=== PATIENT | male | born 1965 | race American Indian/Alaskan Native ===

== ENCOUNTER 2016-09-27 14:58 | Inpatient (IN) | payer MEDICARE ==
[2016-09-27 15:21] VITALS: BMI 31.2
[2016-09-27 16:31] LABS: BASO # 0.1 K/uL (0.0-0.2); BASO % 0.9 % (0.0-2.0); CHLORIDE 94 mmol/L (98-107); EOS # 0.1 K/uL (0.0-0.7); EOS % 0.5 % (0.0-4.0); MEAN CELL VOLUME 75.7 fL (80.0-94.0); MEAN CORPUSCULAR HEMOGLOBIN 24.4 pg (27.0-31.0); MEAN CORPUSCULAR HGB CONC 32.2 g/dL (33.0-37.0); MEAN PLATELET VOLUME 8.9 fL (7.2-11.7); MONO # 0.8 K/uL (0.0-0.8); MONO % 7.3 % (0.0-10.0); POTASSIUM 4.4 mmol/L (3.6-5.2); SODIUM 135 mmol/L (132-148); WHITE BLOOD COUNT 10.5 K/uL (4.8-10.8)
[2016-09-27 16:33] LABS: GFR AFRICAN-AMERICAN > 60
[2016-09-27 16:34] LABS: ALB/GLOB RATIO 1.1 (1.0-2.1); ALKALINE PHOSPHATASE 52 U/L (38-126); ALT/SGPT 15 U/L (21-72); AST/SGOT 12 U/L (17-59); BILIRUBIN,TOTAL 0.3 mg/dL (0.2-1.3); BLOOD UREA NITROGEN 19 mg/dL (9-20); CARBON DIOXIDE 27 mmol/L (22-30); GLUCOSE,RANDOM 396 mg/dL (75-110); TOTAL PROTEIN 7.6 g/dL (6.3-8.3)
[2016-09-27 16:35] LABS: CALCIUM 8.8 mg/dl (8.6-10.4)
--- NOTE | 2016-09-27 16:36 | C.PDOC ---
History Of Present Illness 51 y/o male, whose past medical history includes diabetes, presents to the emergency department complaining of non-healing ulcer to the bottom of the left great toe "for months." Patient reports seen by his PMD and sent to the emergency department for evaluation and possible admission for amputation. He states that over the last few days his foot has become hot and more painful. Patient reports past history of similar to second digit, same foot, with amputation. Denies fever, chills, shortness of breath, dizziness, or other complaints. Time Seen by Provider: 09/27/16 15:51 Chief Complaint (Nursing): Lower Extremity Problem/Injury History Per: Patient History/Exam Limitations: no limitations Onset/Duration Of Symptoms: Days, Persistent Current Symptoms Are (Timing): Still Present Recent travel outside of the [place]: No Past Medical History Reviewed: Historical Data, Nursing Documentation, Vital Signs Vital Signs: Last Vital Signs Temp 98.4 F 09/27/16 15:28 Pulse 78 09/27/16 15:28 Resp 18 09/27/16 15:28 BP 162/90 H 09/27/16 15:28 Pulse Ox 97 09/27/16 17:35 - Medical History PMH: Diabetes, HTN, Hypercholesterolemia Other Surgeries: BACK SURGERY; AMPUTATION LEFT 2ND TOE - [facility] Procedures DETACHMENT AT LEFT 2ND TOE, COMPLETE, OPEN APPROACH (06/28/15) EXTRACTION OF LEFT FOOT SKIN, EXTERNAL APPROACH (06/28/15) INSERTION OF INFUSION DEV INTO R BASILIC VEIN, PERC APPROACH (06/28/15) ULTRASONOGRAPHY OF RIGHT UPPER EXTREMITY VEINS, GUIDANCE (06/28/15) Family History: States: No Known Family Hx - Social History Hx Tobacco Use: No Hx Alcohol Use: Yes Hx Substance Use: No - Immunization History Hx Tetanus Toxoid Vaccination: Yes Hx Influenza Vaccination: No Hx Pneumococcal Vaccination: No Review Of Systems Except As Marked, All Systems Reviewed And Found Negative. Constitutional: Negative for: Fever, Chills Respiratory: Negative for: Shortness of Breath Musculoskeletal: Positive for: Foot Pain (left) Skin: Positive for: Other (non-healing ulcer to the bottom of the left great toe ) Neurological: Negative for: Dizziness Physical Exam - Physical Exam Appears: Non-toxic, No Acute Distress Skin: Normal Color, Warm, Dry Head: Atraumatic, Normacephalic Neck: Normal, Normal ROM Chest: Symmetrical Cardiovascular: Rhythm Regular Respiratory: Normal Breath Sounds, No Rales, No Rhonchi, No Wheezing Extremity: Normal ROM, Other (left great toe, 2 cm ulcer to solar surface of the distal phalanx with swelling; tenderness, warmth, and swelling to the dorsum of the left foot) Pulses: Left Dorsalis Pedis: Normal, Right Dorsalis Pedis: Normal Neurological/Psych: Oriented x3, Normal Speech, Normal Cognition, Normal Sensation ED Course And Treatment - Laboratory Results Result Diagrams: 09/27/16 16:20 09/27/16 16:20 O2 Sat by Pulse Oximetry: 97 (ra) Pulse Ox Interpretation: Normal - Other Rad Chest X-Ray X-Ray: Viewed By Me, Read By Radiologist Interpretation: Accession No. : [id number]. Patient Name / ID : BREE CHOI / [id number]. Exam Date : 09/27/2016 16:51:04 ( Approved ). Study Comment : Sex / Age : M / 51Y. Creator : FLACA BETANCOURT MD. Dictator : FLACA BETANCOURT MD. Concrete Building Assembler : Rn Vascular : FLACA BETANCOURT MD. Approver2 : Report Date : 09/27/2016 17:28:57. My Comment : . PROCEDURE: CHEST RADIOGRAPH, 1 VIEW. HISTORY: foot infection. COMPARISON: None available. FINDINGS: LUNGS: The lungs are clear. PLEURA: No pneumothorax or pleural fluid seen. CARDIOVASCULAR: Normal. OSSEOUS STRUCTURES: No significant abnormalities. VISUALIZED UPPER ABDOMEN: Normal. OTHER FINDINGS: None. IMPRESSION: No active pulmonary disease. Foot xray X-Ray: Viewed By Me, Read By Radiologist Interpretation: Accession No. : [id number]. Patient Name / ID : BREE CHOI / [id number]. Exam Date : 09/27/2016 16:53:51 ( Approved ). Study Comment : Sex / Age : M / 51Y. Creator : FLACA BETANCOURT MD. Dictator : FLACA BETANCOURT MD. Concrete Building Assembler : Rn Vascular : FLACA BETANCOURT MD. Approver2 : Report Date : 09/27/2016 17:35:22. My Comment : . PROCEDURE: Radiographs of the left great toe. TECHNIQUE:: AP radiograph of the left foot, with oblique and lateral view of the left great toe. COMPARISON: 06/28/2015. HISTORY:: Foot infection. FINDINGS: BONES: There is surgical amputation of the distal 2nd metatarsal and 2nd toe. There is no acute fracture or bone destruction. Bone alignment and mineralization are normal. JOINTS: The joint spaces are preserved. SOFT TISSUES: There is diffuse soft tissue swelling in the great toe and the plantar ulcer. OTHER FINDINGS: None. IMPRESSION: Cellulitis in the great toe and plantar ulceration. No radiographic evidence for osteomyelitis. Progress Note: EKG, CXR, X-Ray of the Left Great Toe, and Blood Work were ordered. Patient was treated with Vancomycin IV. Random Glucose 396 - Patient treated with Insulin. Patient accepted for admission under the care of Dr. Juma Bowen. Disposition - Disposition Disposition: HOSPITALIZED Disposition Time: 17:13 Condition: FAIR - Clinical Impression Clinical Impression: Diabetic foot ulcer - PA / LITIGATION SECRETARY / Resident Statement MD/DO has reviewed & agrees with the documentation as recorded. - Scribe Statement The provider has reviewed the documentation as recorded by the Scribe (Diana Reid) All medical record entries made by the Scribe were at my direction and personally dictated by me. I have reviewed the chart and agree that the record accurately reflects my personal performance of the history, physical exam, medical decision making, and the department course for this patient. I have also personally directed, reviewed, and agree with the discharge instructions and disposition. Decision To Admit - Pt Status Changed To: Hospital Disposition Of: Inpatient - Admit Certification Admit to Inpatient:: After my assessment, the patient will require hospitalization for at least two midnights. This is because of the severity of symptoms shown, intensity of services needed, and/or the medical risk in this patient being treated as an outpatient. - InPatient: Physician Admission Certification: I certify that this patient requires 2 or more midnights of care for the following reason:: Patient will need IV antibiotics and possible surgical treatment that will take more than 2 days of hospitalization. - . Bed Request Type: Regular Patient Diagnosis: Diabetic foot ulcer
[2016-09-27 16:46] LABS: INR 1.1
[2016-09-27] MEDS ORDERED: (Novolin R) Insulin Human Regular 100 units/ml vial SC ONE (16:49)
[2016-09-27] MEDS ORDERED: (Novolin R) Insulin Human Regular 100 units/ml vial ONE (17:27)
--- NOTE | 2016-09-27 17:30 | RAD ---
PROCEDURE: CHEST RADIOGRAPH, 1 VIEW HISTORY: foot infection COMPARISON: None available. FINDINGS: LUNGS: The lungs are clear. PLEURA: No pneumothorax or pleural fluid seen. CARDIOVASCULAR: Normal. OSSEOUS STRUCTURES: No significant abnormalities. VISUALIZED UPPER ABDOMEN: Normal. OTHER FINDINGS: None. IMPRESSION: No active pulmonary disease.
--- NOTE | 2016-09-27 17:37 | RAD ---
PROCEDURE: Radiographs of the left great toe. TECHNIQUE:: AP radiograph of the left foot, with oblique and lateral view of the left great toe. COMPARISON: 06/28/2015 HISTORY:: Foot infection FINDINGS: BONES: There is surgical amputation of the distal 2nd metatarsal and 2nd toe. There is no acute fracture or bone destruction. Bone alignment and mineralization are normal. JOINTS: The joint spaces are preserved. SOFT TISSUES: There is diffuse soft tissue swelling in the great toe and the plantar ulcer. OTHER FINDINGS: None. IMPRESSION: Cellulitis in the great toe and plantar ulceration. No radiographic evidence for osteomyelitis.
[2016-09-27 19:07] VITALS: RESP 20
[2016-09-27] MEDS ORDERED: Influenza Virus Vaccine 45 mcg/0.5 ml Syr IM ONE (21:00)
[2016-09-27] MEDS ORDERED: Oxycodone/Acetaminophen 5/325 mg Tab PO PRN (21:20)
[2016-09-27] MEDS: (Lantus) Insulin Glargine, Recombinant SC SCH (22:18)
[2016-09-27] MEDS: Enoxaparin 40 mg Syringe SC SCH (22:20)
[2016-09-27] MEDS ORDERED: (Novolog) Insulin Aspart, Recombinant 100 u/ml 10 ml vial SC ONE (22:29)
[2016-09-27] MEDS ORDERED: Oxycodone/Acetaminophen 5/325 mg Tab PO ONE (22:30)
[2016-09-28] MEDS: Oxycodone/Acetaminophen 5/325 mg Tab PO PRN ×5 (02:30→22:07)
--- NOTE | 2016-09-28 07:20 | CP.PCM.PN ---
Subjective - Date & Time of Evaluation Date of Evaluation: 09/28/16 Time of Evaluation: 10:00 - Subjective Subjective: Dr. Bowen service: Patient is seen and examined in room. He report noticing a hole in his foot that never healed has he expected it to. 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 Objective - Vital Signs/Intake and Output Vital Signs (last 24 hours): Temp Pulse Resp BP Pulse Ox 98.7 F 80 20 161/88 H 96 09/27/16 23:20 09/27/16 23:20 09/27/16 23:20 09/27/16 23:20 09/27/16 23:20 Intake and Output: 09/28/16 09/28/16 06:59 18:59 Intake Total 360 Output Total 600 Balance -240 - Medications Medications: Current Medications Amlodipine Besylate (Norvasc) 10 mg PO DAILY [facility] Aspirin (Ecotrin) 81 mg PO DAILY [facility] Last Admin: 09/27/16 22:14 Dose: 81 mg Clopidogrel Bisulfate (Plavix) 75 mg PO DAILY [facility] Last Admin: 09/27/16 22:14 Dose: 75 mg Enoxaparin Sodium (Lovenox) 40 mg SC DAILY [facility] Last Admin: 09/27/16 22:20 Dose: 40 mg Famotidine (Pepcid) 20 mg PO HS [facility] Last Admin: 09/27/16 22:14 Dose: 20 mg Furosemide (Lasix) 20 mg PO DAILY [facility] Insulin Glargine (Lantus) 20 unit SC HS [facility] Last Admin: 09/27/16 22:18 Dose: 20 units Insulin Human Isoph/Insulin Regular (Novolin 70/30 (70/30 Units/Ml) 10 Ml) 60 units SC ACBD [facility] Metoprolol Tartrate (Lopressor) 25 mg PO BID [facility] Last Admin: 09/27/16 22:14 Dose: 25 mg Oxycodone/Acetaminophen (Percocet 5/325 Mg Tab) 2 tab PO Q4H PRN PRN Reason: Pain, moderate (4-7) Stop: 10/01/16 02:01 Last Admin: 09/28/16 02:30 Dose: 2 tab Pneumococcal Polyvalent Vaccine (Pneumovax 23 Vaccine) 0.5 ml IM .ONCE ONE Stop: 09/29/16 10:01 Rosuvastatin Calcium (Crestor) 10 mg PO HS [facility] Last Admin: 09/27/16 22:14 Dose: 10 mg - Labs Labs: PT 12.0 SECONDS (9.7-12.2) 09/27/16 16:20 INR 1.1 09/27/16 16:20 APTT 35 SECONDS (21-34) H 09/27/16 16:20 - Constitutional Appears: Non-toxic, No Acute Distress - Head Exam Head Exam: NORMOCEPHALIC - Eye Exam Eye Exam: Normal appearance Pupil Exam: NORMAL ACCOMODATION - Respiratory Exam Respiratory Exam: Clear to Ausculation Bilateral. absent: Rhonchi, Wheezes - Cardiovascular Exam Cardiovascular Exam: REGULAR RHYTHM, RRR, +S1, +S2. absent: Gallop, Rubs - GI/Abdominal Exam GI & Abdominal Exam: Soft, Normal Bowel Sounds. absent: Tenderness - Extremities Exam Extremities Exam: Normal Inspection - Back Exam Back Exam: NORMAL INSPECTION - Psychiatric Exam Psychiatric exam: Normal Affect, Normal Mood - Skin Skin Exam: Normal Color Assessment and Plan (1) Osteomyelitis due to type 2 diabetes mellitus Assessment & Plan: IV Vanc and Zosyn Wound culture follow up [place] consulted Podiatry consulted. Status: Acute (2) CAD (coronary artery disease) Assessment & Plan: Aspirn and Crestor and Plavix Status: Chronic (3) DM2 (diabetes mellitus, type 2) Assessment & Plan: continue home insulin accu checks and sliding scale insulin Status: Chronic (4) HTN (hypertension) Assessment & Plan: Lopressor Norvasc 10mg Status: Chronic (5) Prophylactic measure Assessment & Plan: Lovenox and pepcid Status: Acute
[2016-09-28] MEDS: (Novolin 70/30) NPH/Regular 70/30 Units/ml 10 ml vial SC SCH ×2 (07:55→17:21)
[2016-09-28] MEDS: Enoxaparin 40 mg Syringe SC SCH (09:35)
[2016-09-28] MEDS ORDERED: Influenza Virus Vaccine 45 mcg/0.5 ml Syr IM ONE (10:00)
--- NOTE | 2016-09-28 11:04 | CON ---
DATE: 09/28/2016 A 51-year-old black male known to me from prior amputation surgery about the left 2nd ray, in which ji kilpatrick did very well, seen at bedside, alert, orientated x 3. At this time, we see a malodorous ulcer on the plantar aspect of the left hallux. The infectious process has resonated to the mid-foot and to t he lower extremity; malodorous, nonpurulent. At this time, the area was debrided, culture taken, and wound cleansed at bedside with peroxide. Annemarie iting MR. Plain films negative for . Also need to check sed rate concerning potential osteomye litis. The patient will be on IV antibiotics, and MR pending. Local wound care q. 8 hours, peroxide irrigation, dry sterile dressing to left hallux. Will follow up. Potential amputation of the left hallux could be considered in the future. Kade Lockhart DPM cc: [id number] TT: 09/28/2016 11:03:58 Confirmation # [id number] Dictation # [id number] marah
[2016-09-28] MEDS: Piperacill/Tazo 3.375gm in Dex 50 ML IVPB SCH ×2 (12:25→18:35)
[2016-09-28] MEDS: Vancomycin 1 gm/NS 200 ml 200 ML IVPB SCH ×2 (12:25→23:55)
--- NOTE | 2016-09-28 14:15 | MRI ---
PROCEDURE: MRI Left Foot HISTORY: Pain. COMPARISON: None available. TECHNIQUE: Multiecho multiplanar sequences were performed through the left foot without the use of intravenous contrast. FINDINGS: BONES: There is severe marrow signal abnormality in the 1st metatarsal head. Patient status post resection of the 2nd distal metatarsal, as well as the 2nd phalangeal bones. There is marrow edema in the medial cuneiform. MUSCLES: Normal. SOFT TISSUES: Severe dorsal soft tissue swelling is observed LISFRANC LIGAMENT: Normal. PLANTAR PLATE: Normal. EXTENSOR TENDONS: Normal. FLEXOR TENDONS: Normal. OTHER FINDINGS: None. IMPRESSION: Findings suspicious for osteomyelitis of the 1st distal phalanx. Diffuse severe soft tissue swelling. Marrow edema in the medial cuneiform, nonspecific Status post resection of the 2nd distal metatarsal and 2nd phalanges.
--- NOTE | 2016-09-28 15:34 | CP.PCM.CON ---
History of Present Illness - History of Present Illness History of Present Illness: PODIATRY CONSULT NOTE Past Patient History - Past Medical History & Family History Past Medical History?: Yes - Past Social History Smoking Status: Never Smoked - CARDIAC Hx Hypercholesterolemia: Yes Hx Hypertension: Yes - ENDOCRINE/METABOLIC Hx Endocrine Disorders: Yes Hx Diabetes Mellitus Type 1: Yes - MUSCULOSKELETAL/RHEUMATOLOGICAL Hx Falls: No - PSYCHIATRIC Hx Substance Use: No - SURGICAL HISTORY Hx Surgeries: Yes (SEE COMMENT) Hx Orthopedic Surgery: Yes (AMPUTATION) Other/Comment: BACK SURGERY; AMPUTATION LEFT 2ND TOE - ANESTHESIA Hx Anesthesia: Yes Hx Anesthesia Reactions: No Hx Malignant Hyperthermia: No Has any member of the family had a problem w/ anesthesia?: No Meds Allergies/Adverse Reactions: Allergies Allergy/AdvReac Type Severity Reaction Status Date / Time No Known Allergies Allergy Verified 09/27/16 15:21 - Medications Medications: Current Medications Amlodipine Besylate (Norvasc) 10 mg PO DAILY [facility] Last Admin: 09/28/16 09:37 Dose: 10 mg Aspirin (Ecotrin) 81 mg PO DAILY [facility] Last Admin: 09/28/16 09:36 Dose: 81 mg Clopidogrel Bisulfate (Plavix) 75 mg PO DAILY [facility] Last Admin: 09/28/16 09:37 Dose: 75 mg Enoxaparin Sodium (Lovenox) 40 mg SC DAILY [facility] Last Admin: 09/28/16 09:35 Dose: 40 mg Famotidine (Pepcid) 20 mg PO HS [facility] Last Admin: 09/27/16 22:14 Dose: 20 mg Furosemide (Lasix) 20 mg PO DAILY [facility] Last Admin: 09/28/16 09:37 Dose: 20 mg Piperacillin Sod/Tazobactam Sod (Zosyn 3.375 Gm Iv Premix) 50 mls @ 100 mls/hr IVPB Q6H [facility] Last Admin: 09/28/16 12:25 Dose: 100 mls/hr Vancomycin/Sodium Chloride (Vancocin) 200 mls @ 133 mls/hr IVPB Q12H [facility] Stop: 10/03/16 11:31 Last Admin: 09/28/16 12:25 Dose: 133 mls/hr Insulin Glargine (Lantus) 20 unit SC [facility] Last Admin: 09/27/16 22:18 Dose: 20 units Insulin Human Isoph/Insulin Regular (Novolin 70/30 (70/30 Units/Ml) 10 Ml) 60 units SC ACBD [facility] Last Admin: 09/28/16 07:55 Dose: 60 units Metoprolol Tartrate (Lopressor) 25 mg PO BID [facility] Last Admin: 09/28/16 09:36 Dose: 25 mg Oxycodone/Acetaminophen (Percocet 5/325 Mg Tab) 2 tab PO Q4H PRN PRN Reason: Pain, moderate (4-7) Stop: 10/01/16 02:01 Last Admin: 09/28/16 14:28 Dose: 2 tab Pneumococcal Polyvalent Vaccine (Pneumovax 23 Vaccine) 0.5 ml IM .ONCE ONE Stop: 09/29/16 10:01 Rosuvastatin Calcium (Crestor) 10 mg PO HS [facility] Last Admin: 09/27/16 22:14 Dose: 10 mg Results - Vital Signs Recent Vital Signs: Last Vital Signs Temp 99.0 F 09/28/16 07:45 Pulse 71 09/28/16 07:45 Resp 20 09/28/16 07:45 BP 174/90 H 09/28/16 09:37 Pulse Ox 97 09/28/16 07:45 - Labs Result Diagrams: 09/27/16 16:20 09/27/16 16:20 Labs: Laboratory Results - last 24 hr 09/27/16 09/28/16 09/28/16 21:03 02:08 07:17 ESR POC Glucose (mg/dL) 412 H* 187 H 254 H C-React Prot High Sens 09/28/16 09/28/16 12:30 13:56 ESR 72 H POC Glucose (mg/dL) 313 H C-React Prot High Sens > 15.00 H Assessment & Plan - Date & Time Date: 09/28/16 Time: 15:34
--- NOTE | 2016-09-28 19:20 | CP.PCM.CON ---
History of Present Illness - History of Present Illness History of Present Illness: 51 y/o male, whose past medical history includes diabetes, presents to the emergency department complaining of non-healing ulcer to the bottom of the left great toe "for months." Patient reports seen by his PMD and sent to the emergency department for evaluation and possible admission for amputation. He states that over the last few days his foot has become hot and more painful. Patient reports past history of similar to second digit, same foot, with amputation. Denies fever, chills, ID CONSULT REQUESTED FOR ANTIBIOTIC MANAGEMENT MRI + OM Vascular studies ordered IV ANTIBIOTICS ORDERED - Medical History PMH: Diabetes, HTN, Hypercholesterolemia Other Surgeries: BACK SURGERY; AMPUTATION LEFT 2ND TOE Review of Systems - Constitutional Constitutional: absent: As Per HPI, Anorexia, Chills, Daytime Sleepiness, Excessive Sweating, Fatigue, Fever, Frequent Falls, Headache, Increased Appetite , Lethargy, Malaise, Night Sweats, Snoring, Sleep Apnea, Weight Gain, Weight Loss, Weakness, Other - EENT Eyes: absent: As Per HPI, Blind Spots, Blurred Vision, Change in Vision, Decreased Night Vision, Diplopia, Discharge, Dry Eye, Exophthalmos, Floaters, Irritation, Itchy Eyes, Loss of Peripheral Vision, Pain, Photophobia, Requires Corrective Lenses, Sees Flashes, Spots in Vision, Tunnel Vision, Other Visual Disturbances, Loss of Vision, Other Ears: absent: As Per HPI, Decreased Hearing, Ear Discharge, Ear Pain, Tinnitus, Abnormal Hearing, Disequilibrium, Dizziness, Other Nose/Mouth/Throat: absent: As Per HPI, Epistaxis, Nasal Congestion, Nasal Discharge, Nasal Obstruction, Nasal Trauma, Nose Pain, Post Nasal Drip, Sinus Pain, Sinus Pressure, Bleeding Gums, Change in Voice, Dental Pain, Dry Mouth, Dysphagia, Halitosis, Hoarsness, Lip Swelling, Mouth Lesions, Mouth Pain, Odynophagia, Sore Throat, Throat Swelling, Tongue Swelling, Facial Pain, Neck Pain, Neck Mass, Other - Cardiovascular Cardiovascular: absent: As Per HPI, Acrocyanosis, Chest Pain, Chest Pain at Rest , Chest Pain with Activity, Claudication, Diaphoresis, Dyspnea, Dyspnea on Exertion, Edema, Irregular Heart Rhythm, Pain Radiating to Arm/Neck/Jaw, Leg Edema, Leg Ulcers, Lightheadedness, Orthopnea, Palpitations, Paroxysmal Nocturnal Dyspnea, Pedal Edema, Radiating Pain, Rapid Heart Rate, Slow Heart Rate, Syncope, Other - Respiratory Respiratory: absent: As Per HPI, Cough, Dyspnea, Hemoptysis, Dyspnea on Exertion , Wheezing, Snoring, Stridor, Pain on Inspiration, Chest Congestion, Excessive Mucous Production, Change in Mucous Color, Pain with Coughing, Other - Gastrointestinal Gastrointestinal: absent: As Per HPI, Abdominal Pain, Belching, Bloating, Change in Bowel Habits, Change in Stool Character, Coffee Ground Emesis, Constipation, Cramping, Diarrhea, Dyspepsia, Dysphagia, Early Satiety, Excessive Flatus, Fecal Incontinence, Heartburn, Hematemesis, Hematochezia, Loose Stools, Melena, Nausea, Odynophagia, Temesmus, Vomiting, Other - Genitourinary Genitourinary: absent: As Per HPI, Change in Urinary Stream, Difficulty Urinating, Dysuria, Flank Pain, Hematuria, Pyuria, Nocturia, Urinary Incontinence, Urinary Frequency, Urinary Hesitance, Urinary Urgency, Voiding Freq/Small Amts, Freq UTI, Hx Renal/Bladder Calculi, Hx /Renal Surgery, Bladder Distension, Other - Musculoskeletal Musculoskeletal: As Per HPI - Integumentary Integumentary: As Per HPI, Skin Pain, Wounds - Neurological Neurological: As Per HPI, Tingling - Psychiatric Psychiatric: absent: As Per HPI, Abnormal Sleep Pattern, Anhedonia, Anxiety, Auditory Hallucinations, Behavioral Changes, Change in Appetite, Change in Libido, Confusion, Depression, Difficulty Concentrating, Hallucinations, Homicidal Ideation, Hopelessness, Irritability, Memory Loss, Mood Swings, Panic Attacks, Paranoia, Suicidal Ideation, Visual Hallucinations, Tactile Hallucinations, Other - Endocrine Endocrine: absent: As Per HPI, Change in Body Appearance, Change in Libido, Cold Intolorance, Deepening of Voice, Excessive Sweating, Fatigue, Flushing, Heat Intolorance, Increase in Ring/Shoe/Hat Size, Palpitations, Polydipsia, Polyphagia, Polyuria, Other - Hematologic/Lymphatic Hematologic: absent: As Per HPI, Easy Bleeding, Easy Bruising, Lymphadenopathy, Other Past Patient History - Past Medical History & Family History Past Medical History?: Yes - Past Social History Smoking Status: Never Smoked - CARDIAC Hx Hypercholesterolemia: Yes Hx Hypertension: Yes - ENDOCRINE/METABOLIC Hx Endocrine Disorders: Yes Hx Diabetes Mellitus Type 1: Yes - MUSCULOSKELETAL/RHEUMATOLOGICAL Hx Falls: No - PSYCHIATRIC Hx Substance Use: No - SURGICAL HISTORY Hx Surgeries: Yes (SEE COMMENT) Hx Orthopedic Surgery: Yes (AMPUTATION) Other/Comment: BACK SURGERY; AMPUTATION LEFT 2ND TOE - ANESTHESIA Hx Anesthesia: Yes Hx Anesthesia Reactions: No Hx Malignant Hyperthermia: No Has any member of the family had a problem w/ anesthesia?: No Meds Allergies/Adverse Reactions: Allergies Allergy/AdvReac Type Severity Reaction Status Date / Time No Known Allergies Allergy Verified 09/27/16 15:21 - Medications Medications: Current Medications Amlodipine Besylate (Norvasc) 10 mg PO DAILY [facility] Last Admin: 09/28/16 09:37 Dose: 10 mg Aspirin (Ecotrin) 81 mg PO DAILY [facility] Last Admin: 09/28/16 09:36 Dose: 81 mg Clopidogrel Bisulfate (Plavix) 75 mg PO DAILY [facility] Last Admin: 09/28/16 09:37 Dose: 75 mg Enoxaparin Sodium (Lovenox) 40 mg SC DAILY [facility] Last Admin: 09/28/16 09:35 Dose: 40 mg Famotidine (Pepcid) 20 mg PO HS [facility] Last Admin: 09/27/16 22:14 Dose: 20 mg Furosemide (Lasix) 20 mg PO DAILY [facility] Last Admin: 09/28/16 09:37 Dose: 20 mg Piperacillin Sod/Tazobactam Sod (Zosyn 3.375 Gm Iv Premix) 50 mls @ 100 mls/hr IVPB Q6H [facility] Last Admin: 09/28/16 18:35 Dose: 100 mls/hr Vancomycin/Sodium Chloride (Vancocin) 200 mls @ 133 mls/hr IVPB Q12H [facility] Stop: 10/03/16 11:31 Last Admin: 09/28/16 12:25 Dose: 133 mls/hr Insulin Glargine (Lantus) 20 unit SC HS [facility] Last Admin: 09/27/16 22:18 Dose: 20 units Insulin Human Isoph/Insulin Regular (Novolin 70/30 (70/30 Units/Ml) 10 Ml) 60 units SC ACBD [facility] Last Admin: 09/28/16 17:21 Dose: 60 units Metoprolol Tartrate (Lopressor) 25 mg PO BID [facility] Last Admin: 09/28/16 17:21 Dose: 25 mg Oxycodone/Acetaminophen (Percocet 5/325 Mg Tab) 2 tab PO Q4H PRN PRN Reason: Pain, moderate (4-7) Stop: 10/01/16 02:01 Last Admin: 09/28/16 17:28 Dose: 2 tab Pneumococcal Polyvalent Vaccine (Pneumovax 23 Vaccine) 0.5 ml IM .ONCE ONE Stop: 09/29/16 10:01 Rosuvastatin Calcium (Crestor) 10 mg PO HS [facility] Last Admin: 09/27/16 22:14 Dose: 10 mg Physical Exam - Constitutional Appears: Non-toxic, Chronically Ill - Head Exam Head Exam: NORMOCEPHALIC - Eye Exam Eye Exam: absent: Scleral icterus - ENT Exam ENT Exam: Mucous Membranes Dry - Neck Exam Neck exam: Negative for: Lymphadenopathy - Respiratory Exam Respiratory Exam: Decreased Breath Sounds, Rhonchi - Cardiovascular Exam Cardiovascular Exam: REGULAR RHYTHM, +S1, +S2 - GI/Abdominal Exam GI & Abdominal Exam: Diminished Bowel Sounds, Soft. absent: Tenderness - Rectal Exam Rectal Exam: Deferred - Exam Exam: NORMAL INSPECTION - Extremities Exam Extremities exam: Positive for: pedal edema, tenderness, pedal pulses present. Negative for: calf tenderness - Back Exam Back exam: absent: CVA tenderness (L), CVA tenderness (R) - Neurological Exam Neurological exam: Alert, CN II-XII Intact, Oriented x3, Reflexes Normal - Psychiatric Exam Psychiatric exam: Normal Mood - Skin Skin Exam: Dry, Intact Results - Vital Signs Recent Vital Signs: Last Vital Signs Temp 98 F 09/28/16 15:00 Pulse 71 09/28/16 15:54 Resp 20 09/28/16 15:00 BP 146/78 09/28/16 15:00 Pulse Ox 97 09/28/16 15:00 - Labs Result Diagrams: 09/29/16 07:30 09/29/16 07:30 Labs: Laboratory Results - last 24 hr 09/27/16 09/28/16 09/28/16 21:03 02:08 07:17 ESR POC Glucose (mg/dL) 412 H* 187 H 254 H C-React Prot High Sens 09/28/16 09/28/16 09/28/16 12:30 13:56 16:35 ESR 72 H POC Glucose (mg/dL) 313 H 416 H* C-React Prot High Sens > 15.00 H Assessment & Plan (1) Osteomyelitis due to type 2 diabetes mellitus Status: Acute (2) CAD (coronary artery disease) Status: Chronic (3) DM2 (diabetes mellitus, type 2) Status: Chronic - Assessment and Plan (Free Text) Assessment: await mri/bone scan/ vascular eval
[2016-09-28] MEDS: (Lantus) Insulin Glargine, Recombinant SC SCH (22:08)
[2016-09-29] MEDS: Piperacill/Tazo 3.375gm in Dex 50 ML IVPB SCH ×4 (01:35→19:00)
[2016-09-29] MEDS: Oxycodone/Acetaminophen 5/325 mg Tab PO PRN ×6 (02:18→22:30)
--- NOTE | 2016-09-29 06:34 | CARD ---
APPROVED REPORT EKG Measurement Heart [id number] <Conclusion> Normal sinus rhythm Septal infarct, age undetermined Abnormal ECG
[2016-09-29 07:47] LABS: BASO % 0.4 % (0.0-2.0); EOS # 0.1 K/uL (0.0-0.7); EOS % 0.9 % (0.0-4.0); HEMATOCRIT 37.1 % (35.0-51.0); LYMPH # 1.8 K/uL (1.0-4.3); LYMPH % 18.1 % (20.0-40.0); MEAN CELL VOLUME 75.9 fL (80.0-94.0); MEAN CORPUSCULAR HEMOGLOBIN 24.4 pg (27.0-31.0); MEAN CORPUSCULAR HGB CONC 32.1 g/dL (33.0-37.0); MEAN PLATELET VOLUME 8.5 fL (7.2-11.7); MONO % 10.6 % (0.0-10.0); RED CELL DISTRIBUTION WIDTH 14.8 % (11.5-14.5); WHITE BLOOD COUNT 9.8 K/uL (4.8-10.8)
[2016-09-29 07:58] LABS: CHLORIDE 95 mmol/L (98-107)
[2016-09-29 07:59] LABS: POTASSIUM 3.5 mmol/L (3.6-5.2); SODIUM 137 mmol/L (132-148)
[2016-09-29 08:01] LABS: ALKALINE PHOSPHATASE 43 U/L (38-126); ALT/SGPT 12 U/L (21-72); AST/SGOT 15 U/L (17-59); BILIRUBIN,TOTAL 0.3 mg/dL (0.2-1.3); BLOOD UREA NITROGEN 11 mg/dL (9-20); CARBON DIOXIDE 28 mmol/L (22-30); GFR AFRICAN-AMERICAN > 60; GLUCOSE,RANDOM 147 mg/dL (75-110); TOTAL PROTEIN 6.6 g/dL (6.3-8.3)
[2016-09-29 08:02] LABS: CALCIUM 8.2 mg/dl (8.6-10.4); MAGNESIUM 1.8 mg/dL (1.6-2.3); PHOSPHOROUS 4.5 mg/dL (2.5-4.5)
[2016-09-29] MEDS: (Novolin 70/30) NPH/Regular 70/30 Units/ml 10 ml vial SC SCH ×2 (08:11→16:30)
[2016-09-29] MEDS: Enoxaparin 40 mg Syringe SC SCH (09:53)
[2016-09-29] MEDS ORDERED: Influenza Virus Vaccine 45 mcg/0.5 ml Syr IM ONE (10:00)
[2016-09-29] MEDS ORDERED: Pneumococcal 23-Valent Vaccine IM ONE (10:00)
[2016-09-29] MEDS ORDERED: Potassium Chloride 20 mEq ER Tab PO ONE (11:11)
[2016-09-29] MEDS: Vancomycin 1 gm/NS 200 ml 200 ML IVPB SCH ×2 (11:44→22:31)
--- NOTE | 2016-09-29 13:02 | CP.PCM.PN ---
Subjective - Date & Time of Evaluation Date of Evaluation: 09/29/16 Time of Evaluation: 12:00 - Subjective Subjective: 51 y/o male patient with PMHx of diabetes was seen at bedside for non-healing ulcer to the bottom of the left great toe which according to the patient has been there for over three months. Patient denies of any pain to the area. Patient is resting comfortably in bed, NAD and AAOx3. Patient denies pedal pain at this time. Denies N/V/F/C/SOB at this time. Dressing is clean dry and intact to left foot. Objective - Vital Signs/Intake and Output Vital Signs (last 24 hours): Temp Pulse Resp BP Pulse Ox 98.4 F 69 20 143/83 98 09/29/16 08:29 09/29/16 08:32 09/29/16 08:29 09/29/16 09:53 09/29/16 08:29 Intake and Output: 09/29/16 09/29/16 06:59 18:59 Intake Total 1130 Balance 1130 - Medications Medications: Current Medications Amlodipine Besylate (Norvasc) 10 mg PO DAILY [facility] Last Admin: 09/29/16 09:53 Dose: 10 mg Aspirin (Ecotrin) 81 mg PO DAILY [facility] Last Admin: 09/29/16 09:53 Dose: 81 mg Clopidogrel Bisulfate (Plavix) 75 mg PO DAILY [facility] Last Admin: 09/29/16 09:53 Dose: 75 mg Enoxaparin Sodium (Lovenox) 40 mg SC DAILY [facility] Last Admin: 09/29/16 09:53 Dose: 40 mg Famotidine (Pepcid) 20 mg PO HS [facility] Last Admin: 09/28/16 22:07 Dose: 20 mg Furosemide (Lasix) 20 mg PO DAILY [facility] Last Admin: 09/29/16 09:53 Dose: 20 mg Piperacillin Sod/Tazobactam Sod (Zosyn 3.375 Gm Iv Premix) 50 mls @ 100 mls/hr IVPB Q6H [facility] Last Admin: 09/29/16 12:41 Dose: 100 mls/hr Vancomycin/Sodium Chloride (Vancocin) 200 mls @ 133 mls/hr IVPB Q12H [facility] Stop: 10/03/16 11:31 Last Admin: 09/29/16 11:44 Dose: 133 mls/hr Insulin Glargine (Lantus) 20 unit SC HS [facility] Last Admin: 09/28/16 22:08 Dose: 20 units Insulin Human Isoph/Insulin Regular (Novolin 70/30 (70/30 Units/Ml) 10 Ml) 60 units SC ACBD [facility]PL[facility] Last Admin: 09/29/16 08:11 Dose: 60 units Metoprolol Tartrate (Lopressor) 25 mg PO BID [facility] Last Admin: 09/29/16 09:53 Dose: 25 mg Oxycodone/Acetaminophen (Percocet 5/325 Mg Tab) 2 tab PO Q4H PRN PRN Reason: Pain, moderate (4-7) Stop: 10/01/16 02:01 Last Admin: 09/29/16 10:19 Dose: 2 tab Rosuvastatin Calcium (Crestor) 10 mg PO [facility] Last Admin: 09/28/16 22:07 Dose: 10 mg - Labs Labs: 09/29/16 07:30 09/29/16 07:30 PT 12.0 SECONDS (9.7-12.2) 09/27/16 16:20 INR 1.1 09/27/16 16:20 APTT 35 SECONDS (21-34) H 09/27/16 16:20 - Constitutional Appears: Well, Non-toxic, No Acute Distress - Extremities Exam Additional comments: DERMATOLOGIC: Open wound noted to plantar aspect of Left hallux IPJ measuring 1cm x 1cm x 0.5cm with fibrotic base. Wound edges appear macerated with 0.3cm margin. No drainage is noted. Mild erythema is noted around the ulceration site. VASCULAR: DP/PT pulses 2/4, SHOP LEAD<3 seconds, mild improving edema of the left foot, left leg circumference has returned to normal size as compared with right leg. NEUROLOGIC: Protective sensation decreased, motor function intact ORTHOPEDIC: Left foot second ray amputation - Neurological Exam Neurological Exam: Alert, Awake, Oriented x3 - Psychiatric Exam Psychiatric exam: Normal Affect, Normal Mood - Skin Skin Exam: Normal Color, Warm Assessment and Plan - Assessment and Plan (Free Text) Assessment: 49 year old male with open ulceration to Left hallux plantar IPJ Plan: Patient evaluated and treated at bedside by podiatry All the questions and concerns were adressed discussed in deetail with Dr. Diamond MRI: Left distal and proximal hallux Osteomyelitis Patients left foot cleansed with sterile saline and peroxide and dressed with gauze, kerlix, ABD, and GILL. Podiatry will continue to follow while in house.
[2016-09-29] MEDS: (Lantus) Insulin Glargine, Recombinant SC SCH (21:58)
[2016-09-30] MEDS: Piperacill/Tazo 3.375gm in Dex 50 ML IVPB SCH ×4 (00:25→18:08)
[2016-09-30] MEDS: Oxycodone/Acetaminophen 5/325 mg Tab PO PRN ×5 (02:45→21:05)
[2016-09-30] MEDS: (Novolin 70/30) NPH/Regular 70/30 Units/ml 10 ml vial SC SCH ×2 (08:32→16:30)
[2016-09-30] MEDS: Enoxaparin 40 mg Syringe SC SCH (10:36)
--- NOTE | 2016-09-30 12:03 | CP.PCM.PN ---
Subjective - Date & Time of Evaluation Date of Evaluation: 09/30/16 Time of Evaluation: 11:35 - Subjective Subjective: 51 y/o male patient with PMHx of diabetes was seen at bedside for non-healing ulcer to the bottom of the left great toe which according to the patient has been there for over three months. Dressing is clean dry and intact to left foot. Patient is resting comfortably in bed, NAD and AAOx3. Patient denies of any pain to the area. Patient denies any other pedal pain at this time. Denies N /V/F/C/SOB at this time. Objective - Vital Signs/Intake and Output Vital Signs (last 24 hours): Temp Pulse Resp BP Pulse Ox 98.2 F 66 20 158/82 H 97 09/30/16 08:00 09/30/16 08:00 09/30/16 08:00 09/30/16 10:35 09/30/16 08:00 Intake and Output: 09/30/16 09/30/16 06:59 18:59 Intake Total 1000 Balance 1000 - Medications Medications: Current Medications Amlodipine Besylate (Norvasc) 10 mg PO DAILY [facility] Last Admin: 09/30/16 10:36 Dose: 10 mg Aspirin (Ecotrin) 81 mg PO DAILY [facility] Last Admin: 09/30/16 10:35 Dose: 81 mg Clopidogrel Bisulfate (Plavix) 75 mg PO DAILY [facility] Last Admin: 09/30/16 10:35 Dose: 75 mg Enoxaparin Sodium (Lovenox) 40 mg SC DAILY [facility] Last Admin: 09/30/16 10:36 Dose: 40 mg Famotidine (Pepcid) 20 mg PO HS [facility] Last Admin: 09/29/16 22:04 Dose: 20 mg Furosemide (Lasix) 20 mg PO DAILY [facility] Last Admin: 09/30/16 10:35 Dose: 20 mg Piperacillin Sod/Tazobactam Sod (Zosyn 3.375 Gm Iv Premix) 50 mls @ 100 mls/hr IVPB Q6H [facility] Last Admin: 09/30/16 06:30 Dose: 100 mls/hr Vancomycin/Sodium Chloride (Vancocin) 200 mls @ 133 mls/hr IVPB Q12H [facility] Stop: 10/03/16 11:31 Last Admin: 09/29/16 22:31 Dose: 133 mls/hr Insulin Glargine (Lantus) 20 unit SC [facility] Last Admin: 09/29/16 21:58 Dose: 20 units Insulin Human Isoph/Insulin Regular (Novolin 70/30 (70/30 Units/Ml) 10 Ml) 60 units SC ACBD [facility] Last Admin: 09/30/16 08:32 Dose: 60 units Metoprolol Tartrate (Lopressor) 25 mg PO BID [facility] Last Admin: 09/30/16 10:35 Dose: 25 mg Oxycodone/Acetaminophen (Percocet 5/325 Mg Tab) 2 tab PO Q4H PRN PRN Reason: Pain, moderate (4-7) Stop: 10/01/16 02:01 Last Admin: 09/30/16 11:07 Dose: 2 tab Rosuvastatin Calcium (Crestor) 10 mg PO [facility] Last Admin: 09/29/16 21:58 Dose: 10 mg - Labs Labs: 09/29/16 07:30 09/29/16 07:30 PT 12.0 SECONDS (9.7-12.2) 09/27/16 16:20 INR 1.1 09/27/16 16:20 APTT 35 SECONDS (21-34) H 09/27/16 16:20 - Constitutional Appears: Well, Non-toxic, No Acute Distress - Extremities Exam Additional comments: DERMATOLOGIC: Open wound noted to plantar aspect of Left hallux IPJ measuring 1cm x 1cm x 0.5cm with fibrotic base. Wound edges appear macerated with 0.3cm margin. No drainage is noted. Mild erythema is noted around the ulceration site. VASCULAR: DP/PT pulses 2/4, [employer]ENT<3 seconds, mild improving edema of the left foot, left leg circumference has returned to normal size as compared with right leg. NEUROLOGIC: Protective sensation decreased, motor function intact ORTHOPEDIC: Left foot second ray amputation - Neurological Exam Neurological Exam: Alert, Awake, Oriented x3 - Psychiatric Exam Psychiatric exam: Normal Affect, Normal Mood - Skin Skin Exam: Normal Color, Warm Assessment and Plan - Assessment and Plan (Free Text) Assessment: 49 year old male with open ulceration to Left hallux plantar IPJ Plan: Patient evaluated and treated at bedside this AM All the questions and concerns were adressed discussed in deetail with Dr. Diamond MRI: Left distal and proximal hallux Osteomyelitis Patients left foot cleansed with sterile saline and peroxide and dressed with gauze, kerlix, ABD, and GILL. Podiatry will continue to follow while in house.
[2016-09-30] MEDS: Vancomycin 1 gm/NS 200 ml 200 ML IVPB SCH (14:14)
--- NOTE | 2016-09-30 16:33 | CP.PCM.PN ---
Subjective - Date & Time of Evaluation Date of Evaluation: 09/30/16 Time of Evaluation: 08:00 - Subjective Subjective: 51 y/o male patient with PMHx of diabetes was seen at bedside for non-healing ulcer to the bottom of the left great toe which mri + OM Objective - Vital Signs/Intake and Output Vital Signs (last 24 hours): Temp Pulse Resp BP Pulse Ox 98.2 F 66 20 158/82 H 97 09/30/16 08:00 09/30/16 08:00 09/30/16 08:00 09/30/16 10:35 09/30/16 08:00 Intake and Output: 09/30/16 09/30/16 06:59 18:59 Intake Total 1000 Balance 1000 - Medications Medications: Current Medications Amlodipine Besylate (Norvasc) 10 mg PO DAILY [facility] Last Admin: 09/30/16 10:36 Dose: 10 mg Aspirin (Ecotrin) 81 mg PO DAILY [facility] Last Admin: 09/30/16 10:35 Dose: 81 mg Clopidogrel Bisulfate (Plavix) 75 mg PO DAILY [facility] Last Admin: 09/30/16 10:35 Dose: 75 mg Enoxaparin Sodium (Lovenox) 40 mg SC DAILY [facility] Last Admin: 09/30/16 10:36 Dose: 40 mg Famotidine (Pepcid) 20 mg PO HS [facility] Last Admin: 09/29/16 22:04 Dose: 20 mg Furosemide (Lasix) 20 mg PO DAILY [facility] Last Admin: 09/30/16 10:35 Dose: 20 mg Piperacillin Sod/Tazobactam Sod (Zosyn 3.375 Gm Iv Premix) 50 mls @ 100 mls/hr IVPB Q6H [facility] Last Admin: 09/30/16 14:18 Dose: Not Given Vancomycin HCl 1,250 mg/ (Sodium Chloride) 250 mls @ 166.6 mls/hr IVPB Q12H [facility] Insulin Glargine (Lantus) 20 unit SC HS [facility] Last Admin: 09/29/16 21:58 Dose: 20 units Insulin Human Isoph/Insulin Regular (Novolin 70/30 (70/30 Units/Ml) 10 Ml) 60 units SC ACBD [facility] Last Admin: 09/30/16 08:32 Dose: 60 units Metoprolol Tartrate (Lopressor) 25 mg PO BID [facility] Last Admin: 09/30/16 10:35 Dose: 25 mg Oxycodone/Acetaminophen (Percocet 5/325 Mg Tab) 2 tab PO Q4H PRN PRN Reason: Pain, moderate (4-7) Stop: 10/01/16 02:01 Last Admin: 09/30/16 11:07 Dose: 2 tab Rosuvastatin Calcium (Crestor) 10 mg PO HS [facility] Last Admin: 09/29/16 21:58 Dose: 10 mg - Labs Labs: 09/29/16 07:30 09/29/16 07:30 PT 12.0 SECONDS (9.7-12.2) 09/27/16 16:20 INR 1.1 09/27/16 16:20 APTT 35 SECONDS (21-34) H 09/27/16 16:20 - Constitutional Appears: Non-toxic, Chronically Ill - Head Exam Head Exam: NORMOCEPHALIC - Eye Exam Eye Exam: PERRL. absent: Scleral icterus - ENT Exam ENT Exam: Mucous Membranes Dry - Neck Exam Neck Exam: absent: Lymphadenopathy, Thyromegaly - Respiratory Exam Respiratory Exam: Decreased Breath Sounds, Clear to Ausculation Bilateral - Cardiovascular Exam Cardiovascular Exam: REGULAR RHYTHM, +S1, +S2 - GI/Abdominal Exam GI & Abdominal Exam: Distended, Soft. absent: Tenderness - Rectal Exam Rectal Exam: Deferred - Exam Exam: NORMAL INSPECTION - Extremities Exam Extremities Exam: Pedal Edema. absent: Calf Tenderness - Back Exam Back Exam: absent: CVA tenderness (L), CVA tenderness (R) - Neurological Exam Neurological Exam: Alert, Awake, Oriented x3 Neuro motor strength exam: Left Upper Extremity: 4, Right Upper Extremity: 4, Left Lower Extremity: 4, Right Lower Extremity: 4 - Psychiatric Exam Psychiatric exam: Normal Mood - Skin Skin Exam: Dry Assessment and Plan (1) Osteomyelitis due to type 2 diabetes mellitus Status: Acute (2) CAD (coronary artery disease) Status: Chronic (3) DM2 (diabetes mellitus, type 2) Status: Chronic - Assessment and Plan (Free Text) Plan: cont iv rx / wound care
[2016-09-30] MEDS: (Lantus) Insulin Glargine, Recombinant SC SCH (22:05)
[2016-10-01] MEDS: Piperacill/Tazo 3.375gm in Dex 50 ML IVPB SCH ×4 (00:50→19:35)
[2016-10-01] MEDS: Oxycodone/Acetaminophen 5/325 mg Tab PO PRN ×4 (01:05→19:33)
[2016-10-01] MEDS: (Novolin 70/30) NPH/Regular 70/30 Units/ml 10 ml vial SC SCH ×2 (08:20→17:46)
--- NOTE | 2016-10-01 09:47 | HP ---
The patient is a 51-year-old male admitted to the hospital with chief complaint of generalized weakne ss, fatigue, tiredness, foot pain. The patient has a large ulcer ____ of the left foot. The patient came to see the central supply worker but needed admission to hospital for possible osteomyelitis. The patient h as history of ____ diabetes with diabetic foot in the past. Admission for similar complaint. Hyperte nsion, diabetes. The patient is an ex-smoker. PHYSICAL EXAMINATION: GENERAL: The patient is awake, alert and oriented. VITAL SIGNS: Temperature 98, pulse 90. HEENT: Within normal limits. NECK: Supple. CHEST: Symmetrical. HEART: Regular. ABDOMEN: Soft. EXTREMITIES: No edema. The patient ____ diabetic foot, has osteomyelitis. The patient placed on bedrest, supportive care, I V antibiotic. Juma Wilson MD cc: [id number] TT: 09/28/2016 11:30:36 mark
--- NOTE | 2016-10-01 10:19 | PN ---
DATE: 09/29/2016 The patient with foot pain. IV antibiotics. Supportive care. Follow up 11/14. Juma Wilson MD cc: [id number] TT: 09/29/2016 19:56:36 Confirmation # [id number] Dictation # [id number] 10/01/2016 09:18:33
[2016-10-01] MEDS: Enoxaparin 40 mg Syringe SC SCH (10:36)
--- NOTE | 2016-10-01 14:59 | CP.PCM.PN ---
Subjective - Date & Time of Evaluation Date of Evaluation: 10/01/16 Time of Evaluation: 09:30 - Subjective Subjective: Dr. Bowen service: Patient seen and examined in room. He is sleeping in bed. He says he has some pain but that has improved since admission. He currently denies fever, chills, nausea, vomiting, diarrhea. Objective - Vital Signs/Intake and Output Vital Signs (last 24 hours): Temp Pulse Resp BP Pulse Ox 98.8 F 70 20 167/90 H 98 10/01/16 08:00 10/01/16 08:00 10/01/16 08:00 10/01/16 10:36 10/01/16 08:00 Intake and Output: 10/01/16 10/01/16 06:59 18:59 Intake Total 700 930 Balance 700 930 - Medications Medications: Current Medications Amlodipine Besylate (Norvasc) 10 mg PO DAILY [facility] Last Admin: 10/01/16 10:35 Dose: 10 mg Aspirin (Ecotrin) 81 mg PO DAILY [facility] Last Admin: 10/01/16 10:35 Dose: 81 mg Clopidogrel Bisulfate (Plavix) 75 mg PO DAILY [facility] Last Admin: 10/01/16 10:35 Dose: 75 mg Enoxaparin Sodium (Lovenox) 40 mg SC DAILY [facility] Last Admin: 10/01/16 10:36 Dose: 40 mg Famotidine (Pepcid) 20 mg PO HS [facility] Last Admin: 09/30/16 22:07 Dose: 20 mg Furosemide (Lasix) 20 mg PO DAILY [facility] Last Admin: 10/01/16 10:36 Dose: 20 mg Piperacillin Sod/Tazobactam Sod (Zosyn 3.375 Gm Iv Premix) 50 mls @ 100 mls/hr IVPB Q6H [facility] Last Admin: 10/01/16 13:08 Dose: 100 mls/hr Vancomycin HCl 1,250 mg/ (Sodium Chloride) 250 mls @ 166.6 mls/hr IVPB Q12H [facility] Last Admin: 10/01/16 03:37 Dose: 166.6 mls/hr Insulin Glargine (Lantus) [address] [facility] Last Admin: 09/30/16 22:05 Dose: 20 units Insulin Human Isoph/Insulin Regular (Novolin 70/30 (70/30 Units/Ml) 10 Ml) 60 units SC ACBD [facility] Last Admin: 10/01/16 08:20 Dose: Not Given Metoprolol Tartrate (Lopressor) 25 mg PO BID [facility] Last Admin: 10/01/16 10:35 Dose: 25 mg Oxycodone/Acetaminophen (Percocet 5/325 Mg Tab) 2 tab PO Q4H PRN PRN Reason: Pain, severe (8-10) Stop: 10/04/16 09:45 Last Admin: 10/01/16 10:33 Dose: 2 tab Rosuvastatin Calcium (Crestor) [address] [facility] Last Admin: 09/30/16 22:04 Dose: 10 mg - Labs Labs: 09/29/16 07:30 09/29/16 07:30 PT 12.0 SECONDS (9.7-12.2) 09/27/16 16:20 INR 1.1 09/27/16 16:20 APTT 35 SECONDS (21-34) H 09/27/16 16:20 - Constitutional Appears: Non-toxic, No Acute Distress - Head Exam Head Exam: NORMAL INSPECTION - Eye Exam Eye Exam: Normal appearance - Respiratory Exam Respiratory Exam: Clear to Ausculation Bilateral. absent: Rhonchi, Wheezes - Cardiovascular Exam Cardiovascular Exam: REGULAR RHYTHM, RRR, +S1, +S2. absent: Gallop, Rubs - GI/Abdominal Exam GI & Abdominal Exam: Soft, Normal Bowel Sounds. absent: Tenderness - Back Exam Back Exam: NORMAL INSPECTION - Psychiatric Exam Psychiatric exam: Normal Affect, Normal Mood - Skin Skin Exam: Normal Color Assessment and Plan - Assessment and Plan (Free Text) Assessment: (1) Osteomyelitis due to type 2 diabetes mellitus Assessment & Plan: 10/01: MRI shows evidence osteomylitis, day 4 of IV Van/Zosyn, Podiary and Mangia consulted. Wound culture positive for staph, blood culture negative. IV Vanc and Zosyn Wound culture follow up Mangia consulted Podiatry consulted. Status: Acute (2) CAD (coronary artery disease) Assessment & Plan: Aspirn and Crestor and Plavix Status: Chronic (3) DM2 (diabetes mellitus, type 2) Assessment & Plan: continue home insulin accu checks and sliding scale insulin Status: Chronic (4) HTN (hypertension) Assessment & Plan: Lopressor Norvasc 10mg Status: Chronic (5) Prophylactic measure Assessment & Plan: Lovenox and pepcid Status: Acute
--- NOTE | 2016-10-01 19:47 | CP.PCM.PN ---
Subjective - Date & Time of Evaluation Date of Evaluation: 10/01/16 Time of Evaluation: 19:45 - Subjective Subjective: 51 y/o male patient with PMHx of diabetes was seen at bedside for non-healing ulcer to the bottom of the left great toe which according to the patient has been there for over three months. Patient is upin bed in good manners today. Denies any new complaints. Denies any f/cn/v/sob. Objective - Vital Signs/Intake and Output Vital Signs (last 24 hours): Temp Pulse Resp BP Pulse Ox 98.8 F 70 20 167/90 H 98 10/01/16 08:00 10/01/16 08:00 10/01/16 08:00 10/01/16 10:36 10/01/16 08:00 Intake and Output: 10/01/16 10/02/16 18:59 06:59 Intake Total 1530 Balance 1530 - Medications Medications: Current Medications Amlodipine Besylate (Norvasc) 10 mg PO DAILY [facility] Last Admin: 10/01/16 10:35 Dose: 10 mg Aspirin (Ecotrin) 81 mg PO DAILY [facility] Last Admin: 10/01/16 10:35 Dose: 81 mg Clopidogrel Bisulfate (Plavix) 75 mg PO DAILY [facility] Last Admin: 10/01/16 10:35 Dose: 75 mg Enoxaparin Sodium (Lovenox) 40 mg SC DAILY [facility] Last Admin: 10/01/16 10:36 Dose: 40 mg Famotidine (Pepcid) 20 mg PO HS [facility] Last Admin: 09/30/16 22:07 Dose: 20 mg Furosemide (Lasix) 20 mg PO DAILY [facility] Last Admin: 10/01/16 10:36 Dose: 20 mg Piperacillin Sod/Tazobactam Sod (Zosyn 3.375 Gm Iv Premix) 50 mls @ 100 mls/hr IVPB Q6H [facility] Last Admin: 10/01/16 19:35 Dose: 100 mls/hr Vancomycin HCl 1,250 mg/ (Sodium Chloride) 250 mls @ 166.6 mls/hr IVPB Q12H [facility] Last Admin: 10/01/16 17:51 Dose: 166.6 mls/hr Insulin Glargine (Lantus) 20 unit SC [facility] Last Admin: 09/30/16 22:05 Dose: 20 units Insulin Human Isoph/Insulin Regular (Novolin 70/30 (70/30 Units/Ml) 10 Ml) 60 units SC ACBD [facility] Last Admin: 10/01/16 17:46 Dose: 60 units Metoprolol Tartrate (Lopressor) 25 mg PO BID [facility] Last Admin: 10/01/16 17:46 Dose: 25 mg Oxycodone/Acetaminophen (Percocet 5/325 Mg Tab) 2 tab PO Q4H PRN PRN Reason: Pain, severe (8-10) Stop: 10/04/16 09:45 Last Admin: 10/01/16 19:33 Dose: 2 tab Rosuvastatin Calcium (Crestor) 10 mg PO HS [facility] Last Admin: 09/30/16 22:04 Dose: 10 mg - Labs Labs: 09/29/16 07:30 09/29/16 07:30 PT 12.0 SECONDS (9.7-12.2) 09/27/16 16:20 INR 1.1 09/27/16 16:20 APTT 35 SECONDS (21-34) H 09/27/16 16:20 - Constitutional Appears: Well, Non-toxic, No Acute Distress - Neurological Exam Neurological Exam: Alert, Awake, Oriented x3 - Psychiatric Exam Psychiatric exam: Normal Affect, Normal Mood - Skin Skin Exam: Normal Color, Warm - Additional Findings Additional findings: DERMATOLOGIC: Open wound noted to plantar aspect of Left hallux IPJ measuring 1cm x 1cm x 0.5cm with fibrotic base. Wound edges appear macerated with 0.3cm margin. No drainage is noted. Mild erythema is noted around the ulceration site. VASCULAR: DP/PT pulses 2/4, [employer] PROFESSOR<3 seconds, mild improving edema of the left foot, left leg circumference has returned to normal size as compared with right leg. NEUROLOGIC: Protective sensation decreased, motor function intact ORTHOPEDIC: Left foot second ray amputation Assessment and Plan - Assessment and Plan (Free Text) Assessment: 49 year old male with open ulceration to Left hallux plantar IPJ Plan: Patient evaluated and chart reviewed. Discussed with Dr. Hawley. PICC order has been placed; awaiting PICC placement. Stable wound, no surgery to be persued at this time. Once picc placed pateitn stable from pod standpoint. Will continue to follow while admitted.
[2016-10-01] MEDS: (Lantus) Insulin Glargine, Recombinant SC SCH (22:06)
[2016-10-02] MEDS: Piperacill/Tazo 3.375gm in Dex 50 ML IVPB SCH ×4 (00:26→13:22)
[2016-10-02 08:08] VITALS: TEMP 98.1
[2016-10-02] MEDS: (Novolin 70/30) NPH/Regular 70/30 Units/ml 10 ml vial SC SCH ×2 (08:41→17:53)
[2016-10-02] MEDS: Enoxaparin 40 mg Syringe SC SCH (10:11)
[2016-10-02] MEDS: Oxycodone/Acetaminophen 5/325 mg Tab PO PRN ×2 (10:18→14:03)
--- NOTE | 2016-10-02 10:29 | CP.PCM.PN ---
Subjective - Date & Time of Evaluation Date of Evaluation: 10/02/16 Time of Evaluation: 10:26 - Subjective Subjective: 51 y/o male patient with PMHx of diabetes was seen at bedside for non-healing ulcer to the bottom of the left great toe which according to the patient has been there for over three months. Patient was up walking on the floors at first presentation. States that he was told he is going home today after recieving PICC placement. Patient denies any pedal complaints at this time. Denies any f/c /n/v/sob. Objective - Vital Signs/Intake and Output Vital Signs (last 24 hours): Temp Pulse Resp BP Pulse Ox 98.1 F 71 20 175/88 H 97 10/02/16 08:00 10/02/16 08:00 10/02/16 08:00 10/02/16 10:13 10/02/16 08:00 - Medications Medications: Current Medications Amlodipine Besylate (Norvasc) 10 mg PO DAILY [facility] Last Admin: 10/02/16 10:11 Dose: 10 mg Aspirin (Ecotrin) 81 mg PO DAILY [facility] Last Admin: 10/02/16 10:13 Dose: 81 mg Clopidogrel Bisulfate (Plavix) 75 mg PO DAILY [facility] Last Admin: 10/02/16 10:11 Dose: 75 mg Enoxaparin Sodium (Lovenox) 40 mg SC DAILY [facility] Last Admin: 10/02/16 10:11 Dose: 40 mg Famotidine (Pepcid) 20 mg PO HS [facility] Last Admin: 10/01/16 22:07 Dose: 20 mg Furosemide (Lasix) 20 mg PO DAILY [facility] Last Admin: 10/02/16 10:13 Dose: 20 mg Piperacillin Sod/Tazobactam Sod (Zosyn 3.375 Gm Iv Premix) 50 mls @ 100 mls/hr IVPB Q6H [facility] Last Admin: 10/02/16 06:25 Dose: Not Given Vancomycin HCl 1,250 mg/ (Sodium Chloride) 250 mls @ 166.6 mls/hr IVPB Q12H [facility] Last Admin: 10/02/16 04:00 Dose: Not Given Insulin Glargine (Lantus) 20 unit SC [facility] Last Admin: 10/01/16 22:06 Dose: 20 units Insulin Human Isoph/Insulin Regular (Novolin 70/30 (70/30 Units/Ml) 10 Ml) 60 units SC ACBD [facility] Last Admin: 10/02/16 08:41 Dose: 60 units Metoprolol Tartrate (Lopressor) 25 mg PO BID [facility] Last Admin: 10/02/16 10:12 Dose: 25 mg Oxycodone/Acetaminophen (Percocet 5/325 Mg Tab) 2 tab PO Q4H PRN PRN Reason: Pain, severe (8-10) Stop: 10/04/16 09:45 Last Admin: 10/02/16 10:18 Dose: 2 tab Rosuvastatin Calcium (Crestor) 10 mg PO HS [facility] Last Admin: 10/01/16 22:06 Dose: 10 mg - Labs Labs: 09/29/16 07:30 09/29/16 07:30 PT 12.0 SECONDS (9.7-12.2) 09/27/16 16:20 INR 1.1 09/27/16 16:20 APTT 35 SECONDS (21-34) H 09/27/16 16:20 - Constitutional Appears: Well, Non-toxic, No Acute Distress - Neurological Exam Neurological Exam: Alert, Awake, Oriented x3 - Psychiatric Exam Psychiatric exam: Normal Affect, Normal Mood - Skin Skin Exam: Warm - Additional Findings Additional findings: DERMATOLOGIC: Open wound noted to plantar aspect of Left hallux IPJ measuring 1cm x 1cm x 0.5cm with fibro/granular base. Wound edges appear macerated with 0.3cm margin. No drainage is noted. Mild erythema is noted around the ulceration site. VASCULAR: DP/PT pulses 2/4, PUT[employer] GLAZER<3 seconds, mild improving edema of the left foot, left leg circumference has returned to normal size as compared with right leg. NEUROLOGIC: Protective sensation decreased, motor function intact ORTHOPEDIC: Left foot second ray amputation Assessment and Plan - Assessment and Plan (Free Text) Assessment: 49 year old male with open ulceration to Left hallux plantar IPJ Plan: Patient evaluated and chart reviewed. Discussed with Dr. Hawley. Wound flushed with hydrogen peroxide redressed with dsd. patient stable for resp therapist Iv abx per podiatry. await picc placement and resp therapist iv abx per ID. Patient can weight bear as tolerated on the foot in surgical shoe. Changes own dressings at home with peroxide flush and dsd. Has f/u appt already scheduled with Dr. Hawley upon d/c. will continue to follow while in house.
[2016-10-02 11:18] LABS: BASO # 0.1 K/uL (0.0-0.2); BASO % 0.6 % (0.0-2.0); EOS # 0.1 K/uL (0.0-0.7); EOS % 1.1 % (0.0-4.0); HEMATOCRIT 37.5 % (35.0-51.0); LYMPH % 22.2 % (20.0-40.0); MEAN CELL VOLUME 75.3 fL (80.0-94.0); MEAN CORPUSCULAR HGB CONC 31.8 g/dL (33.0-37.0); MEAN PLATELET VOLUME 8.3 fL (7.2-11.7); MONO # 0.9 K/uL (0.0-0.8); MONO % 9.4 % (0.0-10.0); RED CELL DISTRIBUTION WIDTH 14.8 % (11.5-14.5); WHITE BLOOD COUNT 9.2 K/uL (4.8-10.8)
[2016-10-02 11:21] LABS: CHLORIDE 96 mmol/L (98-107); SODIUM 136 mmol/L (132-148)
[2016-10-02 11:22] LABS: POTASSIUM 3.9 mmol/L (3.6-5.2)
[2016-10-02 11:24] LABS: ALKALINE PHOSPHATASE 55 U/L (38-126); ALT/SGPT 25 U/L (21-72); AST/SGOT 21 U/L (17-59); BILIRUBIN,TOTAL 0.2 mg/dL (0.2-1.3); BLOOD UREA NITROGEN 12 mg/dL (9-20); CALCIUM 8.7 mg/dl (8.6-10.4); CARBON DIOXIDE 26 mmol/L (22-30); GFR AFRICAN-AMERICAN > 60; GLUCOSE,RANDOM 218 mg/dL (75-110); TOTAL PROTEIN 6.8 g/dL (6.3-8.3)
--- NOTE | 2016-10-02 11:45 | CP.PCM.PN ---
Subjective - Date & Time of Evaluation Date of Evaluation: 10/02/16 Time of Evaluation: 07:45 - Subjective Subjective: PGY2 Medicine Note - Dr. Bowen service: Patient seen and examined in room. He says he has some pain but that has improved since admission. He currently denies fever, chills, nausea, vomiting, diarrhea. Objective - Vital Signs/Intake and Output Vital Signs (last 24 hours): Temp Pulse Resp BP Pulse Ox 98.1 F 71 20 175/88 H 97 10/02/16 08:00 10/02/16 08:00 10/02/16 08:00 10/02/16 10:13 10/02/16 08:00 - Medications Medications: Current Medications Amlodipine Besylate (Norvasc) 10 mg PO DAILY [facility] Last Admin: 10/02/16 10:11 Dose: 10 mg Aspirin (Ecotrin) 81 mg PO DAILY [facility] Last Admin: 10/02/16 10:13 Dose: 81 mg Clopidogrel Bisulfate (Plavix) 75 mg PO DAILY [facility] Last Admin: 10/02/16 10:11 Dose: 75 mg Enoxaparin Sodium (Lovenox) 40 mg SC DAILY [facility] Last Admin: 10/02/16 10:11 Dose: 40 mg Famotidine (Pepcid) 20 mg PO HS [facility] Last Admin: 10/01/16 22:07 Dose: 20 mg Furosemide (Lasix) 20 mg PO DAILY [facility] Last Admin: 10/02/16 10:13 Dose: 20 mg Piperacillin Sod/Tazobactam Sod (Zosyn 3.375 Gm Iv Premix) 50 mls @ 100 mls/hr IVPB Q6H [facility] Last Admin: 10/02/16 06:25 Dose: Not Given Vancomycin HCl 1,250 mg/ (Sodium Chloride) 250 mls @ 166.6 mls/hr IVPB Q12H [facility] Last Admin: 10/02/16 04:00 Dose: Not Given Insulin Glargine (Lantus) 20 unit SC HS [facility] Last Admin: 10/01/16 22:06 Dose: 20 units Insulin Human Isoph/Insulin Regular (Novolin 70/30 (70/30 Units/Ml) 10 Ml) 60 units SC ACBD [facility] Last Admin: 10/02/16 08:41 Dose: 60 units Metoprolol Tartrate (Lopressor) 25 mg PO BID [facility] Last Admin: 10/02/16 10:12 Dose: 25 mg Oxycodone/Acetaminophen (Percocet 5/325 Mg Tab) 2 tab PO Q4H PRN PRN Reason: Pain, severe (8-10) Stop: 10/04/16 09:45 Last Admin: 10/02/16 10:18 Dose: 2 tab Rosuvastatin Calcium (Crestor) 10 mg PO [facility] Last Admin: 10/01/16 22:06 Dose: 10 mg - Labs Labs: 10/02/16 11:06 10/02/16 11:06 PT 12.0 SECONDS (9.7-12.2) 09/27/16 16:20 INR 1.1 09/27/16 16:20 APTT 35 SECONDS (21-34) H 09/27/16 16:20 - Constitutional Appears: Non-toxic, No Acute Distress - Head Exam Head Exam: NORMAL INSPECTION - Eye Exam Eye Exam: EOMI - ENT Exam ENT Exam: Mucous Membranes Moist - Respiratory Exam Respiratory Exam: Clear to Ausculation Bilateral, NORMAL BREATHING PATTERN. absent: Rales, Rhonchi, Wheezes - Cardiovascular Exam Cardiovascular Exam: REGULAR RHYTHM, +S1, +S2. absent: Gallop, Rubs, Murmur - GI/Abdominal Exam GI & Abdominal Exam: Soft, Normal Bowel Sounds. absent: Distended, Firm, Tenderness - Extremities Exam Extremities Exam: Normal Capillary Refill. absent: Pedal Edema Additional comments: left foot wrapped in bandage - Neurological Exam Neurological Exam: Alert, Awake, Oriented x3 - Psychiatric Exam Psychiatric exam: Normal Affect, Normal Mood - Skin Skin Exam: Normal Color, Warm Assessment and Plan - Assessment and Plan (Free Text) Assessment: (1) Osteomyelitis due to type 2 diabetes mellitus Assessment & Plan: 10/02: Patient refuses to go to [facility]. Patient getting PICC today Patient discharged after PICC with IV abx to give to himself for a total of 6 weeks - 37 more days 10/01: MRI shows evidence osteomylitis, day 4 of IV Van/Zosyn, Podiary and Mangia consulted. Wound culture positive for staph, blood culture negative. IV Vanc and Zosyn Wound culture follow up Mangia consulted Podiatry consulted. Status: Acute (2) CAD (coronary artery disease) Assessment & Plan: Aspirn and Crestor and Plavix Status: Chronic (3) DM2 (diabetes mellitus, type 2) Assessment & Plan: continue home insulin accu checks and sliding scale insulin Status: Chronic (4) HTN (hypertension) Assessment & Plan: Lopressor Norvasc 10mg Status: Chronic (5) Prophylactic measure Assessment & Plan: Lovenox and pepcid Status: Acute
--- NOTE | 2016-10-02 12:09 | CP.PCM.PN ---
Subjective - Date & Time of Evaluation Date of Evaluation: 10/02/16 Time of Evaluation: 08:00 - Subjective Subjective: MSSA = from wound + OM cont rx Objective - Vital Signs/Intake and Output Vital Signs (last 24 hours): Temp Pulse Resp BP Pulse Ox 98.1 F 71 20 175/88 H 97 10/02/16 08:00 10/02/16 08:00 10/02/16 08:00 10/02/16 10:13 10/02/16 08:00 - Medications Medications: Current Medications Amlodipine Besylate (Norvasc) 10 mg PO DAILY [facility] Last Admin: 10/02/16 10:11 Dose: 10 mg Aspirin (Ecotrin) 81 mg PO DAILY [facility] Last Admin: 10/02/16 10:13 Dose: 81 mg Clopidogrel Bisulfate (Plavix) 75 mg PO DAILY [facility] Last Admin: 10/02/16 10:11 Dose: 75 mg Enoxaparin Sodium (Lovenox) 40 mg SC DAILY [facility] Last Admin: 10/02/16 10:11 Dose: 40 mg Famotidine (Pepcid) 20 mg PO HS [facility] Last Admin: 10/01/16 22:07 Dose: 20 mg Furosemide (Lasix) 20 mg PO DAILY [facility] Last Admin: 10/02/16 10:13 Dose: 20 mg Piperacillin Sod/Tazobactam Sod (Zosyn 3.375 Gm Iv Premix) 50 mls @ 100 mls/hr IVPB Q6H [facility] Last Admin: 10/02/16 06:25 Dose: Not Given Vancomycin HCl 1,250 mg/ (Sodium Chloride) 250 mls @ 166.6 mls/hr IVPB Q12H [facility] Last Admin: 10/02/16 04:00 Dose: Not Given Insulin Glargine (Lantus) 20 unit SC HS [facility] Last Admin: 10/01/16 22:06 Dose: 20 units Insulin Human Isoph/Insulin Regular (Novolin 70/30 (70/30 Units/Ml) 10 Ml) 60 units SC ACBD [facility] Last Admin: 10/02/16 08:41 Dose: 60 units Metoprolol Tartrate (Lopressor) 25 mg PO BID [facility] Last Admin: 10/02/16 10:12 Dose: 25 mg Oxycodone/Acetaminophen (Percocet 5/325 Mg Tab) 2 tab PO Q4H PRN PRN Reason: Pain, severe (8-10) Stop: 10/04/16 09:45 Last Admin: 10/02/16 10:18 Dose: 2 tab Rosuvastatin Calcium (Crestor) 10 mg PO HS [facility] Last Admin: 10/01/16 22:06 Dose: 10 mg - Labs Labs: 10/02/16 11:06 10/02/16 11:06 PT 12.0 SECONDS (9.7-12.2) 09/27/16 16:20 INR 1.1 09/27/16 16:20 APTT 35 SECONDS (21-34) H 09/27/16 16:20 - Constitutional Appears: Non-toxic, Chronically Ill - Head Exam Head Exam: NORMOCEPHALIC - Eye Exam Eye Exam: PERRL. absent: Scleral icterus - ENT Exam ENT Exam: Mucous Membranes Dry - Neck Exam Neck Exam: absent: Lymphadenopathy - Respiratory Exam Respiratory Exam: Decreased Breath Sounds - Cardiovascular Exam Cardiovascular Exam: REGULAR RHYTHM, +S1, +S2 - GI/Abdominal Exam GI & Abdominal Exam: Distended, Soft - Rectal Exam Rectal Exam: Deferred - Exam Exam: NORMAL INSPECTION Assessment and Plan (1) Osteomyelitis due to type 2 diabetes mellitus Status: Acute (2) CAD (coronary artery disease) Status: Chronic (3) DM2 (diabetes mellitus, type 2) Status: Chronic
--- NOTE | 2016-10-02 14:56 | PCM.SURG1 ---
Surgeon's Initial Post Op Note - Surgeon's Notes Surgeon: Griffin Villasenor MD Weighter: NONE Type of Anesthesia: Local Pre-Operative Diagnosis: Infection requiring snf IV antibiotics Operative Findings: Patent right arm basilic vein. Post-Operative Diagnosis: Infection requiring bed bug exterminator IV antibiotics Operation Performed: Right arm single lumen picc placement via the basilic vein , 44 cm. Tip in SVC. Specimen/Specimens Removed: none Estimated Blood Loss: EBL {In ML}: 2 Blood Products Given: N/A Drains Used: No Drains Post-Op Condition: Fair Date of Surgery/Procedure: 10/02/16 Time of Surgery/Procedure: 14:50
--- NOTE | 2016-10-02 15:09 | SPECPROC ---
PROCEDURE: Date of procedure: 10/02/2016 Procedure: 1. Placement of a right arm PICC with ultrasound and fluoroscopic guidance, CPT 04634 2. PICC tip confirmation with spot radiograph and is in the superior vena cava Medications: 1 percent lidocaine HISTORY: Bacteremia requiring long-term IV antibiotics TECHNIQUE: Following informed consent and procedure time-out, the patient was placed supine on the interventional table and the right arm prepped and draped in the usual sterile fashion. Ultrasound showed a patent and compressible right basilic vein. After the skin was anesthetized with lidocaine, the basilic vein was accessed with micro micropuncture technique using ultrasound guidance. A guidewire was then advanced under fluoroscopic guidance into the superior vena cava. An image documenting ultrasound guidance for vascular access was permanently saved. The length of the single-lumen 4 [place] PICC was trimmed to 44 centimeters and advanced through a peel-away sheath. The PICC was position with tip of PICC confirm a spot radiograph the superior vena cava. The PICC was secured to the patient's skin. The PICC was flushed. A biopatch and sterile dressing was applied. IMPRESSION: Placement of a single-lumen 4 [place] PICC trimmed to 44 centimeters via right basilic vein. The tip of the PICC is confirmed with spot radiograph and is in the superior vena cava.
--- NOTE | 2016-10-02 15:23 | VASCLAB ---
STUDY DESCRIPTION: HISTORY: pvd PRIORS: None. TECHNIQUE: Pulse volume recording waveforms and segmental pressures of bilateral lower extremities at multiple levels were obtained. Ankle Brachial Indices (ABIs) were calculated. Report prepared by BATSHEVA No, RVT RIGHT LOWER EXTREMITY: * Brachial artery: Pressure - 177 mmHg. * High thigh: Pressure - 220 mmHg: Ratio - CN: PVR waveform - Pulsatile * Low thigh: Pressure - 204 mmHg: Ratio - 1.15 PVR waveform: Pulsatile * Calf: Pressure - 220 mmHg: Ratio - NC PVR waveform: Pulsatile * Posterior tibial Artery: Pressure - 220 mmHg: Ratio - NC PVR waveform: Pulsatile * Dorsalis pedis Artery: Pressure - 220 mmHg: Ratio - NC PVR waveform: Pulsatile * Great toe: Pressure - mmHg: Ratio - PVR waveform: Ankle brachial index (OMAR): NC LEFT LOWER EXTREMITY: * Brachial artery: Pressure - 170 mmHg. * High thigh: Pressure - 220 mmHg: Ratio - NC: PVR waveform - Pulsatile * Low thigh: Pressure - 220 mmHg: Ratio - NC PVR waveform: Pulsatile * Calf: Pressure - 220 mmHg: Ratio - NC PVR waveform: Pulsatile * Posterior tibial Artery: Pressure - 220 mmHg: Ratio - NC PVR waveform: Pulsatile * Dorsalis pedis Artery: Pressure - 220 mmHg: Ratio - NC PVR waveform: Pulsatile * Great toe: Pressure - mmHg: Ratio - PVR waveform: Ankle brachial index (OMAR): NC OTHER FINDINGS: Right: Left: IMPRESSION: Right: The ankle pressure index of the right lower extremity is non-diagnostic due to possible arterial wall calcifications. Waveforms are monophasic. Left: The ankle pressure index of the left lower extremity is non-diagnostic due to possible arterial wall calcifications. Waveforms are monophasic with no significant pressure gradient. Recommend CT angiogram.
[2016-10-02] MEDS ORDERED: Telavancin Hydrochloride 750 MG in Dextrose 5% In Water 100 ML IVPB SCH (16:30)
[2016-10-02 17:41] VITALS: BP 159/87; PULSE 70; O2SAT 99
--- NOTE | 2016-10-22 09:40 | DS ---
The patient in the hospital with chief complaint of diabetic foot. The patient placed on bedrest, IV antibiotics, supportive care. Juma Wilson MD cc: [id number] TT: 10/21/2016 22:16:51 sn
== END 2016-10-02 17:30 | disposition home or self-care (01) | DRG 638 ==
LOC: C.ER 14:58 → C.9E 17:12 → C.3T 18:00
PROVIDERS: ADMIT Internal Medicine Pulmonary Disease; ATTEND Internal Medicine Pulmonary Disease
PROC: 02HV33Z Insertion of Infusion Device into Superior Vena Cava, Percutaneous Approach (ICD-10-PCS; principal; 2016-10-02)
PROC: B548ZZA Ultrasonography of Superior Vena Cava, Guidance (ICD-10-PCS; 2016-10-02)
DX: E11.69 Type 2 diabetes mellitus with other specified complication (principal); M86.8X7 Other osteomyelitis, ankle and foot; E11.621 Type 2 diabetes mellitus with foot ulcer; I10 Essential (primary) hypertension; L97.529 Non-pressure chronic ulcer of other part of left foot with unspecified severity; Z79.4 Long term (current) use of insulin; E78.00 Pure hypercholesterolemia, unspecified; I25.10 Atherosclerotic heart disease of native coronary artery without angina pectoris; Z87.891 Personal history of nicotine dependence; E11.628 Type 2 diabetes mellitus with other skin complications; B95.61 Methicillin susceptible Staphylococcus aureus infection as the cause of diseases classified elsewhere; L03.032 Cellulitis of left toe

== ENCOUNTER 2016-10-19 20:15 | Inpatient (IN) | payer MEDICARE ==
[2016-10-19 20:15] VITALS: BMI 31.2
[2016-10-19] MEDS ORDERED: Oxycodone/Acetaminophen 5/325 mg Tab PO STA (21:58)
--- NOTE | 2016-10-19 21:59 | C.PDOC ---
History Of Present Illness 51 year old male presents to the ED complaining of painful and fungating left great toe. Patient has a history of chronic diabetic foot and toe ulcer. He is currently treated with outpatient IV antibiotics by Dr. Hu. Patient notes he did not go to the infusion center today but was seen earlier today by Dr. Bowen and referred to the ED for further evaluation. Patient denies any other complaints at this time. Time Seen by Provider: 10/19/16 21:50 Chief Complaint (Nursing): Wound Check History Per: Patient History/Exam Limitations: no limitations Onset/Duration Of Symptoms: Other (Persistent ) Current Symptoms Are (Timing): Still Present Quality Of Symptoms: Painful, Other (fungating) Past Medical History Reviewed: Historical Data, Nursing Documentation, Vital Signs Vital Signs: Last Vital Signs Temp 99.5 F 10/19/16 20:22 Pulse 94 H 10/19/16 20:22 Resp 16 10/19/16 20:22 BP 154/81 H 10/19/16 20:22 Pulse Ox 98 10/19/16 23:47 - Medical History PMH: Diabetes, HTN, Hypercholesterolemia - [facility] Procedures DETACHMENT AT LEFT 2ND TOE, COMPLETE, OPEN APPROACH (06/28/15) EXTRACTION OF LEFT FOOT SKIN, EXTERNAL APPROACH (06/28/15) INSERTION OF INFUSION DEV INTO R BASILIC VEIN, PERC APPROACH (06/28/15) INSERTION OF INFUSION DEV INTO SUP VENA CAVA, PERC APPROACH (09/27/16) ULTRASONOGRAPHY OF RIGHT UPPER EXTREMITY VEINS, GUIDANCE (06/28/15) ULTRASONOGRAPHY OF SUPERIOR VENA CAVA, GUIDANCE (09/27/16) Family History: States: No Known Family Hx - Social History Hx Tobacco Use: No Hx Alcohol Use: Yes Hx Substance Use: No - Immunization History Hx Tetanus Toxoid Vaccination: Yes Hx Influenza Vaccination: No Hx Pneumococcal Vaccination: No Review Of Systems Constitutional: Negative for: Fever, Sweats Cardiovascular: Negative for: Chest Pain Respiratory: Negative for: Cough, Shortness of Breath Gastrointestinal: Negative for: Nausea, Vomiting, Abdominal Pain, Diarrhea Musculoskeletal: Positive for: Foot Pain (left great toe painful and fungating) Physical Exam - Physical Exam Appears: Non-toxic, No Acute Distress Skin: Warm, Dry Oral Mucosa: Moist Neck: Normal ROM, Supple Cardiovascular: Rhythm Regular Respiratory: No Rales, No Rhonchi, No Stridor, No Wheezing Gastrointestinal/Abdominal: Soft, No Tenderness, No Distention, No Guarding, No Rebound Extremity: No Tenderness, Other (Left great toe enlarged and sausage like with foul smelling discharge. Fungating ulcer at dorsum of left great toe with surrouding cellulitis. ) Neurological/Psych: Oriented x3 ED Course And Treatment - Laboratory Results Result Diagrams: 10/19/16 22:44 10/19/16 22:44 Lab Interpretation: Abnormal (elev glu, + leukocytosis) ECG: Interpreted By Me ECG Rhythm: Sinus Rhythm ECG Interpretation: Normal Rate From EC O2 Sat by Pulse Oximetry: 98 Pulse Ox Interpretation: Normal - Radiology CXR: Interpreted by Me CXR Interpretation: Yes: No Acute Disease (good PICC line) - Other Rad L foot X-Ray: Interpreted by Me (+ osteomyelitis, no gas) Progress Note: percocet x 2 tabs PO Reevaluation Time: 23:31 Reassessment Condition: Improved - Physician Consult Information Outcome Of Conversation: 0: d/w Dr. Bowen- randolph to med/surg Medical Decision Making Medical Decision Making: chronic L foot/toe cellulitis with osteomyelitis of L great toe and non-healing ulcer. Pending amputation by Dr. Ag Hopkins IV @ infusion center- no Levaquin on formulary- defer to ID for in- house abx solution Disposition Doctor Will See Patient In The: Hospital Counseled Patient/Family Regarding: Studies Performed, Diagnosis - Disposition Disposition: HOSPITALIZED Disposition Time: 23:32 Condition: GOOD - Clinical Impression Clinical Impression: Diabetic foot ulcer, Toe osteomyelitis, left - Scribe Statement The provider has reviewed the documentation as recorded by the Ayadibfinesse Navarro All medical record entries made by the Shyla were at my direction and personally dictated by me. I have reviewed the chart and agree that the record accurately reflects my personal performance of the history, physical exam, medical decision making, and the department course for this patient. I have also personally directed, reviewed, and agree with the discharge instructions and disposition.
[2016-10-19] MEDS ORDERED: Oxycodone/Acetaminophen 5/325 mg Tab ONE (22:07)
[2016-10-19 22:49] LABS: BASO # 0.2 K/uL (0.0-0.2); BASO % 1.2 % (0.0-2.0); EOS # 0.2 K/uL (0.0-0.7); EOS % 1.5 % (0.0-4.0); LYMPH # 1.9 K/uL (1.0-4.3); LYMPH % 14.6 % (20.0-40.0); MEAN CELL VOLUME 74.5 fL (80.0-94.0); MEAN CORPUSCULAR HEMOGLOBIN 23.8 pg (27.0-31.0); MEAN CORPUSCULAR HGB CONC 31.9 g/dL (33.0-37.0); MEAN PLATELET VOLUME 8.2 fL (7.2-11.7); MONO # 1.2 K/uL (0.0-0.8); MONO % 9.3 % (0.0-10.0); RED CELL DISTRIBUTION WIDTH 15.1 % (11.5-14.5); WHITE BLOOD COUNT 13.3 K/uL (4.8-10.8)
[2016-10-19 22:57] LABS: CHLORIDE 96 mmol/L (98-107); SODIUM 133 mmol/L (132-148)
[2016-10-19 22:59] LABS: BILIRUBIN,TOTAL 0.1 mg/dL (0.2-1.3); GFR AFRICAN-AMERICAN > 60
[2016-10-19 23:00] LABS: ALB/GLOB RATIO 0.8 (1.0-2.1); ALKALINE PHOSPHATASE 71 U/L (38-126); ALT/SGPT 17 U/L (21-72); AST/SGOT 15 U/L (17-59); BLOOD UREA NITROGEN 21 mg/dL (9-20); CARBON DIOXIDE 24 mmol/L (22-30)
[2016-10-19 23:01] LABS: CALCIUM 8.1 mg/dl (8.6-10.4)
[2016-10-19 23:02] LABS: GLUCOSE,RANDOM 403 mg/dL (75-110)
[2016-10-19] MEDS ORDERED: (Novolin R) Insulin Human Regular 100 units/ml vial IV STA (23:34)
[2016-10-19] MEDS ORDERED: Piperacillin/Tazobact 3.375 gm 100 ML IVPB ONE (23:40)
[2016-10-19] MEDS: Piperacill/Tazo 3.375gm in Dex 50 ML IVPB SCH (23:41)
[2016-10-19] MEDS: (Lantus) Insulin Glargine, Recombinant SC SCH (23:49)
[2016-10-19] MEDS ORDERED: (Novolin R) Insulin Human Regular 100 units/ml vial ONE (23:53)
[2016-10-20] MEDS: Oxycodone/Acetaminophen 5/325 mg Tab PO PRN ×5 (02:12→20:24)
[2016-10-20] MEDS: Piperacill/Tazo 3.375gm in Dex 50 ML IVPB SCH ×3 (05:22→17:10)
[2016-10-20] MEDS: (Novolin 70/30) NPH/Regular 70/30 Units/ml 10 ml vial SC SCH ×2 (08:28→17:08)
--- NOTE | 2016-10-20 09:58 | RAD ---
PROCEDURE: CHEST RADIOGRAPH, 1 VIEW HISTORY: SOB COMPARISON: Comparison 10/17/2016 FINDINGS: LUNGS: Clear. No change right-sided PICC line PLEURA: No pneumothorax or pleural fluid seen. CARDIOVASCULAR: Normal. OSSEOUS STRUCTURES: No significant abnormalities. VISUALIZED UPPER ABDOMEN: Normal. OTHER FINDINGS: None. IMPRESSION: No active disease.
[2016-10-20] MEDS ORDERED: Enoxaparin 150 mg Syringe SC SCH (10:00)
[2016-10-20] MEDS ORDERED: Pantoprazole 40 mg EC Tab PO SCH (10:00)
[2016-10-20] MEDS: Enoxaparin 40 mg Syringe SC SCH (10:16)
--- NOTE | 2016-10-20 10:39 | CP.PCM.PN ---
Subjective - Date & Time of Evaluation Date of Evaluation: 10/20/16 Time of Evaluation: 10:39 - Subjective Subjective: note dictated further imaging needed dopplers reviewed Objective - Vital Signs/Intake and Output Vital Signs (last 24 hours): Temp Pulse Resp BP Pulse Ox 98.3 F 68 20 142/75 98 10/20/16 07:45 10/20/16 07:45 10/20/16 07:45 10/20/16 07:45 10/20/16 07:45 Intake and Output: 10/20/16 10/20/16 06:59 18:59 Output Total 400 Balance -400 - Medications Medications: Current Medications Amlodipine Besylate (Norvasc) 10 mg PO DAILY [facility] Last Admin: 10/20/16 10:16 Dose: 10 mg Aspirin (Ecotrin) 81 mg PO DAILY [facility] Last Admin: 10/20/16 10:16 Dose: 81 mg Clopidogrel Bisulfate (Plavix) 75 mg PO DAILY [facility] Last Admin: 10/20/16 10:16 Dose: 75 mg Enoxaparin Sodium (Lovenox) 40 mg SC DAILY [facility] Last Admin: 10/20/16 10:16 Dose: 40 mg Piperacillin Sod/Tazobactam Sod (Zosyn 3.375 Gm Iv Premix) 50 mls @ 100 mls/hr IVPB Q6H [facility] Last Admin: 10/20/16 10:22 Dose: 100 mls/hr Vancomycin HCl 1,000 mg/ (Sodium Chloride) 250 mls @ 166.6 mls/hr IVPB Q12H [facility] Last Admin: 10/20/16 00:52 Dose: 166.6 mls/hr Insulin Glargine (Lantus) 20 unit SC HS [facility] Last Admin: 10/19/16 23:49 Dose: 20 units Insulin Human Isoph/Insulin Regular (Novolin 70/30 (70/30 Units/Ml) 10 Ml) 60 units SC ACBD [facility] Last Admin: 10/20/16 08:28 Dose: 60 units Metoprolol Tartrate (Lopressor) 25 mg PO BID [facility] Last Admin: 10/20/16 10:16 Dose: 25 mg Oxycodone/Acetaminophen (Percocet 5/325 Mg Tab) 2 tab PO Q4H PRN PRN Reason: Pain, severe (8-10) Stop: 10/22/16 22:59 Last Admin: 10/20/16 10:17 Dose: 2 tab Pantoprazole Sodium (Protonix Ec Tab) 40 mg PO DAILY [facility] Last Admin: 10/20/16 10:17 Dose: 40 mg Rosuvastatin Calcium (Crestor) 10 mg PO HS [facility] - Labs Labs: 10/19/16 22:44 10/19/16 22:44
--- NOTE | 2016-10-20 11:04 | RAD ---
PROCEDURE: Left great toe HISTORY: cellulitis/? gas COMPARISON: 09/27/2016 TECHNIQUE: PA view of the left foot and 2 additional cone-down views of the left great toe performed. FINDINGS: There cortical destructive changes involving the distal and proximal phalanges great toe with surrounding soft tissue swelling. Small amount of gas may be present. Stable amputation changes midshaft 2nd metatarsal Vascular calcifications are present. IMPRESSION: Cortical destructive changes distal and proximal phalanges 1st toe consistent with osteomyelitis. Significant surrounding soft tissue swelling.
[2016-10-20] MEDS ORDERED: Iodixanol 320 MG/ML 100 ML BOTTLE IV ONE (12:18)
[2016-10-20] MEDS ORDERED: Iodixanol 320 mg/ml 150 ml Bottle IV ONE (12:31)
[2016-10-20] MEDS: (Novolog) Insulin Aspart, Recombinant 100 u/ml 10 ml vial SC SCH ×2 (17:09→23:01)
[2016-10-20] MEDS: (Lantus) Insulin Glargine, Recombinant SC SCH (23:05)
[2016-10-21] MEDS: Oxycodone/Acetaminophen 5/325 mg Tab PO PRN ×6 (00:09→23:01)
[2016-10-21] MEDS: Piperacill/Tazo 3.375gm in Dex 50 ML IVPB SCH ×5 (00:10→22:41)
[2016-10-21] MEDS: (Novolog) Insulin Aspart, Recombinant 100 u/ml 10 ml vial SC SCH ×4 (08:12→21:32)
[2016-10-21] MEDS: (Novolin 70/30) NPH/Regular 70/30 Units/ml 10 ml vial SC SCH ×2 (08:50→17:58)
[2016-10-21] MEDS: Enoxaparin 40 mg Syringe SC SCH (10:16)
--- NOTE | 2016-10-21 11:56 | CP.PCM.PN ---
Subjective - Date & Time of Evaluation Date of Evaluation: 10/21/16 Time of Evaluation: 11:55 - Subjective Subjective: cta reviewed will need ttraditional angio has tibial deisease needs antibiotic now Objective - Vital Signs/Intake and Output Vital Signs (last 24 hours): Temp Pulse Resp BP Pulse Ox 98.3 F 66 20 132/77 96 10/21/16 07:00 10/21/16 07:00 10/21/16 07:00 10/21/16 10:15 10/21/16 07:00 - Medications Medications: Current Medications Amlodipine Besylate (Norvasc) 10 mg PO DAILY [facility] Last Admin: 10/21/16 10:16 Dose: 10 mg Aspirin (Ecotrin) 81 mg PO DAILY [facility] Last Admin: 10/21/16 10:15 Dose: 81 mg Clopidogrel Bisulfate (Plavix) 75 mg PO DAILY [facility] Last Admin: 10/21/16 10:16 Dose: 75 mg Enoxaparin Sodium (Lovenox) 40 mg SC DAILY [facility] Last Admin: 10/21/16 10:16 Dose: 40 mg Famotidine (Pepcid) 20 mg PO BID [facility] Last Admin: 10/21/16 10:16 Dose: 20 mg Piperacillin Sod/Tazobactam Sod (Zosyn 3.375 Gm Iv Premix) 50 mls @ 100 mls/hr IVPB Q6H [facility] Last Admin: 10/21/16 10:16 Dose: 100 mls/hr Vancomycin HCl 1,000 mg/ (Sodium Chloride) 250 mls @ 166.6 mls/hr IVPB Q12H [facility] Last Admin: 10/21/16 11:21 Dose: 166.6 mls/hr Insulin Aspart (Novolog) 0 unit SC ACHS [facility] PRN Reason: Protocol Last Admin: 10/21/16 08:12 Dose: Not Given Insulin Glargine (Lantus) 20 unit SC HS [facility] Last Admin: 10/20/16 23:05 Dose: 20 units Insulin Human Isoph/Insulin Regular (Novolin 70/30 (70/30 Units/Ml) 10 Ml) 60 units SC ACBD [facility] Last Admin: 10/21/16 08:50 Dose: 60 units Metoprolol Tartrate (Lopressor) 25 mg PO BID [facility] Last Admin: 10/21/16 10:15 Dose: 25 mg Oxycodone/Acetaminophen (Percocet 5/325 Mg Tab) 2 tab PO Q4H PRN PRN Reason: Pain, severe (8-10) Stop: 10/22/16 22:59 Last Admin: 10/21/16 10:17 Dose: 2 tab Rosuvastatin Calcium (Crestor) 10 mg PO HS [facility] Last Admin: 10/20/16 22:11 Dose: 10 mg - Labs Labs: 10/19/16 22:44 10/19/16 22:44
--- NOTE | 2016-10-21 14:58 | CP.PCM.CON ---
History of Present Illness - History of Present Illness History of Present Illness: 51 year old male presents to the ED complaining of painful left great toe. Patient has a history of chronic diabetic foot and toe ulcer multiple times He is currently treated with outpatient IV antibiotics- he refused surgery/ [facility] last admission - has been going to out pt infusion center - but no reports forwarded to me since discharge Cultures last time + MSSA Now seen by dr Quiñonez Needs angio - Medical History PMH: Diabetes, HTN, Hypercholesterolemia, PVD, CAD, OM left great toe - [facility] Procedures DETACHMENT AT LEFT 2ND TOE, COMPLETE, OPEN APPROACH (06/28/15) EXTRACTION OF LEFT FOOT SKIN, EXTERNAL APPROACH (06/28/15) INSERTION OF INFUSION DEV INTO R BASILIC VEIN, PERC APPROACH (06/28/15) INSERTION OF INFUSION DEV INTO SUP VENA CAVA, PERC APPROACH (09/27/16) ULTRASONOGRAPHY OF RIGHT UPPER EXTREMITY VEINS, GUIDANCE (06/28/15) ULTRASONOGRAPHY OF SUPERIOR VENA CAVA, GUIDANCE (09/27/16) Review of Systems - Constitutional Constitutional: As Per HPI - EENT Eyes: absent: As Per HPI, Blind Spots, Blurred Vision, Change in Vision, Decreased Night Vision, Diplopia, Discharge, Dry Eye, Exophthalmos, Floaters, Irritation, Itchy Eyes, Loss of Peripheral Vision, Pain, Photophobia, Requires Corrective Lenses, Sees Flashes, Spots in Vision, Tunnel Vision, Other Visual Disturbances, Loss of Vision, Other Ears: absent: As Per HPI, Decreased Hearing, Ear Discharge, Ear Pain, Tinnitus, Abnormal Hearing, Disequilibrium, Dizziness, Other Nose/Mouth/Throat: absent: As Per HPI, Epistaxis, Nasal Congestion, Nasal Discharge, Nasal Obstruction, Nasal Trauma, Nose Pain, Post Nasal Drip, Sinus Pain, Sinus Pressure, Bleeding Gums, Change in Voice, Dental Pain, Dry Mouth, Dysphagia, Halitosis, Hoarsness, Lip Swelling, Mouth Lesions, Mouth Pain, Odynophagia, Sore Throat, Throat Swelling, Tongue Swelling, Facial Pain, Neck Pain, Neck Mass, Other - Cardiovascular Cardiovascular: As Per HPI - Respiratory Respiratory: absent: As Per HPI, Cough, Dyspnea, Hemoptysis, Dyspnea on Exertion , Wheezing, Snoring, Stridor, Pain on Inspiration, Chest Congestion, Excessive Mucous Production, Change in Mucous Color, Pain with Coughing, Other - Gastrointestinal Gastrointestinal: absent: As Per HPI, Abdominal Pain, Belching, Bloating, Change in Bowel Habits, Change in Stool Character, Coffee Ground Emesis, Constipation, Cramping, Diarrhea, Dyspepsia, Dysphagia, Early Satiety, Excessive Flatus, Fecal Incontinence, Heartburn, Hematemesis, Hematochezia, Loose Stools, Melena, Nausea, Odynophagia, Temesmus, Vomiting, Other - Genitourinary Genitourinary: absent: As Per HPI, Change in Urinary Stream, Difficulty Urinating, Dysuria, Flank Pain, Hematuria, Pyuria, Nocturia, Urinary Incontinence, Urinary Frequency, Urinary Hesitance, Urinary Urgency, Voiding Freq/Small Amts, Freq UTI, Hx Renal/Bladder Calculi, Hx /Renal Surgery, Bladder Distension, Other - Musculoskeletal Musculoskeletal: As Per HPI - Integumentary Integumentary: As Per HPI - Neurological Neurological: absent: As Per HPI, Abnormal Gait, Abnormal Hearing, Abnormal Movements, Abnormal Speech, Behavioral Changes, Burning Sensations, Confusion, Convulsions, Disequilibrium, Dizziness, Numbness, Focal Weakness, Frequent Falls , Headaches, Lack of Coordination, Loss of Vision, Memory Loss, Paresthesias, Radicular Pain, Restless Legs, Sensory Deficit, Syncope, Tingling, Tremor, Vertigo, Weakness, Other Visual Disturbances, Other - Psychiatric Psychiatric: absent: As Per HPI, Abnormal Sleep Pattern, Anhedonia, Anxiety, Auditory Hallucinations, Behavioral Changes, Change in Appetite, Change in Libido, Confusion, Depression, Difficulty Concentrating, Hallucinations, Homicidal Ideation, Hopelessness, Irritability, Memory Loss, Mood Swings, Panic Attacks, Paranoia, Suicidal Ideation, Visual Hallucinations, Tactile Hallucinations, Other - Endocrine Endocrine: absent: As Per HPI, Change in Body Appearance, Change in Libido, Cold Intolorance, Deepening of Voice, Excessive Sweating, Fatigue, Flushing, Heat Intolorance, Increase in Ring/Shoe/Hat Size, Palpitations, Polydipsia, Polyphagia, Polyuria, Other - Hematologic/Lymphatic Hematologic: absent: As Per HPI, Easy Bleeding, Easy Bruising, Lymphadenopathy, Other Past Patient History - Past Medical History & Family History Past Medical History?: Yes - Past Social History Smoking Status: Former Smoker - CARDIAC Hx Cardiac Disorders: Yes Hx Hypercholesterolemia: Yes Hx Hypertension: Yes - PULMONARY Hx Respiratory Disorders: No - NEUROLOGICAL Hx Neurological Disorder: No - HEENT Hx HEENT Problems: Yes Other/Comment: wears glasses - RENAL Hx Chronic Kidney Disease: No - ENDOCRINE/METABOLIC Hx Endocrine Disorders: Yes Hx Diabetes Mellitus Type 1: Yes - HEMATOLOGICAL/ONCOLOGICAL Hx Blood Disorders: No - INTEGUMENTARY Hx Dermatological Problems: No Other/Comment: wound in the left toe - MUSCULOSKELETAL/RHEUMATOLOGICAL Hx Musculoskeletal Disorders: No Hx Falls: No - GASTROINTESTINAL Hx Gastrointestinal Disorders: No - GENITOURINARY/GYNECOLOGICAL Hx Genitourinary Disorders: No - PSYCHIATRIC Hx Psychophysiologic Disorder: No Hx Substance Use: No - SURGICAL HISTORY Hx Surgeries: Yes (SEE COMMENT) Hx Orthopedic Surgery: Yes (AMPUTATION) Other/Comment: BACK SURGERY; AMPUTATION LEFT 2ND TOE - ANESTHESIA Hx Anesthesia: Yes Hx Anesthesia Reactions: No Hx Malignant Hyperthermia: No Has any member of the family had a problem w/ anesthesia?: No Meds Allergies/Adverse Reactions: Allergies Allergy/AdvReac Type Severity Reaction Status Date / Time No Known Allergies Allergy Verified 10/19/16 20:20 - Medications Medications: Current Medications Amlodipine Besylate (Norvasc) 10 mg PO DAILY [facility] Last Admin: 10/21/16 10:16 Dose: 10 mg Aspirin (Ecotrin) 81 mg PO DAILY [facility] Last Admin: 10/21/16 10:15 Dose: 81 mg Clopidogrel Bisulfate (Plavix) 75 mg PO DAILY [facility] Last Admin: 10/21/16 10:16 Dose: 75 mg Enoxaparin Sodium (Lovenox) 40 mg SC DAILY [facility] Last Admin: 10/21/16 10:16 Dose: 40 mg Famotidine (Pepcid) 20 mg PO BID [facility] Last Admin: 10/21/16 10:16 Dose: 20 mg Piperacillin Sod/Tazobactam Sod (Zosyn 3.375 Gm Iv Premix) 50 mls @ 100 mls/hr IVPB Q6H [facility] Last Admin: 10/21/16 10:16 Dose: 100 mls/hr Vancomycin HCl 1,000 mg/ (Sodium Chloride) 250 mls @ 166.6 mls/hr IVPB Q12H [facility] Last Admin: 10/21/16 11:21 Dose: 166.6 mls/hr Insulin Aspart (Novolog) 0 unit SC ACHS [facility] PRN Reason: Protocol Last Admin: 10/21/16 12:33 Dose: 3 unit Insulin Glargine (Lantus) 20 unit SC [facility] Last Admin: 10/20/16 23:05 Dose: 20 units Insulin Human Isoph/Insulin Regular (Novolin 70/30 (70/30 Units/Ml) 10 Ml) 60 units SC ACBD [facility] Last Admin: 10/21/16 08:50 Dose: 60 units Metoprolol Tartrate (Lopressor) 25 mg PO BID [facility] Last Admin: 10/21/16 10:15 Dose: 25 mg Oxycodone/Acetaminophen (Percocet 5/325 Mg Tab) 2 tab PO Q4H PRN PRN Reason: Pain, severe (8-10) Stop: 10/22/16 22:59 Last Admin: 10/21/16 10:17 Dose: 2 tab Rosuvastatin Calcium (Crestor) 10 mg PO [facility] Last Admin: 10/20/16 22:11 Dose: 10 mg Physical Exam - Constitutional Appears: Non-toxic, Chronically Ill - Head Exam Head Exam: NORMOCEPHALIC - Eye Exam Eye Exam: PERRL. absent: Scleral icterus - ENT Exam ENT Exam: Mucous Membranes Dry, Normal External Ear Exam - Neck Exam Neck exam: Negative for: Lymphadenopathy - Respiratory Exam Respiratory Exam: Decreased Breath Sounds, Rhonchi - Cardiovascular Exam Cardiovascular Exam: REGULAR RHYTHM, +S1, +S2 - GI/Abdominal Exam GI & Abdominal Exam: Diminished Bowel Sounds, Soft. absent: Tenderness - Rectal Exam Rectal Exam: Deferred - Exam Exam: NORMAL INSPECTION - Extremities Exam Extremities exam: Positive for: pedal edema, tenderness. Negative for: calf tenderness, pedal pulses present Additional comments: large ulcer dorsum first digit and on plantar aspect same digit - Back Exam Back exam: absent: CVA tenderness (L), CVA tenderness (R) - Neurological Exam Neurological exam: Alert, CN II-XII Intact, Oriented x3, Reflexes Normal - Psychiatric Exam Psychiatric exam: Normal Mood - Skin Skin Exam: Warm Results - Vital Signs Recent Vital Signs: Last Vital Signs Temp 98.3 F 10/21/16 07:00 Pulse 69 10/21/16 09:00 Resp 20 10/21/16 07:00 BP 132/77 10/21/16 10:15 Pulse Ox 96 10/21/16 07:00 - Labs Result Diagrams: 10/19/16 22:44 10/19/16 22:44 Labs: Laboratory Results - last 24 hr 10/20/16 10/20/16 10/21/16 16:59 22:29 06:35 POC Glucose (mg/dL) 294 H 185 H 136 H 10/21/16 11:38 POC Glucose (mg/dL) 217 H Assessment & Plan (1) Diabetic foot ulcer Status: Acute (2) Toe osteomyelitis, left Status: Acute (3) Osteomyelitis due to type 2 diabetes mellitus Status: Acute (4) CAD (coronary artery disease) Status: Chronic
[2016-10-21] MEDS: (Lantus) Insulin Glargine, Recombinant SC SCH (22:01)
[2016-10-22] MEDS: Oxycodone/Acetaminophen 5/325 mg Tab PO PRN ×4 (03:45→22:24)
[2016-10-22] MEDS: Piperacill/Tazo 3.375gm in Dex 50 ML IVPB SCH ×4 (05:33→22:25)
[2016-10-22] MEDS: (Novolin 70/30) NPH/Regular 70/30 Units/ml 10 ml vial SC SCH ×2 (08:15→17:30)
[2016-10-22] MEDS: (Novolog) Insulin Aspart, Recombinant 100 u/ml 10 ml vial SC SCH ×4 (08:16→22:00)
--- NOTE | 2016-10-22 09:22 | HP ---
A 51-year-old male with history of diabetes, hypertension, peripheral vascular disease, diabetic foot . Admitted to the hospital with chief complaint of increasing pain and swelling in the left . The patient came to the ER, advised admission. PAST MEDICAL HISTORY: Mentioned above. PHYSICAL EXAMINATION: GENERAL: The patient is awake, alert, oriented. VITAL SIGNS: Temperature 98, pulse 90. HEENT: Within normal limits. NECK: Supple. CHEST: Symmetrical. HEART: Regular. ABDOMEN: Soft. EXTREMITIES: The left foot is swollen, exudative . The patient suffers from osteomyelitis of the left big toe. At this point, will get IV antibiotic, p odiatry evaluation, vascular surgery evaluation. Juma Wilson MD cc: [id number] TT: 10/21/2016 09:28:26 en
--- NOTE | 2016-10-22 10:10 | CON ---
DATE: 10/22/2016 At the request of Dr. Nakul Wilson, this is a 51-year-old black male well known to me for prior surgeries, which he did very nicely for an infection, was seen here 2 weeks ago with a draining ulcer on the pl cora aspect of the left hallux. At that time, the patient was directed to get infusion of antibioti cs on an outpatient basis. Today, Saturday, I see him at bedside. He was here for 2 days. I was not notified of his admission. The patient needs amputation of the left hallux. We will take him to the OR this afternoon. Kade Lockhart DPM cc: [id number] TT: 10/22/2016 10:09:26 Confirmation # [id number] Dictation # [id number]
[2016-10-22 11:30] LABS: BASO % 0.5 % (0.0-2.0); EOS # 0.2 K/uL (0.0-0.7); EOS % 1.8 % (0.0-4.0); HEMATOCRIT 31.9 % (35.0-51.0); LYMPH # 1.7 K/uL (1.0-4.3); LYMPH % 18.6 % (20.0-40.0); MEAN CELL VOLUME 74.7 fL (80.0-94.0); MEAN CORPUSCULAR HEMOGLOBIN 23.6 pg (27.0-31.0); MEAN CORPUSCULAR HGB CONC 31.5 g/dL (33.0-37.0); MEAN PLATELET VOLUME 8.6 fL (7.2-11.7); MONO # 0.8 K/uL (0.0-0.8); MONO % 8.9 % (0.0-10.0); NRBC % 0.1 % (0.0-2.0); RED CELL DISTRIBUTION WIDTH 14.9 % (11.5-14.5); WHITE BLOOD COUNT 9.1 K/uL (4.8-10.8)
[2016-10-22 11:39] LABS: CHLORIDE 101 mmol/L (98-107); POTASSIUM 3.9 mmol/L (3.6-5.2); SODIUM 137 mmol/L (132-148)
[2016-10-22 11:41] LABS: ALB/GLOB RATIO 0.8 (1.0-2.1); ALKALINE PHOSPHATASE 72 U/L (38-126); ALT/SGPT 21 U/L (21-72); AST/SGOT 18 U/L (17-59); BILIRUBIN,TOTAL < 0.1 mg/dL (0.2-1.3); BLOOD UREA NITROGEN 13 mg/dL (9-20); CARBON DIOXIDE 27 mmol/L (22-30); GFR AFRICAN-AMERICAN > 60; TOTAL PROTEIN 6.5 g/dL (6.3-8.3)
[2016-10-22 11:42] LABS: CALCIUM 7.6 mg/dl (8.6-10.4); GLUCOSE,RANDOM 250 mg/dL (75-110)
--- NOTE | 2016-10-22 11:48 | CP.PCM.PN ---
Subjective - Date & Time of Evaluation Date of Evaluation: 10/22/16 Time of Evaluation: 06:00 - Subjective Subjective: for possible OR today IV rx in progress Objective - Vital Signs/Intake and Output Vital Signs (last 24 hours): Temp Pulse Resp BP Pulse Ox 98.5 F 74 20 170/88 H 97 10/22/16 07:05 10/22/16 07:05 10/22/16 07:05 10/22/16 10:51 10/22/16 07:05 - Medications Medications: Current Medications Amlodipine Besylate (Norvasc) 10 mg PO DAILY [facility] Last Admin: 10/22/16 10:51 Dose: 10 mg Aspirin (Ecotrin) 81 mg PO DAILY [facility] Last Admin: 10/21/16 10:15 Dose: 81 mg Clopidogrel Bisulfate (Plavix) 75 mg PO DAILY [facility] Last Admin: 10/22/16 10:51 Dose: 75 mg Enoxaparin Sodium (Lovenox) 40 mg SC DAILY [facility] Last Admin: 10/21/16 10:16 Dose: 40 mg Famotidine (Pepcid) 20 mg PO BID [facility] Last Admin: 10/22/16 10:51 Dose: 20 mg Piperacillin Sod/Tazobactam Sod (Zosyn 3.375 Gm Iv Premix) 50 mls @ 100 mls/hr IVPB Q6H [facility] Last Admin: 10/22/16 10:53 Dose: 100 mls/hr Vancomycin HCl 1,000 mg/ (Sodium Chloride) 250 mls @ 166.6 mls/hr IVPB Q12H [facility] Last Admin: 10/21/16 23:25 Dose: 166.6 mls/hr Insulin Aspart (Novolog) 0 unit SC ACHS [facility] PRN Reason: Protocol Last Admin: 10/22/16 08:16 Dose: 3 unit Insulin Glargine (Lantus) 20 unit SC HS [facility] Last Admin: 10/21/16 22:01 Dose: 20 units Insulin Human Isoph/Insulin Regular (Novolin 70/30 (70/30 Units/Ml) 10 Ml) 60 units SC ACBD [facility] Last Admin: 10/22/16 08:15 Dose: 60 units Metoprolol Tartrate (Lopressor) 25 mg PO BID [facility] Last Admin: 10/22/16 10:51 Dose: 25 mg Oxycodone/Acetaminophen (Percocet 5/325 Mg Tab) 2 tab PO Q4H PRN PRN Reason: Pain, severe (8-10) Stop: 10/22/16 22:59 Last Admin: 10/22/16 03:45 Dose: 2 tab Rosuvastatin Calcium (Crestor) 10 mg PO HS [facility] Last Admin: 10/21/16 22:01 Dose: 10 mg - Labs Labs: 10/22/16 11:22 10/22/16 11:22 - Constitutional Appears: Non-toxic - Head Exam Head Exam: NORMOCEPHALIC - Eye Exam Eye Exam: Normal appearance. absent: Scleral icterus - ENT Exam ENT Exam: Mucous Membranes Dry, Normal External Ear Exam - Neck Exam Neck Exam: absent: Lymphadenopathy - Respiratory Exam Respiratory Exam: Decreased Breath Sounds, Rhonchi - Cardiovascular Exam Cardiovascular Exam: REGULAR RHYTHM, +S1, +S2 - GI/Abdominal Exam GI & Abdominal Exam: Distended, Soft. absent: Tenderness - Rectal Exam Rectal Exam: Deferred - Exam Exam: NORMAL INSPECTION - Extremities Exam Extremities Exam: Pedal Edema, Tenderness. absent: Calf Tenderness - Back Exam Back Exam: absent: CVA tenderness (L), CVA tenderness (R) - Neurological Exam Neurological Exam: Alert, Awake, Oriented x3 Assessment and Plan (1) Diabetic foot ulcer Status: Acute (2) Toe osteomyelitis, left Status: Acute (3) Osteomyelitis due to type 2 diabetes mellitus Status: Acute (4) CAD (coronary artery disease) Status: Chronic - Assessment and Plan (Free Text) Assessment: cont rx severe pad dr sears on board
[2016-10-22] MEDS: Enoxaparin 40 mg Syringe SC SCH (12:02)
[2016-10-22] MEDS ORDERED: Lidocaine 2% Inj (20ml) ONE (12:10)
[2016-10-22] MEDS ORDERED: Bupivacaine HCl 0.5% PF (10 ml) Inj ONE (12:10)
--- NOTE | 2016-10-22 12:12 | CARD ---
APPROVED REPORT EKG Measurement Heart [id number] <Conclusion> Normal sinus rhythm Poor R wave progression V1 - V2 Abnormal ECG
[2016-10-22] MEDS ORDERED: Midazolam 2 MG/2 ML VIAL ONE (12:20)
--- NOTE | 2016-10-22 12:24 | CT ---
PROCEDURE: CT Angiography Abdomen, Pelvis and Lower Extremity with Contrast HISTORY: Peripheral vascular disease. COMPARISON: Arterial pulse volume recordings performed on 10/01/2016. TECHNIQUE: Technique: CT angiography of the abdomen, pelvis and bilateral lower extremities performed in the arterial phase of enhancement. Coronal and sagittal reformats, and well as rotating MIP images of the vessels generated at the workstation. Intravenous contrast dose: Visipaque 320. Radiation dose: Total exam DLP = 2630.68 mGy-cm. This CT exam was performed using one or more of the following dose reduction techniques: Automated exposure control, adjustment of the mA and/or kV according to patient size, and/or use of iterative reconstruction technique. FINDINGS: CT ANGIOGRAPHY: ABDOMINAL AORTA:: No abdominal aortic aneurysm. MAJOR AORTIC BRANCHES: Celiac Farn[place]: Unremarkable. Superior mesenteric artery: Unremarkable. Inferior mesenteric artery: Unremarkable. Renal arteries: Unremarkable. PELVIC ARTERIES: Right Common Iliac: Unremarkable. Right External Iliac: Unremarkable. Right Internal Iliac: Unremarkable. Left Common Iliac: Unremarkable. Left External Iliac: Unremarkable. Left Internal Iliac: Unremarkable. RIGHT LOWER EXTREMITY ARTERIES: Right Common Femoral: Unremarkable. Right Superficial Femoral: Scattered calcific plaque along the arterial wall. Focal moderate narrowing in the distal segment. Right Profunda Femoris: Unremarkable. Right Popliteal:Unremarkable. The below-knee arteries demonstrates extensive eccentric calcific and noncalcific plaque. The anterior and posterior tibial arteries appear patent throughout their course. The peroneal artery is patent proximally however the distal aspect demonstrates diminished opacification. Multifocal areas of moderate to severe narrowing involving the distal popliteal artery and the tibioperoneal trunk. LEFT LOWER EXTREMITY ARTERIES: Left Common Femoral: Unremarkable. Left Superficial Femoral: Unremarkable. Left Profunda Femoris: Unremarkable. Left Popliteal: Patent with mildly diminished flow when compared to the contralateral popliteal artery. Below-knee arteries demonstrate extensive eccentric calcific plaque which limits evaluation of flow. Diminutive flow seen in the distal segments of the anterior and posterior tibial arteries. Possible minimal flow seen in the distal peroneal artery. NON-ANGIOGRAPHIC ASPECT OF THE EXAM: LOWER THORAX: Limited visualization. LIVER: Unremarkable. No gross lesion or ductal dilatation. GALLBLADDER AND BILE DUCTS: Unremarkable. PANCREAS: Unremarkable. No gross lesion or ductal dilatation. SPLEEN: Unremarkable. ADRENALS: Unremarkable. No mass. KIDNEYS AND URETERS: Unremarkable. No hydronephrosis. No solid mass. STOMACH AND BOWEL: Unremarkable. No obstruction. No gross mural thickening. APPENDIX: Normal appendix. PERITONEUM: Unremarkable. No free fluid. No free air. LYMPH NODES: Scattered retroperitoneal lymphadenopathy. Extensive lymphadenopathy in the left inguinal region with the largest lymph node measuring 4 x 2.3 x 7 centimeter. Smaller lymph nodes on the right. BLADDER: Limited evaluation as the bladder is near completely collapsed. REPRODUCTIVE: Unremarkable. BONES: Degenerative changes are mild involving the knees and hips. Irregularity at the 1st digit of the left lower extremity could represent osteomyelitis. OTHER FINDINGS: Edematous foot with possible foci of air in the soft tissues surrounding the 1st digit, consistent with infection. IMPRESSION: Abdominal angiogram: No abdominal aortic aneurysm. Right lower extremity angiogram: Patent right common femoral, superficial femoral and popliteal arteries which demonstrate extensive eccentric calcific and noncalcific plaque with focal moderate narrowing in the distal superficial femoral and multifocal areas of moderate to severe narrowing in the distal popliteal and the tibioperoneal trunk. Left lower extremity angiogram: Patent left common femoral, superficial femoral and popliteal arteries with diminished flow in the popliteal artery when compared to the right. Below-knee arteries demonstrate extensive calcifications throughout the course limiting evaluation. Possible opacification of the peroneal artery with diminutive flow. Edema and extensive venous collaterals of the left lower extremity. Edematous foot with possible foci of air seen in the soft tissues surrounding the 1st digit, consistent with infection.
--- NOTE | 2016-10-22 13:05 | PCM.SURG1 ---
Surgeon's Initial Post Op Note - Surgeon's Notes Surgeon: Dr. Diamond [employer]: Dr. Brendan Melchor Type of Anesthesia: IV Sedation, Local Anesthesia Administered By: Dr. Tucker Pre-Operative Diagnosis: Left foot infection and osteomyelitis to 1st ray Operative Findings: Materials: 1 inch iodoform packing strips Post-Operative Diagnosis: same Operation Performed: Left foot amputation of 1st ray Specimen/Specimens Removed: left 1st met head Estimated Blood Loss: EBL {In ML}: 25 Blood Products Given: N/A Drains Used: No Drains Post-Op Condition: Good Date of Surgery/Procedure: 10/22/16 Time of Surgery/Procedure: 13:05
[2016-10-22] MEDS ORDERED: HYDROmorphone 0.5 mg/0.5 ml ISec IVP PRN (13:31)
[2016-10-22] MEDS ORDERED: HYDROmorphone 0.5 mg/0.5 ml ISec ONE (13:31)
--- NOTE | 2016-10-22 15:52 | CP.PCM.PN ---
Subjective - Date & Time of Evaluation Date of Evaluation: 10/22/16 Time of Evaluation: 08:55 - Subjective Subjective: PGY2 Medicine Note - Dr. Bowen's service: Patient seen and examined at bedside. Patient aware that he is likely going to need an amputation. Patient reports foot pain and problems walking on it. Patient denies fever, chills, chest pain, SOB, nausea, vomiting. Objective - Vital Signs/Intake and Output Vital Signs (last 24 hours): Temp Pulse Resp BP Pulse Ox 97.4 F L 58 L 20 147/83 98 10/22/16 14:24 10/22/16 14:24 10/22/16 14:24 10/22/16 14:24 10/22/16 14:24 Intake and Output: 10/22/16 10/22/16 06:59 18:59 Intake Total 300 Balance 300 - Medications Medications: Current Medications Acetaminophen (Tylenol 325mg Tab) 650 mg PO Q6 PRN PRN Reason: Pain, Mild (1-3) Amlodipine Besylate (Norvasc) 10 mg PO DAILY [facility] Last Admin: 10/22/16 10:51 Dose: 10 mg Aspirin (Ecotrin) 81 mg PO DAILY [facility] Last Admin: 10/22/16 12:02 Dose: Not Given Clopidogrel Bisulfate (Plavix) 75 mg PO DAILY [facility] Last Admin: 10/22/16 10:51 Dose: 75 mg Enoxaparin Sodium (Lovenox) 40 mg SC DAILY [facility] Last Admin: 10/22/16 12:02 Dose: Not Given Famotidine (Pepcid) 20 mg PO BID [facility] Last Admin: 10/22/16 10:51 Dose: 20 mg Hydromorphone HCl (Dilaudid) 0.5 mg IVP Q5MIN PRN PRN Reason: Pain, moderate (4-7) Stop: 10/24/16 13:32 Piperacillin Sod/Tazobactam Sod (Zosyn 3.375 Gm Iv Premix) 50 mls @ 100 mls/hr IVPB Q6H [facility] Last Admin: 10/22/16 10:53 Dose: 100 mls/hr Vancomycin HCl 1,000 mg/ (Sodium Chloride) 250 mls @ 166.6 mls/hr IVPB Q12H [facility] Last Admin: 10/21/16 23:25 Dose: 166.6 mls/hr Lactated Ringer's (Lactated Ringer's) 1,000 mls @ 125 mls/hr IV .Q8H [facility] Insulin Aspart (Novolog) 0 unit SC ACHS [facility] PRN Reason: Protocol Last Admin: 10/22/16 12:06 Dose: Not Given Insulin Glargine (Lantus) 20 unit SC [facility] Last Admin: 10/21/16 22:01 Dose: 20 units Insulin Human Isoph/Insulin Regular (Novolin 70/30 (70/30 Units/Ml) 10 Ml) 60 units SC ACBD [facility] Last Admin: 10/22/16 08:15 Dose: 60 units Metoprolol Tartrate (Lopressor) 25 mg PO BID [facility] Last Admin: 10/22/16 10:51 Dose: 25 mg Oxycodone/Acetaminophen (Percocet 5/325 Mg Tab) 1 tab PO Q4H PRN PRN Reason: Pain, moderate (4-7) Stop: 10/25/16 13:00 Oxycodone/Acetaminophen (Percocet 5/325 Mg Tab) 2 tab PO Q4H PRN PRN Reason: Pain, severe (8-10) Stop: 10/25/16 13:00 Rosuvastatin Calcium (Crestor) 10 mg PO [facility] Last Admin: 10/21/16 22:01 Dose: 10 mg - Labs Labs: 10/22/16 11:22 10/22/16 11:22 - Constitutional Appears: Non-toxic, No Acute Distress - Head Exam Head Exam: NORMAL INSPECTION - Eye Exam Eye Exam: EOMI - ENT Exam ENT Exam: Mucous Membranes Moist - Respiratory Exam Respiratory Exam: Clear to Ausculation Bilateral, NORMAL BREATHING PATTERN. absent: Rales, Rhonchi, Wheezes - Cardiovascular Exam Cardiovascular Exam: REGULAR RHYTHM, +S1, +S2 - GI/Abdominal Exam GI & Abdominal Exam: Soft, Normal Bowel Sounds. absent: Tenderness - Extremities Exam Extremities Exam: Pedal Edema Additional comments: left foot wrapped, first toe swollen - Neurological Exam Neurological Exam: Alert, Oriented x3 - Psychiatric Exam Psychiatric exam: Normal Affect, Normal Mood - Skin Skin Exam: Normal Color, Warm Assessment and Plan - Assessment and Plan (Free Text) Assessment: Fungating left great toe blood culture negative x 48 hours F/U wound culture results Foot X ray consistent with 1st toe osteomyelitis Zosyn 3.375gm IVPB Q6H Vancomycin 1gm IVPB Q12H Percocet 5/325mg PO Q4H PRN pain LR @125cc/hr Podiatry consult - Dr. Vásquez - help appreciated Patient went to OR today for amputation of left 1st toe Will need rehab HTN Norvasc 10mg PO daily Lopressor 25mg PO BID PAD ASA 91mg PO daily Plavix 75mg PO daily Vascular consult - Dr. Quiñonez - help appreciated CTA showed tibial disease F/U on if patient will get surgery or not DM Lantus 20 units SC HS Novolin 70/30 60U SC ACBD Prophylaxis Protonix 40mg IVP daily SCDs contraindicated secondary to infection
[2016-10-22] MEDS: Lactated Ringer's 1,000 ML IV SCH ×2 (16:14→21:00)
--- NOTE | 2016-10-22 16:18 | RAD ---
PROCEDURE: Left Foot Radiographs. HISTORY: left foot surgery COMPARISON: Comparison is made to the previous study dated 10/19/2016 FINDINGS: BONES: The patient is status post amputation of the 1st toe and the distal head of the 1st metatarsal bone since the previous exam. JOINTS: Arthritic degenerative changes are noted. SOFT TISSUES: Heterogeneous soft tissue density at the distal and medial aspect of the left foot likely postsurgical changes. OTHER FINDINGS: None. IMPRESSION: Status post amputation of the distal head of 1st metatarsal bone and the 1st toe. .
--- NOTE | 2016-10-22 19:55 | OP ---
PROCEDURE DATE: 10/22/2016 SURGEON: Dr. Lockhart. CARTRIDGE LOADING OPERATOR: Dr. Amarilys Melchor. BONE CHAR KILN TENDER: Dr. Tucker. ANESTHESIA: IV sedation with local. PREOPERATIVE DIAGNOSIS: Left foot infection with osteomyelitis to the first metatarsal. POSTOPERATIVE DIAGNOSES: Left foot infection with osteomyelitis to the first metatarsal. PROCEDURE PERFORMED: 1. Left foot first digit amputation. 2. Partial ostectomy of the left first metatarsal head. INDICATIONS: The patient is a 51-year-old male patient with the above diagnosis. The patient has ex hausted all conservative treatment at this time and now requires surgical intervention. The patient signed the consent after careful explanation of risks, benefits, complications and alternatives for s urgical procedure. No guarantees were given nor implied. PREPARATION: The patient was brought into the operating room and placed on the operating room table in a supine position. Time-out was performed for identification of the correct patient and procedure . After induction of IV sedation, the patient received a total of 10 mL of 1 part 1:1 mixture of 1% lidocaine plain and 0.5% Marcaine plain in a local block type fashion to the left foot. Once local a nesthesia was achieved, the left foot and ankle was then prepped and draped in normal sterile manner and the procedure began. PROCEDURE #1: Left foot first digit amputation. Attention was drawn to the left hallux where a circ umferential incision was made at the level of the first metatarsophalangeal joint using a #15 blade. Then, approximately 5 cm longitudinal incision was made to the dorsal aspect of the left foot from t he circumferential incision extending proximally. The incision was then extended down through the dao bcutaneous layers down to the level of bone. Using a bone clamp to stabilize the toe, the hallux was then disarticulated from the foot at the level of the first metatarsophalangeal joint. This specime n was then passed from the operative field and sent to pathology. PROCEDURE #2: Partial ostectomy of the left first metatarsal head. Attention was then directed to t he left first metatarsal head. Cartilage of the first metatarsal head was unhealthy and all the liga mentous attachments were freed from the metatarsal head. Utilizing sagittal bone saw, the distal 1/3 of the head of the first metatarsal bone was resected. This specimen was then passed from the opera tive field and sent to pathology. Using a fresh #15 blade, all necrotic and nonviable tissue was the n excisionally debrided from the surgical site. The surgical site was then copiously flushed with no rmal sterile saline using pulse lavage. At this time, the wound was packed with 1 inch iodoform pack ing strips and the left foot was dressed with 4 x 4 gauze, Kerlix, Nikolai bandage and abdominal pad. Im mediate capillary refill time was noted to the surgical site and all remaining digits. POSTOPERATIVE CONDITION: The patient tolerated the anesthesia and procedure well and was escorted to the recovery room with vital signs stable and neurovascular status intact to the left foot. The pat ient is back to floor for IV antibiotic treatment. AMARILYS MELCHOR DPM Kade Lockhart DPM cc: [id number] TT: 10/22/2016 19:54:34 jn
[2016-10-22] MEDS: (Lantus) Insulin Glargine, Recombinant SC SCH (22:23)
[2016-10-23] MEDS: Oxycodone/Acetaminophen 5/325 mg Tab PO PRN ×6 (02:13→22:39)
[2016-10-23] MEDS: Piperacill/Tazo 3.375gm in Dex 50 ML IVPB SCH ×3 (05:15→17:41)
[2016-10-23 07:18] LABS: BASO # 0.1 K/uL (0.0-0.2); BASO % 0.6 % (0.0-2.0); EOS # 0.2 K/uL (0.0-0.7); EOS % 2.3 % (0.0-4.0); HEMATOCRIT 30.2 % (35.0-51.0); LYMPH % 20.2 % (20.0-40.0); MEAN CELL VOLUME 74.1 fL (80.0-94.0); MEAN CORPUSCULAR HEMOGLOBIN 23.8 pg (27.0-31.0); MEAN CORPUSCULAR HGB CONC 32.2 g/dL (33.0-37.0); MEAN PLATELET VOLUME 8.8 fL (7.2-11.7); MONO # 0.9 K/uL (0.0-0.8); MONO % 9.2 % (0.0-10.0); NRBC % 0.1 % (0.0-2.0)
[2016-10-23 07:47] LABS: POTASSIUM 3.8 mmol/L (3.6-5.2)
[2016-10-23 07:48] LABS: ALB/GLOB RATIO 0.8 (1.0-2.1); ALKALINE PHOSPHATASE 129 U/L (38-126); AST/SGOT 34 U/L (17-59); BILIRUBIN,TOTAL < 0.1 mg/dL (0.2-1.3); CARBON DIOXIDE 26 mmol/L (22-30); GFR AFRICAN-AMERICAN > 60; TOTAL PROTEIN 6.6 g/dL (6.3-8.3)
[2016-10-23 07:49] LABS: ALT/SGPT 44 U/L (21-72); BLOOD UREA NITROGEN 10 mg/dL (9-20); CALCIUM 7.7 mg/dl (8.6-10.4); GLUCOSE,RANDOM 93 mg/dL (75-110)
[2016-10-23] MEDS: (Novolog) Insulin Aspart, Recombinant 100 u/ml 10 ml vial SC SCH ×4 (08:00→23:00)
[2016-10-23] MEDS: (Novolin 70/30) NPH/Regular 70/30 Units/ml 10 ml vial SC SCH ×2 (08:00→17:34)
[2016-10-23 08:41] LABS: CHLORIDE 102 mmol/L (98-107); SODIUM 137 mmol/L (132-148)
[2016-10-23] MEDS: Enoxaparin 40 mg Syringe SC SCH (09:48)
--- NOTE | 2016-10-23 10:24 | CP.PCM.PN ---
Subjective - Date & Time of Evaluation Date of Evaluation: 10/23/16 Time of Evaluation: 07:00 - Subjective Subjective: Medicine Progress Note- Dr Bowen's service Patient seen and examined. Patient is POD #1 s/p left 1st metatarsal amputation. He states that he feels pain in his foot but that it is mild and tolerable. He is eager to get out of bed and go to rehab soon. Tolerating his diet well and denies difficulty using bathroom. Denies fever, chills, nausea, vomiting, chest pain, shortness of breath, leg/calf pain, weakness, numbness and tingling. Objective - Vital Signs/Intake and Output Vital Signs (last 24 hours): Temp Pulse Resp BP Pulse Ox 98.2 F 67 20 158/67 H 98 10/23/16 07:28 10/23/16 07:28 10/23/16 07:28 10/23/16 09:47 10/23/16 07:28 Intake and Output: 10/23/16 10/23/16 06:59 18:59 Intake Total 650 Output Total 800 Balance -150 - Medications Medications: Current Medications Acetaminophen (Tylenol 325mg Tab) 650 mg PO Q6 PRN PRN Reason: Pain, Mild (1-3) Amlodipine Besylate (Norvasc) 10 mg PO DAILY [facility] Last Admin: 10/23/16 09:47 Dose: 10 mg Aspirin (Ecotrin) 81 mg PO DAILY [facility] Last Admin: 10/23/16 09:48 Dose: 81 mg Clopidogrel Bisulfate (Plavix) 75 mg PO DAILY [facility] Last Admin: 10/23/16 09:47 Dose: 75 mg Enoxaparin Sodium (Lovenox) 40 mg SC DAILY [facility] Last Admin: 10/23/16 09:48 Dose: 40 mg Famotidine (Pepcid) 20 mg PO BID [facility] Last Admin: 10/22/16 17:45 Dose: 20 mg Famotidine (Pepcid) 20 mg IVP Q12 [facility] Last Admin: 10/23/16 09:49 Dose: 20 mg Hydromorphone HCl (Dilaudid) 0.5 mg IVP Q5MIN PRN PRN Reason: Pain, moderate (4-7) Stop: 10/24/16 13:32 Piperacillin Sod/Tazobactam Sod (Zosyn 3.375 Gm Iv Premix) 50 mls @ 100 mls/hr IVPB Q6H [facility] Last Admin: 10/22/16 22:25 Dose: 100 mls/hr Vancomycin HCl 1,000 mg/ (Sodium Chloride) 250 mls @ 166.6 mls/hr IVPB Q12H [facility] Last Admin: 10/22/16 22:25 Dose: 166.6 mls/hr Lactated Ringer's (Lactated Ringer's) 1,000 mls @ 125 mls/hr IV .Q8H [facility] Last Admin: 10/22/16 21:00 Dose: Not Given Insulin Aspart (Novolog) 0 unit SC [facility] PRN Reason: Protocol Last Admin: 10/23/16 08:00 Dose: Not Given Insulin Glargine (Lantus) 20 unit SC [facility] Last Admin: 10/22/16 22:23 Dose: 20 units Insulin Human Isoph/Insulin Regular (Novolin 70/30 (70/30 Units/Ml) 10 Ml) 60 units SC ACBD [facility] Last Admin: 10/23/16 08:00 Dose: Not Given Metoprolol Tartrate (Lopressor) 25 mg PO BID [facility] Last Admin: 10/23/16 09:47 Dose: 25 mg Oxycodone/Acetaminophen (Percocet 5/325 Mg Tab) 1 tab PO Q4H PRN PRN Reason: Pain, moderate (4-7) Stop: 10/25/16 13:00 Oxycodone/Acetaminophen (Percocet 5/325 Mg Tab) 2 tab PO Q4H PRN PRN Reason: Pain, severe (8-10) Stop: 10/25/16 13:00 Last Admin: 10/23/16 02:13 Dose: 2 tab Rosuvastatin Calcium (Crestor) 10 mg PO [facility] Last Admin: 10/22/16 22:23 Dose: 10 mg - Labs Labs: 10/23/16 06:30 10/23/16 06:48 - Additional Findings Additional findings: - Constitutional Appears: Non-toxic, No Acute Distress - Head Exam Head Exam: NORMAL INSPECTION - Eye Exam Eye Exam: EOMI - ENT Exam ENT Exam: Mucous Membranes Moist - Respiratory Exam Respiratory Exam: Clear to Ausculation Bilateral, NORMAL BREATHING PATTERN. absent: Rales, Rhonchi, Wheezes - Cardiovascular Exam Cardiovascular Exam: REGULAR RHYTHM, +S1, +S2 - GI/Abdominal Exam GI & Abdominal Exam: Soft, Normal Bowel Sounds. absent: Tenderness - Extremities Exam Extremities Exam: Pedal Edema Additional comments: left foot wrapped, dressing dry and clean, pt able to wiggle toes, intact sensation to light touch - Neurological Exam Neurological Exam: Alert, Oriented x3 - Psychiatric Exam Psychiatric exam: Normal Affect, Normal Mood - Skin Skin Exam: Normal Color, Warm Assessment and Plan - Assessment and Plan (Free Text) Assessment: Fungating left great toe POD #1 s/p left 1st metatarsal amputation with Dr. Diamond blood culture negative x 3 days Foot X ray consistent with 1st toe osteomyelitis Zosyn 3.375gm IVPB Q6H Vancomycin 1gm IVPB Q12H Percocet 5/325mg PO Q4H PRN pain Podiatry consult - help appreciated Arrange for RADHA, f/u PT recommendations HTN Norvasc 10mg PO daily Lopressor 25mg PO BID PAD ASA 91mg PO daily Plavix 75mg PO daily Vascular consult - Dr. Quiñonez - help appreciated CTA showed tibial disease DM ISS Lantus 20 units SC HS Novolin 70/30 60U SC ACBD Prophylaxis Protonix 40mg IVP daily SCDs contraindicated secondary to PAD Lovenox 40mg SC daily
--- NOTE | 2016-10-23 10:38 | CP.PCM.PN ---
Subjective - Date & Time of Evaluation Date of Evaluation: 10/23/16 Time of Evaluation: 10:37 - Subjective Subjective: 51 y/o male seen and evaluateed 1 day s/p left 1st ray amputation. Patient is well known to Dr. alarcon. States that he had been seen roughly 2 weeks ago and had been getting outpatient abx per Dr. Hu but had not followed up with Dr. Alarcon. Upon admission foot was grossly infected w/ purulence tracking up the tendon sheats so decision was made by Dr. Alarcon to take to the OR for ray amputation. Patient underwent procedure yesterday and since has no complaints. States that he understands following d/c he will be needing to be transferred to a rehab facility for care. No pain at this time. No f/c/n/v/sob Objective - Vital Signs/Intake and Output Vital Signs (last 24 hours): Temp Pulse Resp BP Pulse Ox 98.2 F 67 20 158/67 H 98 10/23/16 07:28 10/23/16 07:28 10/23/16 07:28 10/23/16 09:47 10/23/16 07:28 Intake and Output: 10/23/16 10/23/16 06:59 18:59 Intake Total 650 Output Total 800 Balance -150 - Medications Medications: Current Medications Acetaminophen (Tylenol 325mg Tab) 650 mg PO Q6 PRN PRN Reason: Pain, Mild (1-3) Amlodipine Besylate (Norvasc) 10 mg PO DAILY [facility] Last Admin: 10/23/16 09:47 Dose: 10 mg Aspirin (Ecotrin) 81 mg PO DAILY [facility] Last Admin: 10/23/16 09:48 Dose: 81 mg Clopidogrel Bisulfate (Plavix) 75 mg PO DAILY [facility] Last Admin: 10/23/16 09:47 Dose: 75 mg Enoxaparin Sodium (Lovenox) 40 mg SC DAILY [facility] Last Admin: 10/23/16 09:48 Dose: 40 mg Famotidine (Pepcid) 20 mg PO BID [facility] Last Admin: 10/22/16 17:45 Dose: 20 mg Famotidine (Pepcid) 20 mg IVP Q12 [facility] Last Admin: 10/23/16 09:49 Dose: 20 mg Hydromorphone HCl (Dilaudid) 0.5 mg IVP Q5MIN PRN PRN Reason: Pain, moderate (4-7) Stop: 10/24/16 13:32 Piperacillin Sod/Tazobactam Sod (Zosyn 3.375 Gm Iv Premix) 50 mls @ 100 mls/hr IVPB Q6H [facility] Last Admin: 10/22/16 22:25 Dose: 100 mls/hr Vancomycin HCl 1,000 mg/ (Sodium Chloride) 250 mls @ 166.6 mls/hr IVPB Q12H [facility] Last Admin: 10/22/16 22:25 Dose: 166.6 mls/hr Lactated Ringer's (Lactated Ringer's) 1,000 mls @ 125 mls/hr IV .Q8H [facility] Last Admin: 10/22/16 21:00 Dose: Not Given Insulin Aspart (Novolog) 0 unit SC [facility] PRN Reason: Protocol Last Admin: 10/23/16 08:00 Dose: Not Given Insulin Glargine (Lantus) 20 unit SC [facility] Last Admin: 10/22/16 22:23 Dose: 20 units Insulin Human Isoph/Insulin Regular (Novolin 70/30 (70/30 Units/Ml) 10 Ml) 60 units SC ACBD [facility] Last Admin: 10/23/16 08:00 Dose: Not Given Metoprolol Tartrate (Lopressor) 25 mg PO BID [facility] Last Admin: 10/23/16 09:47 Dose: 25 mg Oxycodone/Acetaminophen (Percocet 5/325 Mg Tab) 1 tab PO Q4H PRN PRN Reason: Pain, moderate (4-7) Stop: 10/25/16 13:00 Oxycodone/Acetaminophen (Percocet 5/325 Mg Tab) 2 tab PO Q4H PRN PRN Reason: Pain, severe (8-10) Stop: 10/25/16 13:00 Last Admin: 10/23/16 02:13 Dose: 2 tab Rosuvastatin Calcium (Crestor) 10 mg PO [facility] Last Admin: 10/22/16 22:23 Dose: 10 mg - Labs Labs: 10/23/16 06:30 10/23/16 06:48 - Constitutional Appears: Well, Non-toxic, No Acute Distress - Skin Additional comments: Dressing left c/d/i to the left foot Assessment and Plan - Assessment and Plan (Free Text) Assessment: 51 y/o male 1 day s/p left first ray ampt. Plan: Patient evaluated and chart reviewed Discussed with Dr. Alarcon. labs/vitals reviewed; stable Dressing is to be left c/d/i for todya and will be changed tomorrow by Dr. Alarcon Foot will need to be evaluated tomorrow for progression or any demarcation that may have occurred. If wound appears stable tomorrow patient should be clear for rehab. Will f/u on patient tomorrow AM.
--- NOTE | 2016-10-23 16:48 | CP.PCM.PN ---
Subjective - Date & Time of Evaluation Date of Evaluation: 10/23/16 Time of Evaluation: 16:48 - Subjective Subjective: for angiogram saturday Objective - Vital Signs/Intake and Output Vital Signs (last 24 hours): Temp Pulse Resp BP Pulse Ox 98.5 F 60 20 145/72 98 10/23/16 15:04 10/23/16 15:04 10/23/16 15:04 10/23/16 15:04 10/23/16 15:04 Intake and Output: 10/23/16 10/23/16 06:59 18:59 Intake Total 650 Output Total 800 Balance -150 - Medications Medications: Current Medications Acetaminophen (Tylenol 325mg Tab) 650 mg PO Q6 PRN PRN Reason: Pain, Mild (1-3) Amlodipine Besylate (Norvasc) 10 mg PO DAILY [facility] Last Admin: 10/23/16 09:47 Dose: 10 mg Aspirin (Ecotrin) 81 mg PO DAILY [facility] Last Admin: 10/23/16 09:48 Dose: 81 mg Clopidogrel Bisulfate (Plavix) 75 mg PO DAILY [facility] Last Admin: 10/23/16 09:47 Dose: 75 mg Enoxaparin Sodium (Lovenox) 40 mg SC DAILY [facility] Last Admin: 10/23/16 09:48 Dose: 40 mg Famotidine (Pepcid) 20 mg PO BID [facility] Last Admin: 10/23/16 10:30 Dose: 20 mg Famotidine (Pepcid) 20 mg IVP Q12 [facility] Last Admin: 10/23/16 09:49 Dose: 20 mg Hydromorphone HCl (Dilaudid) 0.5 mg IVP Q5MIN PRN PRN Reason: Pain, moderate (4-7) Stop: 10/24/16 13:32 Piperacillin Sod/Tazobactam Sod (Zosyn 3.375 Gm Iv Premix) 50 mls @ 100 mls/hr IVPB Q6H [facility] Last Admin: 10/23/16 11:30 Dose: 100 mls/hr Vancomycin HCl 1,000 mg/ (Sodium Chloride) 250 mls @ 166.6 mls/hr IVPB Q12H [facility] Last Admin: 10/23/16 11:19 Dose: 166.6 mls/hr Lactated Ringer's (Lactated Ringer's) 1,000 mls @ 125 mls/hr IV .Q8H [facility] Last Admin: 10/22/16 21:00 Dose: Not Given Insulin Aspart (Novolog) 0 unit SC ACHS [facility] PRN Reason: Protocol Last Admin: 10/23/16 12:30 Dose: 3 unit Insulin Glargine (Lantus) 20 unit SC [facility] Last Admin: 10/22/16 22:23 Dose: 20 units Insulin Human Isoph/Insulin Regular (Novolin 70/30 (70/30 Units/Ml) 10 Ml) 60 units SC ACBD [facility] Last Admin: 10/23/16 08:00 Dose: Not Given Metoprolol Tartrate (Lopressor) 25 mg PO BID [facility] Last Admin: 10/23/16 09:47 Dose: 25 mg Oxycodone/Acetaminophen (Percocet 5/325 Mg Tab) 1 tab PO Q4H PRN PRN Reason: Pain, moderate (4-7) Stop: 10/25/16 13:00 Oxycodone/Acetaminophen (Percocet 5/325 Mg Tab) 2 tab PO Q4H PRN PRN Reason: Pain, severe (8-10) Stop: 10/25/16 13:00 Last Admin: 10/23/16 11:20 Dose: 2 tab Rosuvastatin Calcium (Crestor) 10 mg PO [facility] Last Admin: 10/22/16 22:23 Dose: 10 mg - Labs Labs: 10/23/16 06:30 10/23/16 06:48
[2016-10-23] MEDS: (Lantus) Insulin Glargine, Recombinant SC SCH (22:40)
[2016-10-24] MEDS: Piperacill/Tazo 3.375gm in Dex 50 ML IVPB SCH ×5 (00:39→23:53)
[2016-10-24] MEDS: Oxycodone/Acetaminophen 5/325 mg Tab PO PRN ×4 (03:49→21:33)
--- NOTE | 2016-10-24 07:28 | CP.PCM.PN ---
Subjective - Date & Time of Evaluation Date of Evaluation: 10/24/16 Time of Evaluation: 09:32 - Subjective Subjective: Medicine Progress Note- Dr. Bowen's Service: Patient seen and examined at bedside this morning. Patient is POD #2 s/p left 1st metatarsal. Admits to 10/10 pain at surgical site. Patient is NPO for angiogram with Dr. Quiñonez today. Admits to left LE pain that has improved since having amputation. Patient denies fevers, chills, nausea, vomiting, diarrhea. Objective - Vital Signs/Intake and Output Vital Signs (last 24 hours): Temp Pulse Resp BP Pulse Ox 98.5 F 60 20 145/72 98 10/23/16 15:04 10/23/16 15:04 10/23/16 15:04 10/23/16 17:34 10/23/16 15:04 Intake and Output: 10/24/16 10/24/16 06:59 18:59 Intake Total 800 Output Total 1000 Balance -200 - Medications Medications: Current Medications Acetaminophen (Tylenol 325mg Tab) 650 mg PO Q6 PRN PRN Reason: Pain, Mild (1-3) Amlodipine Besylate (Norvasc) 10 mg PO DAILY [facility] Last Admin: 10/23/16 09:47 Dose: 10 mg Aspirin (Ecotrin) 81 mg PO DAILY [facility] Last Admin: 10/23/16 09:48 Dose: 81 mg Clopidogrel Bisulfate (Plavix) 75 mg PO DAILY [facility] Last Admin: 10/23/16 09:47 Dose: 75 mg Enoxaparin Sodium (Lovenox) 40 mg SC DAILY [facility] Last Admin: 10/23/16 09:48 Dose: 40 mg Famotidine (Pepcid) 20 mg PO BID [facility] Last Admin: 10/23/16 17:34 Dose: 20 mg Hydromorphone HCl (Dilaudid) 0.5 mg IVP Q5MIN PRN PRN Reason: Pain, moderate (4-7) Stop: 10/24/16 13:32 Piperacillin Sod/Tazobactam Sod (Zosyn 3.375 Gm Iv Premix) 50 mls @ 100 mls/hr IVPB Q6H [facility] Last Admin: 10/24/16 00:39 Dose: 100 mls/hr Vancomycin HCl 1,000 mg/ (Sodium Chloride) 250 mls @ 166.6 mls/hr IVPB Q12H [facility] Last Admin: 10/24/16 01:53 Dose: 166.6 mls/hr Lactated Ringer's (Lactated Ringer's) 1,000 mls @ 125 mls/hr IV .Q8H [facility] Last Admin: 10/22/16 21:00 Dose: Not Given Insulin Aspart (Novolog) 0 unit SC [facility] PRN Reason: Protocol Last Admin: 10/23/16 23:00 Dose: Not Given Insulin Glargine (Lantus) 20 unit SC [facility] Last Admin: 10/23/16 22:40 Dose: 20 units Insulin Human Isoph/Insulin Regular (Novolin 70/30 (70/30 Units/Ml) 10 Ml) 60 units SC ACBD [facility] Last Admin: 10/23/16 17:34 Dose: 60 units Metoprolol Tartrate (Lopressor) 25 mg PO BID [facility] Last Admin: 10/23/16 17:34 Dose: 25 mg Oxycodone/Acetaminophen (Percocet 5/325 Mg Tab) 1 tab PO Q4H PRN PRN Reason: Pain, moderate (4-7) Stop: 10/25/16 13:00 Oxycodone/Acetaminophen (Percocet 5/325 Mg Tab) 2 tab PO Q4H PRN PRN Reason: Pain, severe (8-10) Stop: 10/25/16 13:00 Last Admin: 10/24/16 03:49 Dose: 2 tab Rosuvastatin Calcium (Crestor) 10 mg PO [facility] Last Admin: 10/23/16 22:40 Dose: 10 mg - Labs Labs: 10/23/16 06:30 10/23/16 06:48 - Constitutional Appears: No Acute Distress - Head Exam Head Exam: NORMAL INSPECTION, NORMOCEPHALIC - Eye Exam Eye Exam: EOMI, Normal appearance - ENT Exam ENT Exam: Mucous Membranes Moist - Neck Exam Neck Exam: Full ROM, Normal Inspection - Respiratory Exam Respiratory Exam: Clear to Ausculation Bilateral, NORMAL BREATHING PATTERN - Cardiovascular Exam Cardiovascular Exam: REGULAR RHYTHM, +S1, +S2 - GI/Abdominal Exam GI & Abdominal Exam: Soft. absent: Distended, Tenderness - Extremities Exam Extremities Exam: Tenderness (left lower leg). absent: Normal Inspection, Pedal Edema Additional comments: Left foot is bandaged - Neurological Exam Neurological Exam: Alert, Awake, Oriented x3 - Psychiatric Exam Psychiatric exam: Normal Affect, Normal Mood - Skin Skin Exam: Normal Color, Warm Assessment and Plan (1) Toe osteomyelitis, left Assessment & Plan: POD #2 s/p left 1st metatarsal amputation with Dr. Diamond Podiatry consult - help appreciated- Dr. Diamond Blood culture negative x 3 days Foot X ray consistent with 1st toe osteomyelitis Zosyn 3.375gm IVPB Q6H Vancomycin 1gm IVPB Q12H Percocet 5/325mg PO Q4H PRN pain Arrange for RAD[facility] PT recommendations are for TCU Status: Acute (2) Peripheral vascular disease Assessment & Plan: Vascular surgeon consulted- Dr. Quiñonez- help appreciated CTA showed tibial disease Patient is NPO for angiogram today ASA 91mg PO daily Plavix 75mg PO daily Status: Acute (3) DM2 (diabetes mellitus, type 2) Assessment & Plan: ISS Lantus 20 units SC HS Novolin 70/30 60U SC ACBD Status: Chronic (4) HTN (hypertension) Assessment & Plan: Norvasc 10mg PO daily Lopressor 25mg PO BID Status: Chronic (5) Prophylactic measure Assessment & Plan: Protonix 40mg IVP daily SCDs contraindicated secondary to PAD Lovenox 40mg SC daily Status: Acute
[2016-10-24] MEDS: (Novolin 70/30) NPH/Regular 70/30 Units/ml 10 ml vial SC SCH ×2 (07:57→17:23)
[2016-10-24] MEDS: (Novolog) Insulin Aspart, Recombinant 100 u/ml 10 ml vial SC SCH ×4 (07:58→21:32)
[2016-10-24 08:11] LABS: BASO # 0.1 K/uL (0.0-0.2); BASO % 0.7 % (0.0-2.0); EOS # 0.2 K/uL (0.0-0.7); EOS % 2.3 % (0.0-4.0); HEMATOCRIT 30.1 % (35.0-51.0); LYMPH # 2.2 K/uL (1.0-4.3); LYMPH % 22.9 % (20.0-40.0); MEAN CELL VOLUME 74.5 fL (80.0-94.0); MEAN CORPUSCULAR HEMOGLOBIN 23.2 pg (27.0-31.0); MEAN CORPUSCULAR HGB CONC 31.1 g/dL (33.0-37.0); MEAN PLATELET VOLUME 8.8 fL (7.2-11.7); MONO # 0.9 K/uL (0.0-0.8); MONO % 9.6 % (0.0-10.0); RED CELL DISTRIBUTION WIDTH 14.8 % (11.5-14.5); WHITE BLOOD COUNT 9.5 K/uL (4.8-10.8)
[2016-10-24 08:26] LABS: CHLORIDE 101 mmol/L (98-107)
[2016-10-24 08:27] LABS: POTASSIUM 4.1 mmol/L (3.6-5.2); SODIUM 137 mmol/L (132-148)
[2016-10-24 08:29] LABS: AST/SGOT 23 U/L (17-59); BILIRUBIN,TOTAL < 0.1 mg/dL (0.2-1.3); CARBON DIOXIDE 26 mmol/L (22-30); GFR AFRICAN-AMERICAN > 60
[2016-10-24 08:30] LABS: ALB/GLOB RATIO 0.8 (1.0-2.1); ALKALINE PHOSPHATASE 102 U/L (38-126); ALT/SGPT 38 U/L (21-72); BLOOD UREA NITROGEN 13 mg/dL (9-20); CALCIUM 7.6 mg/dl (8.6-10.4); GLUCOSE,RANDOM 237 mg/dL (75-110); TOTAL PROTEIN 6.7 g/dL (6.3-8.3)
[2016-10-24] MEDS: Enoxaparin 40 mg Syringe SC SCH (10:00)
--- NOTE | 2016-10-24 11:16 | CP.PCM.PN ---
Subjective - Date & Time of Evaluation Date of Evaluation: 10/24/16 Time of Evaluation: 12:38 - Subjective Subjective: 51 y/o male seen and evaluated 2 days a/p left 1st ray amputation. Patient seen at bedside with Dr. Hawley. At this time patient is comfortable and in NAD. Patient states that he is ready to go to a rehab facility. States that he is having no pain at this time. Denies any other pedal complaints. Denies any f/c/n/v/s/cristal. Objective - Vital Signs/Intake and Output Vital Signs (last 24 hours): Temp Pulse Resp BP Pulse Ox 98.0 F 63 20 162/83 H 98 10/24/16 08:48 10/24/16 08:48 10/24/16 08:48 10/24/16 09:33 10/24/16 08:48 Intake and Output: 10/24/16 10/24/16 06:59 18:59 Intake Total 800 Output Total 1000 Balance -200 - Medications Medications: Current Medications Acetaminophen (Tylenol 325mg Tab) 650 mg PO Q6 PRN PRN Reason: Pain, Mild (1-3) Amlodipine Besylate (Norvasc) 10 mg PO DAILY [facility] Last Admin: 10/23/16 09:47 Dose: 10 mg Aspirin (Ecotrin) 81 mg PO DAILY [facility] Last Admin: 10/23/16 09:48 Dose: 81 mg Clopidogrel Bisulfate (Plavix) 75 mg PO DAILY [facility] Last Admin: 10/23/16 09:47 Dose: 75 mg Enoxaparin Sodium (Lovenox) 40 mg SC DAILY [facility] Last Admin: 10/23/16 09:48 Dose: 40 mg Famotidine (Pepcid) 20 mg PO BID [facility] Last Admin: 10/23/16 17:34 Dose: 20 mg Hydromorphone HCl (Dilaudid) 0.5 mg IVP Q5MIN PRN PRN Reason: Pain, moderate (4-7) Stop: 10/24/16 13:32 Piperacillin Sod/Tazobactam Sod (Zosyn 3.375 Gm Iv Premix) 50 mls @ 100 mls/hr IVPB Q6H [facility] Last Admin: 10/24/16 00:39 Dose: 100 mls/hr Vancomycin HCl 1,000 mg/ (Sodium Chloride) 250 mls @ 166.6 mls/hr IVPB Q12H [facility] Last Admin: 10/24/16 01:53 Dose: 166.6 mls/hr Lactated Ringer's (Lactated Ringer's) 1,000 mls @ 125 mls/hr IV .Q8H [facility] Last Admin: 10/22/16 21:00 Dose: Not Given Insulin Aspart (Novolog) 0 unit SC ACHS [facility] PRN Reason: Protocol Last Admin: 10/24/16 07:58 Dose: Not Given Insulin Glargine (Lantus) 20 unit SC [facility] Last Admin: 10/23/16 22:40 Dose: 20 units Insulin Human Isoph/Insulin Regular (Novolin 70/30 (70/30 Units/Ml) 10 Ml) 60 units SC ACBD [facility] Last Admin: 10/24/16 07:57 Dose: Not Given Metoprolol Tartrate (Lopressor) 25 mg PO BID [facility] Last Admin: 10/24/16 09:33 Dose: 25 mg Oxycodone/Acetaminophen (Percocet 5/325 Mg Tab) 1 tab PO Q4H PRN PRN Reason: Pain, moderate (4-7) Stop: 10/25/16 13:00 Oxycodone/Acetaminophen (Percocet 5/325 Mg Tab) 2 tab PO Q4H PRN PRN Reason: Pain, severe (8-10) Stop: 10/25/16 13:00 Last Admin: 10/24/16 08:47 Dose: 2 tab Rosuvastatin Calcium (Crestor) 10 mg PO [facility] Last Admin: 10/23/16 22:40 Dose: 10 mg - Labs Labs: 10/24/16 07:57 10/24/16 07:57 - Constitutional Appears: Well, Non-toxic, No Acute Distress - Skin Skin Exam: Warm - Additional Findings Additional findings: LLE: Vasc: DP/P non palp secondary to edema, temp gradient wnl, cap fill time < 3 s Derm: surgical fishmouth incision noted overlying the area of 1st MPJ , exposed bone is noted with exposed sesamoid apparatus on plantar aspect of 1st MT, there is surrounding red beefy tissue noted with mild active bleeding, there is no erythema noted, no purulence noted, no malodor, there is some darkening discoloratio noted around the sesamoids at this time Neuro: Grossly diminished Ortho: left 1st ray amp Assessment and Plan - Assessment and Plan (Free Text) Assessment: 51 y/o male 2 days s/p left 1st ray amp Plan: Patient evaluated and chart reviewed. Seen with Dr. Hawley, Wound cleansed with saline/peroxide and scrubed with wet 4x4 gauze to stimulate bleeding; It is ntoed the darkening surrounding the sesamoids which will need to be observed closely; Patient is for angio tomorrow with Dr. Stack. Will round tomorrow with Dr. Hawley again to assess the viability of the sesmoid apparatas and re eval any need for further surgical intervention to the area. If sesamoids appear stable tomorrow patient will be stable for a rehab facility Wound redressed with saline wet to dry dressing. Will continue to follow.
[2016-10-24] MEDS ORDERED: Iodixanol 320 MG/ML 100 ML BOTTLE IV ONE ×2 (11:20→13:49)
[2016-10-24] MEDS ORDERED: Iodixanol 320 MG/ML 200 ML BOTTLE IV ONE ×2 (11:20→12:12)
[2016-10-24] MEDS ORDERED: Nitroglycerin 50mg in D5W 50 MG/250 ML BOTTLE IV ONE (13:23)
--- NOTE | 2016-10-24 14:28 | PCM.SURG1 ---
Surgeon's Initial Post Op Note - Surgeon's Notes Surgeon: renu Hay Stacker Operator: 0 Type of Anesthesia: IV Sedation Anesthesia Administered By: mp Pre-Operative Diagnosis: gangrene of foot left Operative Findings: severe tibial disease. only open vessel to foot is anterior tibial. severely diseased Post-Operative Diagnosis: same Operation Performed: aortofemoral angiogram. selective catherization of left femoral artery. pathway atherectomy of anterior tibial artery. balloon angioplasty of anterior tibial with 2.5x3.0 x 320 balloon. 4mg tpa into anterior tibial. cpmpletion films excellent with brisk perfusion. perclose right groin Specimen/Specimens Removed: 0 Estimated Blood Loss: EBL {In ML}: 100 Blood Products Given: N/A Drains Used: No Drains Date of Surgery/Procedure: 10/24/16 Time of Surgery/Procedure: 14:28
[2016-10-24] MEDS ORDERED: Dextrose 5%/0.45% NS 1,000 ML IV SCH (14:30)
--- NOTE | 2016-10-24 15:29 | VAS ---
DATE: 10/24/2016 PREOPERATIVE DIAGNOSIS: Gangrene, left great toe. POSTOPERATIVE DIAGNOSIS: Gangrene, left great toe. PROCEDURES CARRIED OUT: Aortofemoral angiogram via right groin with selective catheterization of lef t femoral artery, Pathway atherectomy of the left anterior tibial artery and balloon angioplasty. SURGEON: Serafin Quiñonez MD. TANK WAGON OPERATOR: None. ANESTHESIOLOGIST: Mr. Simmons. ANESTHESIA: Local with sedation. INDICATIONS: The patient is a 51-year-old male, diabetic, admitted with an infected toe which requir ed amputation. He has no palpable pulses. OPERATIVE FINDINGS: The aorta and renal arteries are free of significant occlusive disease. Both re nal arteries were clear. Both common, external, and internal iliac arteries were widely patent. Bot h common femoral, superficial femoral, and profunda femoris arteries were widely patent. On the righ t side, detailed pictures were not taken below the level of the trifurcation. On the left side, deta iled pictures showed that the posterior tibial artery was occluded. The peroneal artery out in its midsegment, and the only vessel which was severely diseased was the anterior tibial which reconst ituted the dorsalis pedis artery. Subsequent to the performance of diagnostic arteriogram, a stiff-angled guidewire was advanced over t he aortic bifurcation and a 7-Azeri sheath positioned in the mid popliteal artery. It was quite difficult to do so as there was a narrow angle and this required a great deal preparatio n and work to actually position the sheath effectively as we had constant problems with prolapsing, e tc. Nonetheless, eventually we were able to get it here. After this, we gave heparin, we crossed th e lesion, and we placed a Spartacore wire distally. We then carried out the 1.6 Pathway atherectomy device and atherectomized the anterior tibial artery. This went quite well. However, the completion film showed what appeared to be clot. We subsequently instilled TPA directly into the anterior tibi al artery. We made another pass with the atherectomy device. This appeared to resolve the situation . We then went with the balloon and dilated with a 2.5 to 3 mm balloon and then touched it beginning at the ankle with the 2.5 mm balloon. The final cosmetic pictures were quite satisfactory. There i s brisk flow in and out of the vessel. We then deployed a Perclose device in the groin. PROCEDURE CARRIED OUT: 1. Aortofemoral angiogram via right groin with selective catheterization of left femoral artery. 2. Pathway atherectomy and balloon angioplasty of the left anterior tibial artery. 3. Tissue plasminogen activator installation into the anterior tibial artery. Serafin Quiñonez Jr., MD cc:Kade Lockhart DPM 56 TT: 10/24/2016 15:28:11 Confirmation # [id number] Dictation # [id number] mn
--- NOTE | 2016-10-24 18:32 | CP.PCM.PN ---
Subjective - Date & Time of Evaluation Date of Evaluation: 10/24/16 Time of Evaluation: 09:00 - Subjective Subjective: events noted ===> aortofemoral angiogram. selective catherization of left femoral artery. pathway atherectomy of anterior tibial artery. balloon angioplasty of anterior tibial with 2.5x3.0 x 320 balloon. 4mg tpa into anterior tibial. completion films excellent with brisk perfusion. perclose right groin no amputation done no cultures available cont iv rx for 6-8 weeks Objective - Vital Signs/Intake and Output Vital Signs (last 24 hours): Temp Pulse Resp BP Pulse Ox 97.3 F L 67 20 167/89 H 99 10/24/16 17:32 10/24/16 17:32 10/24/16 17:32 10/24/16 17:32 10/24/16 17:32 Intake and Output: 10/24/16 10/24/16 06:59 18:59 Intake Total 800 Output Total 1000 Balance -200 - Medications Medications: Current Medications Acetaminophen (Tylenol 325mg Tab) 650 mg PO Q6 PRN PRN Reason: Pain, Mild (1-3) Amlodipine Besylate (Norvasc) 10 mg PO DAILY [facility] Last Admin: 10/24/16 11:21 Dose: Not Given Aspirin (Ecotrin) 81 mg PO DAILY [facility] Last Admin: 10/24/16 10:00 Dose: Not Given Clopidogrel Bisulfate (Plavix) 75 mg PO DAILY [facility] Last Admin: 10/24/16 10:05 Dose: Not Given Enoxaparin Sodium (Lovenox) 40 mg SC DAILY [facility] Last Admin: 10/24/16 10:00 Dose: Not Given Famotidine (Pepcid) 20 mg PO BID [facility] Last Admin: 10/24/16 17:23 Dose: 20 mg Piperacillin Sod/Tazobactam Sod (Zosyn 3.375 Gm Iv Premix) 50 mls @ 100 mls/hr IVPB Q6H [facility] Last Admin: 10/24/16 17:23 Dose: 100 mls/hr Vancomycin HCl 1,000 mg/ (Sodium Chloride) 250 mls @ 166.6 mls/hr IVPB Q12H [facility] Last Admin: 10/24/16 11:24 Dose: Not Given Lactated Ringer's (Lactated Ringer's) 1,000 mls @ 125 mls/hr IV .Q8H [facility] Last Admin: 10/22/16 21:00 Dose: Not Given Dextrose/Sodium Chloride (Dextrose 5%/0.45% Ns 1000 Ml) 1,000 mls @ 100 mls/hr IV .Q10H [facility] Insulin Aspart (Novolog) 0 unit SC ACHS [facility] PRN Reason: Protocol Last Admin: 10/24/16 17:24 Dose: 6 unit Insulin Glargine (Lantus) 20 unit SC [facility] Last Admin: 10/23/16 22:40 Dose: 20 units Insulin Human Isoph/Insulin Regular (Novolin 70/30 (70/30 Units/Ml) 10 Ml) 60 units SC ACBD [facility] Last Admin: 10/24/16 17:23 Dose: 60 units Metoprolol Tartrate (Lopressor) 25 mg PO BID [facility] Last Admin: 10/24/16 17:22 Dose: 25 mg Oxycodone/Acetaminophen (Percocet 5/325 Mg Tab) 1 tab PO Q4H PRN PRN Reason: Pain, moderate (4-7) Stop: 10/25/16 13:00 Oxycodone/Acetaminophen (Percocet 5/325 Mg Tab) 2 tab PO Q4H PRN PRN Reason: Pain, severe (8-10) Stop: 10/25/16 13:00 Last Admin: 10/24/16 17:25 Dose: 2 tab Rosuvastatin Calcium (Crestor) 10 mg PO [facility] Last Admin: 10/23/16 22:40 Dose: 10 mg - Labs Labs: 10/24/16 07:57 10/24/16 07:57 - Constitutional Appears: Non-toxic, Chronically Ill - Head Exam Head Exam: NORMOCEPHALIC - Eye Exam Eye Exam: absent: Scleral icterus - ENT Exam ENT Exam: Mucous Membranes Dry - Neck Exam Neck Exam: absent: Lymphadenopathy - Respiratory Exam Respiratory Exam: Decreased Breath Sounds, Rhonchi - Cardiovascular Exam Cardiovascular Exam: REGULAR RHYTHM, +S1, +S2 - GI/Abdominal Exam GI & Abdominal Exam: Distended - Rectal Exam Rectal Exam: Deferred - Exam Exam: NORMAL INSPECTION - Extremities Exam Extremities Exam: absent: Calf Tenderness, Pedal Edema - Back Exam Back Exam: absent: CVA tenderness (L), CVA tenderness (R) - Neurological Exam Neurological Exam: Alert, Awake, Oriented x3 Assessment and Plan (1) Diabetic foot ulcer Status: Acute (2) CAD (coronary artery disease) Status: Chronic (3) Osteomyelitis due to type 2 diabetes mellitus Status: Acute (4) Toe osteomyelitis, left Status: Acute
[2016-10-24] MEDS: (Lantus) Insulin Glargine, Recombinant SC SCH (21:32)
[2016-10-25] MEDS: Piperacill/Tazo 3.375gm in Dex 50 ML IVPB SCH ×4 (05:22→22:25)
[2016-10-25 06:13] LABS: BASO # 0.1 K/uL (0.0-0.2); BASO % 1.3 % (0.0-2.0); EOS # 0.2 K/uL (0.0-0.7); EOS % 2.1 % (0.0-4.0); HEMATOCRIT 28.9 % (35.0-51.0); LYMPH % 20.3 % (20.0-40.0); MEAN CELL VOLUME 73.6 fL (80.0-94.0); MEAN CORPUSCULAR HEMOGLOBIN 23.8 pg (27.0-31.0); MEAN CORPUSCULAR HGB CONC 32.4 g/dL (33.0-37.0); MEAN PLATELET VOLUME 8.3 fL (7.2-11.7); MONO # 0.8 K/uL (0.0-0.8); WHITE BLOOD COUNT 9.7 K/uL (4.8-10.8)
[2016-10-25] MEDS: (Novolin 70/30) NPH/Regular 70/30 Units/ml 10 ml vial SC SCH ×2 (08:00→16:51)
[2016-10-25 08:07] LABS: CHLORIDE 101 mmol/L (98-107)
[2016-10-25 08:08] LABS: POTASSIUM 4.2 mmol/L (3.6-5.2); SODIUM 136 mmol/L (132-148)
[2016-10-25 08:10] LABS: ALB/GLOB RATIO 0.8 (1.0-2.1); ALKALINE PHOSPHATASE 83 U/L (38-126); AST/SGOT 24 U/L (17-59); BILIRUBIN,TOTAL 0.3 mg/dL (0.2-1.3); BLOOD UREA NITROGEN 13 mg/dL (9-20); CARBON DIOXIDE 25 mmol/L (22-30); GFR AFRICAN-AMERICAN > 60; GLUCOSE,RANDOM 222 mg/dL (75-110); TOTAL PROTEIN 6.5 g/dL (6.3-8.3)
[2016-10-25 08:11] LABS: ALT/SGPT 29 U/L (21-72); CALCIUM 7.9 mg/dl (8.6-10.4)
[2016-10-25] MEDS: (Novolog) Insulin Aspart, Recombinant 100 u/ml 10 ml vial SC SCH ×4 (08:43→21:44)
[2016-10-25] MEDS: Oxycodone/Acetaminophen 5/325 mg Tab PO PRN ×3 (09:24→22:23)
[2016-10-25] MEDS: Enoxaparin 40 mg Syringe SC SCH (09:25)
--- NOTE | 2016-10-25 10:28 | CP.PCM.PN ---
Subjective - Date & Time of Evaluation Date of Evaluation: 10/25/16 Time of Evaluation: 07:00 - Subjective Subjective: Medicine Progress Note- Dr. Bowen's Service: Patient seen and examined at bedside this AM. Patient is POD#1 s/p vascular procedure with Dr. Quiñonez. Patient is feeling well this morning. Patient requesting dressings be changes this AM. Patient pending RADHA placement. Admits to pain of left LE at sites of surgery. Objective - Vital Signs/Intake and Output Vital Signs (last 24 hours): Temp Pulse Resp BP Pulse Ox 98.6 F 71 18 155/86 H 98 10/25/16 02:00 10/25/16 02:00 10/25/16 02:00 10/25/16 09:23 10/25/16 02:00 - Medications Medications: Current Medications Acetaminophen (Tylenol 325mg Tab) 650 mg PO Q6 PRN PRN Reason: Pain, Mild (1-3) Amlodipine Besylate (Norvasc) 10 mg PO DAILY [facility] Last Admin: 10/25/16 09:23 Dose: 10 mg Aspirin (Ecotrin) 81 mg PO DAILY [facility] Last Admin: 10/25/16 09:23 Dose: 81 mg Clopidogrel Bisulfate (Plavix) 75 mg PO DAILY [facility] Last Admin: 10/25/16 09:23 Dose: 75 mg Enoxaparin Sodium (Lovenox) 40 mg SC DAILY [facility] Last Admin: 10/24/16 10:00 Dose: Not Given Famotidine (Pepcid) 20 mg PO BID [facility] Last Admin: 10/25/16 09:23 Dose: 20 mg Piperacillin Sod/Tazobactam Sod (Zosyn 3.375 Gm Iv Premix) 50 mls @ 100 mls/hr IVPB Q6H [facility] Last Admin: 10/25/16 05:22 Dose: 100 mls/hr Vancomycin HCl 1,000 mg/ (Sodium Chloride) 250 mls @ 166.6 mls/hr IVPB Q12H [facility] Last Admin: 10/24/16 23:54 Dose: 166.6 mls/hr Lactated Ringer's (Lactated Ringer's) 1,000 mls @ 125 mls/hr IV .Q8H [facility] Last Admin: 10/22/16 21:00 Dose: Not Given Dextrose/Sodium Chloride (Dextrose 5%/0.45% Ns 1000 Ml) 1,000 mls @ 100 mls/hr IV .Q10H [facility] Insulin Aspart (Novolog) 0 unit SC ACHS [facility] PRN Reason: Protocol Last Admin: 10/25/16 08:43 Dose: 3 unit Insulin Glargine (Lantus) 20 unit SC HS [facility] Last Admin: 10/24/16 21:32 Dose: 20 units Insulin Human Isoph/Insulin Regular (Novolin 70/30 (70/30 Units/Ml) 10 Ml) 60 units SC ACBD [facility] Last Admin: 10/25/16 08:00 Dose: 60 units Metoprolol Tartrate (Lopressor) 25 mg PO BID [facility] Last Admin: 10/25/16 09:23 Dose: 25 mg Oxycodone/Acetaminophen (Percocet 5/325 Mg Tab) 1 tab PO Q4H PRN PRN Reason: Pain, moderate (4-7) Stop: 10/25/16 13:00 Last Admin: 10/25/16 09:24 Dose: 1 tab Oxycodone/Acetaminophen (Percocet 5/325 Mg Tab) 2 tab PO Q4H PRN PRN Reason: Pain, severe (8-10) Stop: 10/25/16 13:00 Last Admin: 10/24/16 21:33 Dose: 2 tab Rosuvastatin Calcium (Crestor) 10 mg PO [facility] Last Admin: 10/24/16 21:32 Dose: 10 mg - Labs Labs: 10/25/16 06:08 10/25/16 06:08 Assessment and Plan - Assessment and Plan (Free Text) Assessment: (1) Toe osteomyelitis, left Assessment & Plan: POD #3 s/p left 1st metatarsal amputation with Dr. Diamond Podiatry consult - help appreciated- Dr. Diamond Blood culture negative x 3 days Foot X ray consistent with 1st toe osteomyelitis ID consult placed- Dr. Hu- help appreciated. Zosyn 3.375gm IVPB Q6H Vancomycin 1gm IVPB Q12H Percocet 5/325mg PO Q4H PRN pain PICC line ordered. Patient will need 6-8 weeks of IV antibiotics. Arrange for [facility] PT recommendations are for TCU Status: Acute (2) Peripheral vascular disease Assessment & Plan: Vascular surgeon consulted- Dr. Quiñonez- help appreciated CTA showed tibial disease Patient is POD #1 s/p aortofemoral angiogram, selective catherization of left femoral artery, pathway atherectomy of anterior tibial artery and balloon angioplasty of anterior tibial with 2.5x3.0 x 320 balloon. ASA 91mg PO daily Plavix 75mg PO daily Status: Acute (3) DM2 (diabetes mellitus, type 2) Assessment & Plan: ISS Lantus 20 units SC HS Novolin 70/30 60U SC ACBD Status: Chronic (4) HTN (hypertension) Assessment & Plan: Norvasc 10mg PO daily Lopressor 25mg PO BID Status: Chronic (5) Prophylactic measure Assessment & Plan: Protonix 40mg IVP daily SCDs contraindicated secondary to PAD Lovenox 40mg SC daily Status: Acute All management as per Dr. oBwen
--- NOTE | 2016-10-25 13:22 | CP.PCM.PN ---
Subjective - Date & Time of Evaluation Date of Evaluation: 10/25/16 Time of Evaluation: 13:19 - Subjective Subjective: 51 y/o male s/p left 1st ray amputatoin. Patient states that he is doing well today. Seen at bedside with Dr. Hawley. States that he understands he is to be going to a rehab facility soon for continued care of ulceration. Patient states he went for vascular procedure yesterday. States foot feels well today. Denies any f/c/n/v/sob. Objective - Vital Signs/Intake and Output Vital Signs (last 24 hours): Temp Pulse Resp BP Pulse Ox 98.1 F 96 H 18 155/86 H 98 10/25/16 07:35 10/25/16 07:35 10/25/16 07:35 10/25/16 09:23 10/25/16 07:35 - Medications Medications: Current Medications Acetaminophen (Tylenol 325mg Tab) 650 mg PO Q6 PRN PRN Reason: Pain, Mild (1-3) Amlodipine Besylate (Norvasc) 10 mg PO DAILY [facility] Last Admin: 10/25/16 09:23 Dose: 10 mg Aspirin (Ecotrin) 81 mg PO DAILY [facility] Last Admin: 10/25/16 09:23 Dose: 81 mg Clopidogrel Bisulfate (Plavix) 75 mg PO DAILY [facility] Last Admin: 10/25/16 09:23 Dose: 75 mg Enoxaparin Sodium (Lovenox) 40 mg SC DAILY [facility] Last Admin: 10/25/16 09:25 Dose: 40 mg Famotidine (Pepcid) 20 mg PO BID [facility] Last Admin: 10/25/16 09:23 Dose: 20 mg Piperacillin Sod/Tazobactam Sod (Zosyn 3.375 Gm Iv Premix) 50 mls @ 100 mls/hr IVPB Q6H [facility] Last Admin: 10/25/16 10:45 Dose: 100 mls/hr Vancomycin HCl 1,000 mg/ (Sodium Chloride) 250 mls @ 166.6 mls/hr IVPB Q12H [facility] Last Admin: 10/25/16 11:15 Dose: 166.6 mls/hr Lactated Ringer's (Lactated Ringer's) 1,000 mls @ 125 mls/hr IV .Q8H [facility] Last Admin: 10/22/16 21:00 Dose: Not Given Dextrose/Sodium Chloride (Dextrose 5%/0.45% Ns 1000 Ml) 1,000 mls @ 100 mls/hr IV .Q10H [facility] Insulin Aspart (Novolog) 0 unit SC ACHS [facility] PRN Reason: Protocol Last Admin: 10/25/16 12:34 Dose: 3 unit Insulin Glargine (Lantus) 20 unit SC [facility] Last Admin: 10/24/16 21:32 Dose: 20 units Insulin Human Isoph/Insulin Regular (Novolin 70/30 (70/30 Units/Ml) 10 Ml) 60 units SC ACBD [facility] Last Admin: 10/25/16 08:00 Dose: 60 units Metoprolol Tartrate (Lopressor) 25 mg PO BID [facility] Last Admin: 10/25/16 09:23 Dose: 25 mg Rosuvastatin Calcium (Crestor) 10 mg PO HS [facility] Last Admin: 10/24/16 21:32 Dose: 10 mg - Labs Labs: 10/25/16 06:08 10/25/16 06:08 - Constitutional Appears: Well, Non-toxic - Skin Skin Exam: Normal Color, Warm - Additional Findings Additional findings: Vasc: DP/P non palp secondary to edema, temp gradient wnl, cap fill time < 3 s Derm: surgical fishmouth incision noted overlying the area of 1st MPJ , exposed bone is noted with exposed sesamoid apparatus on plantar aspect of 1st MT, there is surrounding red beefy tissue noted with mild active bleeding, there is no erythema noted, no purulence noted, no malodor, sesamoids stable Neuro: Grossly diminished Ortho: left 1st ray amp Assessment and Plan - Assessment and Plan (Free Text) Assessment: 51 y/o male 3 days s/p left 1st ray amp Plan: Patient evaluated and charts reviewed Seen by Dr. Hawley At this time wound is stable from pod standpoint and able to be d/c to [facility] Upon admission at [facility] patient will need to have f/u with Dr. Hawley at [place] Patient will need q12h dressing change with peroxide/saline flush with Dakin's wet to dry dressing. Patient understands that he will likely need graft over the site in the future for healing. Wound flushed with peroxide, redressed with saline wet to dry dressing. Will continue to follow as needed.
[2016-10-25 15:46] VITALS: RESP 20
--- NOTE | 2016-10-25 19:12 | CP.PCM.PN ---
Subjective - Date & Time of Evaluation Date of Evaluation: 10/25/16 Time of Evaluation: 09:00 - Subjective Subjective: DISCUSSED ON ROUNDS NEEDS 6 WEEKS IV RX Objective - Vital Signs/Intake and Output Vital Signs (last 24 hours): Temp Pulse Resp BP Pulse Ox 99.4 F 67 20 155/80 H 98 10/25/16 15:45 10/25/16 15:45 10/25/16 15:45 10/25/16 18:13 10/25/16 15:45 - Medications Medications: Current Medications Acetaminophen (Tylenol 325mg Tab) 650 mg PO Q6 PRN PRN Reason: Pain, Mild (1-3) Last Admin: 10/25/16 16:51 Dose: 650 mg Amlodipine Besylate (Norvasc) 10 mg PO DAILY [facility] Last Admin: 10/25/16 09:23 Dose: 10 mg Aspirin (Ecotrin) 81 mg PO DAILY [facility] Last Admin: 10/25/16 09:23 Dose: 81 mg Clopidogrel Bisulfate (Plavix) 75 mg PO DAILY [facility] Last Admin: 10/25/16 09:23 Dose: 75 mg Enoxaparin Sodium (Lovenox) 40 mg SC DAILY [facility] Last Admin: 10/25/16 09:25 Dose: 40 mg Famotidine (Pepcid) 20 mg PO BID [facility] Last Admin: 10/25/16 18:13 Dose: 20 mg Piperacillin Sod/Tazobactam Sod (Zosyn 3.375 Gm Iv Premix) 50 mls @ 100 mls/hr IVPB Q6H [facility] Last Admin: 10/25/16 16:50 Dose: 100 mls/hr Vancomycin HCl 1,000 mg/ (Sodium Chloride) 250 mls @ 166.6 mls/hr IVPB Q12H [facility] Last Admin: 10/25/16 11:15 Dose: 166.6 mls/hr Dextrose/Sodium Chloride (Dextrose 5%/0.45% Ns 1000 Ml) 1,000 mls @ 100 mls/hr IV .Q10H [facility] Insulin Aspart (Novolog) 0 unit SC ACHS [facility] PRN Reason: Protocol Last Admin: 10/25/16 16:50 Dose: 4 unit Insulin Glargine (Lantus) 20 unit SC HS [facility] Last Admin: 10/24/16 21:32 Dose: 20 units Insulin Human Isoph/Insulin Regular (Novolin 70/30 (70/30 Units/Ml) 10 Ml) 60 units SC ACBD [facility] Last Admin: 10/25/16 16:51 Dose: 60 units Metoprolol Tartrate (Lopressor) 25 mg PO BID [facility] Last Admin: 10/25/16 18:13 Dose: 25 mg Rosuvastatin Calcium (Crestor) 10 mg PO HS [facility] Last Admin: 10/24/16 21:32 Dose: 10 mg - Labs Labs: 10/25/16 06:08 10/25/16 06:08 Assessment and Plan (1) Diabetic foot ulcer Status: Acute (2) CAD (coronary artery disease) Status: Chronic (3) Osteomyelitis due to type 2 diabetes mellitus Status: Acute (4) Toe osteomyelitis, left Status: Acute
--- NOTE | 2016-10-25 19:28 | CP.PCM.PN ---
Subjective - Date & Time of Evaluation Date of Evaluation: 10/25/16 Time of Evaluation: 09:00 - Subjective Subjective: s/p amputation first toe wound open no drainage cont IV antibiotics at rehab for at least 7-14 days depending on healing process Objective - Vital Signs/Intake and Output Vital Signs (last 24 hours): Temp Pulse Resp BP Pulse Ox 99.4 F 67 20 155/80 H 98 10/25/16 15:45 10/25/16 15:45 10/25/16 15:45 10/25/16 18:13 10/25/16 15:45 - Medications Medications: Current Medications Acetaminophen (Tylenol 325mg Tab) 650 mg PO Q6 PRN PRN Reason: Pain, Mild (1-3) Last Admin: 10/25/16 16:51 Dose: 650 mg Amlodipine Besylate (Norvasc) 10 mg PO DAILY [facility] Last Admin: 10/25/16 09:23 Dose: 10 mg Aspirin (Ecotrin) 81 mg PO DAILY [facility] Last Admin: 10/25/16 09:23 Dose: 81 mg Clopidogrel Bisulfate (Plavix) 75 mg PO DAILY [facility] Last Admin: 10/25/16 09:23 Dose: 75 mg Enoxaparin Sodium (Lovenox) 40 mg SC DAILY [facility] Last Admin: 10/25/16 09:25 Dose: 40 mg Famotidine (Pepcid) 20 mg PO BID [facility] Last Admin: 10/25/16 18:13 Dose: 20 mg Piperacillin Sod/Tazobactam Sod (Zosyn 3.375 Gm Iv Premix) 50 mls @ 100 mls/hr IVPB Q6H [facility] Last Admin: 10/25/16 16:50 Dose: 100 mls/hr Vancomycin HCl 1,000 mg/ (Sodium Chloride) 250 mls @ 166.6 mls/hr IVPB Q12H [facility] Last Admin: 10/25/16 11:15 Dose: 166.6 mls/hr Dextrose/Sodium Chloride (Dextrose 5%/0.45% Ns 1000 Ml) 1,000 mls @ 100 mls/hr IV .Q10H [facility] Insulin Aspart (Novolog) 0 unit SC ACHS [facility] PRN Reason: Protocol Last Admin: 10/25/16 16:50 Dose: 4 unit Insulin Glargine (Lantus) 20 unit SC HS [facility] Last Admin: 10/24/16 21:32 Dose: 20 units Insulin Human Isoph/Insulin Regular (Novolin 70/30 (70/30 Units/Ml) 10 Ml) 60 units SC ACBD [facility] Last Admin: 10/25/16 16:51 Dose: 60 units Metoprolol Tartrate (Lopressor) 25 mg PO BID [facility] Last Admin: 10/25/16 18:13 Dose: 25 mg Rosuvastatin Calcium (Crestor) 10 mg PO HS [facility] Last Admin: 10/24/16 21:32 Dose: 10 mg - Labs Labs: 10/25/16 06:08 10/25/16 06:08 Assessment and Plan (1) Diabetic foot ulcer Status: Acute (2) CAD (coronary artery disease) Status: Chronic (3) Osteomyelitis due to type 2 diabetes mellitus Status: Acute (4) Toe osteomyelitis, left Status: Acute
[2016-10-25] MEDS: (Lantus) Insulin Glargine, Recombinant SC SCH (21:44)
[2016-10-26] MEDS: Oxycodone/Acetaminophen 5/325 mg Tab PO PRN ×3 (02:27→15:44)
[2016-10-26 07:29] LABS: BASO % 0.3 % (0.0-2.0); EOS # 0.2 K/uL (0.0-0.7); EOS % 2.3 % (0.0-4.0); HEMATOCRIT 29.1 % (35.0-51.0); LYMPH # 2.1 K/uL (1.0-4.3); LYMPH % 21.9 % (20.0-40.0); MEAN CELL VOLUME 74.5 fL (80.0-94.0); MEAN CORPUSCULAR HEMOGLOBIN 23.5 pg (27.0-31.0); MEAN CORPUSCULAR HGB CONC 31.5 g/dL (33.0-37.0); MEAN PLATELET VOLUME 8.5 fL (7.2-11.7); MONO # 0.8 K/uL (0.0-0.8); MONO % 8.9 % (0.0-10.0); WHITE BLOOD COUNT 9.5 K/uL (4.8-10.8)
[2016-10-26 07:35] LABS: CHLORIDE 102 mmol/L (98-107); POTASSIUM 4.1 mmol/L (3.6-5.2); SODIUM 140 mmol/L (132-148)
[2016-10-26 07:37] LABS: GFR AFRICAN-AMERICAN > 60
[2016-10-26 07:38] LABS: ALB/GLOB RATIO 0.8 (1.0-2.1); ALKALINE PHOSPHATASE 64 U/L (38-126); ALT/SGPT 30 U/L (21-72); AST/SGOT 20 U/L (17-59); BILIRUBIN,TOTAL 0.3 mg/dL (0.2-1.3); BLOOD UREA NITROGEN 12 mg/dL (9-20); CARBON DIOXIDE 27 mmol/L (22-30); GLUCOSE,RANDOM 167 mg/dL (75-110); TOTAL PROTEIN 6.7 g/dL (6.3-8.3)
[2016-10-26 07:39] LABS: CALCIUM 8.4 mg/dl (8.6-10.4)
[2016-10-26] MEDS: (Novolin 70/30) NPH/Regular 70/30 Units/ml 10 ml vial SC SCH ×2 (07:40→18:09)
[2016-10-26] MEDS: (Novolog) Insulin Aspart, Recombinant 100 u/ml 10 ml vial SC SCH ×3 (07:41→18:10)
[2016-10-26 08:37] VITALS: O2SAT 98
--- NOTE | 2016-10-26 09:40 | CP.PCM.PN ---
Subjective - Date & Time of Evaluation Date of Evaluation: 10/26/16 Time of Evaluation: 09:37 - Subjective Subjective: 51 y/o male s/p left 1st ray resectoin Patient is awake in bed pleasant during exam. Patient states that he is to be d/ c today to a [facility]. States that he is having some foot pain today but that it is tolerable. Denies any other complaints. Denies any f/c/n/v/sob. Objective - Vital Signs/Intake and Output Vital Signs (last 24 hours): Temp Pulse Resp BP Pulse Ox 98.4 F 65 20 158/83 H 98 10/26/16 08:35 10/26/16 08:35 10/26/16 08:35 10/26/16 08:35 10/26/16 08:35 Intake and Output: 10/26/16 10/26/16 06:59 18:59 Intake Total 600 Output Total 2800 Balance -2200 - Medications Medications: Current Medications Acetaminophen (Tylenol 325mg Tab) 650 mg PO Q6 PRN PRN Reason: Pain, Mild (1-3) Last Admin: 10/25/16 16:51 Dose: 650 mg Amlodipine Besylate (Norvasc) 10 mg PO DAILY [facility] Last Admin: 10/25/16 09:23 Dose: 10 mg Aspirin (Ecotrin) 81 mg PO DAILY [facility] Last Admin: 10/25/16 09:23 Dose: 81 mg Clopidogrel Bisulfate (Plavix) 75 mg PO DAILY [facility] Last Admin: 10/25/16 09:23 Dose: 75 mg Enoxaparin Sodium (Lovenox) 40 mg SC DAILY [facility] Last Admin: 10/25/16 09:25 Dose: 40 mg Famotidine (Pepcid) 20 mg PO BID [facility] Last Admin: 10/25/16 18:13 Dose: 20 mg Dextrose/Sodium Chloride (Dextrose 5%/0.45% Ns 1000 Ml) 1,000 mls @ 100 mls/hr IV .Q10H [facility] Insulin Aspart (Novolog) 0 unit SC ACHS [facility] PRN Reason: Protocol Last Admin: 10/26/16 07:41 Dose: 2 unit Insulin Glargine (Lantus) 20 unit SC HS [facility] Last Admin: 10/25/16 21:44 Dose: 20 units Insulin Human Isoph/Insulin Regular (Novolin 70/30 (70/30 Units/Ml) 10 Ml) 60 units SC ACBD [facility] Last Admin: 10/26/16 07:40 Dose: 60 units Metoprolol Tartrate (Lopressor) 25 mg PO BID [facility] Last Admin: 10/25/16 18:13 Dose: 25 mg Oxycodone/Acetaminophen (Percocet 5/325 Mg Tab) 2 tab PO Q4H PRN PRN Reason: Pain, moderate (4-7) Stop: 10/28/16 21:56 Last Admin: 10/26/16 02:27 Dose: 2 tab Rosuvastatin Calcium (Crestor) 10 mg PO HS [facility] Last Admin: 10/24/16 21:32 Dose: 10 mg - Labs Labs: 10/26/16 07:12 10/26/16 07:12 - Constitutional Appears: Well, Non-toxic, No Acute Distress - Neurological Exam Neurological Exam: Alert, Awake, Oriented x3 - Psychiatric Exam Psychiatric exam: Normal Affect, Normal Mood - Skin Skin Exam: Warm - Additional Findings Additional findings: asc: DP/P non palp secondary to edema, temp gradient wnl, cap fill time < 3 s Derm: surgical fishmouth incision noted overlying the area of 1st MPJ , exposed bone is noted with exposed sesamoid apparatus on plantar aspect of 1st MT, there is surrounding red beefy tissue noted with mild active bleeding, there is no erythema noted, no purulence noted, no malodor, sesamoids stable Neuro: Grossly diminished Ortho: left 1st ray amp Assessment and Plan - Assessment and Plan (Free Text) Assessment: 51 y/o male 4 days s/p left 1st ray amp Plan: Patient evaluated and chart reviewed. Discussed with Dr. Hawley Patient for d/c today to [facility]. Upon admission at [facility] patient will need to have f/u with Dr. Hawley at [place] Patient will need q12h dressing change with peroxide/saline flush with Dakin's wet to dry dressing. Patient understands that he will likely need graft over the site in the future for healing. Wound flushed with peroxide, redressed with saline wet to dry dressing. Will continue to follow as needed.
[2016-10-26] MEDS: Enoxaparin 40 mg Syringe SC SCH (10:17)
--- NOTE | 2016-10-26 11:59 | CP.PCM.PN ---
Subjective - Date & Time of Evaluation Date of Evaluation: 10/26/16 Time of Evaluation: 08:00 - Subjective Subjective: Medicine Progress Note- Dr. Bowen's Service: Patient seen and examined at bedside this AM. Patient is POD#2 s/p vascular procedure with Dr. Quiñonez. Patient is feeling well this morning but wants to be discharged. Patient pending [facility] placement. Admits pain of left LE and foot have improved. Objective - Vital Signs/Intake and Output Vital Signs (last 24 hours): Temp Pulse Resp BP Pulse Ox 98.4 F 65 20 158/83 H 98 10/26/16 08:35 10/26/16 08:35 10/26/16 08:35 10/26/16 10:17 10/26/16 08:35 Intake and Output: 10/26/16 10/26/16 06:59 18:59 Intake Total 600 Output Total 2800 Balance -2200 - Medications Medications: Current Medications Acetaminophen (Tylenol 325mg Tab) 650 mg PO Q6 PRN PRN Reason: Pain, Mild (1-3) Last Admin: 10/25/16 16:51 Dose: 650 mg Amlodipine Besylate (Norvasc) 10 mg PO DAILY [facility] Last Admin: 10/26/16 10:18 Dose: 10 mg Aspirin (Ecotrin) 81 mg PO DAILY [facility] Last Admin: 10/26/16 10:17 Dose: 81 mg Clopidogrel Bisulfate (Plavix) 75 mg PO DAILY [facility] Last Admin: 10/26/16 10:19 Dose: 75 mg Enoxaparin Sodium (Lovenox) 40 mg SC DAILY [facility] Last Admin: 10/26/16 10:17 Dose: 40 mg Famotidine (Pepcid) 20 mg PO BID [facility] Last Admin: 10/26/16 10:18 Dose: 20 mg Dextrose/Sodium Chloride (Dextrose 5%/0.45% Ns 1000 Ml) 1,000 mls @ 100 mls/hr IV .Q10H [facility] Insulin Aspart (Novolog) 0 unit SC ACHS [facility] PRN Reason: Protocol Last Admin: 10/26/16 07:41 Dose: 2 unit Insulin Glargine (Lantus) 20 unit SC HS [facility] Last Admin: 10/25/16 21:44 Dose: 20 units Insulin Human Isoph/Insulin Regular (Novolin 70/30 (70/30 Units/Ml) 10 Ml) 60 units SC ACBD [facility] Last Admin: 10/26/16 07:40 Dose: 60 units Metoprolol Tartrate (Lopressor) 25 mg PO BID [facility] Last Admin: 10/26/16 10:17 Dose: 25 mg Oxycodone/Acetaminophen (Percocet 5/325 Mg Tab) 2 tab PO Q4H PRN PRN Reason: Pain, moderate (4-7) Stop: 10/28/16 21:56 Last Admin: 10/26/16 10:18 Dose: 2 tab Rosuvastatin Calcium (Crestor) 10 mg PO HS [facility] Last Admin: 10/24/16 21:32 Dose: 10 mg - Labs Labs: 10/26/16 07:12 10/26/16 07:12 - Constitutional Appears: No Acute Distress - Head Exam Head Exam: NORMAL INSPECTION, NORMOCEPHALIC - Eye Exam Eye Exam: EOMI, Normal appearance - ENT Exam ENT Exam: Mucous Membranes Moist, Normal Exam - Respiratory Exam Respiratory Exam: Clear to Ausculation Bilateral, NORMAL BREATHING PATTERN - Cardiovascular Exam Cardiovascular Exam: REGULAR RHYTHM, +S1, +S2 - GI/Abdominal Exam GI & Abdominal Exam: Soft. absent: Distended, Tenderness - Extremities Exam Extremities Exam: Tenderness. absent: Full ROM, Normal Inspection, Pedal Edema Additional comments: Left foot is wrapped and dressed. Dressing is dry and clean. - Neurological Exam Neurological Exam: Alert, Awake, Oriented x3 - Psychiatric Exam Psychiatric exam: Normal Affect, Normal Mood - Skin Skin Exam: Dry, Normal Color, Warm Assessment and Plan - Assessment and Plan (Free Text) Assessment: (1) Toe osteomyelitis, left Assessment & Plan: POD #4 s/p left 1st metatarsal amputation with Dr. Diamond Podiatry consult - help appreciated- Dr. Diamond Foot X ray consistent with 1st toe osteomyelitis ID consult placed- Dr. Hu- help appreciated. Blood culture negative x 3 days Wound culture positive for VRE and matthew. Start Zyvox 600 mg PO BID for [address] Hu. D/C Zosyn 3.375gm IVPB Q6H D/C Vancomycin 1gm IVPB Q12H Percocet 5/325mg PO Q4H PRN pain PT recommendations are for TCU Status: Acute (2) Peripheral vascular disease Assessment & Plan: Vascular surgeon consulted- Dr. Quiñonez- help appreciated CTA showed tibial disease Patient is POD #1 s/p aortofemoral angiogram, selective catherization of left femoral artery, pathway atherectomy of anterior tibial artery and balloon angioplasty of anterior tibial with 2.5x3.0 x 320 balloon. ASA 91mg PO daily Plavix 75mg PO daily Status: Acute (3) DM2 (diabetes mellitus, type 2) Assessment & Plan: ISS Lantus 20 units SC HS Novolin 70/30 60U SC ACBD Status: Chronic (4) HTN (hypertension) Assessment & Plan: Norvasc 10mg PO daily Lopressor 25mg PO BID Status: Chronic (5) Prophylactic measure Assessment & Plan: Protonix 40mg IVP daily SCDs contraindicated secondary to PAD Lovenox 40mg SC daily Status: Acute All management as per Dr. Bowen
[2016-10-26] MEDS ORDERED: Piperacillin/Tazobact 3.375 GM in Sodium Chloride 100 ML IVPB SCH (12:00)
[2016-10-26] MEDS ORDERED: Vancomycin 1 gm/NS 200 ml 1 GM/200 ML BAG IVPB SCH (13:00)
[2016-10-26 16:54] VITALS: BP 140/88; PULSE 66; TEMP 98.3
--- NOTE | 2016-10-26 18:39 | CP.PCM.PN ---
Subjective - Date & Time of Evaluation Date of Evaluation: 10/26/16 Time of Evaluation: 08:00 - Subjective Subjective: wound + for VRE for d/c to [facility] refuses picc line removal started zyvox Objective - Vital Signs/Intake and Output Vital Signs (last 24 hours): Temp Pulse Resp BP Pulse Ox 98.3 F 66 20 140/88 98 10/26/16 15:01 10/26/16 15:01 10/26/16 15:01 10/26/16 18:15 10/26/16 15:01 Intake and Output: 10/26/16 10/26/16 06:59 18:59 Intake Total 600 Output Total 2800 Balance -2200 - Medications Medications: Current Medications Acetaminophen (Tylenol 325mg Tab) 650 mg PO Q6 PRN PRN Reason: Pain, Mild (1-3) Last Admin: 10/25/16 16:51 Dose: 650 mg Amlodipine Besylate (Norvasc) 10 mg PO DAILY [facility] Last Admin: 10/26/16 10:18 Dose: 10 mg Aspirin (Ecotrin) 81 mg PO DAILY [facility] Last Admin: 10/26/16 10:17 Dose: 81 mg Clopidogrel Bisulfate (Plavix) 75 mg PO DAILY [facility] Last Admin: 10/26/16 10:19 Dose: 75 mg Enoxaparin Sodium (Lovenox) 40 mg SC DAILY [facility] Last Admin: 10/26/16 10:17 Dose: 40 mg Famotidine (Pepcid) 20 mg PO BID [facility] Last Admin: 10/26/16 18:14 Dose: 20 mg Dextrose/Sodium Chloride (Dextrose 5%/0.45% Ns 1000 Ml) 1,000 mls @ 100 mls/hr IV .Q10H [facility] Insulin Aspart (Novolog) 0 unit SC ACHS [facility] PRN Reason: Protocol Last Admin: 10/26/16 18:10 Dose: 2 unit Insulin Glargine (Lantus) 20 unit SC HS [facility] Last Admin: 10/25/16 21:44 Dose: 20 units Insulin Human Isoph/Insulin Regular (Novolin 70/30 (70/30 Units/Ml) 10 Ml) 60 units SC ACBD [facility] Last Admin: 10/26/16 18:09 Dose: 60 units Linezolid (Zyvox) 600 mg PO BID [facility] Last Admin: 10/26/16 18:09 Dose: 600 mg Metoprolol Tartrate (Lopressor) 25 mg PO BID [facility] Last Admin: 10/26/16 18:15 Dose: 25 mg Oxycodone/Acetaminophen (Percocet 5/325 Mg Tab) 2 tab PO Q4H PRN PRN Reason: Pain, moderate (4-7) Stop: 10/28/16 21:56 Last Admin: 10/26/16 15:44 Dose: 2 tab Rosuvastatin Calcium (Crestor) 10 mg PO HS [facility] Last Admin: 10/24/16 21:32 Dose: 10 mg - Labs Labs: 10/26/16 07:12 10/26/16 07:12 - Constitutional Appears: Non-toxic, Chronically Ill - Head Exam Head Exam: NORMOCEPHALIC - Eye Exam Eye Exam: PERRL. absent: Scleral icterus - ENT Exam ENT Exam: Mucous Membranes Dry, Normal External Ear Exam - Neck Exam Neck Exam: absent: Lymphadenopathy - Respiratory Exam Respiratory Exam: Decreased Breath Sounds - Cardiovascular Exam Cardiovascular Exam: REGULAR RHYTHM - GI/Abdominal Exam GI & Abdominal Exam: Distended, Soft - Rectal Exam Rectal Exam: NORMAL INSPECTION - Exam Exam: NORMAL INSPECTION Assessment and Plan (1) Diabetic foot ulcer Status: Acute (2) CAD (coronary artery disease) Status: Chronic (3) Osteomyelitis due to type 2 diabetes mellitus Status: Acute (4) Toe osteomyelitis, left Status: Acute
--- NOTE | 2016-10-29 08:26 | PN ---
DATE: 10/26/2016 The patient got IV antibiotic, awaiting transfer for rehab. Juma Wilson MD cc: [id number] TT: 10/27/2016 10:07:40 Confirmation # [id number] Dictation # [id number] 10/29/2016 07:25:04
--- NOTE | 2016-11-23 11:26 | DS ---
The patient admitted to the hospital with chief complaint of diabetic foot. The patient placed on IV antibiotic, supportive care. The patient showed gradual improvement. Discharged to be followed as outpatient. Juma Wilson MD cc: [id number] TT: 11/23/2016 10:14:16 en
== END 2016-10-26 19:40 | disposition home or self-care (01) | DRG 271 ==
LOC: C.ER 20:15 → C.9E 22:01 → C.6T 22:49 → OBSVTOIN 10-22 10:41
PROVIDERS: ADMIT Internal Medicine Pulmonary Disease; ATTEND Internal Medicine Pulmonary Disease
PROC: 0QTP0ZZ Resection of Left Metatarsal, Open Approach (ICD-10-PCS; 2016-10-22)
PROC: 0Y6Q0Z0 Detachment at Left 1st Toe, Complete, Open Approach (ICD-10-PCS; principal; 2016-10-22 13:30)
PROC: 04CQ3ZZ Extirpation of Matter from Left Anterior Tibial Artery, Percutaneous Approach (ICD-10-PCS; 2016-10-24)
PROC: 047Q3ZZ Dilation of Left Anterior Tibial Artery, Percutaneous Approach (ICD-10-PCS; 2016-10-24)
DX: E11.52 Type 2 diabetes mellitus with diabetic peripheral angiopathy with gangrene (principal); M86.172 Other acute osteomyelitis, left ankle and foot; E11.621 Type 2 diabetes mellitus with foot ulcer; L03.116 Cellulitis of left lower limb; L97.529 Non-pressure chronic ulcer of other part of left foot with unspecified severity; I10 Essential (primary) hypertension; E11.628 Type 2 diabetes mellitus with other skin complications; L03.032 Cellulitis of left toe; E11.69 Type 2 diabetes mellitus with other specified complication; I25.10 Atherosclerotic heart disease of native coronary artery without angina pectoris; E78.00 Pure hypercholesterolemia, unspecified; Z79.4 Long term (current) use of insulin; Z87.891 Personal history of nicotine dependence

== ENCOUNTER 2016-11-05 17:48 | Emergency (ER) | payer MEDICARE ==
[2016-11-05 17:50] VITALS: BMI 31.2
[2016-11-05 18:05] VITALS: BP 137/86; PULSE 77; RESP 16; TEMP 98.2; O2SAT 97
--- NOTE | 2016-11-05 20:13 | C.PDOC ---
History Of Present Illness 51 y/o male presents to ED with complaint of slip/fall from wheelchair [facility]. Patient states he landed on his buttocks, striking the back of his neck and head on the ground. Patient referred to ER today by Dr. Bowen for CT scans of head and neck. Pt c/o upper back pain on arrival. Denies LOC, headache, visual changes, extremity weakness/numbness, nausea, vomiting, or other associated symptoms. Time Seen by Provider: 11/05/16 20:02 Chief Complaint (Nursing): Back Pain History Per: Patient History/Exam Limitations: no limitations Onset/Duration Of Symptoms: Days Current Symptoms Are (Timing): Still Present Quality Of Discomfort: "Pain" Previous Symptoms: None Associated Symptoms: None Recent travel outside of the [place]: No Past Medical History Reviewed: Historical Data, Nursing Documentation, Vital Signs Vital Signs: Last Vital Signs Temp 98.2 F 11/05/16 18:00 Pulse 77 11/05/16 18:00 Resp 16 11/05/16 18:00 BP 137/86 11/05/16 18:00 Pulse Ox 97 11/05/16 20:16 - Medical History PMH: Diabetes, HTN, Hypercholesterolemia - [facility] Procedures DETACHMENT AT LEFT 1ST TOE, COMPLETE, OPEN APPROACH (10/22/16) DETACHMENT AT LEFT 2ND TOE, COMPLETE, OPEN APPROACH (06/28/15) DILATION OF LEFT ANTERIOR TIBIAL ARTERY, PERC APPROACH (10/22/16) EXTIRPATION OF MATTER FROM L ANT TIB ART, PERC APPROACH (10/22/16) EXTRACTION OF LEFT FOOT SKIN, EXTERNAL APPROACH (06/28/15) INSERTION OF INFUSION DEV INTO R BASILIC VEIN, PERC APPROACH (06/28/15) INSERTION OF INFUSION DEV INTO SUP VENA CAVA, PERC APPROACH (09/27/16) RESECTION OF LEFT METATARSAL, OPEN APPROACH (10/22/16) ULTRASONOGRAPHY OF RIGHT UPPER EXTREMITY VEINS, GUIDANCE (06/28/15) ULTRASONOGRAPHY OF SUPERIOR VENA CAVA, GUIDANCE (09/27/16) Family History: States: Unknown Family Hx - Social History Hx Tobacco Use: No Hx Alcohol Use: No (Socially) Hx Substance Use: No - Immunization History Hx Tetanus Toxoid Vaccination: Yes Hx Influenza Vaccination: No Hx Pneumococcal Vaccination: No Review Of Systems Except As Marked, All Systems Reviewed And Found Negative. Constitutional: Negative for: Fever, Chills Cardiovascular: Negative for: Chest Pain, Palpitations Respiratory: Negative for: Cough, Shortness of Breath Musculoskeletal: Positive for: Neck Pain, Back Pain (upper) Skin: Negative for: Bruising Neurological: Negative for: Weakness, Numbness, Headache, Dizziness Physical Exam - Physical Exam Appears: Non-toxic, No Acute Distress Skin: Warm, Dry Head: Normacephalic, No Swelling, No Abrasion, No Laceration, Other (no contusions) Eye(s): bilateral: Normal Inspection, EOMI Ear(s): Bilateral: Normal Nose: Normal Oral Mucosa: Moist Neck: Normal ROM, No Midline Cervical Tenderness, Paracervical Tenderness ( bilateral trapezius tenderness), No Step Off Deformity, Supple Chest: Symmetrical, No Tenderness Cardiovascular: Rhythm Regular, No Murmur Respiratory: Normal Breath Sounds, No Rales, No Rhonchi, No Wheezing Gastrointestinal/Abdominal: Soft, No Tenderness, No Guarding, No Rebound Back: No Vertebral Tenderness Extremity: Normal ROM, Capillary Refill (< 2 sec. ), Other (Bilateral surgical foot booties, s/p left toes amputation) Neurological/Psych: Oriented x3, Normal Speech, Normal Cognition ED Course And Treatment O2 Sat by Pulse Oximetry: 97 Pulse Ox Interpretation: Normal Medical Decision Making Medical Decision Making: fell from sitting on a wheelchair earlier today or last night, referred from [facility] to have CT neck/head to r/u injuries pt seen examined, and normal exam with mild b/l trapezius tenderness only. pt refused CT neck/head with informed consent- would rather come back tomorrow for exams PRN Disposition Doctor Will See Patient In The: Office Counseled Patient/Family Regarding: Studies Performed, Diagnosis - Disposition Referrals: Juma Bowen MD [Staff Provider] - Disposition: HOME/ ROUTINE Disposition Time: 20:15 Condition: GOOD Additional Instructions: ice packs to the trapezius,neck area 1/2 hour per hour, nothing hot. Motrin 600 mg every 6 hours as needed pepcid 20 mg @ night to prevent stomach irritation. Follow-up with Dr. Bowen Return to ED for further eval at your convenience. Instructions: Muscle Strain (ED), Musculoskeletal Pain (ED) - Clinical Impression Clinical Impression: Fall at [facility], Trapezius strain - Scribe Statement The provider has reviewed the documentation as recorded by the Scribe Judah Jeffersona Provider Shyla Attestation: All medical record entries made by the Shyla were at my direction and personally dictated by me. I have reviewed the chart and agree that the record accurately reflects my personal performance of the history, physical exam, medical decision making, and the department course for this patient. I have also personally directed, reviewed, and agree with the discharge instructions and disposition.
== END 2016-11-05 21:53 | disposition home or self-care (01) ==
LOC: C.ER 17:48
DX: S29.012A Strain of muscle and tendon of back wall of thorax, initial encounter (principal); W05.0XXA Fall from non-moving wheelchair, initial encounter; Y92.129 Unspecified place in nursing home as the place of occurrence of the external cause

== ENCOUNTER 2016-11-18 12:53 | Inpatient (IN) | payer MEDICARE ==
[2016-11-18 12:54] VITALS: BMI 31.2
[2016-11-18] MEDS ORDERED: Oxycodone/Acetaminophen 5/325 mg Tab PO STA ×2 (13:20→15:59)
--- NOTE | 2016-11-18 13:20 | C.PDOC ---
History Of Present Illness 51-year-old male, is sent to the emergency department by Dr Cunningham, for an amputation, pt has a diabetic foot and osteomyelitis. Patient is an IDDM, Patient had amputation of left first and second toe. No fever. Time Seen by Provider: 11/18/16 13:02 Chief Complaint (Nursing): Lower Extremity Problem/Injury History Per: Patient History/Exam Limitations: no limitations Current Symptoms Are (Timing): Still Present Severity: Moderate Pain Scale Rating Of: 6 Past Medical History Reviewed: Historical Data, Nursing Documentation, Vital Signs Vital Signs: Last Vital Signs Temp 97.5 F L 11/18/16 16:31 Pulse 66 11/18/16 16:31 Resp 20 11/18/16 16:31 BP 142/75 11/18/16 16:31 Pulse Ox 100 11/18/16 17:01 - Medical History PMH: Diabetes, HTN, Hypercholesterolemia Denies: Chronic Kidney Disease - [facility] Procedures DETACHMENT AT LEFT 1ST TOE, COMPLETE, OPEN APPROACH (10/22/16) DETACHMENT AT LEFT 2ND TOE, COMPLETE, OPEN APPROACH (06/28/15) DILATION OF LEFT ANTERIOR TIBIAL ARTERY, PERC APPROACH (10/22/16) EXTIRPATION OF MATTER FROM L ANT TIB ART, PERC APPROACH (10/22/16) EXTRACTION OF LEFT FOOT SKIN, EXTERNAL APPROACH (06/28/15) INSERTION OF INFUSION DEV INTO R BASILIC VEIN, PERC APPROACH (06/28/15) INSERTION OF INFUSION DEV INTO SUP VENA CAVA, PERC APPROACH (09/27/16) RESECTION OF LEFT METATARSAL, OPEN APPROACH (10/22/16) ULTRASONOGRAPHY OF RIGHT UPPER EXTREMITY VEINS, GUIDANCE (06/28/15) ULTRASONOGRAPHY OF SUPERIOR VENA CAVA, GUIDANCE (09/27/16) Family History: States: Unknown Family Hx - Social History Hx Tobacco Use: No Hx Alcohol Use: No (Socially) Hx Substance Use: No - Immunization History Hx Tetanus Toxoid Vaccination: Yes Hx Influenza Vaccination: No Hx Pneumococcal Vaccination: No Review Of Systems Except As Marked, All Systems Reviewed And Found Negative. Constitutional: Negative for: Fever Gastrointestinal: Negative for: Nausea, Vomiting Neurological: Negative for: Weakness, Numbness Physical Exam - Physical Exam Appears: Non-toxic, No Acute Distress Skin: Warm, Dry, No Rash Head: Atraumatic Eye(s): bilateral: Normal Inspection Nose: Normal Oral Mucosa: Moist Lips: Normal Appearing Neck: Normal ROM Cardiovascular: Rhythm Regular Respiratory: Normal Breath Sounds, No Accessory Muscle Use Extremity: Other (L FOOT: first and second digit amputated, a non-healed erosion from left dorsal proximal foot, going down to amputation site is noted. No discharge, no foul smell, no gangrene. ) Neurological/Psych: Oriented x3 ED Course And Treatment - Laboratory Results Result Diagrams: 11/18/16 14:14 11/18/16 14:14 Lab Interpretation: Abnormal (anemia) ECG: Interpreted By Me ECG Rhythm: Sinus Rhythm Interpretation Of EC O2 Sat by Pulse Oximetry: 100 Pulse Ox Interpretation: Normal - Radiology CXR: Interpreted by Me CXR Interpretation: Yes: No Acute Disease - Other Rad left foot X-Ray: Interpreted by Me Interpretation: can not r/o osteomyelitis Progress Note: Dr. Kirk paged 5 times from 1:30 PM. Discussed case with Dr. Bowen who accepted the pt and requested blood cx, vanaba 1 g, Dr. Hu consultation. Disposition Counseled Patient/Family Regarding: Studies Performed, Diagnosis - Disposition Disposition: HOSPITALIZED Disposition Time: 15:58 Condition: STABLE - POA Present On Arrival: None - Clinical Impression Clinical Impression: Diabetic foot, Osteomyelitis, Anemia - Scribe Statement Cecilia Seo All medical record entries made by the Scribe were at my direction and personally dictated by me. I have reviewed the chart and agree that the record accurately reflects my personal performance of the history, physical exam, medical decision making, and the department course for this patient. I have also personally directed, reviewed, and agree with the discharge instructions and disposition. Decision To Admit - Pt Status Changed To: Hospital Disposition Of: Inpatient - Admit Certification Admit to Inpatient:: After my assessment, the patient will require hospitalization for at least two midnights. This is because of the severity of symptoms shown, intensity of services needed, and/or the medical risk in this patient being treated as an outpatient. - InPatient: Physician Admission Certification: I certify that this patient requires 2 or more midnights of care for the following reason:: SEE NOTES - . Bed Request Type: Regular Admitting Physician: Juma Bowen Patient Diagnosis: Diabetic foot, Osteomyelitis, Anemia
[2016-11-18] MEDS ORDERED: Oxycodone/Acetaminophen 5/325 mg Tab ONE ×2 (13:26→16:25)
--- NOTE | 2016-11-18 14:11 | RAD ---
PROCEDURE: CHEST RADIOGRAPH, 1 VIEW HISTORY: preadmission COMPARISON: None available. FINDINGS: LUNGS: Clear. PLEURA: No pneumothorax or pleural fluid seen. CARDIOVASCULAR: Normal. OSSEOUS STRUCTURES: No significant abnormalities. VISUALIZED UPPER ABDOMEN: Normal. OTHER FINDINGS: None. IMPRESSION: No active disease.
[2016-11-18 14:21] LABS: BASO % 0.7 % (0.0-2.0); EOS # 0.2 K/uL (0.0-0.7); EOS % 2.7 % (0.0-4.0); HEMATOCRIT 34.2 % (35.0-51.0); LYMPH # 2.6 K/uL (1.0-4.3); LYMPH % 40.3 % (20.0-40.0); MEAN CELL VOLUME 74.7 fL (80.0-94.0); MEAN CORPUSCULAR HEMOGLOBIN 23.7 pg (27.0-31.0); MEAN CORPUSCULAR HGB CONC 31.7 g/dL (33.0-37.0); MONO # 0.5 K/uL (0.0-0.8); MONO % 7.5 % (0.0-10.0); NRBC % 0.1 % (0.0-2.0); RED CELL DISTRIBUTION WIDTH 16.5 % (11.5-14.5); WHITE BLOOD COUNT 6.5 K/uL (4.8-10.8)
--- NOTE | 2016-11-18 14:23 | RAD ---
Left foot three views History: Pain. Comparison: 10/22/2016 Findings: Resection of the 1st digit to the 1st metatarsal head. Interval prominent cortical productive change and heterotopic bone formation at the surgical site. This may be the sequela of postsurgical changes however acute infectious and or inflammatory changes cannot be excluded on the basis of these images. Vascular calcifications. Resection of the 2nd digit to the midshaft of the 2nd metacarpal bone. Dorsal calcaneal spurring. Impression Resection of the 1st digit to the 1st metatarsal head. Interval prominent cortical productive change and heterotopic bone formation at the surgical site. This may be the sequela of postsurgical changes however acute infectious and or inflammatory changes cannot be excluded on the basis of these images. If there is concern for acute osteomyelitis, consider further evaluation with MRI.
[2016-11-18 14:28] LABS: INR 1.1
[2016-11-18 14:32] LABS: CHLORIDE 102 mmol/L (98-107); POTASSIUM 4.9 mmol/L (3.6-5.2); SODIUM 135 mmol/L (132-148)
[2016-11-18 14:34] LABS: AST/SGOT 33 U/L (17-59); BILIRUBIN,TOTAL 0.9 mg/dL (0.2-1.3); CARBON DIOXIDE 21 mmol/L (22-30); GFR AFRICAN-AMERICAN > 60; TOTAL PROTEIN 8.2 g/dL (6.3-8.3)
[2016-11-18 14:35] LABS: ALKALINE PHOSPHATASE 52 U/L (38-126); ALT/SGPT 17 U/L (21-72); BLOOD UREA NITROGEN 26 mg/dL (9-20); CALCIUM 8.7 mg/dl (8.6-10.4); GLUCOSE,RANDOM 219 mg/dL (75-110)
[2016-11-18] MEDS: Magnesium Hydroxide Susp 30 ml UD PO PRN (22:17)
[2016-11-18] MEDS: Oxycodone/Acetaminophen 5/325 mg Tab PO PRN (22:18)
[2016-11-18] MEDS: (Novolog) Insulin Aspart, Recombinant 100 u/ml 10 ml vial SC SCH (22:22)
[2016-11-19] MEDS: Oxycodone/Acetaminophen 5/325 mg Tab PO PRN ×3 (04:32→20:00)
--- NOTE | 2016-11-19 09:13 | CP.PCM.CON ---
History of Present Illness - History of Present Illness History of Present Illness: This is a 51 y/o male patient who was seen and evaluated at bedside this morning concerning Left foot non-healing wound. Patient is aware that he is to undergo Left foot wound debridement with revision of amputation site this morning with Dr. Diamond. Patient states that he has not had anything to eat or drink since last night. No pedal complaints reported at this time. Left foot dressing C/D/I. Past Patient History - Infectious Disease Hx of Infectious Diseases: None - Past Medical History & Family History Past Medical History?: Yes - Past Social History Smoking Status: Former Smoker - CARDIAC Hx Hypercholesterolemia: Yes Hx Hypertension: Yes - PULMONARY Hx Respiratory Disorders: No - NEUROLOGICAL Hx Neurological Disorder: No - HEENT Hx HEENT Problems: Yes Other/Comment: wears glasses - RENAL Hx Chronic Kidney Disease: No - ENDOCRINE/METABOLIC Hx Endocrine Disorders: Yes Hx Diabetes Mellitus Type 2: Yes - HEMATOLOGICAL/ONCOLOGICAL Hx Blood Disorders: No - INTEGUMENTARY Hx Dermatological Problems: No - MUSCULOSKELETAL/RHEUMATOLOGICAL Hx Falls: No - GASTROINTESTINAL Hx Gastrointestinal Disorders: No - GENITOURINARY/GYNECOLOGICAL Hx Genitourinary Disorders: No - PSYCHIATRIC Hx Substance Use: No - SURGICAL HISTORY Hx Surgeries: Yes (SEE COMMENT) Hx Orthopedic Surgery: Yes (AMPUTATION) Other/Comment: BACK SURGERY; AMPUTATION OF 2 TOES LT FOOT - ANESTHESIA Hx Anesthesia: Yes Hx Anesthesia Reactions: No Hx Malignant Hyperthermia: No Meds Allergies/Adverse Reactions: Allergies Allergy/AdvReac Type Severity Reaction Status Date / Time No Known Allergies Allergy Verified 11/18/16 12:59 - Medications Medications: Current Medications Amlodipine Besylate (Norvasc) 10 mg PO DAILY [facility] Aspirin (Ecotrin) 81 mg PO DAILY [facility] Clopidogrel Bisulfate (Plavix) 75 mg PO DAILY [facility] Docusate Sodium (Colace) 100 mg PO BID [facility] Enoxaparin Sodium (Lovenox) 40 mg SC DAILY [facility] Famotidine (Pepcid) 20 mg PO BID [facility] Vancomycin HCl 1,000 mg/ (Sodium Chloride) 250 mls @ 166.6 mls/hr IVPB Q12H [facility] Last Admin: 11/19/16 04:03 Dose: 166.6 mls/hr Insulin Aspart (Novolog) 0 unit SC ACHS [facility] PRN Reason: Protocol Last Admin: 11/18/16 22:22 Dose: Not Given Insulin Glargine (Lantus) 20 unit SC HS [facility] Insulin Human Isoph/Insulin Regular (Novolin 70/30 (70/30 Units/Ml) 10 Ml) 60 units SC ACBD [facility] Magnesium Hydroxide (Milk Of Magnesia) 30 ml PO Q4 PRN PRN Reason: Indigestion / Heartburn Last Admin: 11/18/16 22:17 Dose: 30 ml Metoprolol Tartrate (Lopressor) 25 mg PO BID [facility] Oxycodone/Acetaminophen (Percocet 5/325 Mg Tab) 2 tab PO Q4H PRN PRN Reason: Pain, moderate (4-7) Stop: 11/21/16 20:48 Last Admin: 11/19/16 04:32 Dose: 2 tab Rosuvastatin Calcium (Crestor) 10 mg PO HS [facility] Last Admin: 11/18/16 22:17 Dose: 10 mg Physical Exam - Constitutional Appears: Non-toxic, No Acute Distress - Neurological Exam Neurological exam: Alert, Oriented x3 - Psychiatric Exam Psychiatric exam: Normal Affect, Normal Mood - Additional Findings Additional findings: Left foot dressing C/D/I with no evidence of strike-through Results - Vital Signs Recent Vital Signs: Last Vital Signs Temp 97.6 F 11/19/16 08:18 Pulse 79 11/19/16 08:18 Resp 20 11/19/16 08:18 BP 128/76 11/19/16 08:18 Pulse Ox 99 11/19/16 08:18 - Labs Result Diagrams: 11/18/16 14:14 11/18/16 14:14 Assessment & Plan - Assessment and Plan (Free Text) Assessment: Left foot non-healing wound at previous amputation site, secondary to DM Plan: Patient seen and evaluated Labs and vitals reviewed Patient's NPO status confirmed Anticoags and hypoglycemics held for this morning Patient to OR this morning with Dr. Diamond for Left foot revision of amputation site All of the patient's questions and concerns were addressed Podiatry to follow while patient remains in house
[2016-11-19] MEDS ORDERED: Bacitracin 150,000 UNIT in Sodium Chloride 0.9% Irrig 3,000 ML IR SCH (09:20)
[2016-11-19] MEDS ORDERED: Lactated Ringer's 1,000 ML IV ONE (11:25)
[2016-11-19] MEDS ORDERED: Midazolam 2 MG/2 ML VIAL ONE (11:33)
[2016-11-19] MEDS ORDERED: Propofol 10 mg/ml Inj (20 ML) ONE (11:33)
--- NOTE | 2016-11-19 11:54 | CP.PCM.PN ---
Subjective - Date & Time of Evaluation Date of Evaluation: 11/19/16 Time of Evaluation: 07:45 - Subjective Subjective: Medicine Note- Dr. Bowen's service Patient was seen and examined at bedside. Patient has a hx of DM, Htn, Hld, AR s /p 1 stent. Patient reports that he was sent in by Dr. Hawley to get surgery for his foot, he was told he was going to have revision of his amputation site. Patient is NPO for surgery. No events overnight, per nursing. Objective - Vital Signs/Intake and Output Vital Signs (last 24 hours): Temp Pulse Resp BP Pulse Ox 97.6 F 79 20 128/76 99 11/19/16 08:18 11/19/16 08:18 11/19/16 08:18 11/19/16 08:18 11/19/16 08:18 Intake and Output: 11/19/16 11/19/16 06:59 18:59 Intake Total 250 Balance 250 - Medications Medications: Current Medications Amlodipine Besylate (Norvasc) 10 mg PO DAILY [facility] Aspirin (Ecotrin) 81 mg PO DAILY [facility] Clopidogrel Bisulfate (Plavix) 75 mg PO DAILY [facility] Docusate Sodium (Colace) 100 mg PO BID [facility] Enoxaparin Sodium (Lovenox) 40 mg SC DAILY [facility] Famotidine (Pepcid) 20 mg PO BID [facility] Vancomycin HCl 1,000 mg/ (Sodium Chloride) 250 mls @ 166.6 mls/hr IVPB Q12H [facility] Last Admin: 11/19/16 04:03 Dose: 166.6 mls/hr Insulin Aspart (Novolog) 0 unit SC ACHS [facility] PRN Reason: Protocol Last Admin: 11/18/16 22:22 Dose: Not Given Insulin Glargine (Lantus) 20 unit SC HS [facility] Insulin Human Isoph/Insulin Regular (Novolin 70/30 (70/30 Units/Ml) 10 Ml) 60 units SC ACBD [facility] Lactulose (Enulose) 20 gm PO ONCE ONE Stop: 11/19/16 16:01 Magnesium Hydroxide (Milk Of Magnesia) 30 ml PO Q4 PRN PRN Reason: Indigestion / Heartburn Last Admin: 11/18/16 22:17 Dose: 30 ml Metoprolol Tartrate (Lopressor) 25 mg PO BID [facility] Oxycodone/Acetaminophen (Percocet 5/325 Mg Tab) 2 tab PO Q4H PRN PRN Reason: Pain, moderate (4-7) Stop: 11/21/16 20:48 Last Admin: 11/19/16 04:32 Dose: 2 tab Rosuvastatin Calcium (Crestor) 10 mg PO HS [facility] Last Admin: 11/18/16 22:17 Dose: 10 mg - Labs Labs: PT 12.6 SECONDS (9.7-12.2) H 11/18/16 14:14 INR 1.1 11/18/16 14:14 APTT 33 SECONDS (21-34) 11/18/16 14:14 - Constitutional Appears: Non-toxic, No Acute Distress - Head Exam Head Exam: ATRAUMATIC, NORMAL INSPECTION, NORMOCEPHALIC - Eye Exam Pupil Exam: NORMAL ACCOMODATION, PERRL - ENT Exam ENT Exam: Mucous Membranes Moist - Respiratory Exam Respiratory Exam: Clear to Ausculation Bilateral, NORMAL BREATHING PATTERN. absent: Prolonged Expiratory Phase, Rales, Rhonchi, Wheezes - Cardiovascular Exam Cardiovascular Exam: REGULAR RHYTHM, +S1, +S2 - GI/Abdominal Exam GI & Abdominal Exam: Soft, Normal Bowel Sounds. absent: Guarding, Tenderness, Diminished Bowel Sounds, Hernia, Hypoactive Bowel Sounds - Extremities Exam Extremities Exam: Normal Capillary Refill Additional comments: Left foot tightly wrapped in bandage. 1st and 2nd digit amputated. - Neurological Exam Neurological Exam: Alert, Awake, Oriented x3 - Psychiatric Exam Psychiatric exam: Normal Affect, Normal Mood - Skin Skin Exam: Dry, Intact, Normal Color, Warm Assessment and Plan - Assessment and Plan (Free Text) Assessment: Diabetic foot Consult Podiatry- Dr. Hawley- scheduled for OR today Consult ID- Dr. Mayte Overton 1gm Q12h (started 11/19/16) Continue Percocet 2 tab PO Q4h PRN Diabetes Accuchecks Insulin NPH 60U SC AC BD Lantus 20U HS [facility] Hypertension Continue Norvasc 10mg PO Daily Continue Lopressor 25mg PO BID Hyperlipidemia Continue Crestor 10mg PO HS CAD s/p stent Plavix 75mg PO Daily- Hold for surgery Continue Asa 81mg PO Daily Constipation Continue Colace 100mg PO BID Continue Magnesium Hydroxide 30ml PO Q4h PRN Given one time Lactulose 20mg today Prophylactic Measure Lovenox 40mg SC Daily- Hold for surgery Protonix 40mg PO Daily
[2016-11-19] MEDS ORDERED: HYDROmorphone 0.5 mg/0.5 ml ISec IVP PRN (12:13)
--- NOTE | 2016-11-19 12:13 | PCM.SURG1 ---
Surgeon's Initial Post Op Note - Surgeon's Notes Surgeon: Dr. Diamond Bundle Tier And Labeler: Werner Chaney DPM PGY-2 Type of Anesthesia: IV Sedation, Local Anesthesia Administered By: Dr. Mckeon Pre-Operative Diagnosis: Left foot- non-healing wound with osteomyelitis of the 1st metatarsal Operative Findings: See dictation. Hemostasis: None. Materials: 14inch iodoform packing, ABD pads, DSD, GILL bandages. Injectables: 8cc 1:1 2% Lidocaine plain: 0.5% Marcaine plain pre-op. Condition: Stable Post-Operative Diagnosis: Same as above Operation Performed: Left foot- partial 1st metatarsal resection with excisional wound debridement Specimen/Specimens Removed: Bone (Left 1st metatarsal); soft tissue (Left foot) Estimated Blood Loss: EBL {In ML}: 20 Blood Products Given: N/A Drains Used: No Drains Post-Op Condition: Good Date of Surgery/Procedure: 11/19/16 Time of Surgery/Procedure: 11:30
[2016-11-19 13:02] LABS: HEMATOCRIT 31.3 % (35.0-51.0)
--- NOTE | 2016-11-19 13:16 | CP.PCM.CON ---
History of Present Illness - History of Present Illness History of Present Illness: 51 y/o male patient who was seen and evaluated at bedside this morning concerning Left foot non-healing wound. Patient is aware that he is to undergo Left foot wound debridement with revision of amputation site this morning with Dr. Diamond Review of Systems - Review of Systems All systems: reviewed and no additional remarkable complaints except - Constitutional Constitutional: absent: As Per HPI, Anorexia, Chills, Daytime Sleepiness, Excessive Sweating, Fatigue, Fever, Frequent Falls, Headache, Increased Appetite , Lethargy, Malaise, Night Sweats, Snoring, Sleep Apnea, Weight Gain, Weight Loss, Weakness, Other - EENT Eyes: absent: As Per HPI, Blind Spots, Blurred Vision, Change in Vision, Decreased Night Vision, Diplopia, Discharge, Dry Eye, Exophthalmos, Floaters, Irritation, Itchy Eyes, Loss of Peripheral Vision, Pain, Photophobia, Requires Corrective Lenses, Sees Flashes, Spots in Vision, Tunnel Vision, Other Visual Disturbances, Loss of Vision, Other Ears: absent: As Per HPI, Decreased Hearing, Ear Discharge, Ear Pain, Tinnitus, Abnormal Hearing, Disequilibrium, Dizziness, Other Nose/Mouth/Throat: absent: As Per HPI, Epistaxis, Nasal Congestion, Nasal Discharge, Nasal Obstruction, Nasal Trauma, Nose Pain, Post Nasal Drip, Sinus Pain, Sinus Pressure, Bleeding Gums, Change in Voice, Dental Pain, Dry Mouth, Dysphagia, Halitosis, Hoarsness, Lip Swelling, Mouth Lesions, Mouth Pain, Odynophagia, Sore Throat, Throat Swelling, Tongue Swelling, Facial Pain, Neck Pain, Neck Mass, Other - Cardiovascular Cardiovascular: absent: As Per HPI, Acrocyanosis, Chest Pain, Chest Pain at Rest , Chest Pain with Activity, Claudication, Diaphoresis, Dyspnea, Dyspnea on Exertion, Edema, Irregular Heart Rhythm, Pain Radiating to Arm/Neck/Jaw, Leg Edema, Leg Ulcers, Lightheadedness, Orthopnea, Palpitations, Paroxysmal Nocturnal Dyspnea, Pedal Edema, Radiating Pain, Rapid Heart Rate, Slow Heart Rate, Syncope, Other - Respiratory Respiratory: absent: As Per HPI, Cough, Dyspnea, Hemoptysis, Dyspnea on Exertion , Wheezing, Snoring, Stridor, Pain on Inspiration, Chest Congestion, Excessive Mucous Production, Change in Mucous Color, Pain with Coughing, Other - Gastrointestinal Gastrointestinal: absent: As Per HPI, Abdominal Pain, Belching, Bloating, Change in Bowel Habits, Change in Stool Character, Coffee Ground Emesis, Constipation, Cramping, Diarrhea, Dyspepsia, Dysphagia, Early Satiety, Excessive Flatus, Fecal Incontinence, Heartburn, Hematemesis, Hematochezia, Loose Stools, Melena, Nausea, Odynophagia, Temesmus, Vomiting, Other - Genitourinary Genitourinary: absent: As Per HPI, Change in Urinary Stream, Difficulty Urinating, Dysuria, Flank Pain, Hematuria, Pyuria, Nocturia, Urinary Incontinence, Urinary Frequency, Urinary Hesitance, Urinary Urgency, Voiding Freq/Small Amts, Freq UTI, Hx Renal/Bladder Calculi, Hx /Renal Surgery, Bladder Distension, Other - Musculoskeletal Musculoskeletal: As Per HPI - Integumentary Integumentary: As Per HPI - Neurological Neurological: absent: As Per HPI, Abnormal Gait, Abnormal Hearing, Abnormal Movements, Abnormal Speech, Behavioral Changes, Burning Sensations, Confusion, Convulsions, Disequilibrium, Dizziness, Numbness, Focal Weakness, Frequent Falls , Headaches, Lack of Coordination, Loss of Vision, Memory Loss, Paresthesias, Radicular Pain, Restless Legs, Sensory Deficit, Syncope, Tingling, Tremor, Vertigo, Weakness, Other Visual Disturbances, Other - Psychiatric Psychiatric: absent: As Per HPI, Abnormal Sleep Pattern, Anhedonia, Anxiety, Auditory Hallucinations, Behavioral Changes, Change in Appetite, Change in Libido, Confusion, Depression, Difficulty Concentrating, Hallucinations, Homicidal Ideation, Hopelessness, Irritability, Memory Loss, Mood Swings, Panic Attacks, Paranoia, Suicidal Ideation, Visual Hallucinations, Tactile Hallucinations, Other - Endocrine Endocrine: absent: As Per HPI, Change in Body Appearance, Change in Libido, Cold Intolorance, Deepening of Voice, Excessive Sweating, Fatigue, Flushing, Heat Intolorance, Increase in Ring/Shoe/Hat Size, Palpitations, Polydipsia, Polyphagia, Polyuria, Other - Hematologic/Lymphatic Hematologic: absent: As Per HPI, Easy Bleeding, Easy Bruising, Lymphadenopathy, Other Past Patient History - Infectious Disease Hx of Infectious Diseases: None - Past Medical History & Family History Past Medical History?: Yes - Past Social History Smoking Status: Former Smoker - CARDIAC Hx Hypercholesterolemia: Yes Hx Hypertension: Yes - PULMONARY Hx Respiratory Disorders: No - NEUROLOGICAL Hx Neurological Disorder: No - HEENT Hx HEENT Problems: Yes Other/Comment: wears glasses - RENAL Hx Chronic Kidney Disease: No - ENDOCRINE/METABOLIC Hx Endocrine Disorders: Yes Hx Diabetes Mellitus Type 2: Yes - HEMATOLOGICAL/ONCOLOGICAL Hx Blood Disorders: No - INTEGUMENTARY Hx Dermatological Problems: No - MUSCULOSKELETAL/RHEUMATOLOGICAL Hx Falls: No - GASTROINTESTINAL Hx Gastrointestinal Disorders: No - GENITOURINARY/GYNECOLOGICAL Hx Genitourinary Disorders: No - PSYCHIATRIC Hx Substance Use: No - SURGICAL HISTORY Hx Surgeries: Yes (SEE COMMENT) Hx Orthopedic Surgery: Yes (AMPUTATION) Other/Comment: BACK SURGERY; AMPUTATION OF 2 TOES LT FOOT - ANESTHESIA Hx Anesthesia: Yes Hx Anesthesia Reactions: No Hx Malignant Hyperthermia: No Meds Allergies/Adverse Reactions: Allergies Allergy/AdvReac Type Severity Reaction Status Date / Time No Known Allergies Allergy Verified 11/18/16 12:59 - Medications Medications: Current Medications Amlodipine Besylate (Norvasc) 10 mg PO DAILY [facility] Aspirin (Ecotrin) 81 mg PO DAILY [facility] Clopidogrel Bisulfate (Plavix) 75 mg PO DAILY [facility] Docusate Sodium (Colace) 100 mg PO BID [facility] Enoxaparin Sodium (Lovenox) 40 mg SC DAILY [facility] Hydromorphone HCl (Dilaudid) 0.5 mg IVP Q10M PRN PRN Reason: Pain, severe (8-10) Stop: 11/19/16 14:13 Last Admin: 11/19/16 12:53 Dose: 0.5 mg Vancomycin HCl 1,000 mg/ (Sodium Chloride) 250 mls @ 166.6 mls/hr IVPB Q12H [facility] Last Admin: 11/19/16 04:03 Dose: 166.6 mls/hr Insulin Aspart (Novolog) 0 unit SC ACHS [facility] PRN Reason: Protocol Last Admin: 11/18/16 22:22 Dose: Not Given Insulin Glargine (Lantus) 20 unit SC HS [facility] Insulin Human Isoph/Insulin Regular (Novolin 70/30 (70/30 Units/Ml) 10 Ml) 60 units SC ACBD [facility] Lactulose (Enulose) 20 gm PO ONCE ONE Stop: 11/19/16 16:01 Magnesium Hydroxide (Milk Of Magnesia) 30 ml PO Q4 PRN PRN Reason: Indigestion / Heartburn Last Admin: 11/18/16 22:17 Dose: 30 ml Metoprolol Tartrate (Lopressor) 25 mg PO BID [facility] Oxycodone/Acetaminophen (Percocet 5/325 Mg Tab) 2 tab PO Q4H PRN PRN Reason: Pain, moderate (4-7) Stop: 11/21/16 20:48 Last Admin: 11/19/16 04:32 Dose: 2 tab Pantoprazole Sodium (Protonix Ec Tab) 40 mg PO DAILY [facility] Rosuvastatin Calcium (Crestor) 10 mg PO HS [facility] Last Admin: 11/18/16 22:17 Dose: 10 mg Physical Exam - Constitutional Appears: Chronically Ill - Head Exam Head Exam: NORMAL INSPECTION - Eye Exam Eye Exam: absent: Scleral icterus - ENT Exam ENT Exam: Mucous Membranes Dry - Neck Exam Neck exam: Negative for: Lymphadenopathy - Respiratory Exam Respiratory Exam: Decreased Breath Sounds - Cardiovascular Exam Cardiovascular Exam: REGULAR RHYTHM - GI/Abdominal Exam GI & Abdominal Exam: Diminished Bowel Sounds - Rectal Exam Rectal Exam: Deferred - Exam Exam: NORMAL INSPECTION - Extremities Exam Extremities exam: Positive for: pedal edema, tenderness, pedal pulses present. Negative for: calf tenderness - Back Exam Back exam: absent: CVA tenderness (L), CVA tenderness (R), paraspinal tenderness - Neurological Exam Neurological exam: Alert, CN II-XII Intact, Oriented x3, Reflexes Normal - Psychiatric Exam Psychiatric exam: Normal Mood Results - Vital Signs Recent Vital Signs: Last Vital Signs Temp 97.5 F L 11/19/16 12:09 Pulse 65 11/19/16 12:45 Resp 17 11/19/16 12:45 BP 150/87 11/19/16 12:45 Pulse Ox 100 11/19/16 12:45 - Labs Result Diagrams: 11/19/16 12:52 11/18/16 14:14 Labs: Laboratory Results - last 24 hr 11/18/16 11/19/16 11/19/16 21:10 07:08 12:17 Hgb Hct POC Glucose (mg/dL) 263 H 178 H 151 H 11/19/16 12:52 Hgb 10.0 L Hct 31.3 L POC Glucose (mg/dL) Assessment & Plan (1) Anemia Status: Acute (2) Diabetic foot Status: Acute (3) Osteomyelitis Status: Acute (4) Diabetic foot ulcer Status: Acute (5) Microcytic anemia Status: Acute
--- NOTE | 2016-11-19 14:32 | CARD ---
APPROVED REPORT EKG Measurement Heart [id number] <Conclusion> Normal sinus rhythm Normal ECG
[2016-11-19] MEDS: (Novolin 70/30) NPH/Regular 70/30 Units/ml 10 ml vial SC SCH (17:00)
[2016-11-19] MEDS: (Novolog) Insulin Aspart, Recombinant 100 u/ml 10 ml vial SC SCH ×3 (17:10→21:31)
[2016-11-19] MEDS: (Lantus) Insulin Glargine, Recombinant SC SCH (21:48)
[2016-11-20] MEDS: Oxycodone/Acetaminophen 5/325 mg Tab PO PRN ×6 (00:01→22:27)
--- NOTE | 2016-11-20 07:01 | HP ---
The patient is admitted to the hospital with chief complaint of pain in the foot. The patient has hi story of diabetes, diabetic foot. The patient was seen by the foot doctor, Dr. Diamond, was advis ed immediate surgery for osteomyelitis. The patient is nonsmoker, nondrinker. He is on insulin, ant ibiotic as outpatient. PAST MEDICAL HISTORY: Diabetic foot, osteomyelitis of the foot. PHYSICAL EXAMINATION: GENERAL: The patient is awake, alert, oriented. VITAL SIGNS: Temperature 98, pulse 90. HEENT: Within normal limits. NECK: Supple. CHEST: Symmetrical. HEART: Regular. ABDOMEN: Soft. EXTREMITIES: There is deformity of the foot present and ulcer. The patient suffers from osteomyelitis of the foot, diabetic foot. The patient will get bedrest, ant ibiotics, ID and podiatric consult. Juma Wilson MD cc: [id number] TT: 11/19/2016 12:51:55 en 11/20/2016 06:00:41
[2016-11-20 07:38] LABS: BASO # 0.1 K/uL (0.0-0.2); BASO % 0.6 % (0.0-2.0); EOS # 0.2 K/uL (0.0-0.7); EOS % 1.8 % (0.0-4.0); HEMATOCRIT 31.1 % (35.0-51.0); LYMPH # 2.3 K/uL (1.0-4.3); LYMPH % 26.7 % (20.0-40.0); MEAN CELL VOLUME 73.5 fL (80.0-94.0); MEAN CORPUSCULAR HEMOGLOBIN 23.7 pg (27.0-31.0); MEAN CORPUSCULAR HGB CONC 32.3 g/dL (33.0-37.0); MEAN PLATELET VOLUME 7.4 fL (7.2-11.7); MONO # 0.8 K/uL (0.0-0.8); MONO % 9.3 % (0.0-10.0); NRBC % 0.1 % (0.0-2.0); RED CELL DISTRIBUTION WIDTH 15.9 % (11.5-14.5); WHITE BLOOD COUNT 8.4 K/uL (4.8-10.8)
[2016-11-20 07:48] LABS: CHLORIDE 103 mmol/L (98-107); SODIUM 138 mmol/L (132-148)
[2016-11-20 07:49] LABS: POTASSIUM 4.2 mmol/L (3.6-5.2)
[2016-11-20] MEDS: (Novolog) Insulin Aspart, Recombinant 100 u/ml 10 ml vial SC SCH ×3 (07:50→17:32)
[2016-11-20 07:51] LABS: ALKALINE PHOSPHATASE 46 U/L (38-126); ALT/SGPT 22 U/L (21-72); AST/SGOT 18 U/L (17-59); BILIRUBIN,TOTAL 0.4 mg/dL (0.2-1.3); BLOOD UREA NITROGEN 16 mg/dL (9-20); CALCIUM 8.7 mg/dl (8.6-10.4); CARBON DIOXIDE 24 mmol/L (22-30); GFR AFRICAN-AMERICAN > 60; GLUCOSE,RANDOM 134 mg/dL (75-110)
[2016-11-20] MEDS: (Novolin 70/30) NPH/Regular 70/30 Units/ml 10 ml vial SC SCH ×2 (08:25→16:22)
--- NOTE | 2016-11-20 09:01 | CP.PCM.PN ---
Subjective - Date & Time of Evaluation Date of Evaluation: 11/20/16 Time of Evaluation: 08:00 - Subjective Subjective: Medicine Note- Dr. Bowen's service Patient was seen and examined at bedside. Patient reports no acute complaints. He reports he moved his bowels yesterday. No events overnight. Objective - Vital Signs/Intake and Output Vital Signs (last 24 hours): Temp Pulse Resp BP Pulse Ox 98.2 F 70 20 154/80 H 98 11/20/16 08:01 11/20/16 08:01 11/20/16 08:01 11/20/16 08:01 11/20/16 08:01 Intake and Output: 11/20/16 11/20/16 06:59 18:59 Intake Total 600 Output Total 1150 Balance -550 - Medications Medications: Current Medications Amlodipine Besylate (Norvasc) 10 mg PO DAILY [facility] Last Admin: 11/19/16 10:00 Dose: Not Given Aspirin (Ecotrin) 81 mg PO DAILY [facility] Last Admin: 11/19/16 10:00 Dose: Not Given Clopidogrel Bisulfate (Plavix) 75 mg PO DAILY [facility] Docusate Sodium (Colace) 100 mg PO BID [facility] Last Admin: 11/19/16 17:02 Dose: 100 mg Enoxaparin Sodium (Lovenox) 40 mg SC DAILY [facility] Vancomycin HCl 1,000 mg/ (Sodium Chloride) 250 mls @ 166.6 mls/hr IVPB Q12H [facility] Last Admin: 11/20/16 04:08 Dose: 166.6 mls/hr Insulin Aspart (Novolog) 0 unit SC ACHS [facility] PRN Reason: Protocol Last Admin: 11/20/16 07:50 Dose: Not Given Insulin Glargine (Lantus) 20 unit SC HS [facility] Last Admin: 11/19/16 21:48 Dose: 20 units Insulin Human Isoph/Insulin Regular (Novolin 70/30 (70/30 Units/Ml) 10 Ml) 60 units SC ACBD [facility] Last Admin: 11/19/16 17:00 Dose: 60 units Magnesium Hydroxide (Milk Of Magnesia) 30 ml PO Q4 PRN PRN Reason: Indigestion / Heartburn Last Admin: 11/18/16 22:17 Dose: 30 ml Metoprolol Tartrate (Lopressor) 25 mg PO BID [facility] Last Admin: 11/19/16 17:01 Dose: 25 mg Oxycodone/Acetaminophen (Percocet 5/325 Mg Tab) 2 tab PO Q4H PRN PRN Reason: Pain, moderate (4-7) Stop: 11/21/16 20:48 Last Admin: 11/20/16 08:12 Dose: 2 tab Pantoprazole Sodium (Protonix Ec Tab) 40 mg PO DAILY [facility] Rosuvastatin Calcium (Crestor) 10 mg PO HS [facility] Last Admin: 11/19/16 21:49 Dose: 10 mg - Labs Labs: 11/20/16 07:10 11/20/16 07:10 PT 12.6 SECONDS (9.7-12.2) H 11/18/16 14:14 INR 1.1 11/18/16 14:14 APTT 33 SECONDS (21-34) 11/18/16 14:14 - Constitutional Appears: Non-toxic, No Acute Distress - Head Exam Head Exam: ATRAUMATIC, NORMAL INSPECTION, NORMOCEPHALIC - Eye Exam Pupil Exam: NORMAL ACCOMODATION, PERRL - ENT Exam ENT Exam: Mucous Membranes Moist - Respiratory Exam Respiratory Exam: Clear to Ausculation Bilateral, NORMAL BREATHING PATTERN. absent: Prolonged Expiratory Phase, Rales, Rhonchi, Wheezes - Cardiovascular Exam Cardiovascular Exam: REGULAR RHYTHM, +S1, +S2 - GI/Abdominal Exam GI & Abdominal Exam: Soft, Normal Bowel Sounds. absent: Guarding, Rigid, Tenderness, Diminished Bowel Sounds, Hypoactive Bowel Sounds - Extremities Exam Extremities Exam: Normal Capillary Refill Additional comments: left foot wrapped - Neurological Exam Neurological Exam: Alert, Awake, Oriented x3 - Psychiatric Exam Psychiatric exam: Normal Affect, Normal Mood - Skin Skin Exam: Dry, Intact, Normal Color, Warm Assessment and Plan - Assessment and Plan (Free Text) Assessment: Diabetic foot Consult Podiatry- Dr. Hawley- s/p day #1 amputation revision and wound debridement Consult ID- Dr. Mayte Overton 1gm Q12h (started 11/19/16) Continue Percocet 2 tab PO Q4h PRN Diabetes Accuchecks Insulin NPH 60U SC AC BD Lantus 20U HS [facility] Hypertension Continue Norvasc 10mg PO Daily Continue Lopressor 25mg PO BID Hyperlipidemia Continue Crestor 10mg PO HS CAD s/p stent Plavix 75mg PO Daily- Hold for surgery Continue Asa 81mg PO Daily Constipation Continue Colace 100mg PO BID Continue Magnesium Hydroxide 30ml PO Q4h PRN Given one time Lactulose 20mg today Prophylactic Measure Lovenox 40mg SC Daily- Hold for surgery Protonix 40mg PO Daily
--- NOTE | 2016-11-20 09:51 | CP.PCM.PN ---
Subjective - Date & Time of Evaluation Date of Evaluation: 11/20/16 Time of Evaluation: 09:45 - Subjective Subjective: 51 y/o male was seen and evaluated at bedside this morning. Patient is 1 day s/ p Left foot partial 1st metatarsal resection with wound debridement. Patient states that Dr. Diamond saw him this morning and changed the outer layer of his post-op dressings. He denies any F/C/N/V. Denies any pedal complaints at this time. Left foot dressing appears to be C/D/I. LLE is elevated. Objective - Vital Signs/Intake and Output Vital Signs (last 24 hours): Temp Pulse Resp BP Pulse Ox 98.2 F 70 20 154/80 H 98 11/20/16 08:01 11/20/16 08:01 11/20/16 08:01 11/20/16 08:01 11/20/16 08:01 Intake and Output: 11/20/16 11/20/16 06:59 18:59 Intake Total 600 Output Total 1150 Balance -550 - Medications Medications: Current Medications Amlodipine Besylate (Norvasc) 10 mg PO DAILY [facility] Last Admin: 11/19/16 10:00 Dose: Not Given Aspirin (Ecotrin) 81 mg PO DAILY [facility] Last Admin: 11/19/16 10:00 Dose: Not Given Clopidogrel Bisulfate (Plavix) 75 mg PO DAILY [facility] Docusate Sodium (Colace) 100 mg PO BID [facility] Last Admin: 11/19/16 17:02 Dose: 100 mg Enoxaparin Sodium (Lovenox) 40 mg SC DAILY [facility] Vancomycin HCl 1,000 mg/ (Sodium Chloride) 250 mls @ 166.6 mls/hr IVPB Q12H [facility] Last Admin: 11/20/16 04:08 Dose: 166.6 mls/hr Insulin Aspart (Novolog) 0 unit SC ACHS [facility] PRN Reason: Protocol Last Admin: 11/20/16 07:50 Dose: Not Given Insulin Glargine (Lantus) 20 unit SC HS [facility] Last Admin: 11/19/16 21:48 Dose: 20 units Insulin Human Isoph/Insulin Regular (Novolin 70/30 (70/30 Units/Ml) 10 Ml) 60 units SC ACBD [facility] Last Admin: 11/19/16 17:00 Dose: 60 units Magnesium Hydroxide (Milk Of Magnesia) 30 ml PO Q4 PRN PRN Reason: Indigestion / Heartburn Last Admin: 11/18/16 22:17 Dose: 30 ml Metoprolol Tartrate (Lopressor) 25 mg PO BID [facility] Last Admin: 11/19/16 17:01 Dose: 25 mg Oxycodone/Acetaminophen (Percocet 5/325 Mg Tab) 2 tab PO Q4H PRN PRN Reason: Pain, moderate (4-7) Stop: 11/21/16 20:48 Last Admin: 11/20/16 08:12 Dose: 2 tab Pantoprazole Sodium (Protonix Ec Tab) 40 mg PO DAILY [facility] Rosuvastatin Calcium (Crestor) 10 mg PO HS [facility] Last Admin: 11/19/16 21:49 Dose: 10 mg - Labs Labs: 11/20/16 07:10 11/20/16 07:10 PT 12.6 SECONDS (9.7-12.2) H 11/18/16 14:14 INR 1.1 11/18/16 14:14 APTT 33 SECONDS (21-34) 11/18/16 14:14 - Constitutional Appears: Non-toxic, No Acute Distress - Neurological Exam Neurological Exam: Alert, Awake, Oriented x3 - Psychiatric Exam Psychiatric exam: Normal Affect, Normal Mood - Additional Findings Additional findings: Left foot dressing appears to be C/D/I No evidence of strike-through noted Assessment and Plan - Assessment and Plan (Free Text) Assessment: 51 y/o male 1 day s/p Left partial 1st metatarsal amputation with wound debridement Plan: Patient seen and evaluated at bedside Labs and vitals reviewed: no leukocytosis; afebrile Left foot dressing kept intact; Dr. Diamond changed the outer layers of the dressing this morning Patient is to continue receiving IV antibiotics as per ID recommendations Instructed patient to stay off of his Left foot as much as possible and to use bedside commode Continue Left foot elevation with 3 pillows under ankle Discussed patient with attending, Dr. Diamond Podiatry to follow while patient remains in house
--- NOTE | 2016-11-20 09:54 | RAD ---
PROCEDURE: Left Foot Radiographs. HISTORY: s/p left foot surgery COMPARISON: Preoperative examination 11/18/2016. FINDINGS: BONES: Expected postoperative findings following resection of the 1st metatarsal. Surgical packing identified. Remaining osseous structures are unremarkable. JOINTS: Normal. SOFT TISSUES: Soft tissue swelling at the surgical site. OTHER FINDINGS: None. IMPRESSION: Satisfactory postoperative status.
[2016-11-20] MEDS: Enoxaparin 40 mg Syringe SC SCH (10:39)
[2016-11-20] MEDS: Pantoprazole 40 mg EC Tab PO SCH (10:39)
--- NOTE | 2016-11-20 12:20 | CP.PCM.PN ---
Subjective - Date & Time of Evaluation Date of Evaluation: 11/20/16 Time of Evaluation: 07:00 - Subjective Subjective: afebrile pain less wound dry await cultures Objective - Vital Signs/Intake and Output Vital Signs (last 24 hours): Temp Pulse Resp BP Pulse Ox 98.2 F 70 20 154/80 H 98 11/20/16 08:01 11/20/16 08:01 11/20/16 08:01 11/20/16 10:40 11/20/16 08:01 Intake and Output: 11/20/16 11/20/16 06:59 18:59 Intake Total 600 Output Total 1150 Balance -550 - Medications Medications: Current Medications Amlodipine Besylate (Norvasc) 10 mg PO DAILY [facility] Last Admin: 11/20/16 10:39 Dose: 10 mg Aspirin (Ecotrin) 81 mg PO DAILY [facility] Last Admin: 11/20/16 10:39 Dose: 81 mg Clopidogrel Bisulfate (Plavix) 75 mg PO DAILY [facility] Last Admin: 11/20/16 10:39 Dose: 75 mg Docusate Sodium (Colace) 100 mg PO BID [facility] Last Admin: 11/20/16 10:39 Dose: 100 mg Enoxaparin Sodium (Lovenox) 40 mg SC DAILY [facility] Last Admin: 11/20/16 10:39 Dose: 40 mg Vancomycin HCl 1,000 mg/ (Sodium Chloride) 250 mls @ 166.6 mls/hr IVPB Q12H [facility] Last Admin: 11/20/16 04:08 Dose: 166.6 mls/hr Insulin Aspart (Novolog) 0 unit SC ACHS [facility] PRN Reason: Protocol Last Admin: 11/20/16 12:15 Dose: 1 unit Insulin Glargine (Lantus) 20 unit SC HS [facility] Last Admin: 11/19/16 21:48 Dose: 20 units Insulin Human Isoph/Insulin Regular (Novolin 70/30 (70/30 Units/Ml) 10 Ml) 60 units SC ACBD [facility] Last Admin: 11/20/16 08:25 Dose: Not Given Magnesium Hydroxide (Milk Of Magnesia) 30 ml PO Q4 PRN PRN Reason: Indigestion / Heartburn Last Admin: 11/18/16 22:17 Dose: 30 ml Metoprolol Tartrate (Lopressor) 25 mg PO BID [facility] Last Admin: 11/20/16 10:40 Dose: 25 mg Oxycodone/Acetaminophen (Percocet 5/325 Mg Tab) 2 tab PO Q4H PRN PRN Reason: Pain, moderate (4-7) Stop: 11/21/16 20:48 Last Admin: 11/20/16 12:14 Dose: 2 tab Pantoprazole Sodium (Protonix Ec Tab) 40 mg PO DAILY [facility] Last Admin: 11/20/16 10:39 Dose: 40 mg Rosuvastatin Calcium (Crestor) 10 mg PO HS [facility] Last Admin: 11/19/16 21:49 Dose: 10 mg - Labs Labs: 11/20/16 07:10 11/20/16 07:10 PT 12.6 SECONDS (9.7-12.2) H 11/18/16 14:14 INR 1.1 11/18/16 14:14 APTT 33 SECONDS (21-34) 11/18/16 14:14 - Constitutional Appears: Non-toxic, Chronically Ill - Head Exam Head Exam: NORMOCEPHALIC - Eye Exam Eye Exam: PERRL. absent: Scleral icterus - ENT Exam ENT Exam: Mucous Membranes Dry - Neck Exam Neck Exam: absent: Lymphadenopathy - Respiratory Exam Respiratory Exam: Decreased Breath Sounds, Clear to Ausculation Bilateral - Cardiovascular Exam Cardiovascular Exam: REGULAR RHYTHM, +S1, +S2 - GI/Abdominal Exam GI & Abdominal Exam: Distended, Soft. absent: Tenderness - Rectal Exam Rectal Exam: Deferred - Exam Exam: NORMAL INSPECTION - Extremities Exam Extremities Exam: absent: Pedal Edema - Back Exam Back Exam: absent: CVA tenderness (L), CVA tenderness (R) - Neurological Exam Neurological Exam: Alert, Awake, Oriented x3 - Psychiatric Exam Psychiatric exam: Depressed Assessment and Plan (1) Anemia Status: Acute (2) Diabetic foot Status: Acute (3) Osteomyelitis Status: Acute (4) Diabetic foot ulcer Status: Acute (5) Microcytic anemia Status: Acute
[2016-11-20] MEDS ORDERED: Pantoprazole 40 mg EC Tab PO ONE (18:49)
[2016-11-20] MEDS: (Lantus) Insulin Glargine, Recombinant SC SCH (22:27)
[2016-11-21] MEDS: Oxycodone/Acetaminophen 5/325 mg Tab PO PRN ×4 (04:33→21:58)
[2016-11-21 07:51] LABS: BASO % 0.3 % (0.0-2.0); EOS # 0.2 K/uL (0.0-0.7); EOS % 1.7 % (0.0-4.0); HEMATOCRIT 30.9 % (35.0-51.0); LYMPH # 2.7 K/uL (1.0-4.3); LYMPH % 26.9 % (20.0-40.0); MEAN CELL VOLUME 73.9 fL (80.0-94.0); MEAN CORPUSCULAR HEMOGLOBIN 24.5 pg (27.0-31.0); MEAN CORPUSCULAR HGB CONC 33.1 g/dL (33.0-37.0); MEAN PLATELET VOLUME 7.5 fL (7.2-11.7); MONO % 10.3 % (0.0-10.0); NRBC % 0.1 % (0.0-2.0); RED CELL DISTRIBUTION WIDTH 16.3 % (11.5-14.5); WHITE BLOOD COUNT 10.1 K/uL (4.8-10.8)
[2016-11-21 07:56] LABS: CHLORIDE 102 mmol/L (98-107); POTASSIUM 3.8 mmol/L (3.6-5.2); SODIUM 137 mmol/L (132-148)
[2016-11-21 07:58] LABS: GFR AFRICAN-AMERICAN > 60
[2016-11-21 07:59] LABS: ALKALINE PHOSPHATASE 48 U/L (38-126); ALT/SGPT 16 U/L (21-72); AST/SGOT 18 U/L (17-59); BILIRUBIN,TOTAL 0.4 mg/dL (0.2-1.3); BLOOD UREA NITROGEN 15 mg/dL (9-20); CARBON DIOXIDE 24 mmol/L (22-30); GLUCOSE,RANDOM 123 mg/dL (75-110)
[2016-11-21 08:00] LABS: CALCIUM 8.5 mg/dl (8.6-10.4)
[2016-11-21] MEDS: (Novolin 70/30) NPH/Regular 70/30 Units/ml 10 ml vial SC SCH ×2 (08:00→17:20)
[2016-11-21] MEDS: (Novolog) Insulin Aspart, Recombinant 100 u/ml 10 ml vial SC SCH ×5 (08:29→21:47)
--- NOTE | 2016-11-21 09:20 | OP ---
PROCEDURE DATE: 11/19/2016 SURGEON: Kade Lockhart DPM. LAND SURVEYOR ASSISTANT: Werner Chaney DPM, PGY-2. HEEL FINISHER: Dr. Mckeon. ANESTHESIA: IV sedation with local. PREOPERATIVE DIAGNOSIS: Left foot nonhealing wound with osteomyelitis of the first metatarsal. POSTOPERATIVE DIAGNOSIS: Left foot nonhealing wound with osteomyelitis of the first metatarsal. NAME OF PROCEDURE: Left foot partial first metatarsal resection with excisional wound debridement. INDICATIONS: The patient is a 51-year-old male with the above diagnosis. The patient previously und erwent a left foot partial first ray amputation secondary to osteomyelitis by Dr. Lockhart. He no w presents with a nonhealing wound at the previous amputation site with exposed first metatarsal bone . The patient has exhausted conservative treatment at this time and now requires surgical interventi on. The patient signed the consent after careful explanation of risks, benefits, complications, and alternatives for a surgical procedure. No guarantees were given nor implied. The patient's n.p.o. s tatus was confirmed prior to taking the patient to the OR. PREPARATION: The patient was brought to the operating room and placed on the operating room table in supine position. Time-out was performed for identification of the correct patient and the correct p rocedure. After induction of IV sedation, the patient received a total of 8 mL of a 1:1 mixture of 2 % lidocaine plain and 0.5% Marcaine plain in local block fashion to the left foot. Once local anesth esia was achieved, the left foot was then prepped and draped in usual sterile manner and the procedur e began. A tourniquet was not necessary for this procedure. PROCEDURE: Attention was directed to the dorsal aspect of the left foot where an open wound was note d in the region of the previous partial first ray amputation site. The wound base was noted to be co mposed of a mixture of granular and fibrotic tissue. The distal aspect of the first metatarsal was a lso noted to be exposed within the wound bed. At this time, using a #15 blade, all nonviable fibroti c and necrotic soft tissue was excised from within the wound bed until 100% granular tissue was noted . Next, using a sagittal bone saw, an osteotomy oriented from dorsal-distal to plantar-proximal was created at the distal aspect of the exposed first metatarsal in order to remove it from the wound bas e. Once the osteotomy was complete through and through, the resected bone was then removed from the operative field to be sent for pathology. Upon palpation of the wound, the tibial sesamoid was noted to be embedded within the soft tissues. Using a #15 blade, the sesamoid was located and was excised and passed from the operative field. Next, using a bone rongeur, any bony prominences remaining at the distal aspect of the remainder of the first metatarsal were resected successfully to ensure a smo oth surface and to ensure that there were no more bony prominences within the wound base. A moderate amount of bleeding was observed from the wound throughout the entire procedure indicative of good ci rculation. The surgical wound was now irrigated with a copious amount of hydrogen peroxide. The wou nd was then packed with a generous amount of 1/2 inch iodoform packing. The wound was then dressed w ith dry sterile dressing and Nikolai bandages were then applied for compression. The attending, Dr. Lockhart, was present throughout the entire case. POSTOPERATIVE CONDITION: The patient tolerated the anesthesia and procedure well. There were no com plications. The patient was escorted to the recovery room with vital signs stable and neurovascular status intact to the left foot. This patient will be seen and followed by Dr. Lockhart while the patient remains in the hospital. Werner Chaney DPM Kade Lockhart DPM cc: [id number] TT: 11/21/2016 09:19:46 mn
[2016-11-21] MEDS: Pantoprazole 40 mg EC Tab PO SCH (09:43)
[2016-11-21] MEDS: Enoxaparin 40 mg Syringe SC SCH (09:44)
--- NOTE | 2016-11-21 10:30 | CP.PCM.PN ---
Subjective - Date & Time of Evaluation Date of Evaluation: 11/21/16 Time of Evaluation: 10:26 - Subjective Subjective: 51 y/o male was seen and evaluated at bedside this morning with Dr. Diamond. Patient is 2 days s/p Left foot partial 1st metatarsal resection with wound debridement. He denies any F/C/N/V. Denies any pedal complaints at this time. Left foot dressing appears to be C/D/I. LLE is elevated. Objective - Vital Signs/Intake and Output Vital Signs (last 24 hours): Temp Pulse Resp BP Pulse Ox 97.5 F L 75 20 172/88 H 97 11/21/16 07:00 11/21/16 07:00 11/21/16 07:00 11/21/16 09:44 11/21/16 07:00 Intake and Output: 11/21/16 11/21/16 06:59 18:59 Intake Total 650 610 Output Total 900 Balance 650 -290 - Medications Medications: Current Medications Amlodipine Besylate (Norvasc) 10 mg PO DAILY [facility] Last Admin: 11/21/16 09:43 Dose: 10 mg Aspirin (Ecotrin) 81 mg PO DAILY [facility] Last Admin: 11/21/16 09:43 Dose: 81 mg Clopidogrel Bisulfate (Plavix) 75 mg PO DAILY [facility] Last Admin: 11/21/16 09:44 Dose: 75 mg Docusate Sodium (Colace) 100 mg PO BID [facility] Last Admin: 11/21/16 09:44 Dose: 100 mg Enoxaparin Sodium (Lovenox) 40 mg SC DAILY [facility] Last Admin: 11/21/16 09:44 Dose: 40 mg Vancomycin HCl 1,000 mg/ (Sodium Chloride) 250 mls @ 166.6 mls/hr IVPB Q12H [facility] Last Admin: 11/21/16 04:28 Dose: 166.6 mls/hr Insulin Aspart (Novolog) 0 unit SC ACHS [facility] PRN Reason: Protocol Last Admin: 11/21/16 08:29 Dose: Not Given Insulin Glargine (Lantus) 20 unit SC HS [facility] Last Admin: 11/20/16 22:27 Dose: 20 units Insulin Human Isoph/Insulin Regular (Novolin 70/30 (70/30 Units/Ml) 10 Ml) 60 units SC ACBD [facility] Last Admin: 11/21/16 08:00 Dose: Not Given Magnesium Hydroxide (Milk Of Magnesia) 30 ml PO Q4 PRN PRN Reason: Indigestion / Heartburn Last Admin: 11/18/16 22:17 Dose: 30 ml Metoprolol Tartrate (Lopressor) 25 mg PO BID [facility] Last Admin: 11/21/16 09:44 Dose: 25 mg Oxycodone/Acetaminophen (Percocet 5/325 Mg Tab) 2 tab PO Q4H PRN PRN Reason: Pain, moderate (4-7) Stop: 11/21/16 20:48 Last Admin: 11/21/16 04:33 Dose: 2 tab Pantoprazole Sodium (Protonix Ec Tab) 40 mg PO DAILY [facility] Last Admin: 11/21/16 09:43 Dose: 40 mg Rosuvastatin Calcium (Crestor) 10 mg PO HS [facility] Last Admin: 11/20/16 22:27 Dose: 10 mg Sodium Hypochlorite (Dakins Solution 0.25%) 0 ml TOP DAILY [facility] - Labs Labs: 11/21/16 06:59 11/21/16 06:59 PT 12.6 SECONDS (9.7-12.2) H 11/18/16 14:14 INR 1.1 11/18/16 14:14 APTT 33 SECONDS (21-34) 11/18/16 14:14 - Constitutional Appears: Non-toxic, No Acute Distress - Neurological Exam Neurological Exam: Alert, Awake, Oriented x3 - Psychiatric Exam Psychiatric exam: Normal Affect, Normal Mood - Additional Findings Additional findings: Left foot examination: Vascular: pedal pulses palpable; capillary fill time < 3 sec to remaining digits ; normal temperature gradient noted Neuro: protective sensation grossly diminished; motor function intact Derm: open wound noted to dorsomedial aspect of the Left foot measuring approximately 9cm x 4cm x 3cm. Wound base is composed of granular tissue with some fibrotic/necrotic tissue noted to medial aspect of the wound base; moderate fruity/grape-like malodor noted secondary to possible Pseudomonas; no purulence noted; no erythema, no edema noted; no active bleeding present Ortho: partial 1stand 2nd ray amputation Assessment and Plan - Assessment and Plan (Free Text) Assessment: 51 y/o male 2 days s/p Left partial 1st metatarsal amputation with wound debridement Plan: Patient seen and evaluated at bedside with attending, Dr. DenBleyker Labs and vitals reviewed: no leukocytosis; afebrile Left foot dressings were removed and packing was advanced Left foot was thoroughly cleansed with hydrogen peroxide and and sterile q- tips. All the necrotic/fibrotic tissue from the medial aspect of the wound base was excised using small sterile scissors and pick-ups The wound was then packed with Dakins-soaked kerlix and was then dressed with DSD Patient is to continue receiving IV antibiotics as per ID recommendations. Patient needs PICC line prior to discharge. Patient is to be discharged to [facility]. Will place consult for social work to start discharge planning. Patient instructed to WBAT to the Left foot as needed, but to keep it at a minimum Podiatry to follow while patient remains in house
--- NOTE | 2016-11-21 10:48 | CP.PCM.PN ---
Subjective - Date & Time of Evaluation Date of Evaluation: 11/21/16 Time of Evaluation: 09:00 - Subjective Subjective: PGY2 on medicine Dr. Bowen service: Pt seen and examined at bedside this morning. No acute complaints at the moment , pain controlled with medication. No events overnight per RN. Objective - Vital Signs/Intake and Output Vital Signs (last 24 hours): Temp Pulse Resp BP Pulse Ox 97.5 F L 75 20 172/88 H 97 11/21/16 07:00 11/21/16 07:00 11/21/16 07:00 11/21/16 09:44 11/21/16 07:00 Intake and Output: 11/21/16 11/21/16 06:59 18:59 Intake Total 650 610 Output Total 900 Balance 650 -290 - Medications Medications: Current Medications Amlodipine Besylate (Norvasc) 10 mg PO DAILY [facility] Last Admin: 11/21/16 09:43 Dose: 10 mg Aspirin (Ecotrin) 81 mg PO DAILY [facility] Last Admin: 11/21/16 09:43 Dose: 81 mg Clopidogrel Bisulfate (Plavix) 75 mg PO DAILY [facility] Last Admin: 11/21/16 09:44 Dose: 75 mg Docusate Sodium (Colace) 100 mg PO BID [facility] Last Admin: 11/21/16 09:44 Dose: 100 mg Enoxaparin Sodium (Lovenox) 40 mg SC DAILY [facility] Last Admin: 11/21/16 09:44 Dose: 40 mg Vancomycin HCl 1,000 mg/ (Sodium Chloride) 250 mls @ 166.6 mls/hr IVPB Q12H [facility] Last Admin: 11/21/16 04:28 Dose: 166.6 mls/hr Insulin Aspart (Novolog) 0 unit SC ACHS [facility] PRN Reason: Protocol Last Admin: 11/21/16 08:29 Dose: Not Given Insulin Glargine (Lantus) 20 unit SC HS [facility] Last Admin: 11/20/16 22:27 Dose: 20 units Insulin Human Isoph/Insulin Regular (Novolin 70/30 (70/30 Units/Ml) 10 Ml) 60 units SC ACBD [facility] Last Admin: 11/21/16 08:00 Dose: Not Given Magnesium Hydroxide (Milk Of Magnesia) 30 ml PO Q4 PRN PRN Reason: Indigestion / Heartburn Last Admin: 11/18/16 22:17 Dose: 30 ml Metoprolol Tartrate (Lopressor) 25 mg PO BID [facility] Last Admin: 11/21/16 09:44 Dose: 25 mg Oxycodone/Acetaminophen (Percocet 5/325 Mg Tab) 2 tab PO Q4H PRN PRN Reason: Pain, moderate (4-7) Stop: 11/21/16 20:48 Last Admin: 11/21/16 04:33 Dose: 2 tab Pantoprazole Sodium (Protonix Ec Tab) 40 mg PO DAILY [facility] Last Admin: 11/21/16 09:43 Dose: 40 mg Rosuvastatin Calcium (Crestor) 10 mg PO HS [facility] Last Admin: 11/20/16 22:27 Dose: 10 mg Sodium Hypochlorite (Dakins Solution 0.25%) 0 ml TOP DAILY [facility] - Labs Labs: 11/21/16 06:59 11/21/16 06:59 PT 12.6 SECONDS (9.7-12.2) H 11/18/16 14:14 INR 1.1 11/18/16 14:14 APTT 33 SECONDS (21-34) 11/18/16 14:14 - Constitutional Appears: Non-toxic, No Acute Distress - Head Exam Head Exam: NORMAL INSPECTION, NORMOCEPHALIC - Eye Exam Eye Exam: Normal appearance Pupil Exam: NORMAL ACCOMODATION - ENT Exam ENT Exam: Mucous Membranes Moist - Respiratory Exam Respiratory Exam: Clear to Ausculation Bilateral, NORMAL BREATHING PATTERN - Cardiovascular Exam Cardiovascular Exam: REGULAR RHYTHM, +S1, +S2. absent: Gallop, Rubs - GI/Abdominal Exam GI & Abdominal Exam: Soft, Normal Bowel Sounds - Extremities Exam Additional comments: left foot dressing intact - Neurological Exam Neurological Exam: Alert, Awake, Oriented x3 - Psychiatric Exam Psychiatric exam: Normal Mood - Skin Skin Exam: Intact Assessment and Plan - Assessment and Plan (Free Text) Assessment: Diabetic foot Consult Podiatry- Dr. Hawley- s/p day #2 amputation revision and wound debridement Consult ID- Dr. Mayte Overton 1gm Q12h (started 11/19/16) Continue Percocet 2 tab PO Q4h PRN Pending PICC F/U cultures Diabetes Accuchecks Insulin NPH 60U SC AC BD Lantus 20U HS RISS Hypertension Continue Norvasc 10mg PO Daily Continue Lopressor 25mg PO BID Hyperlipidemia Continue Crestor 10mg PO HS CAD s/p stent Plavix 75mg PO Daily- Hold for surgery Continue Asa 81mg PO Daily Constipation Continue Colace 100mg PO BID Continue Magnesium Hydroxide 30ml PO Q4h PRN Given one time Lactulose 20mg today Prophylactic Measure Lovenox 40mg SC Daily Protonix 40mg PO Daily Management per Dr. Bowen
--- NOTE | 2016-11-21 11:17 | RAD ---
PROCEDURE: CHEST RADIOGRAPH, 1 VIEW HISTORY: verify right PICC COMPARISON: 11/18/2016 FINDINGS: LUNGS: Clear. PLEURA: No pneumothorax or pleural fluid seen. CARDIOVASCULAR: Normal heart size. New right PICC catheter terminates in the region of the cavoatrial junction. OSSEOUS STRUCTURES: No significant abnormalities. VISUALIZED UPPER ABDOMEN: Normal. OTHER FINDINGS: None. IMPRESSION: New right PICC catheter terminates in the region of the cavoatrial junction. Otherwise unremarkable.
[2016-11-21] MEDS: Dakin's Topical 0.25%-Half Strength (480 ml) TOP SCH (11:33)
[2016-11-21] MEDS: (Lantus) Insulin Glargine, Recombinant SC SCH (21:50)
[2016-11-22] MEDS: Oxycodone/Acetaminophen 5/325 mg Tab PO PRN ×4 (03:14→21:35)
[2016-11-22 07:38] LABS: BASO % 0.3 % (0.0-2.0); EOS # 0.2 K/uL (0.0-0.7); EOS % 2.5 % (0.0-4.0); HEMATOCRIT 29.2 % (35.0-51.0); LYMPH # 2.7 K/uL (1.0-4.3); LYMPH % 33.5 % (20.0-40.0); MEAN CELL VOLUME 73.9 fL (80.0-94.0); MEAN CORPUSCULAR HEMOGLOBIN 23.9 pg (27.0-31.0); MEAN CORPUSCULAR HGB CONC 32.4 g/dL (33.0-37.0); MONO # 0.9 K/uL (0.0-0.8); MONO % 10.9 % (0.0-10.0); RED CELL DISTRIBUTION WIDTH 16.3 % (11.5-14.5)
[2016-11-22 08:00] LABS: CHLORIDE 102 mmol/L (98-107); POTASSIUM 4.1 mmol/L (3.6-5.2); SODIUM 137 mmol/L (132-148)
[2016-11-22 08:02] LABS: GFR AFRICAN-AMERICAN > 60
[2016-11-22 08:03] LABS: ALKALINE PHOSPHATASE 49 U/L (38-126); ALT/SGPT 19 U/L (21-72); AST/SGOT 15 U/L (17-59); BILIRUBIN,TOTAL 0.4 mg/dL (0.2-1.3); BLOOD UREA NITROGEN 17 mg/dL (9-20); CALCIUM 8.3 mg/dl (8.6-10.4); CARBON DIOXIDE 24 mmol/L (22-30); GLUCOSE,RANDOM 185 mg/dL (75-110); TOTAL PROTEIN 6.9 g/dL (6.3-8.3)
[2016-11-22] MEDS: (Novolin 70/30) NPH/Regular 70/30 Units/ml 10 ml vial SC SCH ×2 (08:37→17:41)
[2016-11-22] MEDS: (Novolog) Insulin Aspart, Recombinant 100 u/ml 10 ml vial SC SCH ×4 (08:38→21:39)
[2016-11-22] MEDS: Enoxaparin 40 mg Syringe SC SCH (09:03)
[2016-11-22] MEDS: Pantoprazole 40 mg EC Tab PO SCH (09:05)
[2016-11-22] MEDS: Dakin's Topical 0.25%-Half Strength (480 ml) TOP SCH (09:08)
--- NOTE | 2016-11-22 10:34 | CP.PCM.PN ---
Subjective - Date & Time of Evaluation Date of Evaluation: 11/22/16 Time of Evaluation: 09:00 - Subjective Subjective: PGY2 on medicine Dr. Bowen service: Pt seen and examined at bedside this morning. Pt reports dressing got soaked fast even after dressing change at 3am. No other complaints at the moment. Objective - Vital Signs/Intake and Output Vital Signs (last 24 hours): Temp Pulse Resp BP Pulse Ox 97.6 F 76 20 165/91 H 99 11/22/16 07:57 11/22/16 07:57 11/22/16 07:57 11/22/16 09:05 11/22/16 07:57 Intake and Output: 11/22/16 11/22/16 06:59 18:59 Intake Total 800 Output Total 1350 Balance -550 - Medications Medications: Current Medications Amlodipine Besylate (Norvasc) 10 mg PO DAILY [facility] Last Admin: 11/22/16 09:05 Dose: 10 mg Aspirin (Ecotrin) 81 mg PO DAILY [facility] Last Admin: 11/22/16 09:05 Dose: 81 mg Clopidogrel Bisulfate (Plavix) 75 mg PO DAILY [facility] Last Admin: 11/22/16 09:04 Dose: 75 mg Docusate Sodium (Colace) 100 mg PO BID [facility] Last Admin: 11/22/16 09:04 Dose: 100 mg Enoxaparin Sodium (Lovenox) 40 mg SC DAILY [facility] Last Admin: 11/22/16 09:03 Dose: 40 mg Vancomycin HCl 1,000 mg/ (Sodium Chloride) 250 mls @ 166.6 mls/hr IVPB Q12H [facility] Last Admin: 11/22/16 04:05 Dose: 166.6 mls/hr Insulin Aspart (Novolog) 0 unit SC ACHS [facility] PRN Reason: Protocol Last Admin: 11/22/16 08:38 Dose: 3 unit Insulin Glargine (Lantus) 20 unit SC HS [facility] Last Admin: 11/21/16 21:50 Dose: 20 units Insulin Human Isoph/Insulin Regular (Novolin 70/30 (70/30 Units/Ml) 10 Ml) 60 units SC ACBD [facility] Last Admin: 11/22/16 08:37 Dose: 60 units Magnesium Hydroxide (Milk Of Magnesia) 30 ml PO Q4 PRN PRN Reason: Indigestion / Heartburn Last Admin: 11/18/16 22:17 Dose: 30 ml Metoprolol Tartrate (Lopressor) 25 mg PO BID [facility] Last Admin: 11/22/16 09:05 Dose: 25 mg Oxycodone/Acetaminophen (Percocet 5/325 Mg Tab) 2 tab PO Q4H PRN PRN Reason: pain Stop: 11/24/16 21:57 Last Admin: 11/22/16 09:04 Dose: 2 tab Pantoprazole Sodium (Protonix Ec Tab) 40 mg PO DAILY [facility] Last Admin: 11/22/16 09:05 Dose: 40 mg Rosuvastatin Calcium (Crestor) 10 mg PO HS [facility] Last Admin: 11/21/16 21:48 Dose: 10 mg Sodium Hypochlorite (Dakins Solution 0.25%) 0 ml TOP DAILY [facility] Last Admin: 11/22/16 09:08 Dose: Not Given - Labs Labs: 11/22/16 07:21 11/22/16 07:21 PT 12.6 SECONDS (9.7-12.2) H 11/18/16 14:14 INR 1.1 11/18/16 14:14 APTT 33 SECONDS (21-34) 11/18/16 14:14 - Constitutional Appears: Non-toxic, No Acute Distress - Head Exam Head Exam: NORMOCEPHALIC - Eye Exam Eye Exam: Normal appearance Pupil Exam: NORMAL ACCOMODATION - ENT Exam ENT Exam: Mucous Membranes Moist - Respiratory Exam Respiratory Exam: Clear to Ausculation Bilateral, NORMAL BREATHING PATTERN. absent: Rhonchi, Wheezes - Cardiovascular Exam Cardiovascular Exam: REGULAR RHYTHM, +S1, +S2. absent: Gallop, Rubs - GI/Abdominal Exam GI & Abdominal Exam: Soft, Normal Bowel Sounds - Extremities Exam Additional comments: left foot dressing intact but blood tinged - Neurological Exam Neurological Exam: Alert, Awake, Oriented x3 - Psychiatric Exam Psychiatric exam: Normal Mood Assessment and Plan - Assessment and Plan (Free Text) Assessment: Diabetic foot Consult Podiatry- Dr. Hawley- s/p day #3 amputation revision and wound debridement Consult ID- Dr. Mayte Overton 1gm Q12h (started 11/19/16) Continue Percocet 2 tab PO Q4h PRN Pending PICC Culture negative for 3 days. Pt need 6 weeks of [place] per Dr. Hu. Diabetes Accuchecks Insulin NPH 60U SC AC BD Lantus 20U HS RISS Hypertension Continue Norvasc 10mg PO Daily Continue Lopressor 25mg PO BID Hyperlipidemia Continue Crestor 10mg PO HS CAD s/p stent Plavix 75mg PO Daily- Hold for surgery Continue Asa 81mg PO Daily Constipation Continue Colace 100mg PO BID Continue Magnesium Hydroxide 30ml PO Q4h PRN Given one time Lactulose 20mg today Prophylactic Measure Lovenox 40mg SC Daily Protonix 40mg PO Daily Management per Dr. oBwen
--- NOTE | 2016-11-22 10:46 | CP.PCM.PN ---
Subjective - Date & Time of Evaluation Date of Evaluation: 11/22/16 Time of Evaluation: 09:00 - Subjective Subjective: Patient was seen and evaluated at bedside this morning. Patient is 3 days s/p Left foot partial 1st metatarsal resection with wound debridement. He denies any F/C/N/V. Denies any pedal complaints at this time. Left foot dressing appears to be C/D/I. LLE is elevated. Objective - Vital Signs/Intake and Output Vital Signs (last 24 hours): Temp Pulse Resp BP Pulse Ox 97.6 F 76 20 165/91 H 99 11/22/16 07:57 11/22/16 07:57 11/22/16 07:57 11/22/16 09:05 11/22/16 07:57 Intake and Output: 11/22/16 11/22/16 06:59 18:59 Intake Total 800 Output Total 1350 Balance -550 - Medications Medications: Current Medications Amlodipine Besylate (Norvasc) 10 mg PO DAILY [facility] Last Admin: 11/22/16 09:05 Dose: 10 mg Aspirin (Ecotrin) 81 mg PO DAILY [facility] Last Admin: 11/22/16 09:05 Dose: 81 mg Clopidogrel Bisulfate (Plavix) 75 mg PO DAILY [facility] Last Admin: 11/22/16 09:04 Dose: 75 mg Docusate Sodium (Colace) 100 mg PO BID [facility] Last Admin: 11/22/16 09:04 Dose: 100 mg Enoxaparin Sodium (Lovenox) 40 mg SC DAILY [facility] Last Admin: 11/22/16 09:03 Dose: 40 mg Vancomycin HCl 1,000 mg/ (Sodium Chloride) 250 mls @ 166.6 mls/hr IVPB Q12H [facility] Last Admin: 11/22/16 04:05 Dose: 166.6 mls/hr Insulin Aspart (Novolog) 0 unit SC ACHS [facility] PRN Reason: Protocol Last Admin: 11/22/16 08:38 Dose: 3 unit Insulin Glargine (Lantus) 20 unit SC HS [facility] Last Admin: 11/21/16 21:50 Dose: 20 units Insulin Human Isoph/Insulin Regular (Novolin 70/30 (70/30 Units/Ml) 10 Ml) 60 units SC ACBD [facility] Last Admin: 11/22/16 08:37 Dose: 60 units Magnesium Hydroxide (Milk Of Magnesia) 30 ml PO Q4 PRN PRN Reason: Indigestion / Heartburn Last Admin: 11/18/16 22:17 Dose: 30 ml Metoprolol Tartrate (Lopressor) 25 mg PO BID [facility] Last Admin: 11/22/16 09:05 Dose: 25 mg Oxycodone/Acetaminophen (Percocet 5/325 Mg Tab) 2 tab PO Q4H PRN PRN Reason: pain Stop: 11/24/16 21:57 Last Admin: 11/22/16 09:04 Dose: 2 tab Pantoprazole Sodium (Protonix Ec Tab) 40 mg PO DAILY [facility] Last Admin: 11/22/16 09:05 Dose: 40 mg Rosuvastatin Calcium (Crestor) 10 mg PO HS [facility] Last Admin: 11/21/16 21:48 Dose: 10 mg Sodium Hypochlorite (Dakins Solution 0.25%) 0 ml TOP DAILY [facility] Last Admin: 11/22/16 09:08 Dose: Not Given - Labs Labs: 11/22/16 07:21 11/22/16 07:21 PT 12.6 SECONDS (9.7-12.2) H 11/18/16 14:14 INR 1.1 11/18/16 14:14 APTT 33 SECONDS (21-34) 11/18/16 14:14 - Constitutional Appears: Non-toxic, No Acute Distress - Neurological Exam Neurological Exam: Alert, Awake, Oriented x3 - Psychiatric Exam Psychiatric exam: Normal Affect, Normal Mood - Additional Findings Additional findings: Left foot examination: Vascular: pedal pulses palpable; capillary fill time < 3 sec to remaining digits ; normal temperature gradient noted Neuro: protective sensation grossly diminished; motor function intact Derm: open wound noted to dorsomedial aspect of the Left foot measuring approximately 9cm x 4cm x 3cm. Wound base is composed of granular tissue with some fibrotic/necrotic tissue noted to medial aspect of the wound base; minimal fruity/grape-like malodor noted secondary to possible Pseudomonas; no purulence noted; no erythema, no edema noted; no active bleeding present Ortho: partial 1stand 2nd ray amputation Assessment and Plan - Assessment and Plan (Free Text) Assessment: 51 y/o male 3 days s/p Left partial 1st metatarsal amputation with wound debridement Plan: Patient seen and evaluated at bedside Discussed patient with attending, Dr. Diamond Labs and vitals reviewed: no leukocytosis; afebrile Left foot dressings were removed Left foot was thoroughly cleansed with hydrogen peroxide. The wound was then packed with Dakins-soaked kerlix and was then dressed with DSD Patient is to continue receiving IV antibiotics as per ID recommendations. Patient needs PICC line prior to discharge. Patient is to be discharged to [facility]. Patient instructed to WBAT to the Left foot as needed, but to keep it at a minimum Podiatry to follow while patient remains in house
[2016-11-22 17:12] VITALS: RESP 20
[2016-11-22] MEDS: (Lantus) Insulin Glargine, Recombinant SC SCH (21:31)
[2016-11-23] MEDS: Oxycodone/Acetaminophen 5/325 mg Tab PO PRN ×3 (02:14→11:33)
[2016-11-23] MEDS: Magnesium Hydroxide Susp 30 ml UD PO PRN (02:23)
[2016-11-23 07:36] LABS: EOS # 0.2 K/uL (0.0-0.7); LYMPH # 2.6 K/uL (1.0-4.3); MONO # 0.7 K/uL (0.0-0.8)
[2016-11-23 07:43] LABS: BASO % 0.5 % (0.0-2.0); EOS % 3.4 % (0.0-4.0); HEMATOCRIT 29.7 % (35.0-51.0); LYMPH % 36.6 % (20.0-40.0); MEAN CELL VOLUME 74.8 fL (80.0-94.0); MEAN CORPUSCULAR HEMOGLOBIN 23.8 pg (27.0-31.0); MEAN CORPUSCULAR HGB CONC 31.8 g/dL (33.0-37.0); MEAN PLATELET VOLUME 8.5 fL (7.2-11.7); MONO % 9.3 % (0.0-10.0); NRBC % 0.2 % (0.0-2.0); RED CELL DISTRIBUTION WIDTH 16.6 % (11.5-14.5)
--- NOTE | 2016-11-23 07:55 | CP.PCM.PN ---
Subjective - Date & Time of Evaluation Date of Evaluation: 11/23/16 Time of Evaluation: 07:00 - Subjective Subjective: Medicine note- Dr. Bowen's service Patient was seen and examined at bedside. Patient reports that he has not moved his bowels in 2 days. Otherwise, patient has no acute complaints at this time. I explained that he would need IV antibiotics for a total of 6 weeks. DC Planning to [facility]. Patient is aware and is agreeable to the plan. Objective - Vital Signs/Intake and Output Vital Signs (last 24 hours): Temp Pulse Resp BP Pulse Ox 97.8 F 80 20 152/83 H 96 11/23/16 00:20 11/23/16 00:20 11/23/16 00:20 11/23/16 00:20 11/23/16 00:20 Intake and Output: 11/23/16 11/23/16 06:59 18:59 Intake Total 1110 Balance 1110 - Medications Medications: Current Medications Amlodipine Besylate (Norvasc) 10 mg PO DAILY [facility] Last Admin: 11/22/16 09:05 Dose: 10 mg Aspirin (Ecotrin) 81 mg PO DAILY [facility] Last Admin: 11/22/16 09:05 Dose: 81 mg Clopidogrel Bisulfate (Plavix) 75 mg PO DAILY [facility] Last Admin: 11/22/16 09:04 Dose: 75 mg Docusate Sodium (Colace) 100 mg PO BID [facility] Last Admin: 11/22/16 18:28 Dose: 100 mg Enoxaparin Sodium (Lovenox) 40 mg SC DAILY [facility] Last Admin: 11/22/16 09:03 Dose: 40 mg Vancomycin HCl 1,000 mg/ (Sodium Chloride) 250 mls @ 166.6 mls/hr IVPB Q12H [facility] Last Admin: 11/23/16 04:08 Dose: 166.6 mls/hr Insulin Aspart (Novolog) 0 unit SC ACHS [facility] PRN Reason: Protocol Last Admin: 11/22/16 21:39 Dose: Not Given Insulin Glargine (Lantus) 20 unit SC HS [facility] Last Admin: 11/22/16 21:31 Dose: 20 units Insulin Human Isoph/Insulin Regular (Novolin 70/30 (70/30 Units/Ml) 10 Ml) 60 units SC ACBD [facility] Last Admin: 11/22/16 17:41 Dose: 60 units Magnesium Hydroxide (Milk Of Magnesia) 30 ml PO Q4 PRN PRN Reason: Indigestion / Heartburn Last Admin: 11/23/16 02:23 Dose: 30 ml Metoprolol Tartrate (Lopressor) 25 mg PO BID [facility] Last Admin: 11/22/16 18:29 Dose: 25 mg Oxycodone/Acetaminophen (Percocet 5/325 Mg Tab) 2 tab PO Q4H PRN PRN Reason: pain Stop: 11/24/16 21:57 Last Admin: 11/23/16 06:20 Dose: 2 tab Pantoprazole Sodium (Protonix Ec Tab) 40 mg PO DAILY [facility] Last Admin: 11/22/16 09:05 Dose: 40 mg Rosuvastatin Calcium (Crestor) 10 mg PO HS [facility] Last Admin: 11/22/16 21:31 Dose: 10 mg Sodium Hypochlorite (Dakins Solution 0.25%) 0 ml TOP DAILY [facility] Last Admin: 11/22/16 09:08 Dose: Not Given - Labs Labs: 11/23/16 07:25 11/22/16 07:21 PT 12.6 SECONDS (9.7-12.2) H 11/18/16 14:14 INR 1.1 11/18/16 14:14 APTT 33 SECONDS (21-34) 11/18/16 14:14 - Constitutional Appears: Non-toxic, No Acute Distress - Head Exam Head Exam: ATRAUMATIC, NORMAL INSPECTION, NORMOCEPHALIC - Eye Exam Pupil Exam: NORMAL ACCOMODATION, PERRL - ENT Exam ENT Exam: Mucous Membranes Moist - Respiratory Exam Respiratory Exam: Clear to Ausculation Bilateral, NORMAL BREATHING PATTERN. absent: Prolonged Expiratory Phase, Rales, Rhonchi, Wheezes - Cardiovascular Exam Cardiovascular Exam: REGULAR RHYTHM, +S1, +S2 - GI/Abdominal Exam GI & Abdominal Exam: Soft, Normal Bowel Sounds. absent: Tenderness, Diminished Bowel Sounds, Hernia, Hyperactive Bowel Sounds, Hypoactive Bowel Sounds - Extremities Exam Extremities Exam: Normal Capillary Refill - Neurological Exam Neurological Exam: Alert, Awake, Oriented x3 - Psychiatric Exam Psychiatric exam: Normal Affect, Normal Mood - Skin Skin Exam: Dry, Intact, Normal Color, Warm Assessment and Plan - Assessment and Plan (Free Text) Assessment: Diabetic foot Consult Podiatry- Dr. Hawley- s/p day #3 amputation revision and wound debridement Consult ID- Dr. Hu Vanco 1gm Q12h (started 11/19/16) Continue Percocet 2 tab PO Q4h PRN Pending PICC Culture negative for 4 days. Pt need 6 weeks of Vanco per Dr. Hu. Diabetes Accuchecks Insulin NPH 60U SC AC BD Lantus 20U HS RISS Hypertension Continue Norvasc 10mg PO Daily Continue Lopressor 25mg PO BID Hyperlipidemia Continue Crestor 10mg PO HS CAD s/p stent Plavix 75mg PO Daily- Hold for surgery Continue Asa 81mg PO Daily Constipation Continue Colace 100mg PO BID Continue Magnesium Hydroxide 30ml PO Q4h PRN Given one time Lactulose 20mg today Prophylactic Measure Lovenox 40mg SC Daily Protonix 40mg PO Daily Management per Dr. Andrés SWARTZ Planning
[2016-11-23 08:02] LABS: CHLORIDE 104 mmol/L (98-107)
[2016-11-23 08:03] LABS: SODIUM 138 mmol/L (132-148)
[2016-11-23 08:05] LABS: AST/SGOT 21 U/L (17-59); BILIRUBIN,TOTAL 0.4 mg/dL (0.2-1.3); BLOOD UREA NITROGEN 17 mg/dL (9-20); CARBON DIOXIDE 23 mmol/L (22-30); GFR AFRICAN-AMERICAN > 60; TOTAL PROTEIN 6.9 g/dL (6.3-8.3)
[2016-11-23 08:06] LABS: ALKALINE PHOSPHATASE 44 U/L (38-126); ALT/SGPT 20 U/L (21-72); CALCIUM 8.1 mg/dl (8.6-10.4); GLUCOSE,RANDOM 193 mg/dL (75-110)
[2016-11-23] MEDS: (Novolin 70/30) NPH/Regular 70/30 Units/ml 10 ml vial SC SCH (08:16)
[2016-11-23] MEDS: (Novolog) Insulin Aspart, Recombinant 100 u/ml 10 ml vial SC SCH ×2 (08:18→12:19)
[2016-11-23 08:24] VITALS: BP 151/87; PULSE 68; TEMP 97.4; O2SAT 98
--- NOTE | 2016-11-23 10:27 | CP.PCM.PN ---
Subjective - Date & Time of Evaluation Date of Evaluation: 11/23/16 Time of Evaluation: 09:30 - Subjective Subjective: Patient was seen and evaluated at bedside this morning. Patient is 4 days s/p Left foot partial 1st metatarsal resection with wound debridement. Patient states that Dr. Diamond saw him today and changed his dressings. He denies any F/C/N/V. Denies any pedal complaints at this time. Left foot dressing appears to be C/D/I. Objective - Vital Signs/Intake and Output Vital Signs (last 24 hours): Temp Pulse Resp BP Pulse Ox 97.4 F L 68 20 151/87 H 98 11/23/16 07:00 11/23/16 07:00 11/23/16 07:00 11/23/16 07:00 11/23/16 07:00 Intake and Output: 11/23/16 11/23/16 06:59 18:59 Intake Total 1110 Balance 1110 - Medications Medications: Current Medications Amlodipine Besylate (Norvasc) 10 mg PO DAILY [facility] Last Admin: 11/22/16 09:05 Dose: 10 mg Aspirin (Ecotrin) 81 mg PO DAILY [facility] Last Admin: 11/22/16 09:05 Dose: 81 mg Clopidogrel Bisulfate (Plavix) 75 mg PO DAILY [facility] Last Admin: 11/22/16 09:04 Dose: 75 mg Docusate Sodium (Colace) 100 mg PO BID [facility] Last Admin: 11/22/16 18:28 Dose: 100 mg Enoxaparin Sodium (Lovenox) 40 mg SC DAILY [facility] Last Admin: 11/22/16 09:03 Dose: 40 mg Vancomycin HCl 1,000 mg/ (Sodium Chloride) 250 mls @ 166.6 mls/hr IVPB Q12H [facility] Last Admin: 11/23/16 04:08 Dose: 166.6 mls/hr Insulin Aspart (Novolog) 0 unit SC ACHS [facility] PRN Reason: Protocol Last Admin: 11/23/16 08:18 Dose: 1 unit Insulin Glargine (Lantus) 20 unit SC HS [facility] Last Admin: 11/22/16 21:31 Dose: 20 units Insulin Human Isoph/Insulin Regular (Novolin 70/30 (70/30 Units/Ml) 10 Ml) 60 units SC ACBD [facility] Last Admin: 11/23/16 08:16 Dose: 60 units Magnesium Hydroxide (Milk Of Magnesia) 30 ml PO Q4 PRN PRN Reason: Indigestion / Heartburn Last Admin: 11/23/16 02:23 Dose: 30 ml Metoprolol Tartrate (Lopressor) 25 mg PO BID [facility] Last Admin: 11/22/16 18:29 Dose: 25 mg Oxycodone/Acetaminophen (Percocet 5/325 Mg Tab) 2 tab PO Q4H PRN PRN Reason: pain Stop: 11/24/16 21:57 Last Admin: 11/23/16 06:20 Dose: 2 tab Pantoprazole Sodium (Protonix Ec Tab) 40 mg PO DAILY [facility] Last Admin: 11/22/16 09:05 Dose: 40 mg Rosuvastatin Calcium (Crestor) 10 mg PO HS [facility] Last Admin: 11/22/16 21:31 Dose: 10 mg Sodium Hypochlorite (Dakins Solution 0.25%) 0 ml TOP DAILY [facility] Last Admin: 11/22/16 09:08 Dose: Not Given - Labs Labs: 11/23/16 07:25 11/23/16 07:25 PT 12.6 SECONDS (9.7-12.2) H 11/18/16 14:14 INR 1.1 11/18/16 14:14 APTT 33 SECONDS (21-34) 11/18/16 14:14 - Constitutional Appears: Non-toxic, No Acute Distress - Neurological Exam Neurological Exam: Alert, Awake, Oriented x3 - Psychiatric Exam Psychiatric exam: Normal Affect, Normal Mood - Additional Findings Additional findings: Left foot limited exam: Dressing noted to be C/D/I with no evidence of strike-through present Assessment and Plan - Assessment and Plan (Free Text) Assessment: 51 y/o male 4 days s/p Left partial 1st metatarsal amputation with wound debridement Plan: Patient seen and evaluated at bedside Discussed patient with attending, Dr. Diamond Labs and vitals reviewed: no leukocytosis; afebrile Left foot dressing was kept intact; changed this morning by Dr. Diamond Patient is to be discharged to [facility] today * s/p PICC line placement for IV Vanco x6 weeks as per Dr. Hu * Wound care instructions: after removal of dressings, wound to be flushed with hydrogen peroxide and dressed with Dakin's solution-soaked gauze followed by Kerlix. This is to be done q12h Patient instructed to WBAT to the Left foot as needed, but to keep it at a minimum Podiatry to follow while patient remains in house
[2016-11-23] MEDS: Pantoprazole 40 mg EC Tab PO SCH (11:32)
[2016-11-23] MEDS: Dakin's Topical 0.25%-Half Strength (480 ml) TOP SCH (11:35)
[2016-11-23] MEDS: Enoxaparin 40 mg Syringe SC SCH (11:36)
--- NOTE | 2016-11-23 15:04 | CP.PCM.PN ---
Subjective - Date & Time of Evaluation Date of Evaluation: 11/23/16 Time of Evaluation: 09:00 - Subjective Subjective: Patient is 4 days s/p Left foot partial 1st metatarsal resection with wound debridement. Patient states that Dr. Diamond saw him today and changed his dressings. Objective - Vital Signs/Intake and Output Vital Signs (last 24 hours): Temp Pulse Resp BP Pulse Ox 97.4 F L 68 20 151/87 H 98 11/23/16 07:00 11/23/16 07:00 11/23/16 07:00 11/23/16 11:35 11/23/16 07:00 Intake and Output: 11/23/16 11/23/16 06:59 18:59 Intake Total 1110 Balance 1110 - Medications Medications: Current Medications Amlodipine Besylate (Norvasc) 10 mg PO DAILY [facility] Last Admin: 11/23/16 11:32 Dose: 10 mg Aspirin (Ecotrin) 81 mg PO DAILY [facility] Last Admin: 11/23/16 11:32 Dose: 81 mg Clopidogrel Bisulfate (Plavix) 75 mg PO DAILY [facility] Last Admin: 11/23/16 11:32 Dose: 75 mg Docusate Sodium (Colace) 100 mg PO BID [facility] Last Admin: 11/23/16 11:32 Dose: 100 mg Enoxaparin Sodium (Lovenox) 40 mg SC DAILY [facility] Last Admin: 11/23/16 11:36 Dose: 40 mg Vancomycin HCl 1,000 mg/ (Sodium Chloride) 250 mls @ 166.6 mls/hr IVPB Q12H [facility] Last Admin: 11/23/16 04:08 Dose: 166.6 mls/hr Insulin Aspart (Novolog) 0 unit SC ACHS [facility] PRN Reason: Protocol Last Admin: 11/23/16 12:19 Dose: 2 unit Insulin Glargine (Lantus) 20 unit SC HS [facility] Last Admin: 11/22/16 21:31 Dose: 20 units Insulin Human Isoph/Insulin Regular (Novolin 70/30 (70/30 Units/Ml) 10 Ml) 60 units SC ACBD [facility] Last Admin: 11/23/16 08:16 Dose: 60 units Magnesium Hydroxide (Milk Of Magnesia) 30 ml PO Q4 PRN PRN Reason: Indigestion / Heartburn Last Admin: 11/23/16 02:23 Dose: 30 ml Metoprolol Tartrate (Lopressor) 25 mg PO BID [facility] Last Admin: 11/23/16 11:35 Dose: 25 mg Oxycodone/Acetaminophen (Percocet 5/325 Mg Tab) 2 tab PO Q4H PRN PRN Reason: pain Stop: 11/24/16 21:57 Last Admin: 11/23/16 11:33 Dose: 2 tab Pantoprazole Sodium (Protonix Ec Tab) 40 mg PO DAILY [facility] Last Admin: 11/23/16 11:32 Dose: 40 mg Rosuvastatin Calcium (Crestor) 10 mg PO HS [facility] Last Admin: 11/22/16 21:31 Dose: 10 mg Sodium Hypochlorite (Dakins Solution 0.25%) 0 ml TOP DAILY [facility] Last Admin: 11/23/16 11:35 Dose: Not Given - Labs Labs: 11/23/16 07:25 11/23/16 07:25 PT 12.6 SECONDS (9.7-12.2) H 11/18/16 14:14 INR 1.1 11/18/16 14:14 APTT 33 SECONDS (21-34) 11/18/16 14:14 - Constitutional Appears: Non-toxic - Head Exam Head Exam: NORMOCEPHALIC - Eye Exam Eye Exam: PERRL. absent: Scleral icterus - ENT Exam ENT Exam: Mucous Membranes Dry - Neck Exam Neck Exam: absent: Lymphadenopathy - Respiratory Exam Respiratory Exam: Decreased Breath Sounds, Rhonchi - Cardiovascular Exam Cardiovascular Exam: REGULAR RHYTHM, +S1, +S2 - GI/Abdominal Exam GI & Abdominal Exam: Distended, Soft - Rectal Exam Rectal Exam: Deferred - Exam Exam: NORMAL INSPECTION - Extremities Exam Extremities Exam: Pedal Edema Assessment and Plan (1) Anemia Status: Acute (2) Diabetic foot Status: Acute (3) Osteomyelitis Status: Acute (4) Diabetic foot ulcer Status: Acute (5) Microcytic anemia Status: Acute
== END 2016-11-23 16:30 | DRG 623 ==
LOC: C.ER 12:53 → C.9E 15:56 → C.3T 17:58
PROVIDERS: ADMIT Internal Medicine Pulmonary Disease; ATTEND Internal Medicine Pulmonary Disease
PROC: 0QTP0ZZ Resection of Left Metatarsal, Open Approach (ICD-10-PCS; principal; 2016-11-20)
PROC: 0JBR0ZZ Excision of Left Foot Subcutaneous Tissue and Fascia, Open Approach (ICD-10-PCS; 2016-11-20)
PROC: 02H633Z Insertion of Infusion Device into Right Atrium, Percutaneous Approach (ICD-10-PCS; 2016-11-20)
DX: E11.69 Type 2 diabetes mellitus with other specified complication (principal); M86.9 Osteomyelitis, unspecified; E11.621 Type 2 diabetes mellitus with foot ulcer; L97.509 Non-pressure chronic ulcer of other part of unspecified foot with unspecified severity; D50.9 Iron deficiency anemia, unspecified; I10 Essential (primary) hypertension; E78.00 Pure hypercholesterolemia, unspecified; Z87.891 Personal history of nicotine dependence; E78.5 Hyperlipidemia, unspecified; K59.00 Constipation, unspecified; I25.10 Atherosclerotic heart disease of native coronary artery without angina pectoris; Z95.5 Presence of coronary angioplasty implant and graft

== ENCOUNTER 2016-11-29 08:04 | Day surgery (SDC) | payer MEDICARE ==
[2016-11-28 13:40] VITALS: BMI 34.7
[2016-11-29] MEDS ORDERED: Bupivacaine HCl 0.5% PF (10 ml) Inj ONE ×2 (10:39)
[2016-11-29] MEDS ORDERED: Lidocaine 1% Inj (20ml) ONE (10:39)
[2016-11-29] MEDS ORDERED: ceFAZolin 1 gm FROZEN Premix 0 GM/0 ML ML IVPB ONE (10:40)
[2016-11-29] MEDS ORDERED: Midazolam 2 MG/2 ML VIAL ONE (10:52)
[2016-11-29] MEDS ORDERED: Lactated Ringer's 1,000 ML IV ONE (11:30)
--- NOTE | 2016-11-29 11:30 | PCM.SURG1 ---
Surgeon's Initial Post Op Note - Surgeon's Notes Surgeon: Dr. Diamond DPM Tubing Supervisor: Dr. Crouch DPM PGY-1 Type of Anesthesia: IV Sedation, Local Pre-Operative Diagnosis: left foot residual OM Operative Findings: see dictation. I: 4 mL 1:1 1% lidocaine plain, 0.5 % marcaine plain, 8 mL 1% lidocaine plain Post-Operative Diagnosis: same Operation Performed: revisional amputation excision of OM Specimen/Specimens Removed: sesamoid bone Estimated Blood Loss: EBL {In ML}: 2 Blood Products Given: N/A Drains Used: No Drains Post-Op Condition: Good Date of Surgery/Procedure: 11/29/16 Time of Surgery/Procedure: 11:30
[2016-11-29] MEDS ORDERED: Oxycodone/Acetaminophen 5/325 mg Tab PO PRN ×2 (11:31)
[2016-11-29] MEDS ORDERED: HYDROmorphone 0.5 mg/0.5 ml ISec IVP PRN (11:36)
--- NOTE | 2016-11-29 11:36 | CP.PCM.DIS ---
Provider - Provider Attending physician: Kade Hawley DPSheree Time Spent in preparation of Discharge (in minutes): 30 Diagnosis - Discharge Diagnosis (1) Osteomyelitis Status: Chronic Hospital Course - Lab Results Lab Results: Most Recent Lab Values POC Glucose (mg/dL) 214 mg/dL (65-110) H 11/29/16 08:44 - Hospital Course Hospital Course: Pt presented to [facility] for revision of left foot amputation. Pt tolerated procedure well. Pt will continue to follow up with Dr. Hawley. Discharge Exam - Extremities Exam Additional comments: dressing clean, dry, intact to LLE - Neurological Exam Neurological exam: Alert, Oriented x3 - Psychiatric Exam Psychiatric exam: Normal Affect, Normal Mood Discharge Plan - Follow Up Plan Condition: GOOD Disposition: HOME/ ROUTINE Additional Instructions: patient to keep dressing clean, dry, intact to left foot, use plastic bag over dressing when showering, dressing to be changed at care home Q12h wear post op-shoe when ambulating patient to weight bear as tolerated
[2016-11-29] MEDS ORDERED: Lactated Ringer's 1,000 ML IV SCH (11:45)
[2016-11-29 12:54] VITALS: BP 155/90; PULSE 78; RESP 18; TEMP 98.4; O2SAT 100
--- NOTE | 2016-11-29 19:09 | OP ---
PROCEDURE DATE: 11/29/2016 SURGEON: Dr. Kade Diamond DPM. COLLECTIONS CURATOR: Emmy Crouch DPM, PGY-1. ANESTHESIOLOGIST: Dr. Joaquin. ANESTHESIA: IV sedation with local. PREOPERATIVE DIAGNOSIS: Left foot residual osteomyelitis. POSTOPERATIVE DIAGNOSIS: Left foot residual osteomyelitis. PROCEDURE PERFORMED: Left foot revisional amputation with excision of osteomyelitic bone. INDICATIONS: The patient is a 51-year-old male with the above diagnosis. The patient has exhausted all conservative treatment at this time and now requires surgical intervention. The patient has signed the consent after careful explanation of risks, benefits, complications and alternatives for surgical procedure. No guarantees were given nor implied. N.p.o. status was confirmed prior to taking the patient to the OR. PREPARATION: The patient was brought to the operating room and placed on the operating room table in supine position. Time-out was performed for identification of correct patient and procedure. After induction of IV sedation , a local block consisting of 4 mL of a 1:1 mixture of 1% lidocaine plain and 0.5% Marcaine plain. The left lower extremity was then prepped and draped in a normal sterile manner and the procedure began. Procedure: Attention was directed to the dorsal aspect of the left foot where an open wound was noted in the area of the previous first ray partial amputation site. The wound base was noted to be composed of mixture of mostly granular and fibrotic tissue. The distal aspect of the first metatarsal was also noted to be exposed within the wound base. At this time, utilizing fluoroscopy, the residual tibial sesamoid bone was visualized and located. Next , utilizing Metzenbaum dissecting scissor, the residual tibial sesamoid bone was excised, passed off the field and sent for pathology. The site was then irrigated with copious amounts of peroxide followed by copious amounts of normal sterile saline. It was noted that no more bony prominences were left in the wound. The site was then packed with sterile packing, then dressed with sterile gauze and Kerlix. POSTOPERATIVE CONDITION: The patient tolerated the anesthesia and procedure well. There were no complications. The patient was escorted to the recovery room with vital signs stable and neurovascular status intact to the left lower extremity. The patient will be followed up with Dr. Diamond. EMMY JUDSON KAURM Kade Olivier Bunny Disla DPM cc: [id number] TT: 11/29/2016 19:08:28 jn MTDD
--- NOTE | 2016-12-27 16:59 | RAD ---
PROCEDURE: HISTORY: LT. FOOT DISLOCATED BONE COMPARISON: TECHNIQUE: Total fluoroscopic time utilized during the procedure: 2 seconds. Total dose 0.9163 cGy cm squared FINDINGS: Submitted images from the current procedure: 3 Please refer to the physician's notes performing the procedure. IMPRESSION: Less than 1 hour fluoroscopic time utilized during performance of the procedure
== END 2016-11-29 13:10 | disposition home or self-care (01) ==
LOC: C.SDS 08:04
PROVIDERS: ATTEND Podiatrist Foot Surgery
DX: T87.89 Other complications of amputation stump (principal); M86.679 Other chronic osteomyelitis, unspecified ankle and foot; E11.69 Type 2 diabetes mellitus with other specified complication; M86.672 Other chronic osteomyelitis, left ankle and foot; Z79.4 Long term (current) use of insulin
CPT/HCPCS: 28315; 82948; 88304; J1170; J2250; J3010; J7120

== ENCOUNTER 2017-01-15 07:29 | Day surgery (SDC) | payer MEDICARE ==
[2017-01-15 07:41] VITALS: BMI 38.5
[2017-01-15 08:14] LABS: INR 1.1; PROTHROMBIN TIME 12.7 SECONDS (9.7-12.2)
[2017-01-15] MEDS ORDERED: Midazolam 2 MG/2 ML VIAL ONE (13:27)
[2017-01-15] MEDS ORDERED: Propofol 10 mg/ml Inj (20 ML) ONE (13:27)
[2017-01-15] MEDS ORDERED: Lidocaine Hydrochloride 5 ML INJ ONE (13:40)
[2017-01-15] MEDS ORDERED: Lidocaine 2% Inj (20ml) ONE (13:58)
--- NOTE | 2017-01-15 15:37 | PCM.SURG1 ---
Surgeon's Initial Post Op Note - Surgeon's Notes Surgeon: renu Mica Patcher: 0 Type of Anesthesia: IV Sedation Anesthesia Administered By: adrián Pre-Operative Diagnosis: gangrene right foot Operative Findings: aorta/ iliac/ sfa /popliteal widely patent. right anterior tibial short occlusions with flow into foot. PT and Peroneal occluded. left side patent but restonsed anterior tibial. perclose left groin Post-Operative Diagnosis: same Operation Performed: aortofemoral angiogram via left groin. pathway atherectomy of anterior tibial. balloon angioplasty with 2.0 balloon Specimen/Specimens Removed: 0 Estimated Blood Loss: EBL {In ML}: 50 Blood Products Given: N/A Drains Used: No Drains Post-Op Condition: Good Date of Surgery/Procedure: 01/15/17 Time of Surgery/Procedure: 15:41
[2017-01-15 16:49] VITALS: RESP 20; TEMP 97.6
[2017-01-15 16:54] VITALS: O2SAT 99
[2017-01-15 17:37] VITALS: BP 154/70; PULSE 76
--- NOTE | 2017-01-17 10:01 | VAS ---
DATE: 01/15/2017 PREOPERATIVE DIAGNOSIS: Gangrene of right big toe. POSTOPERATIVE DIAGNOSIS: Gangrene of right big toe. PROCEDURE CARRIED OUT: Aorto-femoral angiogram with selective catheterization of right femoral artery, atherectomy using Pathway device of the anterior tibial artery and balloon angioplasty using a 2-mm balloon and Perclose closure left groin. PROCEDURE AND FINDINGS: The aorta, renal arteries, common iliac, external iliacs, superficial femoral arteries, profunda femoris arteries, and popliteal arteries were free of occlusive disease. On the left side, which had been treated previously, the major *-----* anterior tibial, which had disease in this mid portion of the previously treated site, but was patent. On the right side, the posterior tibial was occluded just above the ankle. It did not reconstitute except for a branch of the posterior tibial in the foot. The anterior tibial concluding in the foot had a two high-grade stenoses in its distal third. The peroneal artery repeated at distally and did not reconstitute. Subsequent to the performance of diagnostic arteriogram, a stiff-angled guidewire was advanced through the aortic bifurcation and a 7 Azeri sheath positioned in the mid portion of the popliteal artery. Using *------* the lesions were crossed with the use Command wire, and then subsequently this was exchanged with a bare metal wire over which we were able to carry on an atherectomy of these two lesions, which were occlusive. After this *------* 2 mm balloon with satisfactory results. We then removed the cath and applied the Perclose device in the groin. The operation carried out, aorto-femoral angiogram with selective catheterization of right side, balloon angioplasty, and atherectomy of the anterior tibial artery on the right side. Significant findings apart from this was that the previously treated area in the left side has re-stenosed, but not completely occluded and that there is no major other vessel into the foot except for the anterior tibial on the right side. Serafin Quiñonez Jr., MD cc: *------*
== END 2017-01-15 18:07 | disposition home or self-care (01) ==
LOC: C.SPRAD 07:29
PROVIDERS: ATTEND Surgery Vascular Surgery
DX: I77.1 Stricture of artery (principal); I70.261 Atherosclerosis of native arteries of extremities with gangrene, right leg
CPT/HCPCS: 36247; 36415; 37229; 75625; 75716; 75774; 82948; 85610; 85730; 94770; C1724; C1725; C1760; C1766; C1769; C1884; C1887; C1894; J2250; J2704; J3010

== ENCOUNTER 2017-01-18 09:39 | Inpatient (IN) | payer MEDICARE ==
[2017-01-16 11:23] VITALS: BMI 35.9
[2017-01-18] MEDS ORDERED: Bacitracin 50,000 UNIT in Sodium Chloride 0.9% Irrig 1,000 ML IR SCH (10:17)
[2017-01-18] MEDS ORDERED: Sodium Chloride 0.9% 500 ML IV ONE ×2 (10:21→10:35)
[2017-01-18] MEDS ORDERED: (Novolin R) Insulin Human Regular 100 units/ml vial IV ONE ×2 (10:21→11:25)
[2017-01-18] MEDS ORDERED: Bupivacaine HCl 0.5% PF (10 ml) Inj ONE ×2 (10:31)
[2017-01-18] MEDS ORDERED: Lidocaine 1% Inj (20ml) ONE (10:32)
[2017-01-18] MEDS ORDERED: ceFAZolin IV 1 gm in Dextrose 1 GM/50 ML BAG IVPB ONE ×2 (10:36→11:57)
[2017-01-18] MEDS ORDERED: (Novolin R) Insulin Human Regular 100 units/ml vial ONE (11:18)
[2017-01-18] MEDS ORDERED: Midazolam 2 MG/2 ML VIAL ONE (11:22)
[2017-01-18] MEDS ORDERED: Propofol 10 mg/ml Inj (20 ML) ONE (11:22)
[2017-01-18] MEDS ORDERED: Sodium Chloride 0.9% 1,000 ML IV ONE (11:40)
[2017-01-18] MEDS ORDERED: Lactated Ringer's 1,000 ML IV ONE ×2 (13:00→14:11)
--- NOTE | 2017-01-18 13:08 | PCM.SURG1 ---
Surgeon's Initial Post Op Note - Surgeon's Notes Surgeon: Dr. Diamond Natural Fabricator: Dr. Hutchinson PGY-2 Type of Anesthesia: IV Sedation, Local Anesthesia Administered By: Iris Yan Pre-Operative Diagnosis: right foot 5th digit gangrene Operative Findings: see dictation. 3-0, 4-0 chromic gut, 4-0 nylon. 10CC 1:1 1 %lidocaine, 0.5%marcaine plain Post-Operative Diagnosis: same Operation Performed: right foot partial 5th ray resection Specimen/Specimens Removed: bone Estimated Blood Loss: EBL {In ML}: 5 Blood Products Given: N/A Drains Used: No Drains Post-Op Condition: Good Date of Surgery/Procedure: 01/18/17 Time of Surgery/Procedure: 12:00
[2017-01-18] MEDS ORDERED: HYDROmorphone 0.5 mg/0.5 ml ISec ONE (13:26)
[2017-01-18] MEDS ORDERED: HYDROmorphone 0.5 mg/0.5 ml ISec IVP PRN (13:27)
--- NOTE | 2017-01-18 13:34 | RAD ---
PROCEDURE: Right Foot Radiographs. HISTORY: s/p right foot surgery COMPARISON: None. FINDINGS: BONES: Interval resection distal phalanges including the proper distal metatarsal right 5th ray with in situ drainage catheter in the adjacent soft tissues with mild overlying soft tissue swelling. Tiny posterior and plantar calcaneal enthesophytes. JOINTS: Mild extension deformities at the 1st 2nd 3rd and 4th MTP joints. . . Mild hallux valgus deformity with prominence of the overlying medial soft tissues. SOFT TISSUES: As above. Vascular calcifications are present. OTHER FINDINGS: None. IMPRESSION: Status post amputation of the distal aspect 5th metatarsal and distal digits with mild overlying soft tissue swelling. In situ drainage catheter. Vascular calcifications are present.
[2017-01-18] MEDS ORDERED: Vancomycin 1 gm/D5W 200 ml 0 GM/0 ML BAG IVPB ONE (13:46)
[2017-01-18] MEDS ORDERED: Vancomycin 1 gm/D5W 200 ml 1 GM/200 ML BAG IVPB ONE (13:52)
[2017-01-18] MEDS ORDERED: Oxycodone/Acetaminophen 5/325 mg Tab PO PRN (16:00)
[2017-01-18] MEDS: Piperacillin/Tazobact 3.375 GM in Sodium Chloride 100 ML IVPB SCH ×2 (16:00→21:47)
--- NOTE | 2017-01-18 17:25 | CP.PCM.CON ---
History of Present Illness - History of Present Illness History of Present Illness: seen in [place] s/p fifth digit amputation dr sears following for vascular hx severe PVD/ DM s/p lleft great toe amputation PMH DM HTN PVD Review of Systems - Review of Systems All systems: reviewed and no additional remarkable complaints except - Constitutional Constitutional: absent: As Per HPI, Anorexia, Chills, Daytime Sleepiness, Excessive Sweating, Fatigue, Fever, Frequent Falls, Headache, Increased Appetite , Lethargy, Malaise, Night Sweats, Snoring, Sleep Apnea, Weight Gain, Weight Loss, Weakness, Other - EENT Eyes: absent: As Per HPI, Blind Spots, Blurred Vision, Change in Vision, Decreased Night Vision, Diplopia, Discharge, Dry Eye, Exophthalmos, Floaters, Irritation, Itchy Eyes, Loss of Peripheral Vision, Pain, Photophobia, Requires Corrective Lenses, Sees Flashes, Spots in Vision, Tunnel Vision, Other Visual Disturbances, Loss of Vision, Other Ears: absent: As Per HPI, Decreased Hearing, Ear Discharge, Ear Pain, Tinnitus, Abnormal Hearing, Disequilibrium, Dizziness, Other Nose/Mouth/Throat: absent: As Per HPI, Epistaxis, Nasal Congestion, Nasal Discharge, Nasal Obstruction, Nasal Trauma, Nose Pain, Post Nasal Drip, Sinus Pain, Sinus Pressure, Bleeding Gums, Change in Voice, Dental Pain, Dry Mouth, Dysphagia, Halitosis, Hoarsness, Lip Swelling, Mouth Lesions, Mouth Pain, Odynophagia, Sore Throat, Throat Swelling, Tongue Swelling, Facial Pain, Neck Pain, Neck Mass, Other - Cardiovascular Cardiovascular: absent: As Per HPI, Acrocyanosis, Chest Pain, Chest Pain at Rest , Chest Pain with Activity, Claudication, Diaphoresis, Dyspnea, Dyspnea on Exertion, Edema, Irregular Heart Rhythm, Pain Radiating to Arm/Neck/Jaw, Leg Edema, Leg Ulcers, Lightheadedness, Orthopnea, Palpitations, Paroxysmal Nocturnal Dyspnea, Pedal Edema, Radiating Pain, Rapid Heart Rate, Slow Heart Rate, Syncope, Other - Gastrointestinal Gastrointestinal: absent: As Per HPI, Abdominal Pain, Belching, Bloating, Change in Bowel Habits, Change in Stool Character, Coffee Ground Emesis, Constipation, Cramping, Diarrhea, Dyspepsia, Dysphagia, Early Satiety, Excessive Flatus, Fecal Incontinence, Heartburn, Hematemesis, Hematochezia, Loose Stools, Melena, Nausea, Odynophagia, Temesmus, Vomiting, Other - Genitourinary Genitourinary: absent: As Per HPI, Change in Urinary Stream, Difficulty Urinating, Dysuria, Flank Pain, Hematuria, Pyuria, Nocturia, Urinary Incontinence, Urinary Frequency, Urinary Hesitance, Urinary Urgency, Voiding Freq/Small Amts, Freq UTI, Hx Renal/Bladder Calculi, Hx /Renal Surgery, Bladder Distension, Other - Musculoskeletal Musculoskeletal: As Per HPI - Integumentary Integumentary: As Per HPI - Neurological Neurological: As Per HPI - Psychiatric Psychiatric: absent: As Per HPI, Abnormal Sleep Pattern, Anhedonia, Anxiety, Auditory Hallucinations, Behavioral Changes, Change in Appetite, Change in Libido, Confusion, Depression, Difficulty Concentrating, Hallucinations, Homicidal Ideation, Hopelessness, Irritability, Memory Loss, Mood Swings, Panic Attacks, Paranoia, Suicidal Ideation, Visual Hallucinations, Tactile Hallucinations, Other - Endocrine Endocrine: absent: As Per HPI, Change in Body Appearance, Change in Libido, Cold Intolorance, Deepening of Voice, Excessive Sweating, Fatigue, Flushing, Heat Intolorance, Increase in Ring/Shoe/Hat Size, Palpitations, Polydipsia, Polyphagia, Polyuria, Other Past Patient History - Infectious Disease Hx of Infectious Diseases: None - Past Medical History & Family History Past Medical History?: Yes - Past Social History Smoking Status: Former Smoker - CARDIAC Hx Cardiac Disorders: Yes (cad stents) Hx Heart Attack: Yes (3 years ago) Hx Hypercholesterolemia: Yes Hx Hypertension: Yes Hx Peripheral Vascular Disease: Yes - PULMONARY Hx Respiratory Disorders: No - NEUROLOGICAL Hx Neurological Disorder: No - HEENT Hx HEENT Problems: No - RENAL Hx Chronic Kidney Disease: No - ENDOCRINE/METABOLIC Hx Endocrine Disorders: Yes Hx Diabetes Mellitus Type 1: Yes - HEMATOLOGICAL/ONCOLOGICAL Hx Blood Disorders: No - INTEGUMENTARY Hx Dermatological Problems: Yes Other/Comment: wound in the left toe 5TH DIGIT ulcer right foot - MUSCULOSKELETAL/RHEUMATOLOGICAL Hx Musculoskeletal Disorders: Yes Hx Unsteady Gait: Yes Other/Comment: HX: OSTEOMYELITIS - GASTROINTESTINAL Hx Gastrointestinal Disorders: No - GENITOURINARY/GYNECOLOGICAL Hx Genitourinary Disorders: No - PSYCHIATRIC Hx Psychophysiologic Disorder: No - SURGICAL HISTORY Hx Surgeries: Yes Hx Angiogram: Yes Hx Cardiac Catheterization: Yes Hx Coronary Stent: Yes Hx Musculoskeletal Surgery: Yes Hx Orthopedic Surgery: Yes (AMPUTATION) Other/Comment: DEBRIDEMENT FOOT ULCER - ANESTHESIA Hx Anesthesia: Yes Hx Anesthesia Reactions: No Hx Malignant Hyperthermia: No Has any member of the family had a problem w/ anesthesia?: No Meds Allergies/Adverse Reactions: Allergies Allergy/AdvReac Type Severity Reaction Status Date / Time No Known Allergies Allergy Verified 11/18/16 12:59 - Medications Medications: Current Medications Acetaminophen (Tylenol 325mg Tab) 650 mg PO Q6 PRN PRN Reason: Pain, Mild (1-3) Piperacillin Sod/Tazobactam (Sod 3.375 gm/ Sodium Chloride) 100 mls @ 200 mls/ hr IVPB Q6H [facility] Last Admin: 01/18/17 16:00 Dose: 100 mls Vancomycin/Sodium Chloride (Vancocin) 1 gm in 200 mls @ 133.333 mls/hr IVPB Q12H [facility] Stop: 01/23/17 15:01 Oxycodone/Acetaminophen (Percocet 5/325 Mg Tab) 1 tab PO Q4H PRN PRN Reason: Pain, moderate (4-7) Stop: 01/21/17 16:01 Oxycodone/Acetaminophen (Percocet 5/325 Mg Tab) 2 tab PO Q4H PRN PRN Reason: Pain, severe (8-10) Stop: 01/21/17 13:09 Physical Exam - Constitutional Appears: Non-toxic, Chronically Ill - Head Exam Head Exam: ATRAUMATIC - Eye Exam Eye Exam: PERRL. absent: Scleral icterus - ENT Exam ENT Exam: Mucous Membranes Dry, Normal External Ear Exam - Neck Exam Neck exam: Negative for: Lymphadenopathy - Respiratory Exam Respiratory Exam: Decreased Breath Sounds, Clear to Auscultation Bilateral - Cardiovascular Exam Cardiovascular Exam: REGULAR RHYTHM - GI/Abdominal Exam GI & Abdominal Exam: Diminished Bowel Sounds - Rectal Exam Rectal Exam: Deferred - Exam Exam: NORMAL INSPECTION - Extremities Exam Extremities exam: Positive for: pedal edema. Negative for: calf tenderness - Back Exam Back exam: absent: CVA tenderness (L), CVA tenderness (R) - Neurological Exam Neurological exam: Alert, CN II-XII Intact, Oriented x3, Reflexes Normal - Psychiatric Exam Psychiatric exam: Normal Mood - Skin Skin Exam: Dry Results - Vital Signs Recent Vital Signs: Last Vital Signs Temp 98.5 F 01/18/17 17:00 Pulse 77 01/18/17 17:00 Resp 21 01/18/17 17:00 BP 144/72 01/18/17 17:00 Pulse Ox 100 01/18/17 17:00 - Labs Labs: Laboratory Results - last 24 hr 01/18/17 01/18/17 01/18/17 10:16 11:02 11:36 POC Glucose (mg/dL) 327 H 315 H 280 H 01/18/17 01/18/17 13:35 16:43 POC Glucose (mg/dL) 246 H 271 H Assessment & Plan (1) Gangrene of right foot Status: Acute (2) Gangrene of right foot Status: Acute (3) Diabetic foot Status: Acute (4) CAD (coronary artery disease) Status: Chronic (5) DM2 (diabetes mellitus, type 2) Status: Chronic (6) HTN (hypertension) Status: Chronic - Assessment and Plan (Free Text) Plan: cont antibiotics and wound care podiatry follow up
[2017-01-18] MEDS: Oxycodone/Acetaminophen 5/325 mg Tab PO PRN ×2 (17:50→21:55)
[2017-01-18 17:57] VITALS: RESP 20
[2017-01-19] MEDS: Oxycodone/Acetaminophen 5/325 mg Tab PO PRN ×3 (02:35→11:22)
[2017-01-19] MEDS: Vancomycin 1 gm/NS 200 ml 1 GM/200 ML BAG IVPB SCH ×2 (03:00→14:25)
[2017-01-19] MEDS: Piperacillin/Tazobact 3.375 GM in Sodium Chloride 100 ML IVPB SCH ×4 (04:30→21:17)
[2017-01-19 12:04] LABS: BASO % 0.5 % (0.0-2.0); EOS # 0.1 K/uL (0.0-0.7); EOS % 1.7 % (0.0-4.0); HEMATOCRIT 31.6 % (35.0-51.0); LYMPH # 1.7 K/uL (1.0-4.3); LYMPH % 22.3 % (20.0-40.0); MEAN CORPUSCULAR HEMOGLOBIN 22.5 pg (27.0-31.0); MEAN CORPUSCULAR HGB CONC 31.4 g/dL (33.0-37.0); MEAN PLATELET VOLUME 7.9 fL (7.2-11.7); MONO # 0.5 K/uL (0.0-0.8); MONO % 7.2 % (0.0-10.0); RED CELL DISTRIBUTION WIDTH 17.3 % (11.5-14.5); WHITE BLOOD COUNT 7.6 K/uL (4.8-10.8)
[2017-01-19 12:08] LABS: MEAN CELL VOLUME 71.7 fL (80.0-94.0)
[2017-01-19 12:23] LABS: CHLORIDE 100 mmol/L (98-107); POTASSIUM 4.2 mmol/L (3.6-5.2); SODIUM 134 mmol/L (132-148)
[2017-01-19 12:25] LABS: BILIRUBIN,TOTAL 0.3 mg/dL (0.2-1.3); GFR AFRICAN-AMERICAN > 60
[2017-01-19 12:26] LABS: ALB/GLOB RATIO 0.9 (1.0-2.1); ALKALINE PHOSPHATASE 62 U/L (38-126); ALT/SGPT 30 U/L (21-72); AST/SGOT 15 U/L (17-59); BLOOD UREA NITROGEN 17 mg/dL (9-20); CALCIUM 8.7 mg/dl (8.6-10.4); CARBON DIOXIDE 21 mmol/L (22-30); GLUCOSE,RANDOM 267 mg/dL (75-110); TOTAL PROTEIN 6.9 g/dL (6.3-8.3)
[2017-01-19] MEDS ORDERED: HYDROmorphone 1 mg/ml ISec IVP STA (16:06)
[2017-01-19] MEDS ORDERED: HYDROmorphone 0.5 mg/0.5 ml ISec IVP PRN (16:30)
[2017-01-19] MEDS: (Novolog) Insulin Aspart, Recombinant 100 u/ml 10 ml vial SC SCH ×2 (17:23→21:35)
[2017-01-19] MEDS: (Lantus) Insulin Glargine, Recombinant SC SCH (21:19)
--- NOTE | 2017-01-19 23:45 | CP.PCM.PN ---
Subjective - Date & Time of Evaluation Date of Evaluation: 01/19/17 Time of Evaluation: 12:30 - Subjective Subjective: 51 year old male patient POD#1 s/p partial 5th ray resection right foot. Patient seen resting in bed comfortably, AAOx3 and NAD. Patient denies any acute events overnight. Patient reports pain to surgical site. Patient believes he will be discharged today. Patient states he will follow up with Dr. Diamond as outpatient next week, possibly on Saturday. Physical therapy in room at time of visit, educating patient on NWB to RLE with crutches. Patient denies N/V/F/D/SOB/CP. No other pedal complaints at this time. Objective - Vital Signs/Intake and Output Vital Signs (last 24 hours): Temp Pulse Resp BP Pulse Ox 98.5 F 87 20 167/73 H 98 01/19/17 16:00 01/19/17 16:00 01/19/17 16:00 01/19/17 16:00 01/19/17 16:00 Intake and Output: 01/19/17 01/20/17 18:59 06:59 Intake Total 1000 Balance 1000 - Medications Medications: Current Medications Docusate Sodium (Colace) 100 mg PO BID [facility] Last Admin: 01/19/17 17:48 Dose: 100 mg Heparin Sodium (Porcine) (Heparin) 5,000 units SC Q12 [facility] Last Admin: 01/19/17 21:21 Dose: 5,000 units Hydromorphone HCl (Dilaudid) 0.5 mg IVP Q6H PRN PRN Reason: Pain, severe (8-10) Last Admin: 01/19/17 22:02 Dose: 0.5 mg Piperacillin Sod/Tazobactam (Sod 3.375 gm/ Sodium Chloride) 100 mls @ 200 mls/ hr IVPB Q6H [facility] Last Admin: 01/19/17 21:17 Dose: 200 mls/hr Vancomycin/Sodium Chloride (Vancocin) 1 gm in 200 mls @ 133.333 mls/hr IVPB Q12H [facility] Stop: 01/23/17 15:01 Last Admin: 01/19/17 14:25 Dose: 133.333 mls/hr Insulin Aspart (Novolog) 0 unit SC ACHS [facility] PRN Reason: Protocol Last Admin: 01/19/17 21:35 Dose: Not Given Insulin Glargine (Lantus) 20 unit SC HS [facility] Last Admin: 01/19/17 21:19 Dose: 20 units Oxycodone/Acetaminophen (Percocet 5/325 Mg Tab) 1 tab PO Q4H PRN PRN Reason: Pain, moderate (4-7) Stop: 01/21/17 16:01 - Labs Labs: 01/19/17 11:00 01/19/17 11:00 - Constitutional Appears: Well, Non-toxic, No Acute Distress - Extremities Exam Additional comments: Vasc: DP and PT pulses nonpalpable secondary to edema. TG warm to warm. CFT <3 seconds Neuro: Gross sensation diminished Derm: Incision to right foot partial 5th ray amputation appears to be well- coapted with intact sutures and no wound dehiscence noted. No fluctuance noted. No malodor noted. An approximately 1cm linear opening noted to plantar R foot; minimal serosanguinous drainage expressed after removing stacey drain. Ulceration to dorsomedial aspect of left foot with a granular base. Hyperkeratosis noted to distal rim of ulceration. Minimal serosanguinous drainage noted to L ulceration. Ortho: Tenderness to palpation noted to right foot surgical site. R partial 5th ray amputation, L partial 1st and 2nd ray amputation. - Neurological Exam Neurological Exam: Alert, Awake, Oriented x3 - Psychiatric Exam Psychiatric exam: Normal Affect, Normal Mood Assessment and Plan - Assessment and Plan (Free Text) Assessment: 51 year old male POD #1 right foot partial 5th ray resection Plan: Patient seen and evaluated at bedside. Discussed with attending, Dr. Diamond Charts, vitals, labs reviewed = afebrile, WBC WNL @ 7.6. Right foot drain pulled. Right foot cleansed with peroxide and dressed with xeroform and DSD. Left foot dressed with DSD. Patient is to be nonweightbearing with crutches Continue abx per ID = Zosyn, Vancomycin Stable from podiatry standpoint. Patient is to folow up with Dr. Diamond next week as outpatient. Podiatry will continue to follow while in house.
[2017-01-20] MEDS ORDERED: Aluminum Hydroxide/Magnesium Hydroxide Susp (30 mL) PO ONE (00:03)
[2017-01-20] MEDS ORDERED: HYDROmorphone 0.5 mg/0.5 ml ISec IVP STA (00:14)
[2017-01-20 02:56] LABS: BASO # 0.2 K/uL (0.0-0.2); BASO % 1.7 % (0.0-2.0); EOS # 0.1 K/uL (0.0-0.7); EOS % 0.7 % (0.0-4.0); HEMATOCRIT 31.6 % (35.0-51.0); LYMPH # 2.4 K/uL (1.0-4.3); LYMPH % 22.6 % (20.0-40.0); MEAN CELL VOLUME 71.5 fL (80.0-94.0); MEAN CORPUSCULAR HEMOGLOBIN 22.9 pg (27.0-31.0); MEAN PLATELET VOLUME 7.6 fL (7.2-11.7); MONO # 0.9 K/uL (0.0-0.8); MONO % 8.2 % (0.0-10.0); RED CELL DISTRIBUTION WIDTH 17.3 % (11.5-14.5); WHITE BLOOD COUNT 10.4 K/uL (4.8-10.8)
[2017-01-20] MEDS: Vancomycin 1 gm/NS 200 ml 1 GM/200 ML BAG IVPB SCH (03:00)
[2017-01-20 03:18] LABS: CHLORIDE 99 mmol/L (98-107); POTASSIUM 4.5 mmol/L (3.6-5.2); SODIUM 137 mmol/L (132-148)
[2017-01-20 03:20] LABS: GFR AFRICAN-AMERICAN > 60
[2017-01-20 03:21] LABS: BLOOD UREA NITROGEN 16 mg/dL (9-20); CALCIUM 8.9 mg/dl (8.6-10.4); CARBON DIOXIDE 23 mmol/L (22-30); GLUCOSE,RANDOM 261 mg/dL (75-110)
[2017-01-20] MEDS: Piperacillin/Tazobact 3.375 GM in Sodium Chloride 100 ML IVPB SCH ×4 (04:30→21:34)
[2017-01-20] MEDS: HYDROmorphone 1 mg/ml ISec IVP PRN ×3 (06:15→18:12)
[2017-01-20] MEDS: (Novolog) Insulin Aspart, Recombinant 100 u/ml 10 ml vial SC SCH ×4 (08:20→21:35)
--- NOTE | 2017-01-20 10:58 | CP.PCM.PN ---
Subjective - Date & Time of Evaluation Date of Evaluation: 01/20/17 Time of Evaluation: 10:58 - Subjective Subjective: 51 year old male patient seen at bedside POD #2 right foot partial 5th ray resection. Patient seen resting in bed comfortably, AAOx3 and NAD. Patient states that he had a hard time sleeping last night due to pain. Patient denies pain to surgical site today. Patient admits the pain is on the bottom outside edge of his R foot. Patient states that the area is extremely sensitive to touch. Patient describes the pain in R foot as burning or walking on hot stones. Per nursing, patient became argumentative to several nurses about taking pain medications. Patient denies N/V/F/D/SOB/CP. No other pedal complaints at this time. Objective - Vital Signs/Intake and Output Vital Signs (last 24 hours): Temp Pulse Resp BP Pulse Ox 98.8 F 76 20 161/86 H 98 01/20/17 08:11 01/20/17 08:11 01/20/17 08:11 01/20/17 08:11 01/20/17 08:11 Intake and Output: 01/20/17 01/20/17 06:59 18:59 Intake Total 840 Balance 840 - Medications Medications: Current Medications Docusate Sodium (Colace) 100 mg PO BID [facility] Last Admin: 01/20/17 09:21 Dose: Not Given Heparin Sodium (Porcine) (Heparin) 5,000 units SC Q12 [facility] Last Admin: 01/20/17 09:21 Dose: 5,000 units Hydromorphone HCl (Dilaudid) 0.5 mg IVP Q6H PRN PRN Reason: Pain, severe (8-10) Last Admin: 01/20/17 06:15 Dose: 0.5 mg Piperacillin Sod/Tazobactam (Sod 3.375 gm/ Sodium Chloride) 100 mls @ 200 mls/ hr IVPB Q6H [facility] Last Admin: 01/20/17 09:22 Dose: 200 mls/hr Vancomycin/Sodium Chloride (Vancocin) 1 gm in 200 mls @ 133.333 mls/hr IVPB Q12H [facility] Stop: 01/23/17 15:01 Last Admin: 01/20/17 03:00 Dose: 133.333 mls/hr Insulin Aspart (Novolog) 0 unit SC ACHS [facility] PRN Reason: Protocol Last Admin: 01/20/17 08:20 Dose: 8 unit Insulin Glargine (Lantus) 20 unit SC HS [facility] Last Admin: 01/19/17 21:19 Dose: 20 units Oxycodone/Acetaminophen (Percocet 5/325 Mg Tab) 1 tab PO Q4H PRN PRN Reason: Pain, moderate (4-7) Stop: 01/21/17 16:01 Last Admin: 01/20/17 09:20 Dose: 1 tab - Labs Labs: 01/20/17 02:53 01/20/17 02:53 - Constitutional Appears: Well, Non-toxic, No Acute Distress - Extremities Exam Additional comments: Vasc: DP and PT pulses nonpalpable secondary to edema. TG warm to warm. CFT <3 seconds Neuro: Gross sensation diminished Derm: Incision to right foot partial 5th ray amputation appears to be well- coapted with intact sutures and no wound dehiscence noted. No fluctuance noted. No malodor noted. One droplet of sanguinous drainage was expressed at the distal aspect. An approximately 1cm linear opening noted to plantar R foot with no drainage noted. Ulceration to dorsomedial aspect of left foot with a granular base. Hyperkeratosis noted to distal rim of ulceration. Minimal serosanguinous drainage noted to L ulceration. Ortho: No pain on palpation noted to right foot surgical site. Pain on palation plantarlateral foot. +Tinel's sign right foot. R partial 5th ray amputation, L partial 1st and 2nd ray amputation. - Neurological Exam Neurological Exam: Alert, Awake, Oriented x3 - Psychiatric Exam Psychiatric exam: Normal Affect, Normal Mood Assessment and Plan - Assessment and Plan (Free Text) Assessment: 51 year old male POD #2 right foot partial 5th ray resection Plan: Patient seen and evaluated at bedside. Discussed with attending, Dr. Diamond Charts, vitals, labs reviewed = afebrile, WBC WNL @ 10.4 Right foot cleansed with peroxide and dressed DSD. Left foot dressed with DSD. Patient is to be nonweightbearing with crutches Continue abx per ID = Zosyn, Vancomycin F/U neuro consult recommendations Podiatry will continue to follow while in house.
--- NOTE | 2017-01-20 11:23 | HP ---
HISTORY OF PRESENT ILLNESS: The patient has a chief complaint of peripheral vascular disease, diabetic foot. The patient underwent attempt at a vascular prosthesis. The patient has history of . PHYSICAL EXAMINATION GENERAL: The patient is awake, alert, and oriented. VITAL SIGNS: Temperature is 98, pulse . Juma Bowen MD
--- NOTE | 2017-01-20 15:16 | CP.PCM.PN ---
Subjective - Date & Time of Evaluation Date of Evaluation: 01/20/17 Time of Evaluation: 09:00 - Subjective Subjective: c/o severe pain iv rx in progress foot dry may need vascular re-eval Objective - Vital Signs/Intake and Output Vital Signs (last 24 hours): Temp Pulse Resp BP Pulse Ox 98.8 F 76 20 161/86 H 98 01/20/17 08:11 01/20/17 08:11 01/20/17 08:11 01/20/17 08:11 01/20/17 08:11 Intake and Output: 01/20/17 01/20/17 06:59 18:59 Intake Total 840 950 Output Total 900 Balance 840 50 - Medications Medications: Current Medications Docusate Sodium (Colace) 100 mg PO BID [facility] Last Admin: 01/20/17 09:21 Dose: Not Given Heparin Sodium (Porcine) (Heparin) 5,000 units SC Q12 [facility] Last Admin: 01/20/17 09:21 Dose: 5,000 units Hydromorphone HCl (Dilaudid) 0.5 mg IVP Q6H PRN PRN Reason: Pain, severe (8-10) Last Admin: 01/20/17 11:49 Dose: 0.5 mg Piperacillin Sod/Tazobactam (Sod 3.375 gm/ Sodium Chloride) 100 mls @ 200 mls/ hr IVPB Q6H [facility] Last Admin: 01/20/17 09:22 Dose: 200 mls/hr Vancomycin/Sodium Chloride (Vancocin) 1 gm in 200 mls @ 133.333 mls/hr IVPB Q12H [facility] Stop: 01/23/17 15:01 Last Admin: 01/20/17 14:23 Dose: 133.333 mls/hr Insulin Aspart (Novolog) 0 unit SC ACHS [facility] PRN Reason: Protocol Last Admin: 01/20/17 11:48 Dose: 4 unit Insulin Glargine (Lantus) 20 unit SC HS [facility] Last Admin: 01/19/17 21:19 Dose: 20 units Oxycodone/Acetaminophen (Percocet 5/325 Mg Tab) 1 tab PO Q4H PRN PRN Reason: Pain, moderate (4-7) Stop: 01/21/17 16:01 Last Admin: 01/20/17 09:20 Dose: 1 tab - Labs Labs: 01/20/17 02:53 01/20/17 02:53 - Constitutional Appears: Non-toxic, Chronically Ill - Head Exam Head Exam: NORMOCEPHALIC - Eye Exam Eye Exam: PERRL - ENT Exam ENT Exam: Mucous Membranes Dry - Neck Exam Neck Exam: absent: Lymphadenopathy - Respiratory Exam Respiratory Exam: Decreased Breath Sounds - Cardiovascular Exam Cardiovascular Exam: REGULAR RHYTHM - GI/Abdominal Exam GI & Abdominal Exam: Distended, Soft - Rectal Exam Rectal Exam: Deferred - Exam Exam: NORMAL INSPECTION - Extremities Exam Extremities Exam: Pedal Edema, Tenderness - Back Exam Back Exam: absent: CVA tenderness (L), CVA tenderness (R) Assessment and Plan (1) Gangrene of right foot Status: Acute (2) Gangrene of right foot Status: Acute (3) Diabetic foot Status: Acute (4) CAD (coronary artery disease) Status: Chronic (5) DM2 (diabetes mellitus, type 2) Status: Chronic (6) HTN (hypertension) Status: Chronic
[2017-01-20] MEDS: (Lantus) Insulin Glargine, Recombinant SC SCH (21:35)
[2017-01-21] MEDS: HYDROmorphone 1 mg/ml ISec IVP PRN ×5 (01:45→21:31)
[2017-01-21] MEDS: Vancomycin 1 gm/NS 200 ml 1 GM/200 ML BAG IVPB SCH ×4 (03:15→15:06)
[2017-01-21] MEDS: Piperacillin/Tazobact 3.375 GM in Sodium Chloride 100 ML IVPB SCH ×4 (04:45→21:30)
--- NOTE | 2017-01-21 06:43 | OP ---
PROCEDURE DATE: 01/18/2017 PREOPERATIVE DIAGNOSIS: Right foot fifth digit gangrene. POSTOPERATIVE DIAGNOSIS: Right foot fifth digit gangrene. PROCEDURE: Right foot partial fifth ray resection. SURGEON: *------*. SPEECH LANGUAGE PATHOLOGY ASSISTANT: Dr. Hutchinson, PGY-1 TYPE OF ANESTHESIA: IV sedation with local. ANESTHESIA ADMINISTERED BY: *------* INDICATIONS: The patient is a 51-year-old male with the above diagnosis. The patient has exhausted all conservative treatment at this time and now requires surgical intervention. The patient signed the consent after careful explanation of risks, benefits, complications, and alternatives for the surgical procedure. No guarantees were given or implied. PREPARATION: The patient was brought into the operating room and placed on the operating room table in a supine position. A time-out was performed for identification of the correct patient and procedure. The patient received a total of 10 mL of 1:1 mixture of 1% lidocaine plain and 0.5% Marcaine plain in a local block type fashion to the right foot. Once local anesthesia was achieved, the right foot was then prepped and draped in a normal sterile manner and the procedure began. Attention was then directed to the patient's right foot and with the use a #15 blade, a circumferential incision was made around the fifth digit extending proximally to the dorsal aspect of the fifth metatarsal midshaft. Then incision was then deepened through subcutaneous tissue using electrocautery. Next, utilizing a periosteal elevator, all periosteal tissue was carefully resected at the metatarsal. At this time, the fifth digit was then disarticulated at the level of the fifth metatarsophalangeal joint. Next, utilizing a sagittal saw, the fifth metatarsal head was resected at the level of the metatarsal neck and was passed off the field and sent to pathology. The remaining sharp bone was then debrided down and smoothened with a rongeur and the surgical wound site was then flushed with copious amounts of a mixture of peroxide and sterile saline. Excess 3 L pulse lavage with bacitracin mixed with saline was used to copiously irrigate the surgical site. All bleeders were then cauterized as necessary. All remaining nonviable tissue was excisionally debrided. The subcutaneous tissues were then reapproximated with 3-0 chromic gut. The skin was then reapproximated using 4-0 nylon. At the surgical site, a drain was used and placed in the surgical site and 4-0 nylon was sutured around the drain. The surgical sites were then dressed with Xeroform, sterile gauze, and Kerlix. POSTOPERATIVE CONDITION: The patient tolerated the anesthesia and procedure well and was escorted to the recovery room with vital signs stable and neurovascular status intact to the right foot. The patient is to be nonweightbearing to the right lower extremity and podiatry will continue to follow while the patient remains in-house and will follow up with *------* upon discharge. Jeannine Hutchinson DPM
--- NOTE | 2017-01-21 07:56 | CP.PCM.CON ---
History of Present Illness - History of Present Illness History of Present Illness: CONSULT DICTATED POST SURGICAL NEURITIS COMPLICATED WITH PAD RESUME GABAPENTIN AND TRENTAL LIMIT NARCOTICS DIABETIC AND WEIGHT CONTROL Past Patient History - Infectious Disease Hx of Infectious Diseases: None - Past Medical History & Family History Past Medical History?: Yes - Past Social History Smoking Status: Unknown If Ever Smoked - CARDIAC Hx Cardiac Disorders: Yes (CAD, stents, [place],) Hx Hypercholesterolemia: Yes Hx Hypertension: Yes - PULMONARY Hx Respiratory Disorders: No - NEUROLOGICAL Hx Neurological Disorder: No - HEENT Hx HEENT Problems: No - RENAL Hx Chronic Kidney Disease: No - ENDOCRINE/METABOLIC Hx Diabetes Mellitus Type 1: Yes - HEMATOLOGICAL/ONCOLOGICAL Hx Blood Disorders: No - INTEGUMENTARY Hx Dermatological Problems: Yes Other/Comment: wound in the left toe 5TH DIGIT ulcer right foot - MUSCULOSKELETAL/RHEUMATOLOGICAL Hx Falls: No - GASTROINTESTINAL Hx Gastrointestinal Disorders: No - GENITOURINARY/GYNECOLOGICAL Hx Genitourinary Disorders: No - PSYCHIATRIC Hx Substance Use: No - SURGICAL HISTORY Hx Surgeries: Yes Hx Angiogram: Yes Hx Cardiac Catheterization: Yes Hx Coronary Stent: Yes Hx Musculoskeletal Surgery: Yes Hx Orthopedic Surgery: Yes (AMPUTATION) Other/Comment: DEBRIDEMENT FOOT ULCER - ANESTHESIA Hx Anesthesia: Yes Hx Anesthesia Reactions: No Hx Malignant Hyperthermia: No Has any member of the family had a problem w/ anesthesia?: No Meds Allergies/Adverse Reactions: Allergies Allergy/AdvReac Type Severity Reaction Status Date / Time No Known Allergies Allergy Verified 11/18/16 12:59 - Medications Medications: Current Medications Docusate Sodium (Colace) 100 mg PO BID [facility] Last Admin: 01/20/17 17:35 Dose: 100 mg Heparin Sodium (Porcine) (Heparin) 5,000 units SC Q12 [facility] Last Admin: 01/20/17 21:34 Dose: 5,000 units Hydromorphone HCl (Dilaudid) 0.5 mg IVP Q6H PRN PRN Reason: Pain, severe (8-10) Last Admin: 01/21/17 06:45 Dose: 0.5 mg Piperacillin Sod/Tazobactam (Sod 3.375 gm/ Sodium Chloride) 100 mls @ 200 mls/ hr IVPB Q6H [facility] Last Admin: 01/21/17 04:45 Dose: 200 mls/hr Vancomycin/Sodium Chloride (Vancocin) 1 gm in 200 mls @ 133.333 mls/hr IVPB Q12H [facility] Stop: 01/23/17 15:01 Last Admin: 01/21/17 03:15 Dose: 133.333 mls/hr Insulin Aspart (Novolog) 0 unit SC ACHS [facility] PRN Reason: Protocol Last Admin: 01/20/17 21:35 Dose: Not Given Insulin Glargine (Lantus) 20 unit SC HS [facility] Last Admin: 01/20/17 21:35 Dose: 20 units Results - Vital Signs Recent Vital Signs: Last Vital Signs Temp 98.6 F 01/21/17 05:00 Pulse 81 01/21/17 00:00 Resp 20 01/21/17 00:00 BP 153/82 H 01/21/17 00:00 Pulse Ox 97 01/21/17 00:00 - Labs Result Diagrams: 01/20/17 02:53 01/20/17 02:53 Labs: Laboratory Results - last 24 hr 01/20/17 01/20/17 01/20/17 11:32 17:05 21:20 POC Glucose (mg/dL) 223 H 227 H 223 H
[2017-01-21] MEDS: (Novolog) Insulin Aspart, Recombinant 100 u/ml 10 ml vial SC SCH ×4 (08:08→21:29)
--- NOTE | 2017-01-21 11:27 | CP.PCM.PN ---
Subjective - Date & Time of Evaluation Date of Evaluation: 01/21/17 Time of Evaluation: 07:00 - Subjective Subjective: iv rx in progress c/o pain await vascular eval Objective - Vital Signs/Intake and Output Vital Signs (last 24 hours): Temp Pulse Resp BP Pulse Ox 98.4 F 82 20 167/82 H 98 01/21/17 08:47 01/21/17 08:47 01/21/17 08:47 01/21/17 08:47 01/21/17 08:47 Intake and Output: 01/21/17 01/21/17 06:59 18:59 Intake Total 720 Output Total 1500 Balance -780 - Medications Medications: Current Medications Docusate Sodium (Colace) 100 mg PO BID [facility] Last Admin: 01/21/17 09:19 Dose: 100 mg Gabapentin (Neurontin) 800 mg PO TID [facility] Last Admin: 01/21/17 09:20 Dose: 800 mg Heparin Sodium (Porcine) (Heparin) 5,000 units SC Q12 [facility] Last Admin: 01/21/17 09:19 Dose: 5,000 units Hydromorphone HCl (Dilaudid) 0.5 mg IVP Q6H PRN PRN Reason: Pain, severe (8-10) Last Admin: 01/21/17 06:45 Dose: 0.5 mg Piperacillin Sod/Tazobactam (Sod 3.375 gm/ Sodium Chloride) 100 mls @ 200 mls/ hr IVPB Q6H [facility] Last Admin: 01/21/17 09:18 Dose: 200 mls/hr Vancomycin/Sodium Chloride (Vancocin) 1 gm in 200 mls @ 133.333 mls/hr IVPB Q12H [facility] Stop: 01/23/17 15:01 Last Admin: 01/21/17 03:15 Dose: 133.333 mls/hr Insulin Aspart (Novolog) 0 unit SC ACHS [facility] PRN Reason: Protocol Last Admin: 01/21/17 08:08 Dose: 8 unit Insulin Glargine (Lantus) 20 unit SC HS [facility] Last Admin: 01/20/17 21:35 Dose: 20 units Pentoxifylline (Pentoxil) 400 mg PO TID [facility] Last Admin: 01/21/17 09:20 Dose: 400 mg - Labs Labs: 01/20/17 02:53 01/20/17 02:53 Assessment and Plan (1) Gangrene of right foot Status: Acute (2) Gangrene of right foot Status: Acute (3) Diabetic foot Status: Acute (4) CAD (coronary artery disease) Status: Chronic (5) DM2 (diabetes mellitus, type 2) Status: Chronic (6) HTN (hypertension) Status: Chronic
--- NOTE | 2017-01-21 13:04 | CP.PCM.PN ---
Subjective - Date & Time of Evaluation Date of Evaluation: 01/21/17 Time of Evaluation: 13:01 - Subjective Subjective: PGY2 progress note for Dr. Bowen Pt is seen and examined at bedside. No acute events overnight. Patient is s/p right foot partial fifth digit resection POD # 3. Patient c/o of right foot pain. He denies having any CP, SOB, abd pain, N/V/D/C. Patient is tolerating diet. 12 point ROS are negative except for the above mentioned. Objective - Vital Signs/Intake and Output Vital Signs (last 24 hours): Temp Pulse Resp BP Pulse Ox 98.4 F 82 20 167/82 H 98 01/21/17 08:47 01/21/17 08:47 01/21/17 08:47 01/21/17 08:47 01/21/17 08:47 Intake and Output: 01/21/17 01/21/17 06:59 18:59 Intake Total 720 Output Total 1500 Balance -780 - Medications Medications: Current Medications Docusate Sodium (Colace) 100 mg PO BID [facility] Last Admin: 01/21/17 09:19 Dose: 100 mg Gabapentin (Neurontin) 800 mg PO TID [facility] Last Admin: 01/21/17 09:20 Dose: 800 mg Heparin Sodium (Porcine) (Heparin) 5,000 units SC Q12 [facility] Last Admin: 01/21/17 09:19 Dose: 5,000 units Hydromorphone HCl (Dilaudid) 0.5 mg IVP Q4H PRN PRN Reason: Pain, severe (8-10) Piperacillin Sod/Tazobactam (Sod 3.375 gm/ Sodium Chloride) 100 mls @ 200 mls/ hr IVPB Q6H [facility] Last Admin: 01/21/17 09:18 Dose: 200 mls/hr Vancomycin/Sodium Chloride (Vancocin) 1 gm in 200 mls @ 133.333 mls/hr IVPB Q12H [facility] Stop: 01/23/17 15:01 Last Admin: 01/21/17 03:15 Dose: 133.333 mls/hr Insulin Aspart (Novolog) 0 unit SC ACHS [facility] PRN Reason: Protocol Last Admin: 01/21/17 11:51 Dose: 4 unit Insulin Glargine (Lantus) 20 unit SC HS [facility] Last Admin: 01/20/17 21:35 Dose: 20 units Insulin Human Isoph/Insulin Regular (Novolin 70/30 (70/30 Units/Ml) 10 Ml) 60 units SC ACBD [facility] Pentoxifylline (Pentoxil) 400 mg PO TID [facility] Last Admin: 01/21/17 09:20 Dose: 400 mg - Labs Labs: 01/20/17 02:53 01/20/17 02:53 - Constitutional Appears: Non-toxic, No Acute Distress - Head Exam Head Exam: ATRAUMATIC - Eye Exam Eye Exam: EOMI - ENT Exam ENT Exam: Mucous Membranes Moist - Respiratory Exam Respiratory Exam: Clear to Ausculation Bilateral. absent: Accessory Muscle Use , Rales, Rhonchi, Wheezes, Respiratory Distress - Cardiovascular Exam Cardiovascular Exam: REGULAR RHYTHM, +S1, +S2 - GI/Abdominal Exam GI & Abdominal Exam: Soft, Normal Bowel Sounds. absent: Distended, Firm, Guarding, Rigid, Tenderness, Organomegaly - Extremities Exam Extremities Exam: absent: Pedal Edema, Tenderness - Neurological Exam Neurological Exam: Alert, Awake, Oriented x3 - Psychiatric Exam Psychiatric exam: Normal Affect, Normal Mood - Skin Skin Exam: Dry, Intact, Normal Color, Warm Assessment and Plan - Assessment and Plan (Free Text) Assessment: 51 year old male with past medical history of DM, HTN, PVD is admitted for right foot 5th toe necrosis s/p 5 digit amputation POD #[address] Diamond. PVD s/p Right 5th toe amputation POD #3 - Podiatry, Dr. Diamond is consulted and performed procedure - ID, Dr. wright is consulted - Continue antibiotics per ID recommendations: Zosyn and vancomycin - Pain management with Dilaudid - Continue pentoxifylline Diabetic neuropathy - Neurology, Dr. Garcia consulted. Recommended continuing gabapentin and trental DM - Continue home medications: Novolin 60 units SC, Lantus 20 units Hs - ISS - Accuchecks - HgbA1c is 8.6 - will start patient on home Crestor HTN - Blood pressure stable Prophylaxis - Lovenox - Pepcid Management & orders per Dr. Bowen
--- NOTE | 2017-01-21 14:02 | CP.PCM.PN ---
Subjective - Date & Time of Evaluation Date of Evaluation: 01/21/17 Time of Evaluation: 14:00 - Subjective Subjective: 51 year old male patient seen at bedside POD #3 right foot partial 5th ray resection. Patient seen resting in bed comfortably, AAOx3 and NAD. Patient denies pain to surgical site today. Patient admits the pain is on the bottom outside edge of his R foot. Patient states that the area is extremely sensitive to touch. Patient denies N/V/F/D/SOB/CP. No other pedal complaints at this time. Objective - Vital Signs/Intake and Output Vital Signs (last 24 hours): Temp Pulse Resp BP Pulse Ox 98.4 F 82 20 167/82 H 98 01/21/17 08:47 01/21/17 08:47 01/21/17 08:47 01/21/17 08:47 01/21/17 08:47 Intake and Output: 01/21/17 01/21/17 06:59 18:59 Intake Total 720 Output Total 1500 Balance -780 - Medications Medications: Current Medications Docusate Sodium (Colace) 100 mg PO BID [facility] Last Admin: 01/21/17 09:19 Dose: 100 mg Famotidine (Pepcid) 20 mg PO DAILY [facility] Gabapentin (Neurontin) 800 mg PO TID [facility] Last Admin: 01/21/17 09:20 Dose: 800 mg Heparin Sodium (Porcine) (Heparin) 5,000 units SC Q12 [facility] Last Admin: 01/21/17 09:19 Dose: 5,000 units Hydromorphone HCl (Dilaudid) 0.5 mg IVP Q4H PRN PRN Reason: Pain, severe (8-10) Piperacillin Sod/Tazobactam (Sod 3.375 gm/ Sodium Chloride) 100 mls @ 200 mls/ hr IVPB Q6H [facility] Last Admin: 01/21/17 09:18 Dose: 200 mls/hr Vancomycin/Sodium Chloride (Vancocin) 1 gm in 200 mls @ 133.333 mls/hr IVPB Q12H [facility] Stop: 01/23/17 15:01 Last Admin: 01/21/17 03:15 Dose: 133.333 mls/hr Insulin Aspart (Novolog) 0 unit SC ACHS [facility] PRN Reason: Protocol Last Admin: 01/21/17 11:51 Dose: 4 unit Insulin Glargine (Lantus) [address] [facility] Last Admin: 01/20/17 21:35 Dose: 20 units Insulin Human Isoph/Insulin Regular (Novolin 70/30 (70/30 Units/Ml) 10 Ml) 60 units SC ACBD [facility] Pentoxifylline (Pentoxil) 400 mg PO TID [facility] Last Admin: 01/21/17 09:20 Dose: 400 mg Rosuvastatin Calcium (Crestor) [address] [facility] - Labs Labs: 01/20/17 02:53 01/20/17 02:53 - Constitutional Appears: Well, Non-toxic, No Acute Distress - Extremities Exam Additional comments: Vasc: DP and PT pulses nonpalpable secondary to edema. TG warm to warm. CFT <3 seconds Neuro: Gross sensation diminished Derm: Incision to right foot partial 5th ray amputation appears to be well- coapted with intact sutures and no wound dehiscence noted. No fluctuance noted. No malodor noted. One droplet of sanguinous drainage was expressed at the distal aspect. An approximately 1cm linear opening noted to plantar R foot with no drainage noted. Ulceration to dorsomedial aspect of left foot with a granular base. Hyperkeratosis noted to distal rim of ulceration. Minimal serosanguinous drainage noted to L ulceration. Ortho: No pain on palpation noted to right foot surgical site. Pain on palation plantarlateral foot. +Tinel's sign right foot. R partial 5th ray amputation, L partial 1st and 2nd ray amputation. - Neurological Exam Neurological Exam: Alert, Awake, Oriented x3 - Psychiatric Exam Psychiatric exam: Normal Affect, Normal Mood Assessment and Plan - Assessment and Plan (Free Text) Assessment: 51 year old male POD #3 right foot partial 5th ray resection Plan: Patient seen and evaluated at bedside. Discussed with attending, Dr. Diamond Charts, vitals, labs reviewed = afebrile, WBC WNL @ 10.4 (01/20/17) Right foot cleansed with peroxide and dressed DSD. Left foot dressed with DSD. Patient is to be nonweightbearing with crutches Continue abx per ID = Zosyn, Vancomycin F/U neuro consult recommendations patient stable from podiatry standpoint and to follow up with Dr. Diamond as outpatient Podiatry will continue to follow while in house.
--- NOTE | 2017-01-21 16:02 | CP.PCM.CON ---
History of Present Illness - History of Present Illness History of Present Illness: has palpable right dp pulse after atherectomy done last week Should heal toe amputation Past Patient History - Infectious Disease Hx of Infectious Diseases: None - Past Medical History & Family History Past Medical History?: Yes - Past Social History Smoking Status: Unknown If Ever Smoked - CARDIAC Hx Cardiac Disorders: Yes (CAD, stents, DE,) Hx Hypercholesterolemia: Yes Hx Hypertension: Yes - PULMONARY Hx Respiratory Disorders: No - NEUROLOGICAL Hx Neurological Disorder: No - HEENT Hx HEENT Problems: No - RENAL Hx Chronic Kidney Disease: No - ENDOCRINE/METABOLIC Hx Diabetes Mellitus Type 1: Yes - HEMATOLOGICAL/ONCOLOGICAL Hx Blood Disorders: No - INTEGUMENTARY Hx Dermatological Problems: Yes Other/Comment: wound in the left toe 5TH DIGIT ulcer right foot - MUSCULOSKELETAL/RHEUMATOLOGICAL Hx Falls: No - GASTROINTESTINAL Hx Gastrointestinal Disorders: No - GENITOURINARY/GYNECOLOGICAL Hx Genitourinary Disorders: No - PSYCHIATRIC Hx Substance Use: No - SURGICAL HISTORY Hx Surgeries: Yes Hx Angiogram: Yes Hx Cardiac Catheterization: Yes Hx Coronary Stent: Yes Hx Musculoskeletal Surgery: Yes Hx Orthopedic Surgery: Yes (AMPUTATION) Other/Comment: DEBRIDEMENT FOOT ULCER - ANESTHESIA Hx Anesthesia: Yes Hx Anesthesia Reactions: No Hx Malignant Hyperthermia: No Has any member of the family had a problem w/ anesthesia?: No Meds Home Medications: Home Medication List Medication Instructions Recorded Confirmed Type Aspirin [Ecotrin] 81 mg PO DAILY #30 01/21/17 Rx Cephalexin [Keflex] 500 mg PO BID #14 capsule 01/21/17 Rx Clopidogrel [Plavix] 75 mg PO DAILY #30 tab 01/21/17 Rx Gabapentin [Neurontin] 800 mg PO TID #90 tab 01/21/17 Rx Insulin Glargine, Recombina 20 unit SC HS #1 vial 01/21/17 Rx [Lantus] Insulin Human (NPH)/Regular 60 units SC ACBD #2 vial 01/21/17 Rx [Novolin 70/30 (70/30 units/ml) 10 ml] Pentoxifylline [Pentoxil] 400 mg PO TID #90 ter 01/21/17 Rx Rosuvastatin Calcium [Crestor] 10 mg PO HS #30 01/21/17 Rx amLODIPine [Norvasc] 10 mg PO DAILY #30 01/21/17 Rx Allergies/Adverse Reactions: Allergies Allergy/AdvReac Type Severity Reaction Status Date / Time No Known Allergies Allergy Verified 11/18/16 12:59 - Medications Medications: Current Medications Docusate Sodium (Colace) 100 mg PO BID [facility] Last Admin: 01/21/17 09:19 Dose: 100 mg Famotidine (Pepcid) 20 mg PO DAILY [facility] Last Admin: 01/21/17 15:01 Dose: 20 mg Gabapentin (Neurontin) 800 mg PO TID [facility] Last Admin: 01/21/17 14:15 Dose: 800 mg Heparin Sodium (Porcine) (Heparin) 5,000 units SC Q12 [facility] Last Admin: 01/21/17 09:19 Dose: 5,000 units Hydromorphone HCl (Dilaudid) 0.5 mg IVP Q4H PRN PRN Reason: Pain, severe (8-10) Piperacillin Sod/Tazobactam (Sod 3.375 gm/ Sodium Chloride) 100 mls @ 200 mls/ hr IVPB Q6H [facility] Last Admin: 01/21/17 09:18 Dose: 200 mls/hr Vancomycin/Sodium Chloride (Vancocin) 1 gm in 200 mls @ 133.333 mls/hr IVPB Q12H [facility] Stop: 01/23/17 15:01 Last Admin: 01/21/17 15:06 Dose: 133.333 mls/hr Insulin Aspart (Novolog) 0 unit SC ACHS [facility] PRN Reason: Protocol Last Admin: 01/21/17 11:51 Dose: 4 unit Insulin Glargine (Lantus) [address] [facility] Last Admin: 01/20/17 21:35 Dose: 20 units Insulin Human Isoph/Insulin Regular (Novolin 70/30 (70/30 Units/Ml) 10 Ml) 60 units SC ACBD [facility] Pentoxifylline (Pentoxil) 400 mg PO TID [facility] Last Admin: 01/21/17 14:15 Dose: 400 mg Rosuvastatin Calcium (Crestor) [address] [facility] Results - Vital Signs Recent Vital Signs: Last Vital Signs Temp 98.4 F 01/21/17 08:47 Pulse 82 01/21/17 08:47 Resp 20 01/21/17 08:47 BP 167/82 H 01/21/17 08:47 Pulse Ox 98 01/21/17 08:47 - Labs Result Diagrams: 01/20/17 02:53 01/20/17 02:53 Labs: Laboratory Results - last 24 hr 01/20/17 01/20/17 01/21/17 17:05 21:20 06:55 POC Glucose (mg/dL) 227 H 223 H 304 H Hemoglobin A1c 01/21/17 01/21/17 11:10 11:38 POC Glucose (mg/dL) 221 H Hemoglobin A1c 8.6 H D
--- NOTE | 2017-01-21 16:21 | CON ---
DATE: REASON FOR THE CONSULTATION: Right foot pain. CHIEF COMPLAINT: The patient was electively admitted for peripheral artery disease and did undergo right big toe amputation. Following the surgery, patient claimed pain, intense pain, especially in the sole of the foot. No history of any weakness. No history of headache. No history of visual or bulbar dysfunction. No history of any focal weakness on his left leg and both upper extremities. PAST MEDICAL HISTORY: Non-insulin dependent diabetes mellitus, peripheral arterial disease, hypertension. ALLERGIES: NO KNOWN ALLERGIES. PHYSICAL EXAMINATION: VITAL SIGNS: Blood pressure 167/82, mean arterial pressure of 110, respiratory rate 16, temperature 98.4, pulse rate 82 and regular NECK: Supple. No carotid bruits. HEART: Sounds regular. CHEST: Fair air entry. EXTREMITIES: No edema in legs. NEUROLOGICAL EXAMINATION: MENTAL STATUS EXAMINATION: He is awake, alert, oriented to person, place, and time. Speech is clear. Naming, repetition, fluency, comprehension all within normal. CRANIAL NERVE EXAMINATION: Visual field intact. Pupil reactive to light. Extraocular movements are normal. No nystagmus. No facial sensory deficit. No facial asymmetry. Hearing is normal. Tongue is midline. Good gag. MOTOR EXAMINATION: On outstretched hand with eyes closed. No tremor noted. No focal weakness or drift noted. He can lift both upper and lower extremities against gravity. DEEP TENDON REFLEXES: Are absent. SENSORY EXAMINATION: Significant hyperesthesia and sensory dysfunction noted in both lower extremities. Postsurgical scar noted. Left big toe amputation and right fifth digit amputation noted without dressing. Patient also presenting with significant posterior dysfunction in both lower extremities. Allodynia noted over the surgical site. GAIT: Deferred at this time. CONCLUSION: Upon reviewing his neurological examination, Mr. Griffin Granados presenting with postsurgical sensory dysfunction manifesting with hypersensitization of sural nerve. This is probably related to diabetes mellitus superimposed peripheral neuropathy associating with peripheral arterial disease as well. RECOMMENDATION: 1. Limit narcotics. 2. Gabapentin, which he has been taking at home can be resumed 800 mg three times a day. 3. Peripheral vasodilators such as vascular dilators such as Trental can be given. Keep both lower extremities warm. When medically stable, patient should start ambulating himself with support as well as supervision. Continue antibiotics as per the ID. Patient will be followed closely with you. Arjun Garcia MD [facility] # [id number] [email or web address]
[2017-01-21] MEDS: (Novolin 70/30) NPH/Regular 70/30 Units/ml 10 ml vial SC SCH (17:08)
[2017-01-21] MEDS: (Lantus) Insulin Glargine, Recombinant SC SCH (21:28)
[2017-01-22] MEDS: Vancomycin 1 gm/NS 200 ml 1 GM/200 ML BAG IVPB SCH ×2 (02:00→14:04)
[2017-01-22] MEDS: HYDROmorphone 1 mg/ml ISec IVP PRN ×4 (03:04→15:15)
[2017-01-22] MEDS: Piperacillin/Tazobact 3.375 GM in Sodium Chloride 100 ML IVPB SCH ×2 (03:30→09:55)
[2017-01-22] MEDS: (Novolog) Insulin Aspart, Recombinant 100 u/ml 10 ml vial SC SCH ×2 (08:25→12:40)
[2017-01-22] MEDS: (Novolin 70/30) NPH/Regular 70/30 Units/ml 10 ml vial SC SCH (08:26)
--- NOTE | 2017-01-22 08:46 | PN ---
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 PHYSICAL EXAMINATION: VITAL SIGNS: Blood pressure 136/75, mean arterial pressure of 95, respiratory rate 20, temperature 99.6. The patient is comfortably lying down. He claims that his pain went down to 7 instead of 10 yesterday. He feels comfortable. He slept good with the medication. Examination is unchanged to compare with my yesterday's exam. PLAN: Continue with present medication, and if medically stable, the patient can be discharged. Continue the antibiotic as per the ID. The patient will be followed as outpatient. Arjun Garcia MD
--- NOTE | 2017-01-22 11:04 | CP.PCM.PN ---
Subjective - Date & Time of Evaluation Date of Evaluation: 01/22/17 Time of Evaluation: 11:01 - Subjective Subjective: 51 year old male patient seen at bedside with attending Dr. Diamond POD #4 right foot partial 5th ray resection. Patient seen resting in bed comfortably, AAOx3 and NAD. Patient denies pain to surgical site today. Patient admits the pain is on the bottom outside edge of his R foot, but getting better. Patient denies N/V/F/D/SOB/CP. No other pedal complaints at this time. Objective - Vital Signs/Intake and Output Vital Signs (last 24 hours): Temp Pulse Resp BP Pulse Ox 99 F 76 20 173/80 H 97 01/22/17 08:36 01/22/17 08:36 01/22/17 08:36 01/22/17 08:36 01/22/17 08:36 Intake and Output: 01/22/17 01/22/17 06:59 18:59 Intake Total 500 590 Output Total 800 Balance -300 590 - Medications Medications: Current Medications Docusate Sodium (Colace) 100 mg PO BID [facility] Last Admin: 01/22/17 09:54 Dose: 100 mg Famotidine (Pepcid) 20 mg PO DAILY [facility] Last Admin: 01/22/17 09:54 Dose: 20 mg Gabapentin (Neurontin) 800 mg PO TID [facility] Last Admin: 01/22/17 09:54 Dose: 800 mg Hydromorphone HCl (Dilaudid) 0.5 mg IVP Q4H PRN PRN Reason: Pain, severe (8-10) Last Admin: 01/22/17 07:14 Dose: 0.5 mg Piperacillin Sod/Tazobactam (Sod 3.375 gm/ Sodium Chloride) 100 mls @ 200 mls/ hr IVPB Q6H [facility] Last Admin: 01/22/17 09:55 Dose: 200 mls/hr Vancomycin/Sodium Chloride (Vancocin) 1 gm in 200 mls @ 133.333 mls/hr IVPB Q12H [facility] Stop: 01/23/17 15:01 Last Admin: 01/22/17 02:00 Dose: 133.333 mls/hr Insulin Aspart (Novolog) 0 unit SC ACHS [facility] PRN Reason: Protocol Last Admin: 01/22/17 08:25 Dose: 8 unit Insulin Glargine (Lantus) 20 unit SC HS [facility] Last Admin: 01/21/17 21:28 Dose: 20 units Insulin Human Isoph/Insulin Regular (Novolin 70/30 (70/30 Units/Ml) 10 Ml) 60 units SC ACBD [facility] Last Admin: 01/22/17 08:26 Dose: 60 units Pentoxifylline (Pentoxil) 400 mg PO TID [facility] Last Admin: 01/21/17 17:07 Dose: 400 mg Rosuvastatin Calcium (Crestor) 10 mg PO HS [facility] Last Admin: 01/21/17 21:30 Dose: 10 mg - Labs Labs: 01/20/17 02:53 01/20/17 02:53 - Constitutional Appears: Well, Non-toxic, No Acute Distress - Extremities Exam Additional comments: Vasc: DP and PT pulses nonpalpable secondary to edema. TG warm to warm. CFT <3 seconds Neuro: Gross sensation diminished Derm: Incision to right foot partial 5th ray amputation appears to be well- coapted with intact sutures and no wound dehiscence noted. No fluctuance noted. No malodor noted. An approximately 1cm linear opening noted to plantar R foot with no drainage noted. Ulceration to dorsomedial aspect of left foot with a granular base. Hyperkeratosis noted to distal rim of ulceration. Minimal serosanguinous drainage noted to L ulceration. Ortho: No pain on palpation noted to right foot surgical site. Pain on palation plantarlateral foot. R partial 5th ray amputation, L partial 1st and 2nd ray amputation. - Neurological Exam Neurological Exam: Alert, Awake, Oriented x3 - Psychiatric Exam Psychiatric exam: Normal Affect, Normal Mood Assessment and Plan - Assessment and Plan (Free Text) Assessment: 51 year old male POD #4 right foot partial 5th ray resection Plan: Patient seen and evaluated at bedside w/ attending, Dr. Diamond Charts, vitals, labs reviewed = afebrile Right foot cleansed with peroxide and dressed DSD. Patient is to be nonweightbearing with crutches Continue abx per ID = Zosyn, Vancomycin F/U neuro consult recommendations patient stable from podiatry standpoint and to follow up with Dr. Diamond as outpatient Podiatry will continue to follow while in house.
--- NOTE | 2017-01-22 15:01 | CP.PCM.PN ---
Subjective - Date & Time of Evaluation Date of Evaluation: 01/22/17 Time of Evaluation: 09:00 - Subjective Subjective: PGY3 progress note for Dr. Bowen Pt is seen and examined at bedside. No acute events overnight. Patient is s/p right foot partial fifth digit resection POD #4. Patient c/o of right foot pain. He denies having any CP, SOB, abd pain, N/V/D/C. Patient is tolerating diet. 12 point ROS are negative except for the above mentioned. Objective - Vital Signs/Intake and Output Vital Signs (last 24 hours): Temp Pulse Resp BP Pulse Ox 99 F 76 20 173/80 H 97 01/22/17 08:36 01/22/17 08:36 01/22/17 08:36 01/22/17 08:36 01/22/17 08:36 Intake and Output: 01/22/17 01/22/17 06:59 18:59 Intake Total 500 590 Output Total 800 Balance -300 590 - Medications Medications: Current Medications Docusate Sodium (Colace) 100 mg PO BID [facility] Last Admin: 01/22/17 09:54 Dose: 100 mg Famotidine (Pepcid) 20 mg PO DAILY [facility] Last Admin: 01/22/17 09:54 Dose: 20 mg Gabapentin (Neurontin) 800 mg PO TID [facility] Last Admin: 01/22/17 14:01 Dose: 800 mg Hydromorphone HCl (Dilaudid) 0.5 mg IVP Q4H PRN PRN Reason: Pain, severe (8-10) Last Admin: 01/22/17 11:15 Dose: 0.5 mg Piperacillin Sod/Tazobactam (Sod 3.375 gm/ Sodium Chloride) 100 mls @ 200 mls/ hr IVPB Q6H [facility] Last Admin: 01/22/17 09:55 Dose: 200 mls/hr Vancomycin/Sodium Chloride (Vancocin) 1 gm in 200 mls @ 133.333 mls/hr IVPB Q12H [facility] Stop: 01/23/17 15:01 Last Admin: 01/22/17 14:04 Dose: 133.333 mls/hr Insulin Aspart (Novolog) 0 unit SC ACHS [facility] PRN Reason: Protocol Last Admin: 01/22/17 12:40 Dose: 10 unit Insulin Glargine (Lantus) 20 unit SC HS [facility] Last Admin: 01/21/17 21:28 Dose: 20 units Insulin Human Isoph/Insulin Regular (Novolin 70/30 (70/30 Units/Ml) 10 Ml) 60 units SC ACBD [facility] Last Admin: 01/22/17 08:26 Dose: 60 units Pentoxifylline (Pentoxil) 400 mg PO TID [facility] Last Admin: 01/22/17 14:01 Dose: 400 mg Rosuvastatin Calcium (Crestor) 10 mg PO HS [facility] Last Admin: 01/21/17 21:30 Dose: 10 mg - Labs Labs: 01/20/17 02:53 01/20/17 02:53 - Constitutional Appears: Non-toxic, No Acute Distress - Head Exam Head Exam: NORMAL INSPECTION - Eye Exam Eye Exam: EOMI - ENT Exam ENT Exam: Mucous Membranes Moist - Respiratory Exam Respiratory Exam: Clear to Ausculation Bilateral, NORMAL BREATHING PATTERN. absent: Rales, Rhonchi, Wheezes - Cardiovascular Exam Cardiovascular Exam: REGULAR RHYTHM, +S1, +S2. absent: Gallop, Rubs, Murmur - GI/Abdominal Exam GI & Abdominal Exam: Soft, Normal Bowel Sounds. absent: Firm, Guarding, Tenderness - Extremities Exam Additional comments: b/l feet wrapped with dressings - Neurological Exam Neurological Exam: Alert, Awake, Oriented x3 - Psychiatric Exam Psychiatric exam: Normal Affect, Normal Mood - Skin Skin Exam: Normal Color, Warm Assessment and Plan - Assessment and Plan (Free Text) Assessment: Assessment: 51 year old male with past medical history of DM, HTN, PVD is admitted for right foot 5th toe necrosis s/p 5 digit amputation POD #[address] Diamond. PVD s/p Right 5th toe amputation POD #4 - Podiatry, Dr. Diamond is consulted and performed procedure - ID, Dr. wright is consulted - D/C with Keflex 500mg PO Q8H x 7 days - Pain management with Dilaudid in hospital; given script for 20 pills or percocet 5/325mg PO 2 tabs Q4-6H PRN pain - Continue pentoxifylline Diabetic neuropathy - Neurology, Dr. Garcia consulted. Recommended continuing gabapentin and trental DM - Continue home medications: Novolin 60 units SC, Lantus 20 units Hs --> increased to 30 units HS as morning sugars have been elevated - ISS - Accuchecks - HgbA1c is 8.6 - will start patient on home Crestor HTN - Blood pressure stable Prophylaxis - Lovenox - Pepcid Management & orders per Dr. Bowen Discharge: Patient is stable for discharge per Dr. Bowen Patient is to follow up with PMD, Dr. Bowen upon discharge. Patient is to follow up with podiatry, Dr. Diamond upon discharge. Patient is sent home on the following medications: amlodipine 10 mg po qd, enalapril 5mg PO daily, Aspirin 81 mg po qd, Keflix 500 mg po TID x 7 days, Plavix 75 mg po qd, Gabapentin 800 mg po TID, Lantus 30 units SC HS, Novolin 60 units SC ACBD, pentoxil 400 mg po TID, Crestor 10 mg PO HS, percocet 5/325 2 tabs PO Q4-6H as needed for pain #20. Patient previously taking care of his own wounds before admission. Patient also given scripts for home visiting nurse and home PT. Patient is to return to ED if symptoms worsen.
[2017-01-22 16:54] VITALS: BP 174/82; PULSE 82; TEMP 98.4; O2SAT 99
[2017-01-25] MEDS ORDERED: Piperacillin/Tazobact 3.375 GM in Sodium Chloride 100 ML IVPB SCH (13:15)
--- NOTE | 2017-03-03 14:43 | DS ---
The patient last came with diabetic foot.. The patient was treated for this with IV antibiotics, was seen by Juma Bowen MD
== END 2017-01-22 19:10 | disposition home or self-care (01) | DRG 256 ==
LOC: C.SDS 09:39 → C.9S 13:08 → C.3T 17:29
PROVIDERS: ADMIT Internal Medicine Pulmonary Disease; ATTEND Internal Medicine Pulmonary Disease
PROC: 0Y6X0Z0 Detachment at Right 5th Toe, Complete, Open Approach (ICD-10-PCS; principal; 2017-01-18 11:00)
DX: E10.52 Type 1 diabetes mellitus with diabetic peripheral angiopathy with gangrene (principal); M86.171 Other acute osteomyelitis, right ankle and foot; E10.42 Type 1 diabetes mellitus with diabetic polyneuropathy; E10.69 Type 1 diabetes mellitus with other specified complication; G89.18 Other acute postprocedural pain; M79.2 Neuralgia and neuritis, unspecified; I10 Essential (primary) hypertension; I25.10 Atherosclerotic heart disease of native coronary artery without angina pectoris; E78.00 Pure hypercholesterolemia, unspecified; Z89.422 Acquired absence of other left toe(s); I25.2 Old myocardial infarction; Z79.02 Long term (current) use of antithrombotics/antiplatelets; Z79.4 Long term (current) use of insulin; Z79.82 Long term (current) use of aspirin; Z79.899 Other long term (current) drug therapy; Z87.891 Personal history of nicotine dependence; Z95.5 Presence of coronary angioplasty implant and graft

== ENCOUNTER 2017-01-25 09:55 | Inpatient (IN) | payer MEDICARE ==
[2017-01-25 10:36] VITALS: BMI 38.6
[2017-01-25] MEDS ORDERED: Sodium Chloride 0.9% 1,000 ML IV ONE (11:15)
[2017-01-25] MEDS ORDERED: Lidocaine 2% Inj (20ml) ONE (11:58)
[2017-01-25] MEDS ORDERED: ceFAZolin IV 1 gm in Dextrose 0 GM/0 ML BAG IVPB ONE (11:58)
[2017-01-25] MEDS: Piperacillin/Tazobact 3.375 GM in Sodium Chloride 100 ML IVPB SCH ×2 (14:00→21:33)
[2017-01-25] MEDS ORDERED: Oxycodone/Acetaminophen 5/325 mg Tab PO PRN (14:46)
[2017-01-25 14:55] LABS: HEMOGLOBIN 9.2 g/dL (12.0-18.0); MEAN CELL VOLUME 71.7 fL (80.0-94.0); MEAN CORPUSCULAR HEMOGLOBIN 22.6 pg (27.0-31.0); MEAN CORPUSCULAR HGB CONC 31.6 g/dL (33.0-37.0); MEAN PLATELET VOLUME 7.6 fL (7.2-11.7); RBC 4.08 Mil/uL (4.40-5.90); RED CELL DISTRIBUTION WIDTH 17.3 % (11.5-14.5)
[2017-01-25] MEDS: Vancomycin 1 gm/NS 200 ml 1 GM/200 ML BAG IVPB SCH (15:00)
[2017-01-25 15:08] LABS: GFR AFRICAN-AMERICAN > 60; GFR NON-AFRICAN AMERICAN > 60
[2017-01-25 15:09] LABS: BLOOD UREA NITROGEN 17 mg/dL (9-20); CALCIUM 8.9 mg/dl (8.6-10.4)
[2017-01-25] MEDS: Oxycodone/Acetaminophen 5/325 mg Tab PO PRN ×2 (15:10→21:34)
--- NOTE | 2017-01-25 16:21 | CP.PCM.CON ---
History of Present Illness - History of Present Illness History of Present Illness: 51 yo male with hx of DM, HTN, severe PVD is s/p angioplasty right leg with gangrene and infected fifth digit right foot- had amputation 5th digit for gangrene last week Now with OM same foot / wound dehissence requiring debridement and 5th ray resection will likely need 6 weeks iv rx await OR cultures Past Patient History - Infectious Disease Hx of Infectious Diseases: None - Past Medical History & Family History Past Medical History?: Yes - Past Social History Smoking Status: Unknown If Ever Smoked - CARDIAC Hx Cardiac Disorders: Yes (CAD, stents, [place],) Hx Heart Attack: Yes (3 years ago) Hx Hypercholesterolemia: Yes Hx Hypertension: Yes Hx Peripheral Vascular Disease: Yes - PULMONARY Hx Respiratory Disorders: No - NEUROLOGICAL Hx Neurological Disorder: No - HEENT Hx HEENT Problems: No - RENAL Hx Chronic Kidney Disease: No - ENDOCRINE/METABOLIC Hx Endocrine Disorders: Yes Hx Diabetes Mellitus Type 1: Yes - HEMATOLOGICAL/ONCOLOGICAL Hx Blood Disorders: No - INTEGUMENTARY Hx Dermatological Problems: Yes Other/Comment: wound in the left toe 5TH DIGIT ulcer right foot - MUSCULOSKELETAL/RHEUMATOLOGICAL Hx Musculoskeletal Disorders: Yes Hx Falls: No Hx Unsteady Gait: Yes Other/Comment: HX: OSTEOMYELITIS - GASTROINTESTINAL Hx Gastrointestinal Disorders: No - GENITOURINARY/GYNECOLOGICAL Hx Genitourinary Disorders: No - PSYCHIATRIC Hx Psychophysiologic Disorder: No Hx Substance Use: No - SURGICAL HISTORY Hx Surgeries: Yes Hx Angiogram: Yes Hx Cardiac Catheterization: Yes Hx Coronary Stent: Yes Hx Musculoskeletal Surgery: Yes Hx Orthopedic Surgery: Yes (AMPUTATION) Other/Comment: DEBRIDEMENT FOOT ULCER - ANESTHESIA Hx Anesthesia: Yes Hx Anesthesia Reactions: No Hx Malignant Hyperthermia: No Meds Allergies/Adverse Reactions: Allergies Allergy/AdvReac Type Severity Reaction Status Date / Time No Known Allergies Allergy Verified 11/18/16 12:59 - Medications Medications: Current Medications Acetaminophen (Tylenol 325mg Tab) 650 mg PO Q6 PRN PRN Reason: Pain, Mild (1-3) Piperacillin Sod/Tazobactam (Sod 3.375 gm/ Sodium Chloride) 100 mls @ 200 mls/ hr IVPB Q8H [facility] Last Admin: 01/25/17 14:00 Dose: 100 mls Vancomycin/Sodium Chloride (Vancocin) 1 gm in 200 mls @ 133.333 mls/hr IVPB Q12H [facility] Stop: 01/30/17 14:01 Last Admin: 01/25/17 15:00 Dose: 0 mls Insulin Human Regular (Novolin R) 0 unit SC ACHS [facility] PRN Reason: Protocol Oxycodone/Acetaminophen (Percocet 5/325 Mg Tab) 1 tab PO Q4H PRN PRN Reason: Pain, moderate (4-7) Stop: 01/28/17 14:47 Oxycodone/Acetaminophen (Percocet 5/325 Mg Tab) 2 tab PO Q4H PRN PRN Reason: Pain, severe (8-10) Stop: 01/28/17 14:47 Last Admin: 01/25/17 15:10 Dose: 2 tab Results - Vital Signs Recent Vital Signs: Last Vital Signs Temp 98.0 F 01/25/17 13:05 Pulse 83 01/25/17 13:05 Resp 18 01/25/17 13:05 BP 165/80 H 01/25/17 13:05 Pulse Ox 100 01/25/17 13:05 - Labs Result Diagrams: 01/25/17 14:52 01/25/17 14:52 Labs: Laboratory Results - last 24 hr 01/25/17 01/25/17 01/25/17 10:48 11:49 14:52 WBC 13.0 H RBC 4.08 L Hgb 9.2 L Hct 29.2 L MCV 71.7 L MCH 22.6 L MCHC 31.6 L RDW 17.3 H Plt Count 293 MPV 7.6 Sodium Potassium Chloride Carbon Dioxide Anion Gap BUN Creatinine Est GFR ( Amer) Est GFR (Non-Af Amer) POC Glucose (mg/dL) 395 H 390 H Random Glucose Calcium 01/25/17 14:52 WBC RBC Hgb Hct MCV MCH MCHC RDW Plt Count MPV Sodium 138 Potassium 4.6 Chloride 101 Carbon Dioxide 24 Anion Gap 17 BUN 17 Creatinine 1.2 Est GFR ( Amer) > 60 Est GFR (Non-Af Amer) > 60 POC Glucose (mg/dL) Random Glucose 290 H Calcium 8.9
[2017-01-25] MEDS: (Novolin R) Insulin Human Regular 100 units/ml vial SC SCH ×2 (17:46→21:34)
--- NOTE | 2017-01-25 23:51 | OP ---
PROCEDURE DATE: 01/25/2017 SURGEON: Dr. Lockhart. ANESTHESIA: Local only. PREOPERATIVE DIAGNOSIS: Wound dehiscence status post amputation of fifth digit. DESCRIPTION OF PROCEDURE: Griffin Granados is a 51-year-old black male after being seen this morning in the office of Dr. Lockhart was taken back to the OR, placed on the operating room table, and under local anesthesia, sterile prep and a radical incision and drainage with excision of gangrene and necrotic tissues above the lateral aspect of the fifth metatarsal base and distal aspect of the right foot. Copious amount of sterile irrigation with pulse lavage and peroxide. All bleeders when encountered were hyfrecated and controlled, packed open with a 2-inch Liana soaked with peroxide, 4 x 4s, Liana and taped. The patient tolerated the procedure and anesthesia well. Vital signs remained stable throughout the procedure. Immediate postoperative prognosis is guarded due to history of small vessel disease, cellulitis and infection. He will be placed under the service of Dr. Bowen and Dr. Hu consulted for infectious disease. Postoperative MRI to be ordered to determine the extent of potential osteomyelitis above the fourth metatarsal. Postoperative orders for pain management and bedrest will be obtained. Kade Lockhart DPM
[2017-01-26] MEDS: Oxycodone/Acetaminophen 5/325 mg Tab PO PRN ×4 (01:41→17:09)
[2017-01-26] MEDS: Vancomycin 1 gm/NS 200 ml 1 GM/200 ML BAG IVPB SCH ×2 (01:58→13:30)
[2017-01-26] MEDS: Piperacillin/Tazobact 3.375 GM in Sodium Chloride 100 ML IVPB SCH ×3 (05:26→21:53)
[2017-01-26] MEDS: (Novolin R) Insulin Human Regular 100 units/ml vial SC SCH ×4 (08:18→21:52)
--- NOTE | 2017-01-26 12:25 | CP.PCM.CON ---
History of Present Illness - History of Present Illness History of Present Illness: 51 year old male patient seen at bedside POD#1 emergent I&D right foot with revisional partial 5th met resection and POD #8 right foot partial 5th ray resection. Patient seen resting in bed comfortably, AAOx3 and NAD. Patient states that he is experiencing some pain in the right foot after his most recent surgery yesterday. Patient states the nurses cleaned his feet with peroxide and changed his dressings last night. Patient denies F/C/N/V/D/SOB/CP. No other pedal complaints at this time. Review of Systems - Review of Systems All systems: reviewed and no additional remarkable complaints except (per HPI) Past Patient History - Infectious Disease Hx of Infectious Diseases: None - Past Medical History & Family History Past Medical History?: Yes - Past Social History Smoking Status: Former Smoker - CARDIAC Hx Cardiac Disorders: Yes (CAD, stents, [place]) Hx Heart Attack: Yes (3 years ago) Hx Hypercholesterolemia: Yes Hx Hypertension: Yes Hx Peripheral Vascular Disease: Yes - PULMONARY Hx Respiratory Disorders: No - NEUROLOGICAL Hx Neurological Disorder: No - HEENT Hx HEENT Problems: No - RENAL Hx Chronic Kidney Disease: No - ENDOCRINE/METABOLIC Hx Endocrine Disorders: Yes Hx Diabetes Mellitus Type 2: Yes - HEMATOLOGICAL/ONCOLOGICAL Hx Blood Disorders: No - INTEGUMENTARY Hx Dermatological Problems: Yes Other/Comment: Left foot great toe and second toe amputation, left foot 5th toe amputation - MUSCULOSKELETAL/RHEUMATOLOGICAL Hx Musculoskeletal Disorders: Yes Hx Falls: No Hx Unsteady Gait: Yes Other/Comment: HX: OSTEOMYELITIS, Right 5th toe amputation, left forr grat and second toe amputation - GASTROINTESTINAL Hx Gastrointestinal Disorders: No - GENITOURINARY/GYNECOLOGICAL Hx Genitourinary Disorders: No - PSYCHIATRIC Hx Psychophysiologic Disorder: No Hx Substance Use: No - SURGICAL HISTORY Hx Surgeries: Yes Hx Amputation: Yes (Left great and second toe, right 5th toe) Hx Angiogram: Yes Hx Cardiac Catheterization: Yes Hx Coronary Stent: Yes Hx Musculoskeletal Surgery: Yes Hx Orthopedic Surgery: Yes (AMPUTATION) Other/Comment: 01/25 DEBRIDEMENT FOOT ULCER - ANESTHESIA Hx Anesthesia: Yes Hx Anesthesia Reactions: No Hx Malignant Hyperthermia: No Meds Allergies/Adverse Reactions: Allergies Allergy/AdvReac Type Severity Reaction Status Date / Time No Known Allergies Allergy Verified 11/18/16 12:59 - Medications Medications: Current Medications Acetaminophen (Tylenol 325mg Tab) 650 mg PO Q6 PRN PRN Reason: Pain, Mild (1-3) Piperacillin Sod/Tazobactam (Sod 3.375 gm/ Sodium Chloride) 100 mls @ 200 mls/ hr IVPB Q8H [facility] Last Admin: 01/26/17 05:26 Dose: 200 mls/hr Vancomycin/Sodium Chloride (Vancocin) 1 gm in 200 mls @ 133.333 mls/hr IVPB Q12H [facility] Stop: 01/30/17 14:01 Last Admin: 01/26/17 01:58 Dose: 133.333 mls/hr Insulin Human Regular (Novolin R) 0 unit SC ACHS [facility] PRN Reason: Protocol Last Admin: 01/26/17 08:18 Dose: 6 unit Oxycodone/Acetaminophen (Percocet 5/325 Mg Tab) 1 tab PO Q4H PRN PRN Reason: Pain, moderate (4-7) Stop: 01/28/17 14:47 Oxycodone/Acetaminophen (Percocet 5/325 Mg Tab) 2 tab PO Q4H PRN PRN Reason: Pain, severe (8-10) Stop: 01/28/17 14:47 Last Admin: 01/26/17 08:27 Dose: 2 tab Physical Exam - Constitutional Appears: Well, Non-toxic, No Acute Distress - Extremities Exam Additional comments: Dressings to B/L lower extremities clean, dry and intact upon examination. Vasc: DP and PT pulses nonpalpable R foot secondary to edema, palpable 2/4 on L foot. TG warm to warm. CFT <3 seconds x 10 digits Neuro: Gross sensation diminished Derm: Incision to right foot partial 5th ray resection with peroxide-soaked Kerlix packing. No fluctuance noted to álvaro-wound area. No malodor noted. Sanguinous drainage noted to inner dressing. Ulceration to dorsomedial aspect of left foot 1st metatarsal head with granular base. Hyperkeratosis noted to distal rim of ulceration. Minimal serosanguinous drainage noted to L ulceration. Ortho: Pain on palpation of plantar lateral R foot adjacent to surgical site - Neurological Exam Neurological exam: Alert, Oriented x3 - Psychiatric Exam Psychiatric exam: Normal Affect, Normal Mood Results - Vital Signs Recent Vital Signs: Last Vital Signs Temp 98.3 F 01/25/17 23:10 Pulse 80 01/25/17 23:10 Resp 20 01/25/17 23:10 BP 158/77 H 01/26/17 04:41 Pulse Ox 98 01/25/17 23:10 - Labs Result Diagrams: 01/25/17 14:52 01/25/17 14:52 Labs: Laboratory Results - last 24 hr 01/25/17 01/25/17 01/25/17 14:52 14:52 17:21 WBC 13.0 H RBC 4.08 L Hgb 9.2 L Hct 29.2 L MCV 71.7 L MCH 22.6 L MCHC 31.6 L RDW 17.3 H Plt Count 293 MPV 7.6 Sodium 138 Potassium 4.6 Chloride 101 Carbon Dioxide 24 Anion Gap 17 BUN 17 Creatinine 1.2 Est GFR ( Amer) > 60 Est GFR (Non-Af Amer) > 60 POC Glucose (mg/dL) 317 H Random Glucose 290 H Calcium 8.9 01/25/17 01/26/17 01/26/17 21:07 04:05 06:32 WBC RBC Hgb Hct MCV MCH MCHC RDW Plt Count MPV Sodium Potassium Chloride Carbon Dioxide Anion Gap BUN Creatinine Est GFR ( Amer) Est GFR (Non-Af Amer) POC Glucose (mg/dL) 353 H 266 H 279 H Random Glucose Calcium Assessment & Plan - Assessment and Plan (Free Text) Assessment: 51 year old male POD #1 emergent I&D right foot with revisional partial 5th ray resection and POD #8 right foot partial 5th ray resection. Plan: Patient seen and evaluated at bedside Discussed in detail w/ attending, Dr. Diamond Charts, vitals, labs reviewed = afebrile, WBC 13.0 Right foot cleansed with peroxide, packed with peroxide-soaked kerlix and dressed with DSD L foot cleansed with peroxide and DSD applied Patient to continue non-weightbearing with crutches Continue abx per ID = Zosyn, Vancomycin Awaiting MRI results Podiatry will continue to follow while in house
[2017-01-27] MEDS: Vancomycin 1 gm/NS 200 ml 1 GM/200 ML BAG IVPB SCH ×2 (01:16→13:25)
[2017-01-27] MEDS: Piperacillin/Tazobact 3.375 GM in Sodium Chloride 100 ML IVPB SCH ×3 (04:55→21:37)
[2017-01-27] MEDS: (Novolin R) Insulin Human Regular 100 units/ml vial SC SCH ×4 (08:08→21:38)
[2017-01-27] MEDS: Oxycodone/Acetaminophen 5/325 mg Tab PO PRN (11:02)
--- NOTE | 2017-01-27 11:32 | CP.PCM.PN ---
Subjective - Date & Time of Evaluation Date of Evaluation: 01/27/17 Time of Evaluation: 09:45 - Subjective Subjective: 51 year old male patient seen at bedside POD#2 emergent I&D right foot with revisional partial 5th met resection and POD #9 right foot partial 5th ray resection. Patient asleep at time of visit and AAOx3 and NAD. Patient denies any pain in either foot. Patient denies F/C/N/V/D/SOB/CP. No other pedal complaints at this time. Objective - Vital Signs/Intake and Output Vital Signs (last 24 hours): Temp Pulse Resp BP Pulse Ox 98.6 F 69 17 160/82 H 97 01/27/17 07:35 01/27/17 07:35 01/27/17 07:35 01/27/17 07:35 01/27/17 07:35 Intake and Output: 01/27/17 01/27/17 06:59 18:59 Intake Total 400 Balance 400 - Medications Medications: Current Medications Acetaminophen (Tylenol 325mg Tab) 650 mg PO Q6 PRN PRN Reason: Pain, Mild (1-3) Piperacillin Sod/Tazobactam (Sod 3.375 gm/ Sodium Chloride) 100 mls @ 200 mls/ hr IVPB Q8H [facility] Last Admin: 01/27/17 04:55 Dose: 200 mls/hr Vancomycin/Sodium Chloride (Vancocin) 1 gm in 200 mls @ 133.333 mls/hr IVPB Q12H [facility] Stop: 01/30/17 14:01 Last Admin: 01/27/17 01:16 Dose: 133.333 mls/hr Insulin Human Regular (Novolin R) 0 unit SC ACHS [facility] PRN Reason: Protocol Last Admin: 01/27/17 11:23 Dose: 12 unit Oxycodone/Acetaminophen (Percocet 5/325 Mg Tab) 1 tab PO Q4H PRN PRN Reason: Pain, moderate (4-7) Stop: 01/28/17 14:47 Oxycodone/Acetaminophen (Percocet 5/325 Mg Tab) 2 tab PO Q4H PRN PRN Reason: Pain, severe (8-10) Stop: 01/28/17 14:47 Last Admin: 01/27/17 11:02 Dose: 2 tab - Labs Labs: 01/25/17 14:52 01/25/17 14:52 - Constitutional Appears: Well, Non-toxic, No Acute Distress - Extremities Exam Additional comments: Dressings to B/L lower extremities clean, dry and intact upon examination Vasc: DP and PT pulses nonpalpable R foot secondary to edema, palpable 2/4 on L foot. TG warm to warm. CFT <3 seconds to all digits Neuro: Gross sensation diminished Derm: Open ulceration at site of right foot partial 5th ray resection with peroxide-soaked Kerlix packing intact. No fluctuance noted to álvaro-wound area. No malodor noted. Sanguinous drainage noted to inner dressing. 5th metatarsal bone exposed. Ulceration to dorsomedial aspect of left foot 1st metatarsal head with granular base. Hyperkeratosis noted to distal rim of ulceration. Minimal serosanguinous drainage noted on inner dressing with no active drainage Ortho: No tenderness on palpation of plantar lateral R foot adjacent to surgical site. No pain on palpation of L foot. - Neurological Exam Neurological Exam: Alert, Awake, Oriented x3 - Psychiatric Exam Psychiatric exam: Normal Affect, Normal Mood Assessment and Plan - Assessment and Plan (Free Text) Assessment: 51 year old male POD #2 emergent I&D right foot with revisional partial 5th ray resection and POD #9 right foot partial 5th ray resection Plan: Patient seen and evaluated at bedside Discussed in detail w/ attending, Dr. Diamond Charts, vitals, labs reviewed = afebrile, WBC 13.0 Right foot cleansed with peroxide, packed with peroxide-soaked kerlix and dressed with DSD L foot cleansed with peroxide and DSD applied Patient to continue non-weightbearing with crutches Continue abx per ID = Zosyn, Vancomycin Awaiting MRI report Podiatry will continue to follow while in house
--- NOTE | 2017-01-27 16:45 | CP.PCM.PN ---
Subjective - Date & Time of Evaluation Date of Evaluation: 01/27/17 Time of Evaluation: 10:00 - Subjective Subjective: remains bedridden alert afebrile c/o pain Objective - Vital Signs/Intake and Output Vital Signs (last 24 hours): Temp Pulse Resp BP Pulse Ox 98.6 F 69 17 160/82 H 97 01/27/17 07:35 01/27/17 07:35 01/27/17 07:35 01/27/17 07:35 01/27/17 07:35 Intake and Output: 01/27/17 01/27/17 06:59 18:59 Intake Total 400 Balance 400 - Medications Medications: Current Medications Acetaminophen (Tylenol 325mg Tab) 650 mg PO Q6 PRN PRN Reason: Pain, Mild (1-3) Piperacillin Sod/Tazobactam (Sod 3.375 gm/ Sodium Chloride) 100 mls @ 200 mls/ hr IVPB Q8H [facility] Last Admin: 01/27/17 12:34 Dose: 200 mls/hr Vancomycin/Sodium Chloride (Vancocin) 1 gm in 200 mls @ 133.333 mls/hr IVPB Q12H [facility] Stop: 01/30/17 14:01 Last Admin: 01/27/17 13:25 Dose: 133.333 mls/hr Insulin Human Regular (Novolin R) 0 unit SC ACHS [facility] PRN Reason: Protocol Last Admin: 01/27/17 11:23 Dose: 12 unit Oxycodone/Acetaminophen (Percocet 5/325 Mg Tab) 1 tab PO Q4H PRN PRN Reason: Pain, moderate (4-7) Stop: 01/28/17 14:47 Last Admin: 01/27/17 13:23 Dose: 1 tab Oxycodone/Acetaminophen (Percocet 5/325 Mg Tab) 2 tab PO Q4H PRN PRN Reason: Pain, severe (8-10) Stop: 01/28/17 14:47 Last Admin: 01/27/17 11:02 Dose: 2 tab - Labs Labs: 01/25/17 14:52 01/25/17 14:52 - Constitutional Appears: Non-toxic, Chronically Ill - Head Exam Head Exam: NORMOCEPHALIC - Eye Exam Eye Exam: PERRL - ENT Exam ENT Exam: Mucous Membranes Dry - Neck Exam Neck Exam: absent: Lymphadenopathy - Respiratory Exam Respiratory Exam: Decreased Breath Sounds - Cardiovascular Exam Cardiovascular Exam: REGULAR RHYTHM - GI/Abdominal Exam GI & Abdominal Exam: Distended, Soft - Rectal Exam Rectal Exam: Deferred - Exam Exam: NORMAL INSPECTION - Extremities Exam Extremities Exam: absent: Pedal Edema - Back Exam Back Exam: absent: CVA tenderness (L), CVA tenderness (R) - Neurological Exam Neurological Exam: Alert, Awake, Oriented x3 - Psychiatric Exam Psychiatric exam: Normal Mood - Skin Skin Exam: Dry Additional comments: left foot missing toes 1 and 2 right foot s/p 5th ray resection Assessment and Plan - Assessment and Plan (Free Text) Plan: s/p fifth ray resection severe pvd/ dm cont rx for OM x 6weeks
[2017-01-28] MEDS: Vancomycin 1 gm/NS 200 ml 1 GM/200 ML BAG IVPB SCH (02:00)
[2017-01-28] MEDS: Piperacillin/Tazobact 3.375 GM in Sodium Chloride 100 ML IVPB SCH ×3 (05:02→22:00)
[2017-01-28 06:32] LABS: BASO % 0.4 % (0.0-2.0); EOS # 0.2 K/uL (0.0-0.7); EOS % 1.6 % (0.0-4.0); HEMOGLOBIN 9.6 g/dL (12.0-18.0); MEAN CELL VOLUME 70.4 fL (80.0-94.0); MEAN CORPUSCULAR HEMOGLOBIN 23.2 pg (27.0-31.0); MEAN PLATELET VOLUME 7.9 fL (7.2-11.7); MONO # 0.9 K/uL (0.0-0.8); MONO % 8.8 % (0.0-10.0); NEUT % 69.2 % (50.0-75.0); NRBC % 0.1 % (0.0-2.0); RBC 4.13 Mil/uL (4.40-5.90); RED CELL DISTRIBUTION WIDTH 17.1 % (11.5-14.5); WHITE BLOOD COUNT 10.1 K/uL (4.8-10.8)
[2017-01-28 06:51] LABS: ALB/GLOB RATIO 0.9 (1.0-2.1); ALBUMIN 3.3 g/dL (3.5-5.0); ALT/SGPT 50 U/L (21-72); AST/SGOT 19 U/L (17-59); BLOOD UREA NITROGEN 13 mg/dL (9-20); CALCIUM 8.9 mg/dl (8.6-10.4); GFR AFRICAN-AMERICAN > 60; GFR NON-AFRICAN AMERICAN > 60
[2017-01-28] MEDS: (Novolin R) Insulin Human Regular 100 units/ml vial SC SCH ×4 (08:37→21:19)
--- NOTE | 2017-01-28 11:48 | CP.PCM.PN ---
Subjective - Date & Time of Evaluation Date of Evaluation: 01/28/17 Time of Evaluation: 08:00 - Subjective Subjective: afeb on vanco zosyn vre in wound only sens to tigecyl will need to cont tigecyl Objective - Vital Signs/Intake and Output Vital Signs (last 24 hours): Temp Pulse Resp BP Pulse Ox 97.7 F 70 18 152/87 H 97 01/28/17 07:25 01/28/17 07:25 01/28/17 07:25 01/28/17 07:25 01/28/17 07:25 Intake and Output: 01/28/17 01/28/17 06:59 18:59 Output Total 1550 Balance -1550 - Medications Medications: Current Medications Acetaminophen (Tylenol 325mg Tab) 650 mg PO Q6 PRN PRN Reason: Pain, Mild (1-3) Piperacillin Sod/Tazobactam (Sod 3.375 gm/ Sodium Chloride) 100 mls @ 200 mls/ hr IVPB Q8H [facility] Last Admin: 01/28/17 05:02 Dose: 200 mls/hr Vancomycin/Sodium Chloride (Vancocin) 1 gm in 200 mls @ 133.333 mls/hr IVPB Q12H [facility] Stop: 01/30/17 14:01 Last Admin: 01/28/17 02:00 Dose: 133.333 mls/hr Insulin Human Regular (Novolin R) 0 unit SC ACHS [facility] PRN Reason: Protocol Last Admin: 01/28/17 08:37 Dose: 6 unit Oxycodone/Acetaminophen (Percocet 5/325 Mg Tab) 1 tab PO Q4H PRN PRN Reason: Pain, moderate (4-7) Stop: 01/28/17 14:47 Last Admin: 01/27/17 13:23 Dose: 1 tab Oxycodone/Acetaminophen (Percocet 5/325 Mg Tab) 2 tab PO Q4H PRN PRN Reason: Pain, severe (8-10) Stop: 01/28/17 14:47 Last Admin: 01/27/17 11:02 Dose: 2 tab - Labs Labs: 01/28/17 06:17 01/28/17 06:17 - Constitutional Appears: Non-toxic, Chronically Ill - Head Exam Head Exam: NORMOCEPHALIC - Eye Exam Eye Exam: PERRL. absent: Scleral icterus - ENT Exam ENT Exam: Mucous Membranes Dry - Neck Exam Neck Exam: absent: Lymphadenopathy - Respiratory Exam Respiratory Exam: Decreased Breath Sounds, Clear to Ausculation Bilateral - Cardiovascular Exam Cardiovascular Exam: REGULAR RHYTHM - GI/Abdominal Exam GI & Abdominal Exam: Distended, Soft - Rectal Exam Rectal Exam: Deferred - Exam Exam: NORMAL INSPECTION Assessment and Plan - Assessment and Plan (Free Text) Plan: vre from wound switch to tigecyl
--- NOTE | 2017-01-28 11:49 | CP.PCM.PN ---
Subjective - Date & Time of Evaluation Date of Evaluation: 01/28/17 Time of Evaluation: 11:47 - Subjective Subjective: 51 year old male patient seen at bedside POD#3 emergent I&D right foot with revisional partial 5th met resection and POD #10 right foot partial 5th ray resection. Patient asleep at time of visit and AAOx3 and NAD. Patient denies any pain in either foot. Patient denies F/C/N/V/D/SOB/CP. No other pedal complaints at this time. Objective - Vital Signs/Intake and Output Vital Signs (last 24 hours): Temp Pulse Resp BP Pulse Ox 97.7 F 70 18 152/87 H 97 01/28/17 07:25 01/28/17 07:25 01/28/17 07:25 01/28/17 07:25 01/28/17 07:25 Intake and Output: 01/28/17 01/28/17 06:59 18:59 Output Total 1550 Balance -1550 - Medications Medications: Current Medications Acetaminophen (Tylenol 325mg Tab) 650 mg PO Q6 PRN PRN Reason: Pain, Mild (1-3) Piperacillin Sod/Tazobactam (Sod 3.375 gm/ Sodium Chloride) 100 mls @ 200 mls/ hr IVPB Q8H [facility] Last Admin: 01/28/17 05:02 Dose: 200 mls/hr Vancomycin/Sodium Chloride (Vancocin) 1 gm in 200 mls @ 133.333 mls/hr IVPB Q12H [facility] Stop: 01/30/17 14:01 Last Admin: 01/28/17 02:00 Dose: 133.333 mls/hr Insulin Human Regular (Novolin R) 0 unit SC ACHS [place] PRN Reason: Protocol Last Admin: 01/28/17 08:37 Dose: 6 unit Oxycodone/Acetaminophen (Percocet 5/325 Mg Tab) 1 tab PO Q4H PRN PRN Reason: Pain, moderate (4-7) Stop: 01/28/17 14:47 Last Admin: 01/27/17 13:23 Dose: 1 tab Oxycodone/Acetaminophen (Percocet 5/325 Mg Tab) 2 tab PO Q4H PRN PRN Reason: Pain, severe (8-10) Stop: 01/28/17 14:47 Last Admin: 01/27/17 11:02 Dose: 2 tab - Labs Labs: 01/28/17 06:17 01/28/17 06:17 - Constitutional Appears: Well, Non-toxic, No Acute Distress - Extremities Exam Additional comments: Dressings to B/L lower extremities clean, dry and intact upon examination Vasc: DP and PT pulses nonpalpable R foot secondary to edema, palpable 2/4 on L foot. TG warm to warm. CFT <3 seconds to all digits Neuro: Gross sensation diminished Derm: Open ulceration at site of right foot partial 5th ray resection with peroxide-soaked Kerlix packing intact. No fluctuance noted to álvaro-wound area. No malodor noted. Sanguinous drainage noted to inner dressing. 5th metatarsal bone exposed. Ulceration to dorsomedial aspect of left foot 1st metatarsal head with granular base. Hyperkeratosis noted to distal rim of ulceration. Minimal serosanguinous drainage noted on inner dressing with no active drainage Ortho: No tenderness on palpation of plantar lateral R foot adjacent to surgical site. No pain on palpation of L foot. - Neurological Exam Neurological Exam: Alert, Awake, Oriented x3 - Psychiatric Exam Psychiatric exam: Normal Affect, Normal Mood Assessment and Plan - Assessment and Plan (Free Text) Assessment: 51 year old male POD #3 emergent I&D right foot with revisional partial 5th ray resection and POD #10 right foot partial 5th ray resection Plan: Patient seen and evaluated at bedside Discussed in detail w/ attending, Dr. Diamond Charts, vitals, labs reviewed = afebrile, WBC 10.1 Right foot cleansed with peroxide, packed with peroxide-soaked kerlix and dressed with DSD L foot cleansed with peroxide and DSD applied Patient to continue non-weightbearing with crutches Continue abx per ID = Zosyn, Vancomycin Awaiting MRI report, preliminary report shows no acute OM Podiatry will continue to follow while in house
[2017-01-28 12:38] LABS: SQUAMOUS EPITHIAL 1 /hpf (0-5); URINE BILIRUBIN NEGATIVE (NEGATIVE); URINE BLOOD 2+ (NEGATIVE); URINE CLARITY Hazy (Clear); URINE COLOR Yellow (YELLOW); URINE GLUCOSE (UA) 2+ mg/dL (Normal); URINE LEUKOCYTE ESTERASE NEG Leu/uL (Negative); URINE NITRATE NEGATIVE (NEGATIVE); URINE PROTEIN 2+ mg/dL (NEGATIVE); URINE UROBILINOGEN NORMAL mg/dL (0.2-1.0)
[2017-01-28] MEDS: Linezolid 600 mg in D5W 300 ml 600 MG/300 ML BAG IVPB SCH ×2 (13:11→22:30)
--- NOTE | 2017-01-28 13:46 | CP.PCM.PN ---
Subjective - Date & Time of Evaluation Date of Evaluation: 01/28/17 Time of Evaluation: 13:43 - Subjective Subjective: Patient seen and examined at bedside. He is POD#3 for emergent I&D of the right foot with revisional partial 5th met resection and POD #10 for right foot partial 5th ray resection. He denies any pain in the foot. Patient denies F/C/N/ V/D/SOB/CP. Patient states that he has not been getting enough insulin and that his home dose is much greater and that is why his sugars are uncontrolled. Objective - Vital Signs/Intake and Output Vital Signs (last 24 hours): Temp Pulse Resp BP Pulse Ox 97.7 F 70 18 152/87 H 97 01/28/17 07:25 01/28/17 07:25 01/28/17 07:25 01/28/17 07:25 01/28/17 07:25 Intake and Output: 01/28/17 01/28/17 06:59 18:59 Output Total 1550 Balance -1550 - Medications Medications: Current Medications Acetaminophen (Tylenol 325mg Tab) 650 mg PO Q6 PRN PRN Reason: Pain, Mild (1-3) Piperacillin Sod/Tazobactam (Sod 3.375 gm/ Sodium Chloride) 100 mls @ 200 mls/ hr IVPB Q8H [facility] Last Admin: 01/28/17 05:02 Dose: 200 mls/hr Linezolid (Zyvox 600mg/300ml D5w) 600 mg in 300 mls @ 200 mls/hr IVPB Q12 [place] Last Admin: 01/28/17 13:11 Dose: 200 mls/hr Insulin Human Isoph/Insulin Regular (Novolin 70/30 (70/30 Units/Ml) 10 Ml) 50 units SC BID [place] Insulin Human Regular (Novolin R) 0 unit SC ACHS [place] PRN Reason: Protocol Last Admin: 01/28/17 13:00 Dose: 8 unit Oxycodone/Acetaminophen (Percocet 5/325 Mg Tab) 1 tab PO Q4H PRN PRN Reason: Pain, moderate (4-7) Stop: 01/28/17 14:47 Last Admin: 01/27/17 13:23 Dose: 1 tab Oxycodone/Acetaminophen (Percocet 5/325 Mg Tab) 2 tab PO Q4H PRN PRN Reason: Pain, severe (8-10) Stop: 01/28/17 14:47 Last Admin: 01/27/17 11:02 Dose: 2 tab - Labs Labs: 01/28/17 06:17 01/28/17 06:17 - Constitutional Appears: No Acute Distress - Head Exam Head Exam: ATRAUMATIC - Eye Exam Eye Exam: EOMI, Normal appearance - ENT Exam ENT Exam: Mucous Membranes Moist - Respiratory Exam Respiratory Exam: Clear to Ausculation Bilateral, NORMAL BREATHING PATTERN - Cardiovascular Exam Cardiovascular Exam: REGULAR RHYTHM - GI/Abdominal Exam GI & Abdominal Exam: Soft. absent: Tenderness - Extremities Exam Additional comments: extremity has surgical dressing in place with appears c/d/i - Neurological Exam Neurological Exam: Alert, Awake, Oriented x3 Assessment and Plan - Assessment and Plan (Free Text) Plan: right lower extremity wounds POD#3 from I+D POD#10 partial rescetion of 5th ray Enterococcus positive cultures Abx switched to Lenezolid due to sensitivities ID recommending 6 weeks of abx therapy Order placed for PICC line Oxycodon/tylenol prn for pain IDDM insulin dose increase to 50units novolin 70/30 BID and high dose sliding scale Prophylaxis pepcid
--- NOTE | 2017-01-28 13:46 | MRI ---
MRI right foot History: Status post right 5th metatarsal resection. Evaluate osteomyelitis of the 4th digit. Comparison: X-ray dated 01/18/2017 Technique: Multi-echo multiplanar sequences were performed through the right foot without the use of intravenous contrast. Findings: Resection of the 5th digit to the mid metatarsal shaft. Bony margins are sharp with normal marrow signal intensity. Mild patchy reactive bone marrow edema seen at the lateral 4th metatarsal head best seen on series 8, image 24 without gross corresponding T1 signal abnormality. These changes may represent some reactive edema; however subtle early acute and or developing acute osteomyelitic changes cannot entirely be excluded. Clinical correlation. Additional mild patchy reactive edema at the base of the 4th proximal phalanx. Hallux valgus deformity with moderate degenerative changes noted at the 1st MTP joint space with joint space narrowing, subchondral sclerosis, and osteophyte formation. Minimal nonspecific reactive edema seen at the 1st distal phalanx with increased STIR signal best seen on series 4, image 16. Clinical correlation. Mild patchy reactive edema seen at the lateral aspect of the cuboid bone. Osteochondral change seen more medially at the medial base of the cuboid bone. Diffuse mild soft tissue swelling. Impression: 1. Resection of the 5th digit to the mid metatarsal shaft. Bony margins are sharp with normal marrow signal intensity. 2. Mild patchy reactive bone marrow edema seen at the lateral 4th metatarsal head best seen on series 8, image 24 without gross corresponding T1 signal abnormality. These changes may represent some reactive edema; however subtle early acute and or developing acute osteomyelitic changes cannot entirely be excluded. Clinical correlation. Additional mild patchy reactive edema at the base of the 4th proximal phalanx. Follow-up MRI may be helpful if clinically indicated. 3. Hallux valgus deformity with moderate degenerative changes noted at the 1st MTP joint space with joint space narrowing, subchondral sclerosis, and osteophyte formation. 4. Minimal nonspecific reactive edema seen at the 1st distal phalanx with increased STIR signal best seen on series 4, image 16. Clinical correlation. 5. Mild patchy reactive edema seen at the lateral aspect of the cuboid bone. 6. Osteochondral change seen more medially at the medial base of the cuboid bone. 7. Diffuse mild soft tissue swelling. These findings were preliminarily reported at 12:53 p.m. on 01/26/[address] Steve Cowan from [facility].
[2017-01-28] MEDS: (Novolin 70/30) NPH/Regular 70/30 Units/ml 10 ml vial SC SCH (17:34)
[2017-01-28] MEDS: Oxycodone/Acetaminophen 5/325 mg Tab PO PRN (19:23)
[2017-01-29] MEDS: Piperacillin/Tazobact 3.375 GM in Sodium Chloride 100 ML IVPB SCH ×3 (04:52→20:35)
[2017-01-29 06:28] LABS: BASO # 0.1 K/uL (0.0-0.2); BASO % 0.6 % (0.0-2.0); EOS # 0.2 K/uL (0.0-0.7); EOS % 1.9 % (0.0-4.0); HEMOGLOBIN 9.6 g/dL (12.0-18.0); LYMPH % 19.9 % (20.0-40.0); MEAN CELL VOLUME 70.2 fL (80.0-94.0); MEAN CORPUSCULAR HEMOGLOBIN 22.7 pg (27.0-31.0); MEAN CORPUSCULAR HGB CONC 32.3 g/dL (33.0-37.0); MONO # 0.9 K/uL (0.0-0.8); NEUT # 6.7 K/uL (1.8-7.0); NEUT % 68.6 % (50.0-75.0); RBC 4.23 Mil/uL (4.40-5.90); RED CELL DISTRIBUTION WIDTH 17.2 % (11.5-14.5); WHITE BLOOD COUNT 9.8 K/uL (4.8-10.8)
[2017-01-29 06:52] LABS: ALB/GLOB RATIO 0.9 (1.0-2.1); ALBUMIN 3.1 g/dL (3.5-5.0); ALT/SGPT 37 U/L (21-72); AST/SGOT 12 U/L (17-59); BLOOD UREA NITROGEN 14 mg/dL (9-20); CALCIUM 8.8 mg/dl (8.6-10.4); GFR AFRICAN-AMERICAN > 60; GFR NON-AFRICAN AMERICAN > 60
[2017-01-29] MEDS: (Novolin R) Insulin Human Regular 100 units/ml vial SC SCH ×4 (08:30→21:16)
--- NOTE | 2017-01-29 09:23 | CP.PCM.PN ---
Subjective - Date & Time of Evaluation Date of Evaluation: 01/29/17 Time of Evaluation: 09:23 - Subjective Subjective: 51 year old male patient seen at bedside POD#4 emergent I&D right foot with revisional partial 5th met resection and POD #11 right foot partial 5th ray resection. Patient was seen resting comfortably in bed and AAOx3 and NAD. Patient denies any pain in either foot. Patient denies F/C/N/V/D/SOB/CP. No other pedal complaints at this time. He is aware that tomorrow he is going to the OR for a partial 4th and 5th ray resection to the right foot. Objective - Vital Signs/Intake and Output Vital Signs (last 24 hours): Temp Pulse Resp BP Pulse Ox 98.5 F 75 18 162/76 H 97 01/29/17 08:49 01/29/17 08:49 01/29/17 08:49 01/29/17 08:49 01/29/17 08:49 Intake and Output: 01/29/17 01/29/17 06:59 18:59 Intake Total 620 Output Total 1100 Balance -480 - Medications Medications: Current Medications Acetaminophen (Tylenol 325mg Tab) 650 mg PO Q6 PRN PRN Reason: Pain, Mild (1-3) Famotidine (Pepcid) 20 mg PO BID [facility] Last Admin: 01/28/17 17:35 Dose: 20 mg Piperacillin Sod/Tazobactam (Sod 3.375 gm/ Sodium Chloride) 100 mls @ 200 mls/ hr IVPB Q8H [place] Last Admin: 01/29/17 04:52 Dose: 200 mls/hr Linezolid (Zyvox 600mg/300ml D5w) 600 mg in 300 mls @ 200 mls/hr IVPB Q12 [place] Last Admin: 01/28/17 22:30 Dose: 200 mls/hr Insulin Human Isoph/Insulin Regular (Novolin 70/30 (70/30 Units/Ml) 10 Ml) 50 units SC BID [place] Last Admin: 01/28/17 17:34 Dose: 50 units Insulin Human Regular (Novolin R) 0 unit SC ACHS [place] PRN Reason: Protocol Last Admin: 01/28/17 21:19 Dose: Not Given Oxycodone/Acetaminophen (Percocet 5/325 Mg Tab) 1 tab PO Q4H PRN PRN Reason: Pain, moderate (4-7) Stop: 01/31/17 18:55 Oxycodone/Acetaminophen (Percocet 5/325 Mg Tab) 2 tab PO Q4H PRN PRN Reason: Pain, severe (8-10) Stop: 01/31/17 18:56 Last Admin: 01/28/17 19:23 Dose: 2 tab - Labs Labs: 01/29/17 06:22 01/29/17 06:22 - Constitutional Appears: Well, Non-toxic, No Acute Distress - Extremities Exam Additional comments: Dressings to B/L lower extremities clean, dry and intact upon examination Vasc: DP and PT pulses non-palpable R foot secondary to edema, palpable 2/4 on L foot. TG warm to warm. CFT <3 seconds to all digits Neuro: Gross sensation diminished Derm: Open ulceration at site of right foot partial 5th ray resection, with 5th metatarsal bone exposed. No fluctuance noted to álvaro-wound area. No malodor noted. Sanguinous drainage noted to inner dressing. Ulceration to dorsomedial aspect of left foot 1st metatarsal head with granular base. Hyperkeratosis noted to distal rim of ulceration. Minimal serosanguinous drainage noted on inner dressing with no active drainage Ortho: No tenderness on palpation of plantar lateral R foot adjacent to surgical site. No pain on palpation of L foot. - Neurological Exam Neurological Exam: Alert, Awake, Oriented x3 - Psychiatric Exam Psychiatric exam: Normal Affect, Normal Mood Assessment and Plan - Assessment and Plan (Free Text) Assessment: 51 year old male POD #4 emergent I&D right foot with revisional partial 5th ray resection and POD #11 right foot partial 5th ray resection Plan: Patient examined and evaluated at bedside Discussed in detail w/ attending, Dr. Diamond Charts, vitals, labs reviewed Right foot cleansed with peroxide, packed with peroxide-soaked kerlix and dressed with DSD Left foot cleansed with peroxide and DSD applied Patient to continue non-weightbearing with crutches Continue abx per ID = Zosyn, Linezolid Patient to OR tomorrow at 9 am for right partial 4th and 5th ray resection Patient to be NPO after midnight Podiatry will continue to follow while in house
[2017-01-29] MEDS: (Novolin 70/30) NPH/Regular 70/30 Units/ml 10 ml vial SC SCH ×2 (10:07→18:23)
[2017-01-29] MEDS: Oxycodone/Acetaminophen 5/325 mg Tab PO PRN ×3 (10:07→21:15)
--- NOTE | 2017-01-29 10:28 | CP.PCM.PN ---
Subjective - Date & Time of Evaluation Date of Evaluation: 01/29/17 Time of Evaluation: 09:00 - Subjective Subjective: seen on rounds denies fever or chills iv rx renewed Objective - Vital Signs/Intake and Output Vital Signs (last 24 hours): Temp Pulse Resp BP Pulse Ox 98.5 F 75 18 162/76 H 97 01/29/17 08:49 01/29/17 08:49 01/29/17 08:49 01/29/17 08:49 01/29/17 08:49 Intake and Output: 01/29/17 01/29/17 06:59 18:59 Intake Total 620 Output Total 1100 Balance -480 - Medications Medications: Current Medications Acetaminophen (Tylenol 325mg Tab) 650 mg PO Q6 PRN PRN Reason: Pain, Mild (1-3) Famotidine (Pepcid) 20 mg PO BID [facility] Last Admin: 01/29/17 10:06 Dose: 20 mg Piperacillin Sod/Tazobactam (Sod 3.375 gm/ Sodium Chloride) 100 mls @ 200 mls/ hr IVPB Q8H [facility] Last Admin: 01/29/17 04:52 Dose: 200 mls/hr Linezolid (Zyvox 600mg/300ml D5w) 600 mg in 300 mls @ 200 mls/hr IVPB Q12 [facility] Last Admin: 01/29/17 10:06 Dose: 200 mls/hr Insulin Human Isoph/Insulin Regular (Novolin 70/30 (70/30 Units/Ml) 10 Ml) 50 units SC BID [facility] Last Admin: 01/29/17 10:07 Dose: 50 units Insulin Human Regular (Novolin R) 0 unit SC ACHS [place] PRN Reason: Protocol Last Admin: 01/29/17 08:30 Dose: Not Given Oxycodone/Acetaminophen (Percocet 5/325 Mg Tab) 1 tab PO Q4H PRN PRN Reason: Pain, moderate (4-7) Stop: 01/31/17 18:55 Oxycodone/Acetaminophen (Percocet 5/325 Mg Tab) 2 tab PO Q4H PRN PRN Reason: Pain, severe (8-10) Stop: 01/31/17 18:56 Last Admin: 01/29/17 10:07 Dose: 2 tab - Labs Labs: 01/29/17 06:22 01/29/17 06:22 - Constitutional Appears: Non-toxic, Chronically Ill - Head Exam Head Exam: NORMOCEPHALIC - Eye Exam Eye Exam: PERRL. absent: Scleral icterus - ENT Exam ENT Exam: Mucous Membranes Dry - Neck Exam Neck Exam: absent: Lymphadenopathy - Respiratory Exam Respiratory Exam: Decreased Breath Sounds, Clear to Ausculation Bilateral - Cardiovascular Exam Cardiovascular Exam: REGULAR RHYTHM - GI/Abdominal Exam GI & Abdominal Exam: Distended - Exam Exam: NORMAL INSPECTION - Extremities Exam Extremities Exam: Pedal Edema, Tenderness. absent: Calf Tenderness Additional comments: Vasc: DP and PT pulses nonpalpable R foot secondary to edema, palpable 2/4 on L foot. TG warm to warm. CFT <3 seconds to all digits Neuro: Gross sensation diminished Derm: Open ulceration at site of right foot partial 5th ray resection with peroxide-soaked Kerlix packing intact. No fluctuance noted to álvaro-wound area. No malodor noted. Sanguinous drainage noted to inner dressing. 5th metatarsal bone exposed. Ulceration to dorsomedial aspect of left foot 1st metatarsal head with granular base. Hyperkeratosis noted to distal rim of ulceration. Minimal serosanguinous drainage noted on inner dressing with no active drainage Ortho: No tenderness on palpation of plantar lateral R foot adjacent to surgical site. No pain on palpation of L foot. - Back Exam Back Exam: absent: CVA tenderness (L), CVA tenderness (R) - Neurological Exam Neurological Exam: Alert, Awake, Oriented x3 - Psychiatric Exam Psychiatric exam: Normal Mood - Skin Skin Exam: Dry Assessment and Plan (1) Diabetic foot ulcer Status: Acute (2) Gangrene of right foot Status: Acute (3) Osteomyelitis due to type 2 diabetes mellitus Status: Acute - Assessment and Plan (Free Text) Assessment: exposed bone right foot wound growing VRE Has OM by definiton may need further debridement and/ or amputation prognodsis for limb salvage is guarded
[2017-01-29] MEDS: Linezolid 600 mg in D5W 300 ml 600 MG/300 ML BAG IVPB SCH ×2 (11:00→21:16)
--- NOTE | 2017-01-29 13:47 | PN ---
DATE: 01/29/2017 Patient is seen at bedside at 11:30 on 01/29/2017. Upon removal of the dressing on his right foot, it was noticed that there is gross gangrene and ischemia at the prior debridement site, which was carried out this past Saturday. During the procedure on Saturday, it was noted that the patient had what appeared to be adequate circulation about this operative site. However, this morning, the grows gangrene with called necrotic plantar flap and signs of necrosis of the head of the fourth metatarsal and fourth digit. Patient is scheduled for revision of prior amputation site and removal of the fourth digit and fourth metatarsal head and for removal of all diseased and necrotic tissues. Patient will be taken back to the OR on the 01/30/2017 and at that time, better application of the circulatory status can be appreciated. Patient was seen in the presence of Dr. Quiñonez and he agrees the need for the surgery. Kade Lockhart DPM
--- NOTE | 2017-01-29 15:41 | CP.PCM.PN ---
Subjective - Date & Time of Evaluation Date of Evaluation: 01/29/17 Time of Evaluation: 15:40 - Subjective Subjective: Medicine Progress note for Dr. Bowen's Service Patient seen and examined at bedside. He is POD#4 for emergent I&D of the right foot with revisional partial 5th met resection and POD #11 for right foot partial 5th ray resection. He denies any pain in the foot. Patient denies F/C/N/ V/D/SOB/CP. His sugars are continue to be uncontrolled despite addition of 50 units basal insulin. He was seen by podiatry who is planning for OR tomorrow. Objective - Vital Signs/Intake and Output Vital Signs (last 24 hours): Temp Pulse Resp BP Pulse Ox 98.5 F 72 18 133/61 97 01/29/17 08:49 01/29/17 14:30 01/29/17 08:49 01/29/17 14:30 01/29/17 08:49 Intake and Output: 01/29/17 01/29/17 06:59 18:59 Intake Total 620 Output Total 1100 Balance -480 - Medications Medications: Current Medications Acetaminophen (Tylenol 325mg Tab) 650 mg PO Q6 PRN PRN Reason: Pain, Mild (1-3) Famotidine (Pepcid) 20 mg PO BID [facility] Last Admin: 01/29/17 10:06 Dose: 20 mg Piperacillin Sod/Tazobactam (Sod 3.375 gm/ Sodium Chloride) 100 mls @ 200 mls/ hr IVPB Q8H [facility] Last Admin: 01/29/17 14:30 Dose: 200 mls/hr Linezolid (Zyvox 600mg/300ml D5w) 600 mg in 300 mls @ 200 mls/hr IVPB Q12 [facility] Last Admin: 01/29/17 11:00 Dose: 200 mls/hr Insulin Human Isoph/Insulin Regular (Novolin 70/30 (70/30 Units/Ml) 10 Ml) 50 units SC BID [facility] Last Admin: 01/29/17 10:07 Dose: 50 units Insulin Human Regular (Novolin R) 0 unit SC ACHS [place] PRN Reason: Protocol Last Admin: 01/29/17 13:29 Dose: 6 unit Oxycodone/Acetaminophen (Percocet 5/325 Mg Tab) 1 tab PO Q4H PRN PRN Reason: Pain, moderate (4-7) Stop: 01/31/17 18:55 Oxycodone/Acetaminophen (Percocet 5/325 Mg Tab) 2 tab PO Q4H PRN PRN Reason: Pain, severe (8-10) Stop: 01/31/17 18:56 Last Admin: 01/29/17 14:33 Dose: 2 tab - Labs Labs: 01/29/17 06:22 01/29/17 06:22 - Constitutional Appears: No Acute Distress - Head Exam Head Exam: NORMAL INSPECTION - Eye Exam Eye Exam: EOMI, Normal appearance - ENT Exam ENT Exam: Mucous Membranes Moist - Respiratory Exam Respiratory Exam: Clear to Ausculation Bilateral, NORMAL BREATHING PATTERN - Cardiovascular Exam Cardiovascular Exam: REGULAR RHYTHM - GI/Abdominal Exam GI & Abdominal Exam: Soft. absent: Distended, Tenderness - Extremities Exam Additional comments: dressing c/d/i - Neurological Exam Neurological Exam: Alert, Awake, Oriented x3 Assessment and Plan - Assessment and Plan (Free Text) Plan: right lower extremity wounds POD#4 from I+D POD#11 partial rescetion of 5th ray MRI completed- osteogenic changes noted- see report for detailed summary Enterococcus positive cultures- contact precautions taken Abx switched to Lenezolid due to sensitivities on 01/28 Continue with zosyn started 01/25 ID recommending 6 weeks of abx therapy PICC line ordered for long-term antibiotics Oxycodon/tylenol prn for pain Patient is planned to go to OR tomorrow as per podiatry NPO at midnight Sugars have been uncontrolled monitor AM labs prior to OR IDDM insulin dose increased to 50units novolin 70/30 TID and high dose sliding scale Prophylaxis pepcid Case discussed with Dr. Bowen. All management as per Dr. Bowen.
[2017-01-30] MEDS: Piperacillin/Tazobact 3.375 GM in Sodium Chloride 100 ML IVPB SCH ×3 (05:07→22:27)
[2017-01-30 06:50] LABS: BASO # 0.1 K/uL (0.0-0.2); BASO % 1.1 % (0.0-2.0); EOS # 0.2 K/uL (0.0-0.7); EOS % 1.6 % (0.0-4.0); HEMOGLOBIN 9.4 g/dL (12.0-18.0); LYMPH # 2.1 K/uL (1.0-4.3); LYMPH % 18.5 % (20.0-40.0); MEAN CELL VOLUME 70.8 fL (80.0-94.0); MEAN CORPUSCULAR HEMOGLOBIN 22.4 pg (27.0-31.0); MEAN CORPUSCULAR HGB CONC 31.7 g/dL (33.0-37.0); MEAN PLATELET VOLUME 8.1 fL (7.2-11.7); MONO # 0.9 K/uL (0.0-0.8); MONO % 7.9 % (0.0-10.0); NEUT # 7.9 K/uL (1.8-7.0); NEUT % 70.9 % (50.0-75.0); RBC 4.2 Mil/uL (4.40-5.90); RED CELL DISTRIBUTION WIDTH 17.3 % (11.5-14.5); WHITE BLOOD COUNT 11.1 K/uL (4.8-10.8)
[2017-01-30 07:03] LABS: ALB/GLOB RATIO 0.9 (1.0-2.1); ALBUMIN 3.3 g/dL (3.5-5.0); ALT/SGPT 30 U/L (21-72); AST/SGOT 18 U/L (17-59); BLOOD UREA NITROGEN 15 mg/dL (9-20); GFR AFRICAN-AMERICAN > 60; GFR NON-AFRICAN AMERICAN 58
[2017-01-30 07:14] LABS: INR 1.3; PROTHROMBIN TIME 14.9 SECONDS (9.7-12.2)
--- NOTE | 2017-01-30 08:32 | CP.PCM.PN ---
Subjective - Date & Time of Evaluation Date of Evaluation: 01/30/17 Time of Evaluation: 08:33 - Subjective Subjective: 51 year old male was seen at bedside this morning for right foot amputation of the lateral aspect with Dr. Diamond. NPO status confirmed. Patient is NAD and AAOx3, denies n/v/f/c/sob/cp. Objective - Vital Signs/Intake and Output Vital Signs (last 24 hours): Temp Pulse Resp BP Pulse Ox 98.4 F 71 18 133/79 97 01/30/17 07:40 01/30/17 07:40 01/30/17 07:40 01/29/17 23:20 01/30/17 07:40 Intake and Output: 01/30/17 01/30/17 06:59 18:59 Intake Total 500 Output Total 450 Balance 50 - Medications Medications: Current Medications Acetaminophen (Tylenol 325mg Tab) 650 mg PO Q6 PRN PRN Reason: Pain, Mild (1-3) Famotidine (Pepcid) 20 mg PO BID [facility] Last Admin: 01/29/17 18:23 Dose: 20 mg Piperacillin Sod/Tazobactam (Sod 3.375 gm/ Sodium Chloride) 100 mls @ 200 mls/ hr IVPB Q8H [facility] Last Admin: 01/30/17 05:07 Dose: 200 mls/hr Linezolid (Zyvox 600mg/300ml D5w) 600 mg in 300 mls @ 200 mls/hr IVPB Q12 [facility] Last Admin: 01/29/17 21:16 Dose: 200 mls/hr Insulin Human Isoph/Insulin Regular (Novolin 70/30 (70/30 Units/Ml) 10 Ml) 50 units SC TID [facility] Last Admin: 01/29/17 18:23 Dose: 50 units Insulin Human Regular (Novolin R) 0 unit SC ACHS [place] PRN Reason: Protocol Last Admin: 01/29/17 21:16 Dose: Not Given Oxycodone/Acetaminophen (Percocet 5/325 Mg Tab) 1 tab PO Q4H PRN PRN Reason: Pain, moderate (4-7) Stop: 01/31/17 18:55 Last Admin: 01/29/17 21:15 Dose: 1 tab Oxycodone/Acetaminophen (Percocet 5/325 Mg Tab) 2 tab PO Q4H PRN PRN Reason: Pain, severe (8-10) Stop: 01/31/17 18:56 Last Admin: 01/29/17 14:33 Dose: 2 tab - Labs Labs: 01/30/17 06:33 01/30/17 06:33 PT 14.9 SECONDS (9.7-12.2) H 01/30/17 06:33 INR 1.3 01/30/17 06:33 APTT 31 SECONDS (21-34) 01/30/17 06:33 - Constitutional Appears: Well, Non-toxic, No Acute Distress - Extremities Exam Additional comments: dressings c/d/i to Right and left lower extremities - Neurological Exam Neurological Exam: Alert, Awake, Oriented x3 - Psychiatric Exam Psychiatric exam: Normal Affect, Normal Mood Assessment and Plan - Assessment and Plan (Free Text) Assessment: 51 year old male for right foot amputation of lateral aspect Plan: Pt was seen and examined Pt NPO status was confirmed Pt has exhausted all conservative treatment at this time and is opting for surgical intervention Pt was explained procedure and post-operative course All pt's questions were answered to satisfaction No guarantees were made Pt understands all risks, benefits and complications of procedure Podiatry will continue to follow patient while in house
[2017-01-30] MEDS ORDERED: Bacitracin 50,000 UNIT in Sodium Chloride 0.9% Irrig 1,000 ML IR SCH (08:41)
[2017-01-30] MEDS: (Novolin R) Insulin Human Regular 100 units/ml vial SC SCH ×4 (08:53→22:24)
[2017-01-30] MEDS ORDERED: Lidocaine Hydrochloride 5 ML INJ ONE (08:54)
[2017-01-30] MEDS ORDERED: Bupivacaine HCl 0.5% PF (10 ml) Inj ONE (08:56)
[2017-01-30] MEDS ORDERED: Lidocaine 1% Inj (20ml) ONE (08:57)
[2017-01-30] MEDS: (Novolin 70/30) NPH/Regular 70/30 Units/ml 10 ml vial SC SCH ×3 (09:00→17:46)
[2017-01-30] MEDS ORDERED: Propofol 10 mg/ml Inj (20 ML) ONE ×2 (09:03→09:55)
[2017-01-30] MEDS ORDERED: Midazolam 2 MG/2 ML VIAL ONE ×2 (09:03→09:54)
[2017-01-30] MEDS: Linezolid 600 mg in D5W 300 ml 600 MG/300 ML BAG IVPB SCH ×3 (10:00→22:29)
[2017-01-30] MEDS ORDERED: HYDROmorphone 0.5 mg/0.5 ml ISec IVP PRN (10:25)
--- NOTE | 2017-01-30 10:36 | PCM.SURG1 ---
Surgeon's Initial Post Op Note - Surgeon's Notes Surgeon: Dr. Diamond DPM Mechanical Maintenance Supervisor: Dr. Crouch DPM PGY-2 Type of Anesthesia: IV Sedation, Local Anesthesia Administered By: [facility] Pre-Operative Diagnosis: gangrene of right foot Operative Findings: see dictation Post-Operative Diagnosis: same Operation Performed: amputation of lateral aspect of right foot Specimen/Specimens Removed: lateral right foot gangrene Estimated Blood Loss: EBL {In ML}: 10 Blood Products Given: N/A Drains Used: No Drains Post-Op Condition: Good Date of Surgery/Procedure: 01/30/17 Time of Surgery/Procedure: 10:36
--- NOTE | 2017-01-30 11:08 | RAD ---
PROCEDURE: Right Foot Radiographs. HISTORY: s/p right foot surgery COMPARISON: 01/18/2017 FINDINGS: BONES: Status post amputation 4th and 5th digits at the tarsal-metatarsal articulation. There has been resection of a portion of the articulating cuboid. Cuneiform superior intact. There is no fracture. The remaining visualized osseous structures are unremarkable. JOINTS: As above SOFT TISSUES: Vascular calcifications are noted. OTHER FINDINGS: None. IMPRESSION: Amputation 4th and 5th digit with resection of distal aspect of cuboid.
[2017-01-30] MEDS: Oxycodone/Acetaminophen 5/325 mg Tab PO PRN ×3 (13:03→20:00)
--- NOTE | 2017-01-30 13:34 | CP.PCM.PN ---
Subjective - Date & Time of Evaluation Date of Evaluation: 01/30/17 Time of Evaluation: 07:25 - Subjective Subjective: PGY [address] Bowen: Patient seen and examined at bedside. He is s/p amputation of lateral aspect of right foot. Pain is controlled with medications. Patient denies F/C/N/V/D/SOB /CP. His sugars are continue to be uncontrolled. He states he is adhering to his diet and that he is not eating food that his family brings. He has no other complaints. Objective - Vital Signs/Intake and Output Vital Signs (last 24 hours): Temp Pulse Resp BP Pulse Ox 97.5 F L 77 18 129/76 97 01/30/17 11:39 01/30/17 13:02 01/30/17 11:39 01/30/17 13:02 01/30/17 11:39 Intake and Output: 01/30/17 01/30/17 06:59 18:59 Intake Total 500 300 Output Total 450 Balance 50 300 - Medications Medications: Current Medications Acetaminophen (Tylenol 325mg Tab) 650 mg PO Q6 PRN PRN Reason: Pain, Mild (1-3) Famotidine (Pepcid) 20 mg PO BID [facility] Last Admin: 01/30/17 12:03 Dose: 20 mg Hydromorphone HCl (Dilaudid) 0.5 mg IVP Q10M PRN PRN Reason: Pain, moderate (4-7) Piperacillin Sod/Tazobactam (Sod 3.375 gm/ Sodium Chloride) 100 mls @ 200 mls/ hr IVPB Q8H [facility] Last Admin: 01/30/17 05:07 Dose: 200 mls/hr Linezolid (Zyvox 600mg/300ml D5w) 600 mg in 300 mls @ 200 mls/hr IVPB Q12 [facility] Last Admin: 01/30/17 10:00 Dose: 400 mls Insulin Human Isoph/Insulin Regular (Novolin 70/30 (70/30 Units/Ml) 10 Ml) 50 units SC TID [facility] Last Admin: 01/30/17 09:00 Dose: Not Given Insulin Human Regular (Novolin R) 0 unit SC ACHS [facility] PRN Reason: Protocol Last Admin: 01/30/17 12:03 Dose: 8 unit Oxycodone/Acetaminophen (Percocet 5/325 Mg Tab) 1 tab PO Q4H PRN PRN Reason: Pain, moderate (4-7) Stop: 01/31/17 18:55 Last Admin: 01/29/17 21:15 Dose: 1 tab Oxycodone/Acetaminophen (Percocet 5/325 Mg Tab) 2 tab PO Q4H PRN PRN Reason: Pain, severe (8-10) Stop: 01/31/17 18:56 Last Admin: 01/30/17 13:03 Dose: 2 tab Sodium Hypochlorite (Dakins Solution 0.125%) 0 appl TOP DAILY [facility] - Labs Labs: 01/30/17 06:33 01/30/17 06:33 PT 14.9 SECONDS (9.7-12.2) H 01/30/17 06:33 INR 1.3 01/30/17 06:33 APTT 31 SECONDS (21-34) 01/30/17 06:33 - Constitutional Appears: Non-toxic, No Acute Distress - Head Exam Head Exam: ATRAUMATIC, NORMAL INSPECTION - Eye Exam Eye Exam: EOMI, Normal appearance, PERRL Pupil Exam: NORMAL ACCOMODATION - ENT Exam ENT Exam: Mucous Membranes Moist - Respiratory Exam Respiratory Exam: Clear to Ausculation Bilateral, NORMAL BREATHING PATTERN. absent: Respiratory Distress - Cardiovascular Exam Cardiovascular Exam: REGULAR RHYTHM, +S1, +S2 - GI/Abdominal Exam GI & Abdominal Exam: Soft, Normal Bowel Sounds. absent: Distended, Firm, Guarding, Tenderness - Extremities Exam Extremities Exam: Normal Inspection Additional comments: dressing c/d/i - Back Exam Back Exam: NORMAL INSPECTION. absent: CVA tenderness (L), CVA tenderness (R), paraspinal tenderness - Neurological Exam Neurological Exam: Alert, Awake, Oriented x3 - Psychiatric Exam Psychiatric exam: Normal Affect, Normal Mood Assessment and Plan - Assessment and Plan (Free Text) Assessment: Right lower extremity wound - with osteomyelitis POD#0 s/p amputation of lateral aspect of right foot POD#5 from I+D foot POD#12 partial rescetion of 5th ray MRI completed- osteogenic changes noted- see report for detailed summary Enterococcus positive cultures- contact precautions taken Abx for ID Dr. Hu, help appreciated: Lenezolid 600mg IVPB Q12 (started 01/28) - Day #3 Zosyn 3.375mg IVPB Q8 (started 01/25) - Day #6 ID recommending 6 weeks of abx therapy PICC line ordered for long-term antibiotics Oxycodon/tylenol prn for pain Dilaudid 0.5 mg IVP prn pain x 8 doses per podiatry IDDM Finger stick readings in high 200s and into low 300s insulin dose increased to 50units novolin 70/30 TID and high dose sliding scale Will start Lantus 20 U HS, will monitor for signs of hypoglycemia Prophylaxis Pepcid 20mg PO BID Tylenol prn pain Anemia Stable hgb 9.4 f/u anemia workup Case discussed with Dr. Bowen. All management as per Dr. Bowen.
--- NOTE | 2017-01-30 22:11 | OP ---
PROCEDURE DATE: 01/30/2017 PREOPERATIVE DIAGNOSIS: Right foot gangrene. POSTOPERATIVE DIAGNOSIS: Right foot gangrene. PROCEDURE: Amputation of lateral aspect of right foot. SURGEON: Kade Lockhart DPM METAL FURNITURE ASSEMBLER: Emmy Crouch DPM, PGY-2. TYPE OF ANESTHESIA: IV sedation with local. ANESTHESIOLOGIST: Dr. Chinedu Almeida. INDICATION: The patient is a 51-year-old male with the above diagnosis. The patient has exhausted all conservative treatment at this time and now requires surgical intervention. The patient signed the consent after careful explanation of risks, benefits, complications, and alternatives for the surgical procedure. No guarantees were given or implied. PREPARATION: The patient was brought into the operating room and placed on the operating room table in a supine position. A time-out was performed for correct identification of the patient and procedure. The patient received a total of 20 mL of 1:1 mixture of 1% lidocaine plain and 0.5% Marcaine plain in a local block fashion to the right foot. Once local anesthesia was achieved, the right foot was then prepped and draped in a normal sterile manner and the procedure began. Upon examination with a Doppler ultrasound the dorsalis pedis artery was audiable. PROCEDURE: Attention was then directed to the lateral aspect of the patient's right foot to the previous amputation site and with the use a #10 blade, a circumferential incision was made around the fourth ray proximally, plantarly and ending at the proximal aspect of the previous amputation site. Then incision was then deepened through subcutaneous tissue using electrocautery. Next, utilizing a periosteal elevator, all periosteal tissue was carefully resected from the metatarsal. At this time, using a sagittal saw, the fourth and fifth rays were resected at the level of the metatarsal base and passed off the field and sent for pathology. Utilizing dissecting scissors the necrotic tissue was removed from the amputation site. A culture was taken intraoperatively and sent for culture and sensitivity. The surgical site was then irrigated with copious amounts of peroxide. All bleeders were then cauterized as necessary and all remaining nonviable tissue was excisionally debrided until healthy granular tissue appeared. The surgical site was then dressed with saline soaked, sterile gauze, ABD and Kerlix. The patient tolerated the anesthesia and procedure well and was escorted to the recovery room with vital signs stable and neurovascular status intact to the right foot. The patient will be nonweightbearing to the right lower extremity and podiatry will continue to follow the patient while he remains in-house and he will followup with Dr. Lockhart upon discharge. Emmy Crouch DPM MTDJonatan
[2017-01-30] MEDS: (Lantus) Insulin Glargine, Recombinant SC SCH (22:27)
[2017-01-31] MEDS: Oxycodone/Acetaminophen 5/325 mg Tab PO PRN ×6 (00:43→20:51)
[2017-01-31] MEDS: Piperacillin/Tazobact 3.375 GM in Sodium Chloride 100 ML IVPB SCH ×3 (04:45→22:16)
[2017-01-31 06:43] LABS: BASO # 0.1 K/uL (0.0-0.2); BASO % 0.5 % (0.0-2.0); EOS # 0.2 K/uL (0.0-0.7); EOS % 1.9 % (0.0-4.0); HEMOGLOBIN 9.1 g/dL (12.0-18.0); LYMPH # 2.6 K/uL (1.0-4.3); LYMPH % 20.9 % (20.0-40.0); MEAN CORPUSCULAR HEMOGLOBIN 22.5 pg (27.0-31.0); MEAN CORPUSCULAR HGB CONC 31.7 g/dL (33.0-37.0); MONO # 1.1 K/uL (0.0-0.8); MONO % 8.7 % (0.0-10.0); NEUT # 8.4 K/uL (1.8-7.0); RBC 4.03 Mil/uL (4.40-5.90); RED CELL DISTRIBUTION WIDTH 16.9 % (11.5-14.5); WHITE BLOOD COUNT 12.3 K/uL (4.8-10.8)
[2017-01-31 07:02] LABS: ALB/GLOB RATIO 0.9 (1.0-2.1); ALBUMIN 3.2 g/dL (3.5-5.0); ALT/SGPT 27 U/L (21-72); AST/SGOT 16 U/L (17-59); BLOOD UREA NITROGEN 14 mg/dL (9-20); CALCIUM 8.6 mg/dl (8.6-10.4); GFR AFRICAN-AMERICAN > 60; GFR NON-AFRICAN AMERICAN > 60; MAGNESIUM 1.7 mg/dL (1.6-2.3)
[2017-01-31 07:10] LABS: % IRON SATURATION 8 (20-55); IRON 15 ug/dL (49-181); TOTAL IRON BINDING CAPACITY 200 ug/dL (250-450)
[2017-01-31 07:52] LABS: FOLATE 5.9 ng/mL
[2017-01-31] MEDS: (Novolin R) Insulin Human Regular 100 units/ml vial SC SCH ×4 (08:46→22:15)
[2017-01-31] MEDS: (Novolin 70/30) NPH/Regular 70/30 Units/ml 10 ml vial SC SCH ×3 (10:01→20:50)
[2017-01-31] MEDS: Linezolid 600 mg in D5W 300 ml 600 MG/300 ML BAG IVPB SCH ×2 (10:02→22:17)
--- NOTE | 2017-01-31 10:13 | CP.PCM.PN ---
Subjective - Date & Time of Evaluation Date of Evaluation: 01/31/17 Time of Evaluation: 08:00 - Subjective Subjective: PGY [address] Bowen: Patient seen and examined at bedside. He is s/p amputation of lateral aspect of right foot. Pain is controlled with medications. Patient denies F/C/N/V/D/SOB/ CP. He has no other complaints. He states he would be willing to go to rehab for abx treatment. Objective - Vital Signs/Intake and Output Vital Signs (last 24 hours): Temp Pulse Resp BP Pulse Ox 97.0 F L 66 18 145/82 97 01/31/17 09:00 01/31/17 09:00 01/31/17 09:00 01/31/17 09:00 01/30/17 23:20 Intake and Output: 01/31/17 01/31/17 06:59 18:59 Intake Total 570 Output Total 1550 Balance -980 - Medications Medications: Current Medications Acetaminophen (Tylenol 325mg Tab) 650 mg PO Q6 PRN PRN Reason: Pain, Mild (1-3) Amlodipine Besylate (Norvasc) 10 mg PO DAILY [facility] Enalapril Maleate (Vasotec) 5 mg PO DAILY [facility] Last Admin: 01/30/17 14:54 Dose: 5 mg Famotidine (Pepcid) 20 mg PO BID [facility] Last Admin: 01/30/17 17:46 Dose: 20 mg Hydromorphone HCl (Dilaudid) 0.5 mg IVP Q10M PRN PRN Reason: Pain, moderate (4-7) Piperacillin Sod/Tazobactam (Sod 3.375 gm/ Sodium Chloride) 100 mls @ 200 mls/ hr IVPB Q8H [facility] Last Admin: 01/31/17 04:45 Dose: 200 mls/hr Linezolid (Zyvox 600mg/300ml D5w) 600 mg in 300 mls @ 200 mls/hr IVPB Q12 [facility] Last Admin: 01/31/17 10:02 Dose: 200 mls/hr Insulin Glargine (Lantus) 20 unit SC HS [facility] Last Admin: 01/30/17 22:27 Dose: 20 units Insulin Human Isoph/Insulin Regular (Novolin 70/30 (70/30 Units/Ml) 10 Ml) 50 units SC TID [facility] Last Admin: 01/31/17 10:01 Dose: 50 units Insulin Human Regular (Novolin R) 0 unit SC ACHS [facility] PRN Reason: Protocol Last Admin: 01/31/17 08:46 Dose: 4 unit Oxycodone/Acetaminophen (Percocet 5/325 Mg Tab) 1 tab PO Q4H PRN PRN Reason: Pain, moderate (4-7) Stop: 01/31/17 18:55 Last Admin: 01/30/17 16:41 Dose: 1 tab Oxycodone/Acetaminophen (Percocet 5/325 Mg Tab) 2 tab PO Q4H PRN PRN Reason: Pain, severe (8-10) Stop: 01/31/17 18:56 Last Admin: 01/31/17 08:51 Dose: 2 tab Rosuvastatin Calcium (Crestor) 10 mg PO HS [facility] Last Admin: 01/30/17 22:28 Dose: 10 mg Sodium Hypochlorite (Dakins Solution 0.125%) 0 appl TOP DAILY [facility] - Labs Labs: 01/31/17 06:18 01/31/17 06:18 PT 14.9 SECONDS (9.7-12.2) H 01/30/17 06:33 INR 1.3 01/30/17 06:33 APTT 31 SECONDS (21-34) 01/30/17 06:33 - Constitutional Appears: Non-toxic, No Acute Distress - Head Exam Head Exam: ATRAUMATIC, NORMAL INSPECTION - Eye Exam Eye Exam: EOMI, PERRL Pupil Exam: NORMAL ACCOMODATION - ENT Exam ENT Exam: Mucous Membranes Moist - Respiratory Exam Respiratory Exam: Clear to Ausculation Bilateral, NORMAL BREATHING PATTERN. absent: Accessory Muscle Use, Rales, Rhonchi, Wheezes, Respiratory Distress - Cardiovascular Exam Cardiovascular Exam: REGULAR RHYTHM, +S1, +S2 - GI/Abdominal Exam GI & Abdominal Exam: Soft, Normal Bowel Sounds. absent: Distended, Firm, Guarding, Tenderness - Extremities Exam Extremities Exam: Normal Inspection. absent: Calf Tenderness, Pedal Edema Additional comments: Dressing in place, no strike through bleeding, ext moving warm, able to move toes - Back Exam Back Exam: NORMAL INSPECTION. absent: CVA tenderness (L), CVA tenderness (R), paraspinal tenderness - Neurological Exam Neurological Exam: Alert, Awake, Oriented x3 - Psychiatric Exam Psychiatric exam: Normal Affect, Normal Mood - Skin Skin Exam: Dry, Intact, Normal Color, Warm Assessment and Plan - Assessment and Plan (Free Text) Assessment: Right lower extremity wound - with osteomyelitis POD#1 s/p amputation of lateral aspect of right foot POD#6 from I+D foot POD#13 partial rescetion of 5th ray MRI completed- osteogenic changes noted- see report for detailed summary Enterococcus positive cultures- contact precautions taken Abx for ID Dr. Hu, help appreciated: Lenezolid 600mg IVPB Q12 (started 01/28) - Day #4 Zosyn 3.375mg IVPB Q8 (started 01/25) - Day #7 ID recommending 6 weeks of abx therapy PICC line ordered for long-term antibiotics Oxycodone/tylenol prn for pain IDDM Finger stick readings eleavted into 200s but starting to decrease insulin dose increased to 50units novolin 70/30 TID and high dose sliding scale Lantus 20 U HS, will monitor for signs of hypoglycemia Prophylaxis Pepcid 20mg PO BID Tylenol prn pain Anemia Stable hgb 9.4-->9.1, continue to monitor Fe 15. TIBC 200, %sat 8, Ferritin 179, B12 403, folate 5.9, Retic 1.4, FOBT pending PICC line ordered dispo pending clearance by Podiatry to [facility] Case discussed with Dr. Bowen. All management as per Dr. Bowen.
--- NOTE | 2017-01-31 11:37 | CP.PCM.PN ---
Subjective - Date & Time of Evaluation Date of Evaluation: 01/31/17 Time of Evaluation: 11:37 - Subjective Subjective: 51 year old male was seen at bedside this morning with attending, Dr. Hawley , 1 day s/p amputation of the lateral aspect of right foot. Patient is NAD and AAOx3, denies n/v/f/c/sob/cp. Patient admits to some pain to his right foot that is controlled with pain medication. Objective - Vital Signs/Intake and Output Vital Signs (last 24 hours): Temp Pulse Resp BP Pulse Ox 98.4 F 78 20 165/83 H 97 01/31/17 10:17 01/31/17 10:17 01/31/17 10:17 01/31/17 10:18 01/31/17 10:17 Intake and Output: 01/31/17 01/31/17 06:59 18:59 Intake Total 570 Output Total 1550 Balance -980 - Medications Medications: Current Medications Acetaminophen (Tylenol 325mg Tab) 650 mg PO Q6 PRN PRN Reason: Pain, Mild (1-3) Amlodipine Besylate (Norvasc) 10 mg PO DAILY [facility] Last Admin: 01/31/17 10:18 Dose: 10 mg Enalapril Maleate (Vasotec) 5 mg PO DAILY [facility] Last Admin: 01/31/17 10:18 Dose: 5 mg Famotidine (Pepcid) 20 mg PO BID [facility] Last Admin: 01/31/17 10:19 Dose: 20 mg Hydromorphone HCl (Dilaudid) 0.5 mg IVP Q10M PRN PRN Reason: Pain, moderate (4-7) Piperacillin Sod/Tazobactam (Sod 3.375 gm/ Sodium Chloride) 100 mls @ 200 mls/ hr IVPB Q8H [facility] Last Admin: 01/31/17 04:45 Dose: 200 mls/hr Linezolid (Zyvox 600mg/300ml D5w) 600 mg in 300 mls @ 200 mls/hr IVPB Q12 [facility] Last Admin: 01/31/17 10:02 Dose: 200 mls/hr Insulin Glargine (Lantus) 20 unit SC HS [facility] Last Admin: 01/30/17 22:27 Dose: 20 units Insulin Human Isoph/Insulin Regular (Novolin 70/30 (70/30 Units/Ml) 10 Ml) 50 units SC TID [facility] Last Admin: 01/31/17 10:01 Dose: 50 units Insulin Human Regular (Novolin R) 0 unit SC ACHS [facility] PRN Reason: Protocol Last Admin: 01/31/17 08:46 Dose: 4 unit Oxycodone/Acetaminophen (Percocet 5/325 Mg Tab) 1 tab PO Q4H PRN PRN Reason: Pain, moderate (4-7) Stop: 01/31/17 18:55 Last Admin: 01/30/17 16:41 Dose: 1 tab Oxycodone/Acetaminophen (Percocet 5/325 Mg Tab) 2 tab PO Q4H PRN PRN Reason: Pain, severe (8-10) Stop: 01/31/17 18:56 Last Admin: 01/31/17 08:51 Dose: 2 tab Rosuvastatin Calcium (Crestor) 10 mg PO HS [facility] Last Admin: 01/30/17 22:28 Dose: 10 mg Sodium Hypochlorite (Dakins Solution 0.125%) 0 appl TOP DAILY [facility] Last Admin: 01/31/17 10:18 Dose: 20 appl - Labs Labs: 01/31/17 06:18 01/31/17 06:18 PT 14.9 SECONDS (9.7-12.2) H 01/30/17 06:33 INR 1.3 01/30/17 06:33 APTT 31 SECONDS (21-34) 01/30/17 06:33 - Constitutional Appears: Well, Non-toxic, No Acute Distress - Extremities Exam Additional comments: Dressings to B/L lower extremities clean, dry and intact upon examination Vasc: DP and PT pulses non-palpable R foot secondary to edema, palpable 2/4 on L foot. TG warm to warm. CFT <3 seconds to all digits Neuro: Gross sensation diminished Derm: Surgical site noted to the lateral aspect of the right foot, tissue is granular, no malodor, no purlence, noted. Sanguinous drainage noted to inner dressing. Ulceration to dorsomedial aspect of left foot 1st metatarsal head with granular base. Hyperkeratosis noted to distal rim of ulceration. Minimal serosanguinous drainage noted on inner dressing with no active drainage Ortho: No tenderness on palpation of plantar lateral R foot adjacent to surgical site. No pain on palpation of L foot. - Neurological Exam Neurological Exam: Alert, Awake, Oriented x3 - Psychiatric Exam Psychiatric exam: Normal Affect, Normal Mood Assessment and Plan - Assessment and Plan (Free Text) Assessment: 51 year old male 1 day s/p amputation of lateral aspect of right foot Plan: Patient examined and evaluated at bedside w/ attending, Dr. Hawley Charts, vitals, labs reviewed Right foot cleansed with peroxide, dressed with dakins soaked kerlix, 4x4, kerlix Left foot cleansed with peroxide and DSD applied Patient to continue non-WB to RLE Pt eval and treat Continue abx per ID = Zosyn, Linezolid Podiatry will continue to follow while in house
[2017-01-31] MEDS ORDERED: Oxycodone/Acetaminophen 5/325 mg Tab PO PRN (20:34)
[2017-01-31] MEDS: (Lantus) Insulin Glargine, Recombinant SC SCH (22:18)
[2017-02-01] MEDS: Oxycodone/Acetaminophen 5/325 mg Tab PO PRN ×5 (00:52→23:26)
[2017-02-01] MEDS: Piperacillin/Tazobact 3.375 GM in Sodium Chloride 100 ML IVPB SCH ×3 (04:38→22:23)
[2017-02-01] MEDS: (Novolin R) Insulin Human Regular 100 units/ml vial SC SCH ×4 (07:45→22:20)
[2017-02-01 08:13] LABS: BASO % 0.4 % (0.0-2.0); EOS # 0.2 K/uL (0.0-0.7); HEMOGLOBIN 9.3 g/dL (12.0-18.0); LYMPH # 2.2 K/uL (1.0-4.3); LYMPH % 20.8 % (20.0-40.0); MEAN CELL VOLUME 70.6 fL (80.0-94.0); MEAN CORPUSCULAR HEMOGLOBIN 22.6 pg (27.0-31.0); MEAN PLATELET VOLUME 8.1 fL (7.2-11.7); MONO # 0.8 K/uL (0.0-0.8); MONO % 7.7 % (0.0-10.0); NEUT # 7.3 K/uL (1.8-7.0); NEUT % 69.1 % (50.0-75.0); RBC 4.1 Mil/uL (4.40-5.90); RED CELL DISTRIBUTION WIDTH 17.1 % (11.5-14.5); WHITE BLOOD COUNT 10.6 K/uL (4.8-10.8)
[2017-02-01 08:44] LABS: ALBUMIN 3.2 g/dL (3.5-5.0)
[2017-02-01 08:46] LABS: GFR AFRICAN-AMERICAN > 60; GFR NON-AFRICAN AMERICAN > 60
[2017-02-01 08:47] LABS: ALB/GLOB RATIO 0.8 (1.0-2.1); ALT/SGPT 25 U/L (21-72); AST/SGOT 15 U/L (17-59); BLOOD UREA NITROGEN 12 mg/dL (9-20); CALCIUM 8.8 mg/dl (8.6-10.4)
[2017-02-01 08:48] LABS: MAGNESIUM 1.7 mg/dL (1.6-2.3)
[2017-02-01] MEDS: (Novolin 70/30) NPH/Regular 70/30 Units/ml 10 ml vial SC SCH ×3 (10:06→18:12)
[2017-02-01] MEDS: Linezolid 600 mg in D5W 300 ml 600 MG/300 ML BAG IVPB SCH ×2 (10:07→22:25)
--- NOTE | 2017-02-01 13:31 | RAD ---
HISTORY: verify right PICC COMPARISON: Chest radiograph 11/21/2016 FINDINGS: LUNGS: No active pulmonary disease. PLEURA: No significant pleural effusion identified, no pneumothorax apparent. CARDIOVASCULAR: Normal cardiac silhouette is appreciated. A right upper extremity PICC catheter has been inserted terminating at the atrial caval junction. Pontis patterns otherwise unremarkable. OSSEOUS STRUCTURES: No significant abnormalities. VISUALIZED UPPER ABDOMEN: Normal. OTHER FINDINGS: None. IMPRESSION: Status post new right upper extremity PICC catheter insertion as discussed above. No acute cardiopulmonary disease appreciated
--- NOTE | 2017-02-01 14:59 | CP.PCM.PN ---
Subjective - Date & Time of Evaluation Date of Evaluation: 02/01/17 Time of Evaluation: 14:55 - Subjective Subjective: 51 year old male was seen at bedside this morning with attending, Dr. Hawley , 2 day s/p amputation of the lateral aspect of right foot. Patient is NAD and AAOx3, denies n/v/f/c/sob/cp. He denies any pain to his right foot. Admits that he has been doing well in physical therapy. Objective - Vital Signs/Intake and Output Vital Signs (last 24 hours): Temp Pulse Resp BP Pulse Ox 98.2 F 78 18 159/75 H 100 02/01/17 07:30 02/01/17 07:30 02/01/17 07:30 02/01/17 10:06 02/01/17 07:30 Intake and Output: 02/01/17 02/01/17 06:59 18:59 Intake Total 790 700 Output Total 1600 Balance -810 700 - Medications Medications: Current Medications Acetaminophen (Tylenol 325mg Tab) 650 mg PO Q6 PRN PRN Reason: Pain, Mild (1-3) Amlodipine Besylate (Norvasc) 10 mg PO DAILY [facility] Last Admin: 02/01/17 10:06 Dose: 10 mg Enalapril Maleate (Vasotec) 5 mg PO DAILY [facility] Last Admin: 02/01/17 10:06 Dose: 5 mg Famotidine (Pepcid) 20 mg PO BID [facility] Last Admin: 02/01/17 10:06 Dose: 20 mg Linezolid (Zyvox 600mg/300ml D5w) 600 mg in 300 mls @ 200 mls/hr IVPB Q12 [facility] Last Admin: 02/01/17 10:07 Dose: 200 mls/hr Piperacillin Sod/Tazobactam (Sod 3.375 gm/ Sodium Chloride) 100 mls @ 200 mls/ hr IVPB Q8H [facility] Last Admin: 02/01/17 14:10 Dose: 200 mls/hr Insulin Glargine (Lantus) 20 unit SC HS [facility] Last Admin: 01/31/17 22:18 Dose: 20 units Insulin Human Isoph/Insulin Regular (Novolin 70/30 (70/30 Units/Ml) 10 Ml) 50 units SC TID [facility] Last Admin: 02/01/17 14:09 Dose: 50 units Insulin Human Regular (Novolin R) 0 unit SC ACHS [facility] PRN Reason: Protocol Last Admin: 02/01/17 12:18 Dose: 6 unit Oxycodone/Acetaminophen (Percocet 5/325 Mg Tab) 1 tab PO Q4H PRN PRN Reason: Pain, moderate (4-7) Stop: 02/03/17 20:35 Oxycodone/Acetaminophen (Percocet 5/325 Mg Tab) 2 tab PO Q4H PRN PRN Reason: Pain, severe (8-10) Stop: 02/03/17 20:37 Last Admin: 02/01/17 10:06 Dose: 2 tab Rosuvastatin Calcium (Crestor) 10 mg PO HS [facility] Last Admin: 01/31/17 22:15 Dose: 10 mg Sodium Hypochlorite (Dakins Solution 0.125%) 0 appl TOP DAILY [facility] Last Admin: 02/01/17 10:17 Dose: 1 appl - Labs Labs: 02/01/17 07:48 02/01/17 07:48 PT 14.9 SECONDS (9.7-12.2) H 01/30/17 06:33 INR 1.3 01/30/17 06:33 APTT 31 SECONDS (21-34) 01/30/17 06:33 - Constitutional Appears: Well, Non-toxic, No Acute Distress - Extremities Exam Additional comments: Dressings to B/L lower extremities clean, dry and intact upon examination Vasc: DP and PT pulses non-palpable R foot secondary to edema, palpable 2/4 on L foot. TG warm to warm. CFT <3 seconds to all digits Neuro: Gross sensation diminished Derm: Surgical site noted to the lateral aspect of the right foot, tissue is granular, no malodor, no purlence noted. Sanguinous drainage noted to inner dressing. Ulceration to dorsomedial aspect of left foot 1st metatarsal head with granular base. Hyperkeratosis noted to distal rim of ulceration. Minimal serosanguinous drainage noted on inner dressing with no active drainage Ortho: No tenderness on palpation of plantar lateral R foot adjacent to surgical site. No pain on palpation of L foot. - Neurological Exam Neurological Exam: Alert, Awake, Oriented x3 - Psychiatric Exam Psychiatric exam: Normal Affect, Normal Mood Assessment and Plan - Assessment and Plan (Free Text) Assessment: 51 year old male 2 day s/p amputation of lateral aspect of right foot Plan: Patient examined and evaluated at bedside with attending, Dr. Hawley Charts, vitals, labs reviewed Right foot cleansed with peroxide, dressed with dakins soaked kerlix, 4x4, kerlix Patient to continue non-WB to RLE Continue physical therapy Continue abx per ID = Zosyn, Linezolid Podiatry will continue to follow while in house
--- NOTE | 2017-02-01 15:46 | CP.PCM.PN ---
Subjective - Date & Time of Evaluation Date of Evaluation: 02/01/17 Time of Evaluation: 09:05 - Subjective Subjective: Medicine Note- Dr. Bowen's service Patient was seen and examined at bedside. Patient reports no acute complaints at this time. No events overnight, per nursing. Patient states pain is well controlled. Patient states he does not want his foot amputated and that he would like to [facility] or [facility] for RADHA for antibiotics. Objective - Vital Signs/Intake and Output Vital Signs (last 24 hours): Temp Pulse Resp BP Pulse Ox 98.2 F 77 18 148/71 100 02/01/17 07:30 02/01/17 15:05 02/01/17 07:30 02/01/17 15:05 02/01/17 07:30 Intake and Output: 02/01/17 02/01/17 06:59 18:59 Intake Total 790 700 Output Total 1600 Balance -810 700 - Medications Medications: Current Medications Acetaminophen (Tylenol 325mg Tab) 650 mg PO Q6 PRN PRN Reason: Pain, Mild (1-3) Amlodipine Besylate (Norvasc) 10 mg PO DAILY [facility] Last Admin: 02/01/17 10:06 Dose: 10 mg Enalapril Maleate (Vasotec) 5 mg PO DAILY [facility] Last Admin: 02/01/17 10:06 Dose: 5 mg Famotidine (Pepcid) 20 mg PO BID [facility] Last Admin: 02/01/17 10:06 Dose: 20 mg Linezolid (Zyvox 600mg/300ml D5w) 600 mg in 300 mls @ 200 mls/hr IVPB Q12 [facility] Last Admin: 02/01/17 10:07 Dose: 200 mls/hr Piperacillin Sod/Tazobactam (Sod 3.375 gm/ Sodium Chloride) 100 mls @ 200 mls/ hr IVPB Q8H [facility] Last Admin: 02/01/17 14:10 Dose: 200 mls/hr Insulin Glargine (Lantus) 20 unit SC HS [facility] Last Admin: 01/31/17 22:18 Dose: 20 units Insulin Human Isoph/Insulin Regular (Novolin 70/30 (70/30 Units/Ml) 10 Ml) 50 units SC TID [facility] Last Admin: 02/01/17 14:09 Dose: 50 units Insulin Human Regular (Novolin R) 0 unit SC ACHS [facility] PRN Reason: Protocol Last Admin: 02/01/17 12:18 Dose: 6 unit Oxycodone/Acetaminophen (Percocet 5/325 Mg Tab) 1 tab PO Q4H PRN PRN Reason: Pain, moderate (4-7) Stop: 02/03/17 20:35 Oxycodone/Acetaminophen (Percocet 5/325 Mg Tab) 2 tab PO Q4H PRN PRN Reason: Pain, severe (8-10) Stop: 02/03/17 20:37 Last Admin: 02/01/17 15:05 Dose: 2 tab Rosuvastatin Calcium (Crestor) 10 mg PO HS [facility] Last Admin: 01/31/17 22:15 Dose: 10 mg Sodium Hypochlorite (Dakins Solution 0.125%) 0 appl TOP DAILY [facility] Last Admin: 02/01/17 10:17 Dose: 1 appl - Labs Labs: 02/01/17 07:48 02/01/17 07:48 PT 14.9 SECONDS (9.7-12.2) H 01/30/17 06:33 INR 1.3 01/30/17 06:33 APTT 31 SECONDS (21-34) 01/30/17 06:33 - Constitutional Appears: Non-toxic, No Acute Distress - Head Exam Head Exam: ATRAUMATIC, NORMAL INSPECTION, NORMOCEPHALIC - Eye Exam Pupil Exam: NORMAL ACCOMODATION, PERRL - ENT Exam ENT Exam: Mucous Membranes Moist - Neck Exam Neck Exam: Normal Inspection - Respiratory Exam Respiratory Exam: Clear to Ausculation Bilateral, NORMAL BREATHING PATTERN. absent: Prolonged Expiratory Phase, Rales, Rhonchi, Wheezes - Cardiovascular Exam Cardiovascular Exam: REGULAR RHYTHM, +S1, +S2 - GI/Abdominal Exam GI & Abdominal Exam: Soft, Normal Bowel Sounds. absent: Tenderness, Diminished Bowel Sounds, Hernia, Hypoactive Bowel Sounds - Extremities Exam Extremities Exam: Normal Capillary Refill, Normal Inspection Additional comments: both feet wrapped in bandages, bandages are dry and clean. - Neurological Exam Neurological Exam: Alert, Awake, Oriented x3 - Psychiatric Exam Psychiatric exam: Normal Affect, Normal Mood - Skin Skin Exam: Dry, Intact, Normal Color, Warm Assessment and Plan - Assessment and Plan (Free Text) Assessment: Right lower extremity wound - with osteomyelitis POD#2 s/p amputation of lateral aspect of right foot POD#7 from I+D foot POD#15 partial resection of 5th ray MRI completed- osteogenic changes noted- see report for detailed summary Enterococcus positive cultures- contact precautions taken Abx for ID Dr. Hu, help appreciated: Linezolid 600mg IVPB Q12 (started 01/28) - Day #5 Zosyn 3.375mg IVPB Q8 (started 01/25) - Day #8 ID recommending 6 weeks of abx therapy PICC line ordered for long-term antibiotics Oxycodone/tylenol prn for pain Per podiatry, patient with need wound vac at [facility] IDDM Finger stick readings eleavted into 200s but starting to decrease insulin dose increased to 50units novolin 70/30 TID and high dose sliding scale Lantus 20 U HS, will monitor for signs of hypoglycemia Prophylaxis Pepcid 20mg PO BID Tylenol prn pain Anemia Stable hgb 9.3, continue to monitor Fe 15. TIBC 200, %sat 8, Ferritin 179, B12 403, folate 5.9, Retic 1.4, FOBT pending PICC line ordered for today Pending authorization for Narciso [facility] Case discussed with Dr. Bowen. All management as per Dr. Bowen.
[2017-02-01] MEDS: (Lantus) Insulin Glargine, Recombinant SC SCH (22:22)
[2017-02-02] MEDS: Oxycodone/Acetaminophen 5/325 mg Tab PO PRN ×3 (05:03→13:42)
[2017-02-02] MEDS: Piperacillin/Tazobact 3.375 GM in Sodium Chloride 100 ML IVPB SCH ×2 (05:05→13:10)
[2017-02-02 06:40] LABS: BASO % 0.2 % (0.0-2.0); EOS # 0.2 K/uL (0.0-0.7); HEMOGLOBIN 9.3 g/dL (12.0-18.0); LYMPH # 3.6 K/uL (1.0-4.3); LYMPH % 29.1 % (20.0-40.0); MEAN CELL VOLUME 70.7 fL (80.0-94.0); MEAN CORPUSCULAR HEMOGLOBIN 22.6 pg (27.0-31.0); MEAN PLATELET VOLUME 7.6 fL (7.2-11.7); MONO # 0.9 K/uL (0.0-0.8); NEUT # 7.7 K/uL (1.8-7.0); NEUT % 61.7 % (50.0-75.0); RBC 4.11 Mil/uL (4.40-5.90); WHITE BLOOD COUNT 12.4 K/uL (4.8-10.8)
[2017-02-02 06:58] LABS: ALBUMIN 3.4 g/dL (3.5-5.0)
[2017-02-02 07:01] LABS: ALB/GLOB RATIO 0.8 (1.0-2.1); ALT/SGPT 27 U/L (21-72); AST/SGOT 39 U/L (17-59); BLOOD UREA NITROGEN 12 mg/dL (9-20); GFR AFRICAN-AMERICAN > 60; GFR NON-AFRICAN AMERICAN 58
[2017-02-02 07:02] LABS: CALCIUM 9.1 mg/dl (8.6-10.4)
[2017-02-02] MEDS: (Novolin R) Insulin Human Regular 100 units/ml vial SC SCH ×2 (08:32→13:41)
[2017-02-02] MEDS: (Novolin 70/30) NPH/Regular 70/30 Units/ml 10 ml vial SC SCH ×2 (09:15→13:41)
[2017-02-02] MEDS: Linezolid 600 mg in D5W 300 ml 600 MG/300 ML BAG IVPB SCH (09:17)
--- NOTE | 2017-02-02 14:09 | CP.PCM.PN ---
Subjective - Date & Time of Evaluation Date of Evaluation: 02/02/17 Time of Evaluation: 13:06 - Subjective Subjective: 51 year old male was seen at bedside this morning 3 day s/p amputation of the lateral aspect of right foot. Patient is NAD and AAOx3, denies n/v/f/c/sob/cp. He denies any pain to his right foot. Admits that he has been doing well in physical therapy. Objective - Vital Signs/Intake and Output Vital Signs (last 24 hours): Temp Pulse Resp BP Pulse Ox 97.9 F 73 18 135/89 96 02/02/17 08:39 02/02/17 13:40 02/02/17 08:39 02/02/17 13:40 02/02/17 08:39 Intake and Output: 02/02/17 02/02/17 06:59 18:59 Intake Total 350 Output Total 700 Balance -350 - Medications Medications: Current Medications Acetaminophen (Tylenol 325mg Tab) 650 mg PO Q6 PRN PRN Reason: Pain, Mild (1-3) Amlodipine Besylate (Norvasc) 10 mg PO DAILY [facility] Last Admin: 02/02/17 09:15 Dose: 10 mg Enalapril Maleate (Vasotec) 5 mg PO DAILY [facility] Last Admin: 02/02/17 09:15 Dose: 5 mg Famotidine (Pepcid) 20 mg PO BID [facility] Last Admin: 02/02/17 09:15 Dose: 20 mg Linezolid (Zyvox 600mg/300ml D5w) 600 mg in 300 mls @ 200 mls/hr IVPB Q12 [facility] Last Admin: 02/02/17 09:17 Dose: 200 mls/hr Piperacillin Sod/Tazobactam (Sod 3.375 gm/ Sodium Chloride) 100 mls @ 200 mls/ hr IVPB Q8H [facility] Last Admin: 02/02/17 13:10 Dose: 200 mls/hr Insulin Glargine (Lantus) 20 unit SC HS [facility] Last Admin: 02/01/17 22:22 Dose: 20 units Insulin Human Isoph/Insulin Regular (Novolin 70/30 (70/30 Units/Ml) 10 Ml) 50 units SC TID [facility] Last Admin: 02/02/17 13:41 Dose: 50 units Insulin Human Regular (Novolin R) 0 unit SC ACHS [facility] PRN Reason: Protocol Last Admin: 02/02/17 13:41 Dose: 2 unit Oxycodone/Acetaminophen (Percocet 5/325 Mg Tab) 1 tab PO Q4H PRN PRN Reason: Pain, moderate (4-7) Stop: 02/03/17 20:35 Oxycodone/Acetaminophen (Percocet 5/325 Mg Tab) 2 tab PO Q4H PRN PRN Reason: Pain, severe (8-10) Stop: 02/03/17 20:37 Last Admin: 02/02/17 13:42 Dose: 2 tab Rosuvastatin Calcium (Crestor) 10 mg PO HS [facility] Last Admin: 02/01/17 22:22 Dose: 10 mg Sodium Hypochlorite (Dakins Solution 0.125%) 0 appl TOP DAILY [facility] Last Admin: 02/02/17 09:19 Dose: 20 appl - Labs Labs: 02/02/17 06:30 02/02/17 06:30 PT 14.9 SECONDS (9.7-12.2) H 01/30/17 06:33 INR 1.3 01/30/17 06:33 APTT 31 SECONDS (21-34) 01/30/17 06:33 - Constitutional Appears: Well, Non-toxic, No Acute Distress - Extremities Exam Additional comments: Dressings to B/L lower extremities clean, dry and intact upon examination Vasc: DP and PT pulses non-palpable R foot secondary to edema, palpable 2/4 on L foot. TG warm to warm. CFT <3 seconds to all digits Neuro: Gross sensation diminished Derm: Surgical site noted to the lateral aspect of the right foot, tissue is granular, no malodor, no purlence noted. Sanguinous drainage noted to inner dressing. Ulceration to dorsomedial aspect of left foot 1st metatarsal head with granular base. Hyperkeratosis noted to distal rim of ulceration. Minimal serosanguinous drainage noted on inner dressing with no active drainage Ortho: No tenderness on palpation of plantar lateral R foot adjacent to surgical site. No pain on palpation of L foot. - Neurological Exam Neurological Exam: Alert, Awake, Oriented x3 - Psychiatric Exam Psychiatric exam: Normal Affect, Normal Mood Assessment and Plan - Assessment and Plan (Free Text) Assessment: 51 year old male 3 day s/p amputation of lateral aspect of right foot Plan: Patient examined and evaluated at bedside Charts, vitals, labs reviewed Right foot cleansed with peroxide, dressed with dakins soaked kerlix, 4x4, kerlix Left foot cleansed with peroxide and dressed with 4x4, kirlix Patient to continue non-WB to RLE Patient to be transferred to [facility] with continued abx (Zosyn, Linezolid) later this evening
[2017-02-02 16:08] VITALS: BP 130/76; PULSE 71; RESP 20; TEMP 98.5; O2SAT 98
== END 2017-02-02 16:39 | DRG 464 ==
LOC: C.SDS 09:55 → C.9S 13:07 → C.6T 15:36
PROVIDERS: ADMIT Internal Medicine Pulmonary Disease; ATTEND Internal Medicine Pulmonary Disease
PROC: 0JBR0ZZ Excision of Left Foot Subcutaneous Tissue and Fascia, Open Approach (ICD-10-PCS; principal; 2017-01-25 12:24)
PROC: 0Y6N0ZD Detachment at Left Foot, Partial 4th Ray, Open Approach (ICD-10-PCS; 2017-01-30)
PROC: 0Y6N0ZF Detachment at Left Foot, Partial 5th Ray, Open Approach (ICD-10-PCS; 2017-01-30)
PROC: 0JBR0ZZ Excision of Left Foot Subcutaneous Tissue and Fascia, Open Approach (ICD-10-PCS; 2017-01-30)
PROC: 02HV33Z Insertion of Infusion Device into Superior Vena Cava, Percutaneous Approach (ICD-10-PCS; 2017-02-01)
DX: T87.81 Dehiscence of amputation stump (principal); E10.52 Type 1 diabetes mellitus with diabetic peripheral angiopathy with gangrene; E10.621 Type 1 diabetes mellitus with foot ulcer; M86.171 Other acute osteomyelitis, right ankle and foot; L97.529 Non-pressure chronic ulcer of other part of left foot with unspecified severity; I25.10 Atherosclerotic heart disease of native coronary artery without angina pectoris; E10.69 Type 1 diabetes mellitus with other specified complication; E78.00 Pure hypercholesterolemia, unspecified; I10 Essential (primary) hypertension; I25.2 Old myocardial infarction; Z79.4 Long term (current) use of insulin; Z87.891 Personal history of nicotine dependence; Z95.5 Presence of coronary angioplasty implant and graft

== ENCOUNTER 2017-03-07 06:39 | Day surgery (SDC) | payer MEDICARE ==
[2017-03-07] MEDS ORDERED: ceFAZolin IV 1 gm in Dextrose 0 GM/0 ML BAG IVPB ONE (07:45)
[2017-03-07] MEDS ORDERED: Bupivacaine 0.5% Inj(30mL) ONE (07:46)
[2017-03-07] MEDS ORDERED: Lidocaine 2% Inj (20ml) ONE (07:46)
[2017-03-07] MEDS ORDERED: ceFAZolin IV 2 gm in Dextrose 0 GM/0 ML BAG IVPB ONE (07:46)
[2017-03-07] MEDS ORDERED: Bacitracin 150,000 UNIT in Sodium Chloride 0.9% Irrig 3,000 ML IR SCH (08:03)
[2017-03-07] MEDS ORDERED: Propofol 10 mg/ml Inj (20 ML) ONE (08:09)
[2017-03-07] MEDS ORDERED: Midazolam 2 MG/2 ML VIAL ONE (08:09)
[2017-03-07] MEDS ORDERED: Lactated Ringer's 1,000 ML IV ONE (08:28)
--- NOTE | 2017-03-07 09:11 | PCM.SURG1 ---
Surgeon's Initial Post Op Note - Surgeon's Notes Surgeon: Dr. Dara DPM Chemical Engineering Teacher: Dr. Grant DPM PGY-2 Type of Anesthesia: MAC, Local Anesthesia Administered By: Dr. Jemal MD Pre-Operative Diagnosis: slow healing amputation site right foot with diabetes mellitus Operative Findings: see operative report Post-Operative Diagnosis: same Operation Performed: soft tissue debridement of right foot with pulse lavage irrigation Specimen/Specimens Removed: Culture and sensitivities taken Estimated Blood Loss: EBL {In ML}: 0 Blood Products Given: N/A Drains Used: No Drains Post-Op Condition: Good Date of Surgery/Procedure: 03/07/17 Time of Surgery/Procedure: 08:30
[2017-03-07] MEDS ORDERED: Oxycodone/Acetaminophen 5/325 mg Tab PO PRN (09:46)
[2017-03-07 11:48] VITALS: BP 155/78; PULSE 64; RESP 18; TEMP 97.8; O2SAT 100
--- NOTE | 2017-03-07 14:29 | OP ---
PROCEDURE DATE: 03/07/2017 SURGEON: Kade Lockhart DPM SENIOR PAINTER: Julia Burns DPM, PGY2 ROOF PANEL HANGER: Dr. Jemal MD ANESTHESIA: MAC IV sedation with local. PREOPERATIVE DIAGNOSIS: Right foot slow healing amputation site. POSTOPERATIVE DIAGNOSIS: Right foot slow healing amputation site. PROCEDURE: Soft tissue debridement with pulse lavage irrigation on right foot amputation site. INDICATION: The patient is a 51-year-old male with the above-mentioned diagnosis. The patient has exhausted all conservative treatments at this time and now requires surgical intervention. The patient signed the consent after careful explanation of all risks, benefits, complications, and alternatives for surgical procedure. No guarantees were given nor implied. PREPARATION: The patient was brought into the operating room and placed in the operating table in the supine position. No tourniquet was required for this procedure. The right lower extremity was then prepped in the usual manner and the procedure began. DESCRIPTION OF PROCEDURE: Attention was then directed to the distal lateral aspect of the patient's right foot, where exposed metatarsal bone and exposed soft tissue was noted. At this time, 2 cultures were taken for culture and sensitivity with aerobes and anaerobes of the amputation site. Next, using a #15-blade all nonviable fibrotic soft tissue was debrided from the surgical site and passed the operative field. Next, the SimPulse pulse lavage system was copiously irrigate the nonhealing amputation site with 3 liters of normal saline with bacitracin. Following irrigation, there was noted to be healthy bleeding noted to the wound bed. The wound was then dressed with peroxide-soaked gauge, ABD pads, and a Kerlix dressing. POSTOPERATIVE CONDITION: The patient tolerated the anesthesia and the procedure well and was escorted to the recovery room with vital signs stable and neurovascular status intact to the right lower extremity. The patient will be nonweightbearing to the right lower extremity and will be sent back to [facility], where they will reapply a wound VAC to the right foot amputation site. The patient will be followed by Dr. Lockhart while he is at [facility] and will follow up with Dr. Lockhart as an outpatient in the office. Julia Burns DPM Kade Lockhart DPM [facility] # [id number] MEL
== END 2017-03-07 12:24 | disposition home or self-care (01) ==
LOC: C.SDS 06:39
PROVIDERS: ATTEND Podiatrist Foot Surgery
DX: T87.89 Other complications of amputation stump (principal)
CPT/HCPCS: 11043; 82948; 87070; J2250; J2704; J3010; J7120

== ENCOUNTER 2017-03-09 10:05 | Inpatient (IN) | payer MEDICARE ==
[2017-03-09 10:05] VITALS: BMI 38.6
--- NOTE | 2017-03-09 10:20 | C.PDOC ---
History Of Present Illness 51 y/o male presents to the ED c/o pain in the right foot since the foot surgery and is here for evaluation of the wound on the right foot. The patient had an amputation 4 weeks ago and was discharged from the rehab facility. The pts door to door sales representative instructed for the patient to go to the ER regarding possible wound infection. The patient denies fever, chills, dizziness , and rashes. Time Seen by Provider: 03/09/17 10:20 Chief Complaint (Nursing): Lower Extremity Problem/Injury History Per: Patient History/Exam Limitations: no limitations Onset/Duration Of Symptoms: Days Current Symptoms Are (Timing): Still Present Recent travel outside of the [place]: No Additional History Per: Patient Past Medical History Reviewed: Historical Data, Nursing Documentation, Vital Signs Vital Signs: Last Vital Signs Temp 97.8 F 03/12/17 16:00 Pulse 82 03/12/17 16:00 Resp 18 03/12/17 16:00 BP 149/77 03/12/17 16:00 Pulse Ox 97 03/12/17 16:00 - Medical History PMH: Diabetes, HTN, Hypercholesterolemia Surgical History: Coronary Stent - [facility] Procedures DETACHMENT AT LEFT 1ST TOE, COMPLETE, OPEN APPROACH (10/22/16) DETACHMENT AT LEFT 2ND TOE, COMPLETE, OPEN APPROACH (06/28/15) DETACHMENT AT LEFT FOOT, PARTIAL 4TH RAY, OPEN APPROACH (01/25/17) DETACHMENT AT LEFT FOOT, PARTIAL 5TH RAY, OPEN APPROACH (01/25/17) DETACHMENT AT RIGHT 5TH TOE, COMPLETE, OPEN APPROACH (01/18/17) DILATION OF LEFT ANTERIOR TIBIAL ARTERY, PERC APPROACH (10/22/16) EXCISION OF L FOOT SUBCU/FASCIA, OPEN APPROACH (01/25/17) EXTIRPATION OF MATTER FROM L ANT TIB ART, PERC APPROACH (10/22/16) EXTRACTION OF LEFT FOOT SKIN, EXTERNAL APPROACH (06/28/15) INSERTION OF INFUSION DEV INTO R BASILIC VEIN, PERC APPROACH (06/28/15) INSERTION OF INFUSION DEV INTO SUP VENA CAVA, PERC APPROACH (01/25/17) INSERTION OF INFUSION DEVICE INTO R ATRIUM, PERC APPROACH (11/18/16) RESECTION OF LEFT METATARSAL, OPEN APPROACH (11/18/16) ULTRASONOGRAPHY OF RIGHT UPPER EXTREMITY VEINS, GUIDANCE (06/28/15) ULTRASONOGRAPHY OF SUPERIOR VENA CAVA, GUIDANCE (09/27/16) Family History: States: Other Other Family History: Non-contributory - Social History Hx Tobacco Use: No Hx Alcohol Use: No Hx Substance Use: No - Immunization History Hx Tetanus Toxoid Vaccination: Yes Hx Influenza Vaccination: Yes Hx Pneumococcal Vaccination: Yes Review Of Systems Except As Marked, All Systems Reviewed And Found Negative. Constitutional: Negative for: Fever, Chills Cardiovascular: Negative for: Chest Pain, Light Headedness Respiratory: Negative for: Cough, Shortness of Breath Gastrointestinal: Negative for: Nausea, Vomiting Musculoskeletal: Positive for: Foot Pain Skin: Negative for: Rash, Lesions Physical Exam - Physical Exam Appears: Non-toxic, No Acute Distress Skin: Warm, Dry, No Rash, Other (no erythema) Head: Atraumatic, Normacephalic Oral Mucosa: Moist Neck: Supple Chest: Symmetrical Cardiovascular: Rhythm Regular Respiratory: Normal Breath Sounds, No Rales, No Rhonchi Gastrointestinal/Abdominal: Soft, No Tenderness, No Guarding, No Rebound Extremity: No Pedal Edema, Capillary Refill (<2sec.), Other (4th and 5th toe amputation on right lateral and no drainage) Pulses: Right Dorsalis Pedis: Normal (Normal sensation in tact ) Neurological/Psych: Oriented x3, Normal Speech, Normal Cognition Gait: Steady ED Course And Treatment - Laboratory Results Result Diagrams: 03/12/17 08:24 03/12/17 08:24 O2 Sat by Pulse Oximetry: 98 (RA) Progress Note: The patient received bloodwork, and Morphine. Medical Decision Making Medical Decision Making: Today 10:42am the physician recommended for the patient to be admitted for further evaluation of the I&D and antibiotic therapy. Culture was done 03/07/2017 The patient has wound cx growing multiple drug resistant organisms. s/p 4th and 5th metatarsals amputation Disposition - Disposition Disposition: HOSPITALIZED Disposition Time: 10:51 Condition: STABLE - Clinical Impression Clinical Impression: Wound infection - Scribe Statement The provider has reviewed the documentation as recorded by the Scribe Giulia Lakhani All medical record entries made by the Scribe were at my direction and personally dictated by me. I have reviewed the chart and agree that the record accurately reflects my personal performance of the history, physical exam, medical decision making, and the department course for this patient. I have also personally directed, reviewed, and agree with the discharge instructions and disposition.
[2017-03-09] MEDS ORDERED: Piperacill/Tazo 3.375gm in Dex 3.375 GM/50 ML BAG IVPB STA (10:44)
[2017-03-09] MEDS ORDERED: Piperacillin/Tazobact 3.375 gm 100 ML IVPB ONE (10:48)
[2017-03-09] MEDS ORDERED: Morphine 4 MG/ML VIAL ONE (10:50)
[2017-03-09 11:00] LABS: BASO # 0.1 K/uL (0.0-0.2); EOS # 0.3 K/uL (0.0-0.7); EOS % 3.3 % (0.0-4.0); HEMATOCRIT 29.7 % (35.0-51.0); LYMPH # 2.2 K/uL (1.0-4.3); LYMPH % 23.2 % (20.0-40.0); MEAN CORPUSCULAR HEMOGLOBIN 22.4 pg (27.0-31.0); MEAN PLATELET VOLUME 8.4 fL (7.2-11.7); MONO # 0.8 K/uL (0.0-0.8); MONO % 8.6 % (0.0-10.0); NRBC % 0.1 % (0.0-2.0); RED CELL DISTRIBUTION WIDTH 19.9 % (11.5-14.5); WHITE BLOOD COUNT 9.4 K/uL (4.8-10.8)
[2017-03-09 11:16] LABS: ALKALINE PHOSPHATASE 45 U/L (38-126); ALT/SGPT 23 U/L (21-72); AST/SGOT 16 U/L (17-59); BILIRUBIN,TOTAL 0.2 mg/dL (0.2-1.3); BLOOD UREA NITROGEN 16 mg/dL (9-20); CALCIUM 9.4 mg/dl (8.6-10.4); CARBON DIOXIDE 23 mmol/L (22-30); CHLORIDE 103 mmol/L (98-107); GFR AFRICAN-AMERICAN > 60; GLUCOSE,RANDOM 143 mg/dL (75-110); POTASSIUM 4.2 mmol/L (3.6-5.2); SODIUM 142 mmol/L (132-148); TOTAL PROTEIN 7.6 g/dL (6.3-8.3)
--- NOTE | 2017-03-09 12:57 | CP.PCM.CON ---
History of Present Illness - History of Present Illness History of Present Illness: 51 y/o male with PMHx of Diabetes, HTN, Hypercholesterolemia seen at bedside in ED for a wound on the right foot. Patient states that he was in the subacute home until today. He states that he was advised by Dr. Diamond to come to the hospital to receive further antibiotics. Patient denies of any pain to his foot today. Patient denies of any recent F/N/V/C/SOB/CP today. Patient states that he had a wound debridement procedure at the hospital on . Patient states that he had his wound vac changed last night. Patient states that he gets his vac changed every 3 days. Patient denies of any other pedal complains at this time. PMHx: Diabetes, HTN, Hypercholesterolemia PSHx: Coronary stent, foot surgery Allergies: N.K.D.A Review of Systems - Constitutional Constitutional: As Per HPI Past Patient History - Infectious Disease Hx of Infectious Diseases: None - Past Medical History & Family History Past Medical History?: Yes - Past Social History Smoking Status: Former Smoker - CARDIAC Hx Hypercholesterolemia: Yes Hx Hypertension: Yes - ENDOCRINE/METABOLIC Hx Endocrine Disorders: Yes Hx Diabetes Mellitus Type 1: Yes Hx Diabetes Mellitus Type 2: Yes - INTEGUMENTARY Hx Dermatological Problems: Yes Other/Comment: Left foot great toe and second toe amputation, left foot 5th toe amputation - MUSCULOSKELETAL/RHEUMATOLOGICAL Hx Musculoskeletal Disorders: Yes Hx Falls: No Hx Unsteady Gait: Yes Other/Comment: HX: OSTEOMYELITIS, Right 5th toe amputation, left forr grat and second toe amputation - PSYCHIATRIC Hx Substance Use: No - SURGICAL HISTORY Hx Coronary Stent: Yes - ANESTHESIA Hx Anesthesia: Yes Hx Anesthesia Reactions: No Hx Malignant Hyperthermia: No Meds Allergies/Adverse Reactions: Allergies Allergy/AdvReac Type Severity Reaction Status Date / Time No Known Allergies Allergy Verified 03/09/17 10:14 Physical Exam - Constitutional Appears: Well, Non-toxic, No Acute Distress - Extremities Exam Additional comments: Wound vac is functioning well with no leaks. There is less than 8cc of drainage noted in the container. - Neurological Exam Neurological exam: Alert, Normal Gait, Oriented x3 - Psychiatric Exam Psychiatric exam: Normal Affect, Normal Mood Results - Vital Signs Recent Vital Signs: Last Vital Signs Temp 98.0 F 03/09/17 10:08 Pulse 85 03/09/17 11:25 Resp 18 03/09/17 11:25 BP 130/70 03/09/17 11:25 Pulse Ox 98 03/09/17 12:54 - Labs Result Diagrams: 03/09/17 10:57 03/09/17 10:57 Labs: Laboratory Results - last 24 hr 03/09/17 03/09/17 10:57 10:57 WBC 9.4 RBC 4.25 L Hgb 9.5 L Hct 29.7 L MCV 70.0 L MCH 22.4 L MCHC 32.0 L RDW 19.9 H Plt Count 199 D MPV 8.4 Neut % (Auto) 63.9 Lymph % (Auto) 23.2 [place] % (Auto) 8.6 Eos % (Auto) 3.3 Baso % (Auto) 1.0 Neut # 6.0 Lymph # 2.2 [place] # 0.8 Eos # 0.3 Baso # 0.1 Sodium 142 Potassium 4.2 Chloride 103 Carbon Dioxide 23 Anion Gap 20 BUN 16 Creatinine 1.4 Est GFR ( Amer) > 60 Est GFR (Non-Af Amer) 53 Random Glucose 143 H Calcium 9.4 Total Bilirubin 0.2 AST 16 L ALT 23 Alkaline Phosphatase 45 Total Protein 7.6 Albumin 3.8 Globulin 3.8 Albumin/Globulin Ratio 1.0 Assessment & Plan - Assessment and Plan (Free Text) Assessment: 51 y/o male seen at bedside in ED 2 days s/p wound debridement procedure on the right foot Plan: Patient evaluated and charts reviewed Labs and vitals reviewed (afebrile WBC @ 9.4) Patient received zosyn Wound vac is in place and will be changed on Saturday Patient will be getting admitted to the floors for IV abx OR cultures (Final)- Klebsiella pneumoniae Thank you for the podiatry consult Podiatry to follow patient while patient in-house - Date & Time Date: 03/09/17 Time: 13:19
--- NOTE | 2017-03-09 13:38 | RAD ---
PROCEDURE: Right Foot Radiographs. HISTORY: wound infection COMPARISON: None. FINDINGS: BONES: Status post amputation 4th and 5th digits at the carpal -metacarpal articulation. Partial resection of cuboid. No osseous erosion or periosteal reaction appreciated. JOINTS: Normal. SOFT TISSUES: Vascular calcifications noted. OTHER FINDINGS: None. IMPRESSION: No plain radiographic evidence of osteomyelitis.
[2017-03-09] MEDS: (Novolin R) Insulin Human Regular 100 units/ml vial SC SCH (21:13)
[2017-03-09] MEDS: Oxycodone/Acetaminophen 5/325 mg Tab PO PRN (21:32)
[2017-03-09] MEDS: Piperacill/Tazo 3.375gm in Dex 3.375 GM/50 ML BAG IVPB SCH (21:33)
[2017-03-10] MEDS: Oxycodone/Acetaminophen 5/325 mg Tab PO PRN ×4 (02:30→22:52)
[2017-03-10] MEDS: Piperacill/Tazo 3.375gm in Dex 3.375 GM/50 ML BAG IVPB SCH ×4 (04:05→21:23)
[2017-03-10] MEDS: (Novolin R) Insulin Human Regular 100 units/ml vial SC SCH ×4 (08:31→21:21)
[2017-03-10] MEDS: Enoxaparin 40 mg Syringe SC SCH (10:19)
[2017-03-10] MEDS: (Novolin 70/30) NPH/Regular 70/30 Units/ml 10 ml vial SC SCH ×2 (10:25→17:03)
--- NOTE | 2017-03-10 10:46 | CP.PCM.PN ---
Subjective - Date & Time of Evaluation Date of Evaluation: 03/10/17 Time of Evaluation: 10:41 - Subjective Subjective: Podiatry progress note for Dr. Hawley 51 year old male was seen resting comfortably at bedside regarding right foot wound. Patient has wound vac intact to right foot. Patient NAD, AAOx3. Denies any pain to his right foot. Denies any n/v/f/c/sob/cp. Objective - Vital Signs/Intake and Output Vital Signs (last 24 hours): Temp Pulse Resp BP Pulse Ox 98 F 73 20 161/88 H 99 03/10/17 08:00 03/10/17 08:00 03/10/17 08:00 03/10/17 08:00 03/10/17 08:00 Intake and Output: 03/10/17 03/10/17 06:59 18:59 Intake Total 300 Output Total 850 Balance -550 - Medications Medications: Current Medications Aspirin (Aspirin Chewable) 81 mg PO DAILY [facility] Last Admin: 03/10/17 10:19 Dose: 81 mg Clopidogrel Bisulfate (Plavix) 75 mg PO DAILY [facility] Last Admin: 03/10/17 10:19 Dose: 75 mg Enoxaparin Sodium (Lovenox) 40 mg SC DAILY [facility] Last Admin: 03/10/17 10:19 Dose: 40 mg Famotidine (Pepcid) 20 mg PO BID [facility] Last Admin: 03/10/17 10:19 Dose: 20 mg Gabapentin (Neurontin) 800 mg PO TID [facility] Last Admin: 03/10/17 10:20 Dose: 800 mg Piperacillin Sod/Tazobactam Sod (Zosyn 3.375 Gm Iv Premix) 3.375 gm in 50 mls @ 100 mls/hr IVPB Q6H [facility] Last Admin: 03/10/17 10:26 Dose: 100 mls/hr Insulin Human Isoph/Insulin Regular (Novolin 70/30 (70/30 Units/Ml) 10 Ml) 50 units SC BID [facility] Last Admin: 03/10/17 10:25 Dose: 50 units Insulin Human Regular (Novolin R) 0 unit SC ACHS [place] PRN Reason: Protocol Last Admin: 03/10/17 08:31 Dose: 1 unit Oxycodone/Acetaminophen (Percocet 5/325 Mg Tab) 2 tab PO Q4H PRN PRN Reason: Pain Stop: 03/12/17 21:01 Last Admin: 03/10/17 10:26 Dose: 2 tab Pneumococcal Polyvalent Vaccine (Pneumovax 23 Vaccine) 0.5 ml IM .ONCE ONE Stop: 03/11/17 10:01 Rosuvastatin Calcium (Crestor) 10 mg PO HS [facility] Last Admin: 03/09/17 21:32 Dose: 10 mg - Labs Labs: 03/09/17 10:57 03/09/17 10:57 - Constitutional Appears: Well, Non-toxic, No Acute Distress - Extremities Exam Additional comments: wound vac intact - Neurological Exam Neurological Exam: Alert, Awake, Oriented x3 - Psychiatric Exam Psychiatric exam: Normal Affect, Normal Mood Assessment and Plan - Assessment and Plan (Free Text) Assessment: 51 year old male 3 days s/p right wound debridement Plan: Patient examined and evaluated Discussed in detail with attending, Dr. Hawley Lab, chart, vitals reviewed; WBC 9.4,afebrile Wound vac left intact Wound vac is in place and will be changed on Saturday Cont IV abx per ID Podiatry to follow patient while patient in-house
--- NOTE | 2017-03-10 14:32 | CP.PCM.CON ---
History of Present Illness - History of Present Illness History of Present Illness: 51 y/o male presents to the ED c/o pain in the right foot since the foot surgery and is here for evaluation of the wound on the right foot. The patient had an amputation 4 weeks ago and was discharged from the rehab facility. . The telegraphic typewriter operator, Dr. ADKINS instructed for the patient to go to the ER regarding any possible wound infection. The patient denies fever, chills , dizziness, and rashes. WOUND VAC IN PLACE HAS MDRO FROM WOUND TAKEN ON 03/07/17 ? UNCLEAR HOW/ WHEN/ WHERE CULTURE OBTAINED MDRO +++ - Medical History PMH: Diabetes, HTN, Hypercholesterolemia Surgical History: Coronary Stent Review of Systems - Constitutional Constitutional: absent: As Per HPI, Anorexia, Chills, Daytime Sleepiness, Excessive Sweating, Fatigue, Fever, Frequent Falls, Headache, Increased Appetite , Lethargy, Malaise, Night Sweats, Snoring, Sleep Apnea, Weight Gain, Weight Loss, Weakness, Other - EENT Eyes: As Per HPI Ears: As Per HPI Nose/Mouth/Throat: As Per HPI - Cardiovascular Cardiovascular: As Per HPI - Respiratory Respiratory: absent: As Per HPI, Cough, Dyspnea, Hemoptysis, Dyspnea on Exertion , Wheezing, Snoring, Stridor, Pain on Inspiration, Chest Congestion, Excessive Mucous Production, Change in Mucous Color, Pain with Coughing, Other - Gastrointestinal Gastrointestinal: absent: As Per HPI, Abdominal Pain, Belching, Bloating, Change in Bowel Habits, Change in Stool Character, Coffee Ground Emesis, Constipation, Cramping, Diarrhea, Dyspepsia, Dysphagia, Early Satiety, Excessive Flatus, Fecal Incontinence, Heartburn, Hematemesis, Hematochezia, Loose Stools, Melena, Nausea, Odynophagia, Temesmus, Vomiting, Other - Genitourinary Genitourinary: absent: As Per HPI, Change in Urinary Stream, Difficulty Urinating, Dysuria, Flank Pain, Hematuria, Pyuria, Nocturia, Urinary Incontinence, Urinary Frequency, Urinary Hesitance, Urinary Urgency, Voiding Freq/Small Amts, Freq UTI, Hx Renal/Bladder Calculi, Hx /Renal Surgery, Bladder Distension, Other - Musculoskeletal Musculoskeletal: As Per HPI - Integumentary Integumentary: As Per HPI, Skin Pain, Wounds - Neurological Neurological: absent: As Per HPI, Abnormal Gait, Abnormal Hearing, Abnormal Movements, Abnormal Speech, Behavioral Changes, Burning Sensations, Confusion, Convulsions, Disequilibrium, Dizziness, Numbness, Focal Weakness, Frequent Falls , Headaches, Lack of Coordination, Loss of Vision, Memory Loss, Paresthesias, Radicular Pain, Restless Legs, Sensory Deficit, Syncope, Tingling, Tremor, Vertigo, Weakness, Other Visual Disturbances, Other - Psychiatric Psychiatric: absent: As Per HPI, Abnormal Sleep Pattern, Anhedonia, Anxiety, Auditory Hallucinations, Behavioral Changes, Change in Appetite, Change in Libido, Confusion, Depression, Difficulty Concentrating, Hallucinations, Homicidal Ideation, Hopelessness, Irritability, Memory Loss, Mood Swings, Panic Attacks, Paranoia, Suicidal Ideation, Visual Hallucinations, Tactile Hallucinations, Other - Endocrine Endocrine: absent: As Per HPI, Change in Body Appearance, Change in Libido, Cold Intolorance, Deepening of Voice, Excessive Sweating, Fatigue, Flushing, Heat Intolorance, Increase in Ring/Shoe/Hat Size, Palpitations, Polydipsia, Polyphagia, Polyuria, Other - Hematologic/Lymphatic Hematologic: absent: As Per HPI, Easy Bleeding, Easy Bruising, Lymphadenopathy, Other Past Patient History - Infectious Disease Hx of Infectious Diseases: None - Past Medical History & Family History Past Medical History?: Yes - Past Social History Smoking Status: Former Smoker - CARDIAC Hx Hypercholesterolemia: Yes Hx Hypertension: Yes - ENDOCRINE/METABOLIC Hx Endocrine Disorders: Yes Hx Diabetes Mellitus Type 1: Yes Hx Diabetes Mellitus Type 2: Yes - INTEGUMENTARY Hx Dermatological Problems: Yes Other/Comment: Left foot great toe and second toe amputation, left foot 5th toe amputation - MUSCULOSKELETAL/RHEUMATOLOGICAL Hx Musculoskeletal Disorders: Yes Hx Falls: No Hx Unsteady Gait: Yes Other/Comment: HX: OSTEOMYELITIS, Right 5th toe amputation, left forr grat and second toe amputation - PSYCHIATRIC Hx Substance Use: No - SURGICAL HISTORY Hx Coronary Stent: Yes - ANESTHESIA Hx Anesthesia: Yes Hx Anesthesia Reactions: No Hx Malignant Hyperthermia: No Meds Allergies/Adverse Reactions: Allergies Allergy/AdvReac Type Severity Reaction Status Date / Time No Known Allergies Allergy Verified 03/09/17 10:14 - Medications Medications: Current Medications Aspirin (Aspirin Chewable) 81 mg PO DAILY [facility] Last Admin: 03/10/17 10:19 Dose: 81 mg Clopidogrel Bisulfate (Plavix) 75 mg PO DAILY [facility] Last Admin: 03/10/17 10:19 Dose: 75 mg Enoxaparin Sodium (Lovenox) 40 mg SC DAILY [facility] Last Admin: 03/10/17 10:19 Dose: 40 mg Famotidine (Pepcid) 20 mg PO BID [facility] Last Admin: 03/10/17 10:19 Dose: 20 mg Gabapentin (Neurontin) 800 mg PO TID [facility] Last Admin: 03/10/17 14:04 Dose: 800 mg Piperacillin Sod/Tazobactam Sod (Zosyn 3.375 Gm Iv Premix) 3.375 gm in 50 mls @ 100 mls/hr IVPB Q6H [facility] Last Admin: 03/10/17 10:26 Dose: 100 mls/hr Insulin Human Isoph/Insulin Regular (Novolin 70/30 (70/30 Units/Ml) 10 Ml) 50 units SC BID [facility] Last Admin: 03/10/17 10:25 Dose: 50 units Insulin Human Regular (Novolin R) 0 unit SC ACHS [facility] PRN Reason: Protocol Last Admin: 03/10/17 12:07 Dose: 1 unit Oxycodone/Acetaminophen (Percocet 5/325 Mg Tab) 2 tab PO Q4H PRN PRN Reason: Pain Stop: 03/12/17 21:01 Last Admin: 03/10/17 10:26 Dose: 2 tab Pneumococcal Polyvalent Vaccine (Pneumovax 23 Vaccine) 0.5 ml IM .ONCE ONE Stop: 03/11/17 10:01 Rosuvastatin Calcium (Crestor) 10 mg PO [facility] Last Admin: 03/09/17 21:32 Dose: 10 mg Physical Exam - Constitutional Appears: Non-toxic, Chronically Ill - Head Exam Head Exam: NORMOCEPHALIC - Eye Exam Eye Exam: PERRL. absent: Scleral icterus - ENT Exam ENT Exam: Mucous Membranes Dry, Normal External Ear Exam - Neck Exam Neck exam: Negative for: Lymphadenopathy - Respiratory Exam Respiratory Exam: Decreased Breath Sounds, Clear to Auscultation Bilateral - Cardiovascular Exam Cardiovascular Exam: REGULAR RHYTHM, +S1, +S2 - GI/Abdominal Exam GI & Abdominal Exam: Diminished Bowel Sounds, Soft. absent: Tenderness - Rectal Exam Rectal Exam: Deferred - Exam Exam: NORMAL INSPECTION - Extremities Exam Extremities exam: Positive for: pedal edema. Negative for: calf tenderness, pedal pulses present Additional comments: 4TH AND 5TH DIGIT AMP SITE WITH WOUND VAC IN PLACE - Back Exam Back exam: absent: CVA tenderness (L), CVA tenderness (R) - Neurological Exam Neurological exam: Alert, CN II-XII Intact, Oriented x3, Reflexes Normal - Psychiatric Exam Psychiatric exam: Normal Mood - Skin Skin Exam: Dry Results - Vital Signs Recent Vital Signs: Last Vital Signs Temp 98 F 03/10/17 08:00 Pulse 73 03/10/17 08:00 Resp 20 03/10/17 08:00 BP 161/88 H 03/10/17 08:00 Pulse Ox 99 03/10/17 08:00 - Labs Result Diagrams: 03/09/17 10:57 03/09/17 10:57 Labs: Laboratory Results - last 24 hr 03/09/17 03/09/17 03/10/17 17:14 21:00 07:25 POC Glucose (mg/dL) 124 H 197 H 160 H 03/10/17 11:12 POC Glucose (mg/dL) 185 H Assessment & Plan - Assessment and Plan (Free Text) Assessment: MDRO FROM WOUND WILL ASK LAB FOR ADDITIONAL SENSITIVITIES POOR PROGNOSIS MAY NEED VASCULAR RE-EVAL
[2017-03-10] MEDS: Ciprofloxacin 400mg/200ml D5W 400 MG/200 ML BAG IVPB SCH (14:59)
[2017-03-11] MEDS: Oxycodone/Acetaminophen 5/325 mg Tab PO PRN ×4 (02:54→19:55)
[2017-03-11] MEDS: Ciprofloxacin 400mg/200ml D5W 400 MG/200 ML BAG IVPB SCH ×2 (02:56→16:04)
[2017-03-11] MEDS: Piperacill/Tazo 3.375gm in Dex 3.375 GM/50 ML BAG IVPB SCH ×2 (04:38→10:52)
[2017-03-11] MEDS ORDERED: Pneumococcal 23-Valent Vaccine IM ONE (10:00)
[2017-03-11] MEDS: Enoxaparin 40 mg Syringe SC SCH (10:51)
[2017-03-11] MEDS: (Novolin 70/30) NPH/Regular 70/30 Units/ml 10 ml vial SC SCH ×2 (10:52→17:27)
[2017-03-11] MEDS: (Novolin R) Insulin Human Regular 100 units/ml vial SC SCH ×4 (10:53→21:37)
--- NOTE | 2017-03-11 11:18 | HP ---
HISTORY OF PRESENT ILLNESS: Mr. Granados has chief complaint of pain in the foot . The patient had . The patient was admitted to the hospital for further evaluation. The patient has history of diabetes and peripheral vascular disease. PHYSICAL EXAMINATION: GENERAL: The patient is awake, alert and oriented. VITAL SIGNS: Temperature 98, pulse 90. HEENT: Within normal limits. NECK: Supple. CHEST: Symmetrical. HEART: Regular. ABDOMEN: Soft. EXTREMITIES: There are ulcers noted in the foot and the patient's toe. IMPRESSION: The patient suffers from diabetic foot, osteomyelitis. Patient on bed rest, supportive care, antibiotics. Juma Bowen MD
[2017-03-11 11:34] LABS: BASO % 0.4 % (0.0-2.0); EOS # 0.3 K/uL (0.0-0.7); EOS % 3.1 % (0.0-4.0); HEMATOCRIT 29.5 % (35.0-51.0); LYMPH # 2.3 K/uL (1.0-4.3); LYMPH % 28.5 % (20.0-40.0); MEAN CELL VOLUME 70.7 fL (80.0-94.0); MEAN CORPUSCULAR HEMOGLOBIN 22.5 pg (27.0-31.0); MEAN CORPUSCULAR HGB CONC 31.8 g/dL (33.0-37.0); MEAN PLATELET VOLUME 8.6 fL (7.2-11.7); MONO # 0.9 K/uL (0.0-0.8); MONO % 10.5 % (0.0-10.0); NRBC % 0.2 % (0.0-2.0); RED CELL DISTRIBUTION WIDTH 20.7 % (11.5-14.5); WHITE BLOOD COUNT 8.1 K/uL (4.8-10.8)
[2017-03-11 11:50] LABS: ALB/GLOB RATIO 1.1 (1.0-2.1); ALKALINE PHOSPHATASE 40 U/L (38-126); ALT/SGPT 21 U/L (21-72); AST/SGOT 14 U/L (17-59); BILIRUBIN,TOTAL 0.2 mg/dL (0.2-1.3); BLOOD UREA NITROGEN 17 mg/dL (9-20); CALCIUM 9.1 mg/dl (8.6-10.4); CARBON DIOXIDE 25 mmol/L (22-30); CHLORIDE 101 mmol/L (98-107); GFR AFRICAN-AMERICAN > 60; GLUCOSE,RANDOM 211 mg/dL (75-110); POTASSIUM 4.1 mmol/L (3.6-5.2); SODIUM 142 mmol/L (132-148); TOTAL PROTEIN 7.1 g/dL (6.3-8.3)
--- NOTE | 2017-03-11 12:34 | CP.PCM.PN ---
Subjective - Date & Time of Evaluation Date of Evaluation: 03/11/17 Time of Evaluation: 09:00 - Subjective Subjective: Dr. ADKINS instructed for the patient to go to the ER regarding any possible wound infection. The patient denies fever, chills, dizziness, and rashes. WOUND VAC IN PLACE HAS MDRO FROM WOUND TAKEN ON 03/07/17 ? UNCLEAR HOW/ WHEN/ WHERE CULTURE OBTAINED MDRO +++ Objective - Vital Signs/Intake and Output Vital Signs (last 24 hours): Temp Pulse Resp BP Pulse Ox 97.3 F L 80 20 159/89 H 96 03/11/17 08:00 03/11/17 08:00 03/11/17 08:00 03/11/17 08:00 03/11/17 08:00 Intake and Output: 03/11/17 03/11/17 06:59 18:59 Intake Total 350 Output Total 475 Balance -125 - Medications Medications: Current Medications Aspirin (Aspirin Chewable) 81 mg PO DAILY [facility] Last Admin: 03/10/17 10:19 Dose: 81 mg Clopidogrel Bisulfate (Plavix) 75 mg PO DAILY [facility] Last Admin: 03/11/17 10:51 Dose: 75 mg Enoxaparin Sodium (Lovenox) 40 mg SC DAILY [facility] Last Admin: 03/11/17 10:51 Dose: 40 mg Famotidine (Pepcid) 20 mg PO BID [facility] Last Admin: 03/11/17 10:51 Dose: 20 mg Gabapentin (Neurontin) 800 mg PO TID [facility] Last Admin: 03/11/17 10:52 Dose: 800 mg Piperacillin Sod/Tazobactam Sod (Zosyn 3.375 Gm Iv Premix) 3.375 gm in 50 mls @ 100 mls/hr IVPB Q6H [facility] Last Admin: 03/11/17 10:52 Dose: 100 mls/hr Ciprofloxacin (Cipro 400mg/200ml Dsw) 400 mg in 200 mls @ 133 mls/hr IVPB Q12H [facility] Last Admin: 03/11/17 02:56 Dose: 133 mls/hr Insulin Human Isoph/Insulin Regular (Novolin 70/30 (70/30 Units/Ml) 10 Ml) 50 units SC BID [facility] Last Admin: 03/11/17 10:52 Dose: 50 units Insulin Human Regular (Novolin R) 0 unit SC ACHS [facility] PRN Reason: Protocol Last Admin: 03/11/17 10:53 Dose: 3 unit Oxycodone/Acetaminophen (Percocet 5/325 Mg Tab) 2 tab PO Q4H PRN PRN Reason: Pain Stop: 03/12/17 21:01 Last Admin: 03/11/17 08:25 Dose: 2 tab Rosuvastatin Calcium (Crestor) 10 mg PO HS [facility] Last Admin: 03/10/17 21:23 Dose: 10 mg - Labs Labs: 03/11/17 11:27 03/11/17 11:27 - Constitutional Appears: Non-toxic, Chronically Ill - Head Exam Head Exam: NORMOCEPHALIC - Eye Exam Eye Exam: absent: Scleral icterus - ENT Exam ENT Exam: Mucous Membranes Dry - Neck Exam Neck Exam: absent: Lymphadenopathy - Respiratory Exam Respiratory Exam: Decreased Breath Sounds - Cardiovascular Exam Cardiovascular Exam: REGULAR RHYTHM - GI/Abdominal Exam GI & Abdominal Exam: Soft Assessment and Plan - Assessment and Plan (Free Text) Plan: cont iv rx await repeat cultures
--- NOTE | 2017-03-11 14:05 | CP.PCM.PN ---
Subjective - Date & Time of Evaluation Date of Evaluation: 03/11/17 Time of Evaluation: 07:50 - Subjective Subjective: PGY2 Resident - Medicine Progress Note This 51 y/o male with PMHx of Diabetes, HTN, Hypercholesterolemia - presented on 03/09/17 for a wound on the right foot (came from subacute home). He reported being advised by Dr. Diamond to come to the hospital to receive further antibiotics. Patient states that he had a wound debridement procedure at the hospital last . Patient states that he had his wound vac changed 03/08. Patient states that he gets his vac changed every 3 days. Today, 03/11 - Patient seen and examined at bedside. No overnight events per nursing. He currently denies foot pain. He admits he is s/p amputations of digits 4,5 on the right foot 4 weeks ago. On 03/07 he grew MDRO. He currently denies fever, chill, abdominal pain, diarrhea, constipation, or any additional acute complaints. PMHx: Diabetes, HTN, Hypercholesterolemia PSHx: Coronary stent, foot surgery Allergies: N.K.D.A Objective - Vital Signs/Intake and Output Vital Signs (last 24 hours): Temp Pulse Resp BP Pulse Ox 97.3 F L 80 20 159/89 H 96 03/11/17 08:00 03/11/17 08:00 03/11/17 08:00 03/11/17 08:00 03/11/17 08:00 Intake and Output: 03/11/17 03/11/17 06:59 18:59 Intake Total 350 Output Total 475 Balance -125 - Medications Medications: Current Medications Aspirin (Aspirin Chewable) 81 mg PO DAILY [facility] Last Admin: 03/10/17 10:19 Dose: 81 mg Clopidogrel Bisulfate (Plavix) 75 mg PO DAILY [facility] Last Admin: 03/11/17 10:51 Dose: 75 mg Enoxaparin Sodium (Lovenox) 40 mg SC DAILY [facility] Last Admin: 03/11/17 10:51 Dose: 40 mg Famotidine (Pepcid) 20 mg PO BID [facility] Last Admin: 03/11/17 10:51 Dose: 20 mg Gabapentin (Neurontin) 800 mg PO TID [facility] Last Admin: 03/11/17 13:51 Dose: 800 mg Piperacillin Sod/Tazobactam Sod (Zosyn 3.375 Gm Iv Premix) 3.375 gm in 50 mls @ 100 mls/hr IVPB Q6H [facility] Last Admin: 03/11/17 10:52 Dose: 100 mls/hr Ciprofloxacin (Cipro 400mg/200ml Dsw) 400 mg in 200 mls @ 133 mls/hr IVPB Q12H [facility] Last Admin: 03/11/17 02:56 Dose: 133 mls/hr Insulin Human Isoph/Insulin Regular (Novolin 70/30 (70/30 Units/Ml) 10 Ml) 50 units SC BID [facility] Last Admin: 03/11/17 10:52 Dose: 50 units Insulin Human Regular (Novolin R) 0 unit SC ACHS [facility] PRN Reason: Protocol Last Admin: 03/11/17 13:51 Dose: 1 unit Oxycodone/Acetaminophen (Percocet 5/325 Mg Tab) 2 tab PO Q4H PRN PRN Reason: Pain Stop: 03/12/17 21:01 Last Admin: 03/11/17 13:54 Dose: 2 tab Rosuvastatin Calcium (Crestor) 10 mg PO HS [facility] Last Admin: 03/10/17 21:23 Dose: 10 mg - Labs Labs: 03/11/17 11:27 03/11/17 11:27 - Additional Findings Additional findings: - Constitutional Appears: Non-toxic, Chronically Ill - Head Exam Head Exam: NORMOCEPHALIC - ENT Exam ENT Exam: Mucous Membranes Dry, Normal External Ear Exam - Neck Exam Neck exam: Negative for: Lymphadenopathy - Respiratory Exam Respiratory Exam: Decreased Breath Sounds, Clear to Auscultation Bilateral - Cardiovascular Exam Cardiovascular Exam: REGULAR RHYTHM, +S1, +S2 - GI/Abdominal Exam GI & Abdominal Exam: Diminished Bowel Sounds, Soft. absent: Tenderness - Extremities Exam Extremities exam: Positive for: pedal edema. Negative for: calf tenderness, pedal pulses present Additional comments: 4TH AND 5TH DIGIT AMP SITE WITH WOUND VAC IN PLACE - Back Exam Back exam: absent: CVA tenderness (L), CVA tenderness (R) - Neurological Exam Neurological exam: Alert, CN II-XII Intact, Oriented x3, Reflexes Normal - Psychiatric Exam Psychiatric exam: Normal Mood, Normal Affect - Skin Skin Exam: Dry Assessment and Plan - Assessment and Plan (Free Text) Assessment: S/p Right Foot Amputation of Digits 4,5 9/11: Blood cultures negative x1day. Wound care nurse to change wound vac Q3D. f /u repeat wound culture. Zosyn 3.375 Gm Iv Premix) 3.375 gm in 50 mls @ 100 mls/hr IVPB Q6H [facility] Cipro 400mg/200ml Dsw) 400 mg in 200 mls @ 133 mls/hr IVPB Q12H [facility] Percocet 5/325 Mg Tab) 2 tab PO Q4H PRN OR cultures (Final)- Klebsiella pneumoniae ID consult, Dr. Hu, f/u recs Podiatry consult, Dr. Vásquez, f/u recs Diabetes Neurontin) 800 mg PO TID [facility] Novolin 70/30 (70/30 Units/Ml) 10 Ml) 50 units SC BID [facility] Novolin R) 0 unit SC ACHS [facility] HTN 9/: BP 159/89 (persistently elevated); start Lisinopril 5mg PO qd Hypercholesterolemia Aspirin (Aspirin Chewable) 81 mg PO DAILY [facility] Clopidogrel Bisulfate (Plavix) 75 mg PO DAILY [facility] Crestor) 10 mg PO HS [facility] Prophylaxis Lovenox) 40 mg SC DAILY [facility] Pepcid) 20 mg PO BID [facility]
--- NOTE | 2017-03-11 14:08 | CP.PCM.PN ---
Subjective - Date & Time of Evaluation Date of Evaluation: 03/11/17 Time of Evaluation: 14:00 - Subjective Subjective: Podiatry progress noted- Dr. Hawley: 51 yo male patient seen at bedside today 4 days s/p soft tissue debridement right foot amputation site. Pt seen resting comfortably in bed at time of visit. Pt says he was advised by Dr. Hawley to come back to the hospital for IV antibiotics and wound culture results. Pt says that he last had his wound vac changed at his rehab facility on Saturday. Denies f/n/v/c/sob/cp at this time. No other complaints today. Objective - Vital Signs/Intake and Output Vital Signs (last 24 hours): Temp Pulse Resp BP Pulse Ox 97.3 F L 80 20 159/89 H 96 03/11/17 08:00 03/11/17 08:00 03/11/17 08:00 03/11/17 08:00 03/11/17 08:00 Intake and Output: 03/11/17 03/11/17 06:59 18:59 Intake Total 350 Output Total 475 Balance -125 - Medications Medications: Current Medications Aspirin (Aspirin Chewable) 81 mg PO DAILY [facility] Last Admin: 03/10/17 10:19 Dose: 81 mg Clopidogrel Bisulfate (Plavix) 75 mg PO DAILY [facility] Last Admin: 03/11/17 10:51 Dose: 75 mg Enoxaparin Sodium (Lovenox) 40 mg SC DAILY [facility] Last Admin: 03/11/17 10:51 Dose: 40 mg Famotidine (Pepcid) 20 mg PO BID [facility] Last Admin: 03/11/17 10:51 Dose: 20 mg Gabapentin (Neurontin) 800 mg PO TID [facility] Last Admin: 03/11/17 13:51 Dose: 800 mg Piperacillin Sod/Tazobactam Sod (Zosyn 3.375 Gm Iv Premix) 3.375 gm in 50 mls @ 100 mls/hr IVPB Q6H [facility] Last Admin: 03/11/17 10:52 Dose: 100 mls/hr Ciprofloxacin (Cipro 400mg/200ml Dsw) 400 mg in 200 mls @ 133 mls/hr IVPB Q12H [facility] Last Admin: 03/11/17 02:56 Dose: 133 mls/hr Insulin Human Isoph/Insulin Regular (Novolin 70/30 (70/30 Units/Ml) 10 Ml) 50 units SC BID [facility] Last Admin: 03/11/17 10:52 Dose: 50 units Insulin Human Regular (Novolin R) 0 unit SC ACHS [facility] PRN Reason: Protocol Last Admin: 03/11/17 13:51 Dose: 1 unit Oxycodone/Acetaminophen (Percocet 5/325 Mg Tab) 2 tab PO Q4H PRN PRN Reason: Pain Stop: 03/12/17 21:01 Last Admin: 03/11/17 13:54 Dose: 2 tab Rosuvastatin Calcium (Crestor) 10 mg PO HS [facility] Last Admin: 03/10/17 21:23 Dose: 10 mg - Labs Labs: 03/11/17 11:27 03/11/17 11:27 - Constitutional Appears: Non-toxic, No Acute Distress - Extremities Exam Extremities Exam: absent: Calf Tenderness Additional comments: RLE exam: Wound vac functioning properly with no leaks at 125 mmHg continuous pressure, 100cc serosanguinous draiange noted to canister - Neurological Exam Neurological Exam: Alert, Awake, Oriented x3 - Psychiatric Exam Psychiatric exam: Normal Affect, Normal Mood Assessment and Plan - Assessment and Plan (Free Text) Assessment: 51 yo diabetic male patient 4 days s/p soft tissue debridement non-healing amputation site Plan: Pt S&E at bedside Chart, labs and vitals reviewed: afebrile, ESR slightly elevated (50), CRP elevated (>15) Wound cx 03/07/17 (intra-op): + MDRO Right foot x-ray (03/09/17): neg for OM Plan discussed with Dr. Hu, 2nd wound culture obtained today, zosyn d/c'd, STAT dose Tygacil 100 mg IV ordered and Tygacil 50mg IV bid (also discussed with pharmacy) Ulceration site cleansed with saline and new wound vac applied to right foot: settings 125 mmHg continuous (will be changed again 03/14) Stable per podiatry Will follow while he is in house.
--- NOTE | 2017-03-11 16:23 | CP.PCM.PN ---
Subjective - Date & Time of Evaluation Date of Evaluation: 03/11/17 Time of Evaluation: 14:00 Objective - Vital Signs/Intake and Output Vital Signs (last 24 hours): Temp Pulse Resp BP Pulse Ox 97.3 F L 80 20 159/89 H 96 03/11/17 08:00 03/11/17 08:00 03/11/17 08:00 03/11/17 08:00 03/11/17 08:00 Intake and Output: 03/11/17 03/11/17 06:59 18:59 Intake Total 350 Output Total 475 Balance -125 - Medications Medications: Current Medications Aspirin (Aspirin Chewable) 81 mg PO DAILY [facility] Last Admin: 03/11/17 10:51 Dose: 81 mg Clopidogrel Bisulfate (Plavix) 75 mg PO DAILY [facility] Last Admin: 03/11/17 10:51 Dose: 75 mg Enoxaparin Sodium (Lovenox) 40 mg SC DAILY [facility] Last Admin: 03/11/17 10:51 Dose: 40 mg Famotidine (Pepcid) 20 mg PO BID [facility] Last Admin: 03/11/17 10:51 Dose: 20 mg Gabapentin (Neurontin) 800 mg PO TID [facility] Last Admin: 03/11/17 13:51 Dose: 800 mg Tigecycline 100 mg/ Sodium (Chloride) 100 mls @ 100 mls/hr IVPB ONCE STA Stop: 03/11/17 17:19 Tigecycline 50 mg/ Sodium (Chloride) 100 mls @ 100 mls/hr IVPB Q12H [facility] Insulin Human Isoph/Insulin Regular (Novolin 70/30 (70/30 Units/Ml) 10 Ml) 50 units SC BID [facility] Last Admin: 03/11/17 10:52 Dose: 50 units Insulin Human Regular (Novolin R) 0 unit SC ACHS [facility] PRN Reason: Protocol Last Admin: 03/11/17 13:51 Dose: 1 unit Lisinopril (Zestril) 5 mg PO DAILY [facility] Last Admin: 03/11/17 15:24 Dose: Not Given Oxycodone/Acetaminophen (Percocet 5/325 Mg Tab) 2 tab PO Q4H PRN PRN Reason: Pain Stop: 03/12/17 21:01 Last Admin: 03/11/17 13:54 Dose: 2 tab Rosuvastatin Calcium (Crestor) 10 mg PO HS [facility] Last Admin: 03/10/17 21:23 Dose: 10 mg - Labs Labs: 03/11/17 11:27 03/11/17 11:27
[2017-03-12] MEDS: Oxycodone/Acetaminophen 5/325 mg Tab PO PRN ×3 (06:39→16:07)
[2017-03-12] MEDS: (Novolin R) Insulin Human Regular 100 units/ml vial SC SCH ×4 (07:24→21:28)
[2017-03-12 08:41] LABS: BASO % 0.4 % (0.0-2.0); EOS # 0.3 K/uL (0.0-0.7); EOS % 3.8 % (0.0-4.0); HEMATOCRIT 30.2 % (35.0-51.0); LYMPH # 2.6 K/uL (1.0-4.3); LYMPH % 30.2 % (20.0-40.0); MEAN CELL VOLUME 70.8 fL (80.0-94.0); MEAN CORPUSCULAR HGB CONC 32.5 g/dL (33.0-37.0); MEAN PLATELET VOLUME 7.8 fL (7.2-11.7); MONO # 0.8 K/uL (0.0-0.8); MONO % 9.6 % (0.0-10.0); RED CELL DISTRIBUTION WIDTH 21.5 % (11.5-14.5); WHITE BLOOD COUNT 8.6 K/uL (4.8-10.8)
[2017-03-12 08:58] LABS: CHLORIDE 106 mmol/L (98-107)
[2017-03-12 08:59] LABS: SODIUM 141 mmol/L (132-148)
[2017-03-12 09:00] LABS: POTASSIUM 4.2 mmol/L (3.6-5.2)
[2017-03-12 09:02] LABS: ALB/GLOB RATIO 1.1 (1.0-2.1); ALKALINE PHOSPHATASE 38 U/L (38-126); ALT/SGPT 25 U/L (21-72); AST/SGOT 13 U/L (17-59); BILIRUBIN,TOTAL 0.3 mg/dL (0.2-1.3); BLOOD UREA NITROGEN 24 mg/dL (9-20); CARBON DIOXIDE 22 mmol/L (22-30); GFR AFRICAN-AMERICAN > 60; GLUCOSE,RANDOM 128 mg/dL (75-110); TOTAL PROTEIN 7.3 g/dL (6.3-8.3)
[2017-03-12 09:03] LABS: CALCIUM 9.1 mg/dl (8.6-10.4); MAGNESIUM 1.6 mg/dL (1.6-2.3); PHOSPHOROUS 4.7 mg/dL (2.5-4.5)
--- NOTE | 2017-03-12 10:29 | CP.PCM.PN ---
Subjective - Date & Time of Evaluation Date of Evaluation: 03/12/17 Time of Evaluation: 07:35 - Subjective Subjective: PGY2 Resident - Medicine Progress Note Patient seen and examined at bedside. No overnight events per nursing. He currently denies foot pain. He admits he is s/p amputations of digits 4,5 on the right foot 4 weeks ago. On 03/07 he grew MDRO. Wound vac changed yesterday, currently in place. He currently denies fever, chill, abdominal pain, diarrhea, constipation, or any additional acute complaints. Objective - Vital Signs/Intake and Output Vital Signs (last 24 hours): Temp Pulse Resp BP Pulse Ox 98.2 F 72 20 172/93 H 96 03/12/17 07:40 03/12/17 07:40 03/12/17 07:40 03/12/17 07:40 03/12/17 07:40 Intake and Output: 03/12/17 03/12/17 06:59 18:59 Intake Total 100 Output Total 1600 Balance -1500 - Medications Medications: Current Medications Aspirin (Aspirin Chewable) 81 mg PO DAILY [facility] Last Admin: 03/11/17 10:51 Dose: 81 mg Clopidogrel Bisulfate (Plavix) 75 mg PO DAILY [facility] Last Admin: 03/11/17 10:51 Dose: 75 mg Enoxaparin Sodium (Lovenox) 40 mg SC DAILY [facility] Last Admin: 03/11/17 10:51 Dose: 40 mg Famotidine (Pepcid) 20 mg PO BID [facility] Last Admin: 03/11/17 17:20 Dose: 20 mg Gabapentin (Neurontin) 800 mg PO TID [facility] Last Admin: 03/11/17 17:20 Dose: 800 mg Tigecycline 50 mg/ Sodium (Chloride) 100 mls @ 100 mls/hr IVPB Q12H [facility] Last Admin: 03/12/17 05:33 Dose: 100 mls/hr Insulin Human Isoph/Insulin Regular (Novolin 70/30 (70/30 Units/Ml) 10 Ml) 50 units SC BID [facility] Last Admin: 03/11/17 17:27 Dose: 50 units Insulin Human Regular (Novolin R) 0 unit SC ACHS [facility] PRN Reason: Protocol Last Admin: 03/12/17 07:24 Dose: Not Given Lisinopril (Zestril) 5 mg PO DAILY [facility] Last Admin: 03/11/17 15:24 Dose: Not Given Oxycodone/Acetaminophen (Percocet 5/325 Mg Tab) 2 tab PO Q4H PRN PRN Reason: Pain Stop: 03/12/17 21:01 Last Admin: 03/12/17 06:39 Dose: 2 tab Rosuvastatin Calcium (Crestor) 10 mg PO HS [facility] Last Admin: 03/11/17 21:37 Dose: 10 mg - Labs Labs: 03/12/17 08:24 03/12/17 08:24 - Additional Findings Additional findings: - Constitutional Appears: Non-toxic, Chronically Ill - Head Exam Head Exam: NORMOCEPHALIC - ENT Exam ENT Exam: Mucous Membranes Dry, Normal External Ear Exam - Neck Exam Neck exam: Negative for: Lymphadenopathy - Respiratory Exam Respiratory Exam: Decreased Breath Sounds, Clear to Auscultation Bilateral - Cardiovascular Exam Cardiovascular Exam: REGULAR RHYTHM, +S1, +S2 - GI/Abdominal Exam GI & Abdominal Exam: Diminished Bowel Sounds, Soft. absent: Tenderness - Extremities Exam Extremities exam: Positive for: pedal edema. Negative for: calf tenderness, pedal pulses present Additional comments: R Foot 4TH AND 5TH DIGIT AMP SITE WITH WOUND VAC IN PLACE - Back Exam Back exam: absent: CVA tenderness (L), CVA tenderness (R) - Neurological Exam Neurological exam: Alert, CN II-XII Intact, Oriented x3, Reflexes Normal - Psychiatric Exam Psychiatric exam: Normal Mood, Normal Affect - Skin Skin Exam: Dry Assessment and Plan - Assessment and Plan (Free Text) Assessment: S/p Right Foot Amputation of Digits 4,5 03/12: Wound culture positive. Awaiting sensitivities. If +MDRO, patient may have chronic osteomyelitis despite negative xray. Per Dr. Hu, patient may need PICC line and 6 weeks of Tygacil 50mg IVPB Q12 pending these results. 03/11: Blood cultures negative x1day. Wound care nurse to change wound vac Q3D. f /u repeat wound culture. Zosyn 3.375 Gm Iv Premix) 3.375 gm in 50 mls @ 100 mls/hr IVPB Q6H [facility] Cipro 400mg/200ml Dsw) 400 mg in 200 mls @ 133 mls/hr IVPB Q12H [facility] Percocet 5/325 Mg Tab) 2 tab PO Q4H PRN OR cultures (Final)- Klebsiella pneumoniae ID consult, Dr. Hu, f/u recs Podiatry consult, Dr. Vásquez, f/u recs Diabetes Neurontin) 800 mg PO TID [facility] Novolin 70/30 (70/30 Units/Ml) 10 Ml) 50 units SC BID [facility] Novolin R) 0 unit SC ACHS [facility] HTN 03/12: BP persistently elevated. Increase Lisinopril to 10mg PO qd. 03/11: BP 159/89 (persistently elevated); start Lisinopril 5mg PO qd Hypercholesterolemia Aspirin (Aspirin Chewable) 81 mg PO DAILY [facility] Clopidogrel Bisulfate (Plavix) 75 mg PO DAILY [facility] Crestor) 10 mg PO HS [facility] Prophylaxis Lovenox) 40 mg SC DAILY [facility] Pepcid) 20 mg PO BID [facility] Disposition: awaiting wound culture. Possible d/c planning for rehab and 6 weeks of IV abx.
[2017-03-12] MEDS: Enoxaparin 40 mg Syringe SC SCH (10:45)
[2017-03-12] MEDS: (Novolin 70/30) NPH/Regular 70/30 Units/ml 10 ml vial SC SCH ×2 (10:48→17:13)
--- NOTE | 2017-03-12 11:18 | CP.PCM.PN ---
Subjective - Date & Time of Evaluation Date of Evaluation: 03/12/17 Time of Evaluation: 08:00 - Subjective Subjective: MDRO wound iv tygacil added may need 6 weeks iv rx Objective - Vital Signs/Intake and Output Vital Signs (last 24 hours): Temp Pulse Resp BP Pulse Ox 98.2 F 72 20 172/93 H 96 03/12/17 07:40 03/12/17 07:40 03/12/17 07:40 03/12/17 07:40 03/12/17 07:40 Intake and Output: 03/12/17 03/12/17 06:59 18:59 Intake Total 100 Output Total 1600 Balance -1500 - Medications Medications: Current Medications Aspirin (Aspirin Chewable) 81 mg PO DAILY [facility] Last Admin: 03/12/17 10:45 Dose: 81 mg Clopidogrel Bisulfate (Plavix) 75 mg PO DAILY [facility] Last Admin: 03/12/17 10:45 Dose: 75 mg Enoxaparin Sodium (Lovenox) 40 mg SC DAILY [facility] Last Admin: 03/12/17 10:45 Dose: 40 mg Famotidine (Pepcid) 20 mg PO BID [facility] Last Admin: 03/12/17 10:45 Dose: 20 mg Gabapentin (Neurontin) 800 mg PO TID [facility] Last Admin: 03/12/17 10:45 Dose: 800 mg Tigecycline 50 mg/ Sodium (Chloride) 100 mls @ 100 mls/hr IVPB Q12H [facility] Last Admin: 03/12/17 05:33 Dose: 100 mls/hr Insulin Human Isoph/Insulin Regular (Novolin 70/30 (70/30 Units/Ml) 10 Ml) 50 units SC BID [facility] Last Admin: 03/12/17 10:48 Dose: Not Given Insulin Human Regular (Novolin R) 0 unit SC ACHS [facility] PRN Reason: Protocol Last Admin: 03/12/17 07:24 Dose: Not Given Lisinopril (Zestril) 5 mg PO DAILY [facility] Last Admin: 03/12/17 10:45 Dose: 5 mg Oxycodone/Acetaminophen (Percocet 5/325 Mg Tab) 2 tab PO Q4H PRN PRN Reason: Pain Stop: 03/12/17 21:01 Last Admin: 03/12/17 10:46 Dose: 2 tab Rosuvastatin Calcium (Crestor) 10 mg PO HS [facility] Last Admin: 03/11/17 21:37 Dose: 10 mg - Labs Labs: 03/12/17 08:24 03/12/17 08:24
--- NOTE | 2017-03-12 22:47 | CON ---
DATE: 03/12/2017 REQUESTING PHYSICIAN: Dr. Bowen HISTORY OF PRESENT ILLNESS: This is a 51-year-old black male who had undergone amputation surgery on the lateral aspect to his right foot. Was in the [facility] as of Saturday and was abruptly discharged. At this time, pending cultures from , pulse lavage irrigation was pending. At that time, he did not have the results of the culture and stressed to the patient to be reevaluated at [facility]. The patient did go to the emergency room, culture report was obtained and now the patient is on antibiotic as per Dr. Dennison. He has a wound VAC in place, alert and oriented x3, and the patient will need to continue the IV antibiotics pending multiple sequential C and S to determine whether or not the infective organism has been remedied. Kade Lockhart DPM
[2017-03-13] MEDS ORDERED: Oxycodone/Acetaminophen 5/325 mg Tab PO ONE (00:16)
[2017-03-13 00:33] VITALS: RESP 20
[2017-03-13 07:21] LABS: BASO % 0.6 % (0.0-2.0); EOS # 0.4 K/uL (0.0-0.7); EOS % 4.4 % (0.0-4.0); HEMATOCRIT 32.5 % (35.0-51.0); LYMPH # 2.5 K/uL (1.0-4.3); LYMPH % 29.2 % (20.0-40.0); MEAN CELL VOLUME 70.7 fL (80.0-94.0); MEAN CORPUSCULAR HEMOGLOBIN 22.4 pg (27.0-31.0); MEAN CORPUSCULAR HGB CONC 31.7 g/dL (33.0-37.0); MEAN PLATELET VOLUME 8.5 fL (7.2-11.7); MONO # 0.8 K/uL (0.0-0.8); MONO % 9.2 % (0.0-10.0); NRBC % 0.1 % (0.0-2.0); RED CELL DISTRIBUTION WIDTH 22.3 % (11.5-14.5); WHITE BLOOD COUNT 8.7 K/uL (4.8-10.8)
[2017-03-13 07:26] LABS: CHLORIDE 105 mmol/L (98-107); POTASSIUM 4.1 mmol/L (3.6-5.2); SODIUM 139 mmol/L (132-148)
[2017-03-13 07:28] LABS: ALB/GLOB RATIO 1.1 (1.0-2.1); ALKALINE PHOSPHATASE 42 U/L (38-126); AST/SGOT 13 U/L (17-59); BILIRUBIN,TOTAL 0.3 mg/dL (0.2-1.3); BLOOD UREA NITROGEN 26 mg/dL (9-20); CARBON DIOXIDE 20 mmol/L (22-30); GFR AFRICAN-AMERICAN > 60; TOTAL PROTEIN 7.1 g/dL (6.3-8.3)
[2017-03-13 07:29] LABS: ALT/SGPT 16 U/L (21-72); GLUCOSE,RANDOM 170 mg/dL (75-110); MAGNESIUM 1.7 mg/dL (1.6-2.3); PHOSPHOROUS 4.7 mg/dL (2.5-4.5)
--- NOTE | 2017-03-13 09:24 | CP.PCM.PN ---
Subjective - Date & Time of Evaluation Date of Evaluation: 03/13/17 Time of Evaluation: 09:15 - Subjective Subjective: Podiatry progress note- Dr. Hawley: 51 yo male patient seen at bedside 6 fays s/p soft tissue debridement right foot amputation site. Pt seen resting comfortably in bed at time of visit. Denies any acute events overnight. Denies f/n/v/c/sob/cp at this time. Denies any pain or discomfort to the foot today. No complains offered. Objective - Vital Signs/Intake and Output Vital Signs (last 24 hours): Temp Pulse Resp BP Pulse Ox 98.5 F 80 20 163/99 H 97 03/13/17 09:05 03/13/17 09:05 03/13/17 09:05 03/13/17 09:05 03/13/17 09:05 Intake and Output: 03/13/17 03/13/17 06:59 18:59 Intake Total 1500 Output Total 2000 Balance -500 - Medications Medications: Current Medications Aspirin (Aspirin Chewable) 81 mg PO DAILY [facility] Last Admin: 03/12/17 10:45 Dose: 81 mg Clopidogrel Bisulfate (Plavix) 75 mg PO DAILY [facility] Last Admin: 03/12/17 10:45 Dose: 75 mg Enoxaparin Sodium (Lovenox) 40 mg SC DAILY [facility] Last Admin: 03/12/17 10:45 Dose: 40 mg Famotidine (Pepcid) 20 mg PO BID [facility] Last Admin: 03/12/17 17:14 Dose: 20 mg Gabapentin (Neurontin) 800 mg PO TID [facility] Last Admin: 03/12/17 17:14 Dose: 800 mg Tigecycline 50 mg/ Sodium (Chloride) 100 mls @ 100 mls/hr IVPB Q12H [facility] Last Admin: 03/13/17 05:42 Dose: 100 mls/hr Insulin Human Isoph/Insulin Regular (Novolin 70/30 (70/30 Units/Ml) 10 Ml) 50 units SC BID [facility] Last Admin: 03/12/17 17:13 Dose: 50 units Insulin Human Regular (Novolin R) 0 unit SC ACHS [facility] PRN Reason: Protocol Last Admin: 03/12/17 21:28 Dose: Not Given Lisinopril (Zestril) 10 mg PO DAILY [facility] Last Admin: 03/12/17 17:20 Dose: Not Given Rosuvastatin Calcium (Crestor) 10 mg PO HS [facility] Last Admin: 03/12/17 21:34 Dose: 10 mg - Labs Labs: 03/13/17 07:06 03/13/17 07:06 - Constitutional Appears: Well, Non-toxic, No Acute Distress - Extremities Exam Additional comments: Dressing to right foot appears c/d/i, wound vac is functioning normally at 125mmHg continuous setting Minimal serosanguinous drainage noted in canister - Neurological Exam Neurological Exam: Alert, Awake, Oriented x3 - Psychiatric Exam Psychiatric exam: Normal Affect, Normal Mood Assessment and Plan - Assessment and Plan (Free Text) Assessment: 51 yo diabetic male patient 6 days s/p soft tissue debridement non-healing amputation site Plan: Pt S&E at bedside Chart, labs and vitals reviewed: afebrile, WBC WNL today Wound cx 03/07/17 (intra-op): + MDRO Wound cx 03/11/17 (bedside): acinetobacter baumanii (heavy growth)-- sensitive to Tygacil Right foot x-ray (03/09/17): neg for OM c/w IV Tygacil (As per Dr. Hu may require 6 weeks IV abx). Will f/u with primary team regarding discharge planning Wound vac left intact, to be changed tomorrow 03/14 by podiatry Stable, will follow.
[2017-03-13] MEDS: Oxycodone/Acetaminophen 5/325 mg Tab PO PRN ×3 (10:11→21:31)
[2017-03-13] MEDS: (Novolin 70/30) NPH/Regular 70/30 Units/ml 10 ml vial SC SCH ×2 (10:13→18:05)
[2017-03-13] MEDS: (Novolin R) Insulin Human Regular 100 units/ml vial SC SCH ×4 (10:13→21:21)
[2017-03-13] MEDS: Enoxaparin 40 mg Syringe SC SCH (10:13)
[2017-03-13] MEDS ORDERED: Lidocaine 2% Inj (20ml) ONE (12:12)
--- NOTE | 2017-03-13 12:28 | PCM.SURG1 ---
Surgeon's Initial Post Op Note - Surgeon's Notes Surgeon: Griffin Villasenor MD [employer] Operator: NONE Type of Anesthesia: Local Pre-Operative Diagnosis: Infection Operative Findings: US showed a patent right basilic vein. Post-Operative Diagnosis: Infection Operation Performed: single lumen picc placement right basilic vein, 40 cm. Tip is in the SVC. Specimen/Specimens Removed: None Estimated Blood Loss: EBL {In ML}: 2 Blood Products Given: N/A Drains Used: No Drains Post-Op Condition: Fair Date of Surgery/Procedure: 03/13/17 Time of Surgery/Procedure: 12:25
--- NOTE | 2017-03-13 13:21 | SPECPROC ---
PROCEDURE: Date of procedure: 03/13/2017 Procedure: 1. Placement of a right arm PICC with ultrasound and fluoroscopic guidance, CPT 82917 2. PICC tip confirmation with spot radiograph and is in the superior vena cava Medications: 3cc 1 percent lidocaine Total Fluoro time: 4 seconds Radiation: 2 mGy EBL: 2 cc HISTORY: Infection requiring long-term IV antibiotics TECHNIQUE: Following informed consent and procedure time-out, the patient was placed supine on the interventional table and the right arm prepped and draped in the usual sterile fashion. Ultrasound showed a patent and compressible right basilic vein. After the skin was anesthetized with lidocaine, the basilic vein was accessed with micro micropuncture technique using ultrasound guidance. A guidewire was then advanced under fluoroscopic guidance into the superior vena cava. An image documenting ultrasound guidance for vascular access was permanently saved. The length of the single-lumen 5 Georgian PICC was trimmed to 40 centimeters and advanced through a peel-away sheath. The PICC was position with tip of PICC confirm a spot radiograph the superior vena cava. The PICC was secured to the patient's skin. The PICC was flushed. A biopatch and sterile dressing was applied. IMPRESSION: Placement of a single-lumen 5 Georgian PICC trimmed to 40 centimeters via right basilic vein. The tip of the PICC is confirmed with spot radiograph and is in the superior vena cava.
--- NOTE | 2017-03-13 16:24 | CP.PCM.PN ---
Subjective - Date & Time of Evaluation Date of Evaluation: 03/13/17 Time of Evaluation: 09:00 - Subjective Subjective: awake alert afeb wound vac in place Objective - Vital Signs/Intake and Output Vital Signs (last 24 hours): Temp Pulse Resp BP Pulse Ox 98.8 F 81 20 146/88 96 03/13/17 15:47 03/13/17 15:47 03/13/17 15:47 03/13/17 15:47 03/13/17 15:47 Intake and Output: 03/13/17 03/13/17 06:59 18:59 Intake Total 1500 Output Total 2000 Balance -500 - Medications Medications: Current Medications Aspirin (Aspirin Chewable) 81 mg PO DAILY [facility] Last Admin: 03/13/17 10:12 Dose: 81 mg Clopidogrel Bisulfate (Plavix) 75 mg PO DAILY [facility] Last Admin: 03/13/17 10:11 Dose: 75 mg Enoxaparin Sodium (Lovenox) 40 mg SC DAILY [facility] Last Admin: 03/13/17 10:13 Dose: 40 mg Famotidine (Pepcid) 20 mg PO BID [facility] Last Admin: 03/13/17 10:13 Dose: 20 mg Gabapentin (Neurontin) 800 mg PO TID [facility] Last Admin: 03/13/17 14:37 Dose: 800 mg Tigecycline 50 mg/ Sodium (Chloride) 100 mls @ 100 mls/hr IVPB Q12H [facility] Last Admin: 03/13/17 05:42 Dose: 100 mls/hr Insulin Human Isoph/Insulin Regular (Novolin 70/30 (70/30 Units/Ml) 10 Ml) 50 units SC BID [facility] Last Admin: 03/13/17 10:13 Dose: 50 units Insulin Human Regular (Novolin R) 0 unit SC ACHS [facility] PRN Reason: Protocol Last Admin: 03/13/17 13:41 Dose: 1 unit Lisinopril (Zestril) 10 mg PO DAILY [facility] Last Admin: 03/13/17 10:12 Dose: 10 mg Oxycodone/Acetaminophen (Percocet 5/325 Mg Tab) 2 tab PO Q4H PRN PRN Reason: Pain, severe (8-10) Stop: 03/16/17 09:35 Last Admin: 03/13/17 15:57 Dose: 2 tab Rosuvastatin Calcium (Crestor) 10 mg PO HS [facility] Last Admin: 03/12/17 21:34 Dose: 10 mg - Labs Labs: 03/13/17 07:06 03/13/17 07:06 - Constitutional Appears: Non-toxic, Chronically Ill - Head Exam Head Exam: NORMOCEPHALIC - Eye Exam Eye Exam: PERRL. absent: Scleral icterus - ENT Exam ENT Exam: Mucous Membranes Dry - Neck Exam Neck Exam: absent: Lymphadenopathy - Respiratory Exam Respiratory Exam: Decreased Breath Sounds - Cardiovascular Exam Cardiovascular Exam: REGULAR RHYTHM - GI/Abdominal Exam GI & Abdominal Exam: Distended, Soft - Rectal Exam Rectal Exam: Deferred - Exam Exam: NORMAL INSPECTION - Extremities Exam Extremities Exam: absent: Pedal Edema - Back Exam Back Exam: absent: CVA tenderness (L), CVA tenderness (R) Assessment and Plan - Assessment and Plan (Free Text) Plan: cont rx for OM x 6 weeks need lft's twice weekly
--- NOTE | 2017-03-13 17:31 | CP.PCM.PN ---
Subjective - Date & Time of Evaluation Date of Evaluation: 03/13/17 Time of Evaluation: 09:40 - Subjective Subjective: PGY2 medicine note for Dr. Bowen Patient seen and examined. Patient with complaint of pain as percocet order discontinued. Patient later stated he was feeling okay and was trying to bear partial weight to foot. Objective - Vital Signs/Intake and Output Vital Signs (last 24 hours): Temp Pulse Resp BP Pulse Ox 98.8 F 81 20 146/88 96 03/13/17 15:47 03/13/17 15:47 03/13/17 15:47 03/13/17 15:47 03/13/17 15:47 Intake and Output: 03/13/17 03/13/17 06:59 18:59 Intake Total 1500 500 Output Total 2000 300 Balance -500 200 - Medications Medications: Current Medications Aspirin (Aspirin Chewable) 81 mg PO DAILY [facility] Last Admin: 03/13/17 10:12 Dose: 81 mg Clopidogrel Bisulfate (Plavix) 75 mg PO DAILY [facility] Last Admin: 03/13/17 10:11 Dose: 75 mg Enoxaparin Sodium (Lovenox) 40 mg SC DAILY [facility] Last Admin: 03/13/17 10:13 Dose: 40 mg Famotidine (Pepcid) 20 mg PO BID [facility] Last Admin: 03/13/17 17:15 Dose: 20 mg Gabapentin (Neurontin) 800 mg PO TID [facility] Last Admin: 03/13/17 17:15 Dose: 800 mg Tigecycline 50 mg/ Sodium (Chloride) 100 mls @ 100 mls/hr IVPB Q12H [facility] Last Admin: 03/13/17 17:15 Dose: 100 mls/hr Insulin Human Isoph/Insulin Regular (Novolin 70/30 (70/30 Units/Ml) 10 Ml) 50 units SC BID [facility] Last Admin: 03/13/17 10:13 Dose: 50 units Insulin Human Regular (Novolin R) 0 unit SC ACHS [facility] PRN Reason: Protocol Last Admin: 03/13/17 17:14 Dose: 2 unit Lisinopril (Zestril) 10 mg PO DAILY [facility] Last Admin: 03/13/17 10:12 Dose: 10 mg Oxycodone/Acetaminophen (Percocet 5/325 Mg Tab) 2 tab PO Q4H PRN PRN Reason: Pain, severe (8-10) Stop: 03/16/17 09:35 Last Admin: 03/13/17 15:57 Dose: 2 tab Rosuvastatin Calcium (Crestor) 10 mg PO HS [facility] Last Admin: 03/12/17 21:34 Dose: 10 mg - Labs Labs: 03/13/17 07:06 03/13/17 07:06 - Constitutional Appears: Non-toxic, No Acute Distress - Head Exam Head Exam: ATRAUMATIC, NORMOCEPHALIC - Eye Exam Eye Exam: EOMI - ENT Exam ENT Exam: Mucous Membranes Moist - Respiratory Exam Respiratory Exam: Clear to Ausculation Bilateral - Cardiovascular Exam Cardiovascular Exam: +S1, +S2 - GI/Abdominal Exam GI & Abdominal Exam: Normal Bowel Sounds. absent: Tenderness - Extremities Exam Extremities Exam: Pedal Edema Additional comments: wound vac in place to right foot - Neurological Exam Neurological Exam: Alert, Awake - Psychiatric Exam Psychiatric exam: Normal Affect - Skin Skin Exam: Warm Assessment and Plan - Assessment and Plan (Free Text) Assessment: S/p Right Foot Amputation of Digits 4,5 03/13: wound culture positive for multi drug resistant acinetobacter, sensitive to tygacil. Per Dr. Hu- patient will need IV antibiotics BID for 6weeks. PICC placed byt Dr. Villasenor. Podiatry to change wound vac tomorrow 03/14 03/12: Wound culture positive. Awaiting sensitivities. If +MDRO, patient may have chronic osteomyelitis despite negative xray. Per Dr. Hu, patient may need PICC line and 6 weeks of Tygacil 50mg IVPB Q12 pending these results. 03/11: Blood cultures negative x1day. Wound care nurse to change wound vac Q3D. f /u repeat wound culture. Zosyn 3.375 Gm Iv Premix) 3.375 gm in 50 mls @ 100 mls/hr IVPB Q6H [facility] Cipro 400mg/200ml Dsw) 400 mg in 200 mls @ 133 mls/hr IVPB Q12H [facility] Percocet 5/325 Mg Tab) 2 tab PO Q4H PRN OR cultures (Final)- Klebsiella pneumoniae ID consult, Dr. Hu, f/u recs Podiatry consult, Dr. Vásquez, f/u recs Diabetes Neurontin) 800 mg PO TID [facility] Novolin 70/30 (70/30 Units/Ml) 10 Ml) 50 units SC BID [facility] Novolin R) 0 unit SC ACHS [facility] HTN 03/13: BP elevated, patient also in pain- order for percocet fell off AUG, will re-order 03/12: BP persistently elevated. Increase Lisinopril to 10mg PO qd. 03/11: BP 159/89 (persistently elevated); start Lisinopril 5mg PO qd Hypercholesterolemia Aspirin (Aspirin Chewable) 81 mg PO DAILY [facility] Clopidogrel Bisulfate (Plavix) 75 mg PO DAILY [facility] Crestor) 10 mg PO HS [facility] Prophylaxis Lovenox) 40 mg SC DAILY [facility] Pepcid) 20 mg PO BID [facility] Disposition patient will need 6 weeks of Tygacil. Patient not accepted to [facility] due to cost of antibiotics. Patient may be able to go to [facility] All medical management as per Dr. Bowen
[2017-03-14] MEDS: Oxycodone/Acetaminophen 5/325 mg Tab PO PRN ×3 (01:41→17:31)
[2017-03-14] MEDS: (Novolin R) Insulin Human Regular 100 units/ml vial SC SCH ×4 (08:01→21:11)
[2017-03-14 08:32] LABS: BASO # 0.1 K/uL (0.0-0.2); BASO % 0.7 % (0.0-2.0); EOS # 0.4 K/uL (0.0-0.7); EOS % 4.2 % (0.0-4.0); HEMATOCRIT 29.9 % (35.0-51.0); LYMPH # 2.9 K/uL (1.0-4.3); LYMPH % 33.6 % (20.0-40.0); MEAN CELL VOLUME 71.6 fL (80.0-94.0); MEAN CORPUSCULAR HEMOGLOBIN 22.7 pg (27.0-31.0); MEAN CORPUSCULAR HGB CONC 31.8 g/dL (33.0-37.0); MEAN PLATELET VOLUME 8.2 fL (7.2-11.7); MONO # 0.9 K/uL (0.0-0.8); MONO % 10.6 % (0.0-10.0); RED CELL DISTRIBUTION WIDTH 21.8 % (11.5-14.5); WHITE BLOOD COUNT 8.6 K/uL (4.8-10.8)
[2017-03-14 08:39] LABS: CHLORIDE 107 mmol/L (98-107)
[2017-03-14 08:40] LABS: SODIUM 140 mmol/L (132-148)
[2017-03-14 08:42] LABS: AST/SGOT 12 U/L (17-59); BILIRUBIN,TOTAL 0.3 mg/dL (0.2-1.3); CARBON DIOXIDE 20 mmol/L (22-30); GFR AFRICAN-AMERICAN > 60; TOTAL PROTEIN 6.7 g/dL (6.3-8.3)
[2017-03-14 08:43] LABS: ALKALINE PHOSPHATASE 43 U/L (38-126); ALT/SGPT 28 U/L (21-72); BLOOD UREA NITROGEN 29 mg/dL (9-20); CALCIUM 8.4 mg/dl (8.6-10.4); GLUCOSE,RANDOM 156 mg/dL (75-110); MAGNESIUM 1.7 mg/dL (1.6-2.3); PHOSPHOROUS 4.3 mg/dL (2.5-4.5)
--- NOTE | 2017-03-14 08:56 | CP.PCM.PN ---
Subjective - Date & Time of Evaluation Date of Evaluation: 03/14/17 Time of Evaluation: 08:00 - Subjective Subjective: Podiatry progress note- Dr. Hawley: 51 yo male patient seen at bedside 7 fays s/p soft tissue debridement right foot amputation site. Pt seen resting comfortably in bed at time of visit. Denies any pain or discomfort to the lower extremity at this time. Says he has been walking with surgical shoe, taking care to avoid weight to the forefoot. Denies f/n/v/c/sob/cp/weakness or dizziness at this time. Reports an uneventful overnight course. Objective - Vital Signs/Intake and Output Vital Signs (last 24 hours): Temp Pulse Resp BP Pulse Ox 98.0 F 72 20 159/95 H 98 03/14/17 07:00 03/14/17 07:00 03/14/17 07:00 03/14/17 07:00 03/14/17 07:00 Intake and Output: 03/14/17 03/14/17 06:59 18:59 Intake Total 900 Balance 900 - Medications Medications: Current Medications Aspirin (Aspirin Chewable) 81 mg PO DAILY [facility] Last Admin: 03/13/17 10:12 Dose: 81 mg Clopidogrel Bisulfate (Plavix) 75 mg PO DAILY [facility] Last Admin: 03/13/17 10:11 Dose: 75 mg Enoxaparin Sodium (Lovenox) 40 mg SC DAILY [facility] Last Admin: 03/13/17 10:13 Dose: 40 mg Famotidine (Pepcid) 20 mg PO BID [facility] Last Admin: 03/13/17 17:15 Dose: 20 mg Gabapentin (Neurontin) 800 mg PO TID [facility] Last Admin: 03/13/17 17:15 Dose: 800 mg Tigecycline 50 mg/ Sodium (Chloride) 100 mls @ 100 mls/hr IVPB Q12H [facility] Last Admin: 03/14/17 05:20 Dose: 100 mls/hr Insulin Human Isoph/Insulin Regular (Novolin 70/30 (70/30 Units/Ml) 10 Ml) 50 units SC BID [facility] Last Admin: 03/13/17 18:05 Dose: 50 units Insulin Human Regular (Novolin R) 0 unit SC ACHS [facility] PRN Reason: Protocol Last Admin: 03/14/17 08:01 Dose: 2 unit Lisinopril (Zestril) 10 mg PO DAILY [facility] Last Admin: 03/13/17 10:12 Dose: 10 mg Oxycodone/Acetaminophen (Percocet 5/325 Mg Tab) 2 tab PO Q4H PRN PRN Reason: Pain, severe (8-10) Stop: 03/16/17 09:35 Last Admin: 03/14/17 01:41 Dose: 2 tab Rosuvastatin Calcium (Crestor) 10 mg PO HS [facility] Last Admin: 03/13/17 21:31 Dose: 10 mg - Labs Labs: 03/14/17 08:20 03/14/17 08:20 - Constitutional Appears: Non-toxic, No Acute Distress - Extremities Exam Extremities Exam: absent: Calf Tenderness Additional comments: RLE focused: VASC-DP/PT puses palpable, skin temp warm to warm (from proximal to distal), cap refill < 3 seconds to digits 1-3, no pedal edema noted NEURO- pedal sensation is grossly diminished DERM- full thickness surgical wound noted to distal-lateral aspect of right foot , central aspect of wound appears to be granulating with coverage of bone noted , fibrous tissue is noted to proximal and distal aspect of wound, no purulence, no malodor, no erythema, no signs infection (upon mechanical deridement of wound base bleeding was noted) ORTHO-previous partial 4th and 5th ray amputations - Neurological Exam Neurological Exam: Alert, Awake, Oriented x3 - Psychiatric Exam Psychiatric exam: Normal Affect, Normal Mood Assessment and Plan - Assessment and Plan (Free Text) Assessment: 51 yo diabetic male patient 7 days s/p soft tissue debridement non-healing amputation site Plan: Pt S&E at bedside with Dr. Hawley present Chart, labs and vitals reviewed: afebrile, WBC WNL Right foot x-ray (03/09/17): neg for OM Wound cx 03/07/17 (intra-op): + MDRO Wound cx 03/11/17 (bedside): acinetobacter baumanii (heavy growth)-- sensitive to Tygacil ID on case Dr. Hu, c/w w/ IV Tygacil (as per Dr. Hu may require 6 weeks IV abx) Discussed w/ primary (awaiting auth regarding rehab facility for IV abx) Wound mechanically debrided with gauze and peroxide (healthy bleeding noted)-- wound vac reapplied, setting at continuous 125mmHg functioning well with intact seal. Vac to be changed again Saturday 03/17 (will need vac removed prior to discharge to rehab facility) Stable per podiatry Will follow
[2017-03-14] MEDS: Enoxaparin 40 mg Syringe SC SCH (09:34)
[2017-03-14] MEDS: (Novolin 70/30) NPH/Regular 70/30 Units/ml 10 ml vial SC SCH ×2 (09:34→17:30)
--- NOTE | 2017-03-14 16:24 | CP.PCM.PN ---
Subjective - Date & Time of Evaluation Date of Evaluation: 03/14/17 Time of Evaluation: 08:50 - Subjective Subjective: PGY2 medicine progress note for Dr. Bowen Patient seen and examined. Patient states pain is well controlled. Patient requesting LTAC placement as he states it will be difficult for him to maintain the wound vac and IV antibiotics every day. Objective - Vital Signs/Intake and Output Vital Signs (last 24 hours): Temp Pulse Resp BP Pulse Ox 98.0 F 72 20 159/95 H 98 03/14/17 07:00 03/14/17 07:00 03/14/17 07:00 03/14/17 07:00 03/14/17 07:00 Intake and Output: 03/14/17 03/14/17 06:59 18:59 Intake Total 900 Balance 900 - Medications Medications: Current Medications Aspirin (Aspirin Chewable) 81 mg PO DAILY [facility] Last Admin: 03/14/17 09:34 Dose: 81 mg Clopidogrel Bisulfate (Plavix) 75 mg PO DAILY [facility] Last Admin: 03/14/17 09:34 Dose: 75 mg Enoxaparin Sodium (Lovenox) 40 mg SC DAILY [facility] Last Admin: 03/14/17 09:34 Dose: 40 mg Famotidine (Pepcid) 20 mg PO BID [facility] Last Admin: 03/14/17 09:34 Dose: 20 mg Gabapentin (Neurontin) 800 mg PO TID [facility] Last Admin: 03/14/17 14:58 Dose: 800 mg Tigecycline 50 mg/ Sodium (Chloride) 100 mls @ 100 mls/hr IVPB Q12H [facility] Last Admin: 03/14/17 05:20 Dose: 100 mls/hr Insulin Human Isoph/Insulin Regular (Novolin 70/30 (70/30 Units/Ml) 10 Ml) 50 units SC BID [facility] Last Admin: 03/14/17 09:34 Dose: 50 units Insulin Human Regular (Novolin R) 0 unit SC ACHS [facility] PRN Reason: Protocol Last Admin: 03/14/17 11:39 Dose: Not Given Lisinopril (Zestril) 10 mg PO DAILY [facility] Last Admin: 03/14/17 09:34 Dose: 10 mg Oxycodone/Acetaminophen (Percocet 5/325 Mg Tab) 2 tab PO Q4H PRN PRN Reason: Pain, severe (8-10) Stop: 03/16/17 09:35 Last Admin: 03/14/17 12:20 Dose: 2 tab Rosuvastatin Calcium (Crestor) 10 mg PO HS [facility] Last Admin: 03/13/17 21:31 Dose: 10 mg - Labs Labs: 03/14/17 08:20 03/14/17 08:20 - Constitutional Appears: No Acute Distress - Head Exam Head Exam: ATRAUMATIC, NORMOCEPHALIC - Eye Exam Eye Exam: EOMI - ENT Exam ENT Exam: Mucous Membranes Moist - Respiratory Exam Respiratory Exam: Clear to Ausculation Bilateral, NORMAL BREATHING PATTERN - Cardiovascular Exam Cardiovascular Exam: +S1, +S2 - GI/Abdominal Exam GI & Abdominal Exam: Soft, Normal Bowel Sounds. absent: Tenderness - Extremities Exam Additional comments: mild edema lower extremities b/l s/p left hallux amputation s/p right foot digit amputation, wound vac in place- changed today - Neurological Exam Neurological Exam: Alert, Awake - Psychiatric Exam Psychiatric exam: Normal Affect - Skin Skin Exam: Dry, Warm Assessment and Plan - Assessment and Plan (Free Text) Assessment: S/p Right Foot Amputation of Digits 4,5 03/14: patient pending LTAC placement for IV antibiotics. Patient had wound vac change with podiatry. Patient will need wound vac change every 3 days 03/13: wound culture positive for multi drug resistant acinetobacter, sensitive to tygacil. Per Dr. Hu- patient will need IV antibiotics BID for 6weeks. PICC placed byt Dr. Villasenor. Podiatry to change wound vac tomorrow 03/14 03/12: Wound culture positive. Awaiting sensitivities. If +MDRO, patient may have chronic osteomyelitis despite negative xray. Per Dr. Hu, patient may need PICC line and 6 weeks of Tygacil 50mg IVPB Q12 pending these results. 03/11: Blood cultures negative x1day. Wound care nurse to change wound vac Q3D. f /u repeat wound culture. Zosyn 3.375 Gm Iv Premix) 3.375 gm in 50 mls @ 100 mls/hr IVPB Q6H [facility] Cipro 400mg/200ml Dsw) 400 mg in 200 mls @ 133 mls/hr IVPB Q12H [facility] Percocet 5/325 Mg Tab) 2 tab PO Q4H PRN OR cultures (Final)- Klebsiella pneumoniae ID consult, Dr. Hu, f/u recs Podiatry consult, Dr. Vásquez, f/u recs Diabetes Neurontin) 800 mg PO TID [facility] Novolin 70/30 (70/30 Units/Ml) 10 Ml) 50 units SC BID [facility] Novolin R) 0 unit SC ACHS [facility] HTN 03/14: BP remains elevated, will increase lisinopril 03/13: BP elevated, patient also in pain- order for percocet fell off AUG, will re-order 03/12: BP persistently elevated. Increase Lisinopril to 10mg PO qd. 03/11: BP 159/89 (persistently elevated); start Lisinopril 5mg PO qd Hypercholesterolemia Aspirin (Aspirin Chewable) 81 mg PO DAILY [facility] Clopidogrel Bisulfate (Plavix) 75 mg PO DAILY [facility] Crestor) 10 mg PO HS [facility] Prophylaxis Lovenox) 40 mg SC DAILY [facility] Pepcid) 20 mg PO BID [facility] Disposition patient will need 6 weeks of Tygacil. Patient not accepted to [facility] due to cost of antibiotics. Pending insurance authorization for [facility] All medical management as per Dr. Bowen
--- NOTE | 2017-03-14 17:48 | CP.PCM.PN ---
Subjective - Date & Time of Evaluation Date of Evaluation: 03/14/17 Time of Evaluation: 09:00 - Subjective Subjective: await ltac placement for wound vac and iv antibiotics Objective - Vital Signs/Intake and Output Vital Signs (last 24 hours): Temp Pulse Resp BP Pulse Ox 97.2 F L 68 20 165/88 H 98 03/14/17 15:00 03/14/17 15:00 03/14/17 15:00 03/14/17 15:00 03/14/17 15:00 Intake and Output: 03/14/17 03/14/17 06:59 18:59 Intake Total 900 Balance 900 - Medications Medications: Current Medications Aspirin (Aspirin Chewable) 81 mg PO DAILY [facility] Last Admin: 03/14/17 09:34 Dose: 81 mg Clopidogrel Bisulfate (Plavix) 75 mg PO DAILY [facility] Last Admin: 03/14/17 09:34 Dose: 75 mg Enoxaparin Sodium (Lovenox) 40 mg SC DAILY [facility] Last Admin: 03/14/17 09:34 Dose: 40 mg Famotidine (Pepcid) 20 mg PO BID [facility] Last Admin: 03/14/17 17:30 Dose: 20 mg Gabapentin (Neurontin) 800 mg PO TID [facility] Last Admin: 03/14/17 17:30 Dose: 800 mg Tigecycline 50 mg/ Sodium (Chloride) 100 mls @ 100 mls/hr IVPB Q12H [facility] Last Admin: 03/14/17 17:31 Dose: 100 mls/hr Insulin Human Isoph/Insulin Regular (Novolin 70/30 (70/30 Units/Ml) 10 Ml) 50 units SC BID [facility] Last Admin: 03/14/17 17:30 Dose: 50 units Insulin Human Regular (Novolin R) 0 unit SC ACHS [facility] PRN Reason: Protocol Last Admin: 03/14/17 16:32 Dose: Not Given Lisinopril (Zestril) 20 mg PO DAILY [facility] Oxycodone/Acetaminophen (Percocet 5/325 Mg Tab) 2 tab PO Q4H PRN PRN Reason: Pain, severe (8-10) Stop: 03/16/17 09:35 Last Admin: 03/14/17 17:31 Dose: 2 tab Rosuvastatin Calcium (Crestor) 10 mg PO HS [facility] Last Admin: 03/13/17 21:31 Dose: 10 mg - Labs Labs: 03/14/17 08:20 03/14/17 08:20 - Constitutional Appears: Non-toxic, Chronically Ill - Head Exam Head Exam: NORMOCEPHALIC - Eye Exam Eye Exam: PERRL - ENT Exam ENT Exam: Mucous Membranes Dry - Neck Exam Neck Exam: absent: Lymphadenopathy - Respiratory Exam Respiratory Exam: Decreased Breath Sounds - Cardiovascular Exam Cardiovascular Exam: REGULAR RHYTHM - GI/Abdominal Exam GI & Abdominal Exam: Distended, Soft - Rectal Exam Rectal Exam: Deferred - Exam Exam: NORMAL INSPECTION
[2017-03-15] MEDS: Oxycodone/Acetaminophen 5/325 mg Tab PO PRN ×2 (02:46→10:52)
[2017-03-15 07:35] LABS: BASO % 0.4 % (0.0-2.0); EOS # 0.4 K/uL (0.0-0.7); EOS % 3.8 % (0.0-4.0); HEMATOCRIT 32.4 % (35.0-51.0); LYMPH # 3.4 K/uL (1.0-4.3); LYMPH % 33.2 % (20.0-40.0); MEAN CELL VOLUME 71.8 fL (80.0-94.0); MEAN CORPUSCULAR HEMOGLOBIN 23.1 pg (27.0-31.0); MEAN CORPUSCULAR HGB CONC 32.1 g/dL (33.0-37.0); MEAN PLATELET VOLUME 8.6 fL (7.2-11.7); MONO # 0.9 K/uL (0.0-0.8); NRBC % 0.2 % (0.0-2.0); RED CELL DISTRIBUTION WIDTH 22.1 % (11.5-14.5); WHITE BLOOD COUNT 10.3 K/uL (4.8-10.8)
[2017-03-15] MEDS: (Novolin R) Insulin Human Regular 100 units/ml vial SC SCH ×3 (07:46→19:32)
[2017-03-15 07:54] LABS: CHLORIDE 107 mmol/L (98-107)
[2017-03-15 07:55] LABS: POTASSIUM 4.3 mmol/L (3.6-5.2); SODIUM 142 mmol/L (132-148)
[2017-03-15 07:57] LABS: ALB/GLOB RATIO 1.1 (1.0-2.1); ALKALINE PHOSPHATASE 65 U/L (38-126); AST/SGOT 16 U/L (17-59); BILIRUBIN,TOTAL 0.3 mg/dL (0.2-1.3); BLOOD UREA NITROGEN 26 mg/dL (9-20); CARBON DIOXIDE 21 mmol/L (22-30); GFR AFRICAN-AMERICAN > 60; GLUCOSE,RANDOM 113 mg/dL (75-110); TOTAL PROTEIN 7.3 g/dL (6.3-8.3)
[2017-03-15 07:58] LABS: ALT/SGPT 25 U/L (21-72); CALCIUM 8.9 mg/dl (8.6-10.4); MAGNESIUM 1.7 mg/dL (1.6-2.3); PHOSPHOROUS 4.6 mg/dL (2.5-4.5)
[2017-03-15] MEDS: Enoxaparin 40 mg Syringe SC SCH (10:52)
[2017-03-15] MEDS: (Novolin 70/30) NPH/Regular 70/30 Units/ml 10 ml vial SC SCH ×2 (10:54→19:33)
--- NOTE | 2017-03-15 11:14 | CP.PCM.PN ---
Subjective - Date & Time of Evaluation Date of Evaluation: 03/15/17 Time of Evaluation: 10:30 - Subjective Subjective: Podiatry progress note- Dr. Hawley: 51 yo male patient seen at bedside 8 days s/p soft tissue debridement right foot amputation site. Pt seen resting in bed at time of visit. Dressing has been removed to right foot. Call received overnight from nursing saying patient was upset wound vac was note changed (however wound vac was indeed changed yesterday with Dr. Hawley present). Explained to patient that wound vac canister only needs to be changed when full. Pt denies any pain or discomfort to RLE. Denies f/n/v/c/sob/cp at this time. Objective - Vital Signs/Intake and Output Vital Signs (last 24 hours): Temp Pulse Resp BP Pulse Ox 98 F 84 20 170/90 H 96 03/15/17 08:44 03/15/17 10:52 03/15/17 08:44 03/15/17 10:52 03/15/17 08:44 Intake and Output: 03/15/17 03/15/17 06:59 18:59 Intake Total 1650 Output Total 1200 Balance 450 - Medications Medications: Current Medications Aspirin (Aspirin Chewable) 81 mg PO DAILY [facility] Last Admin: 03/15/17 10:54 Dose: 81 mg Clopidogrel Bisulfate (Plavix) 75 mg PO DAILY [facility] Last Admin: 03/15/17 10:54 Dose: 75 mg Enoxaparin Sodium (Lovenox) 40 mg SC DAILY [facility] Last Admin: 03/15/17 10:52 Dose: 40 mg Famotidine (Pepcid) 20 mg PO BID [facility] Last Admin: 03/15/17 10:54 Dose: 20 mg Gabapentin (Neurontin) 800 mg PO TID [facility] Last Admin: 03/15/17 10:54 Dose: 800 mg Tigecycline 50 mg/ Sodium (Chloride) 100 mls @ 100 mls/hr IVPB Q12H [facility] Last Admin: 03/15/17 05:24 Dose: 100 mls/hr Insulin Human Isoph/Insulin Regular (Novolin 70/30 (70/30 Units/Ml) 10 Ml) 50 units SC BID [facility] Last Admin: 03/15/17 10:54 Dose: 50 units Insulin Human Regular (Novolin R) 0 unit SC ACHS [facility] PRN Reason: Protocol Last Admin: 03/15/17 07:46 Dose: Not Given Lisinopril (Zestril) 20 mg PO DAILY [facility] Last Admin: 03/15/17 10:54 Dose: 20 mg Oxycodone/Acetaminophen (Percocet 5/325 Mg Tab) 2 tab PO Q4H PRN PRN Reason: Pain, severe (8-10) Stop: 03/16/17 09:35 Last Admin: 03/15/17 10:52 Dose: 2 tab Rosuvastatin Calcium (Crestor) 10 mg PO HS [facility] Last Admin: 03/14/17 21:08 Dose: 10 mg - Labs Labs: 03/15/17 07:23 03/15/17 07:23 - Constitutional Appears: Non-toxic, No Acute Distress - Extremities Exam Additional comments: Wound vac functioning at 125mmHg continuous, slight leak in seal detected minimal serosanguinous drainage noted to canister pedal pulses present, no signs infection - Neurological Exam Neurological Exam: Alert, Awake, Oriented x3 - Psychiatric Exam Psychiatric exam: Normal Affect, Normal Mood Assessment and Plan - Assessment and Plan (Free Text) Assessment: 51 yo diabetic male patient 8 days s/p soft tissue debridement non-healing amputation site Plan: Pt S&E at bedside Plan discussed with Dr. Hawley Wound vac seal reinforced, good seal obtained, wound vac functioning normally Vac to be changed again Saturday 03/17 by podiatry New dressing applied with JAKI kerlix, please keep dressing c/d/i PWB to right heel with surgical shoe c/w IV abx as per Dr. Hu ([facility]) Awaiting auth for discharge to [facility] Stable, podiatry will follow
--- NOTE | 2017-03-15 13:23 | CP.PCM.PN ---
Subjective - Date & Time of Evaluation Date of Evaluation: 03/15/17 Time of Evaluation: 09:35 - Subjective Subjective: PGY2 medicine note for Dr. Bowen Patient seen and examined. Patient states he feels well, pain is well- controlled. Patient noted to walk in room with partial weight bearing to right foot. Patient pending insurance authorization to LTAC. Objective - Vital Signs/Intake and Output Vital Signs (last 24 hours): Temp Pulse Resp BP Pulse Ox 98 F 84 20 170/90 H 96 03/15/17 08:44 03/15/17 10:52 03/15/17 08:44 03/15/17 10:52 03/15/17 08:44 Intake and Output: 03/15/17 03/15/17 06:59 18:59 Intake Total 1650 Output Total 1200 Balance 450 - Medications Medications: Current Medications Aspirin (Aspirin Chewable) 81 mg PO DAILY [facility] Last Admin: 03/15/17 10:54 Dose: 81 mg Clopidogrel Bisulfate (Plavix) 75 mg PO DAILY [facility] Last Admin: 03/15/17 10:54 Dose: 75 mg Enoxaparin Sodium (Lovenox) 40 mg SC DAILY [facility] Last Admin: 03/15/17 10:52 Dose: 40 mg Famotidine (Pepcid) 20 mg PO BID [facility] Last Admin: 03/15/17 10:54 Dose: 20 mg Gabapentin (Neurontin) 800 mg PO TID [facility] Last Admin: 03/15/17 10:54 Dose: 800 mg Tigecycline 50 mg/ Sodium (Chloride) 100 mls @ 100 mls/hr IVPB Q12H [facility] Last Admin: 03/15/17 05:24 Dose: 100 mls/hr Insulin Human Isoph/Insulin Regular (Novolin 70/30 (70/30 Units/Ml) 10 Ml) 50 units SC BID [facility] Last Admin: 03/15/17 10:54 Dose: 50 units Insulin Human Regular (Novolin R) 0 unit SC ACHS [facility] PRN Reason: Protocol Last Admin: 03/15/17 07:46 Dose: Not Given Lisinopril (Zestril) 20 mg PO DAILY [facility] Last Admin: 03/15/17 10:54 Dose: 20 mg Oxycodone/Acetaminophen (Percocet 5/325 Mg Tab) 2 tab PO Q4H PRN PRN Reason: Pain, severe (8-10) Stop: 03/16/17 09:35 Last Admin: 03/15/17 10:52 Dose: 2 tab Rosuvastatin Calcium (Crestor) 10 mg PO HS [facility] Last Admin: 03/14/17 21:08 Dose: 10 mg - Labs Labs: 03/15/17 07:23 03/15/17 07:23 - Constitutional Appears: No Acute Distress - Head Exam Head Exam: ATRAUMATIC, NORMOCEPHALIC - Eye Exam Eye Exam: EOMI - ENT Exam ENT Exam: Mucous Membranes Moist - Respiratory Exam Respiratory Exam: Clear to Ausculation Bilateral, NORMAL BREATHING PATTERN - Cardiovascular Exam Cardiovascular Exam: +S1, +S2 - GI/Abdominal Exam GI & Abdominal Exam: Soft, Normal Bowel Sounds. absent: Tenderness - Extremities Exam Additional comments: right foot with wound vac on- good seal s/p left hallux amputation, right 4, 5th digit amputation - Neurological Exam Neurological Exam: Alert, Awake - Psychiatric Exam Psychiatric exam: Normal Affect - Skin Skin Exam: Dry, Warm Assessment and Plan - Assessment and Plan (Free Text) Assessment: S/p Right Foot Amputation of Digits 4,5 03/15: wound vac change q3days- next change 03/17. partial weight bearing to right foot 03/14: patient pending LTAC placement for IV antibiotics. Patient had wound vac change with podiatry. Patient will need wound vac change every 3 days 03/13: wound culture positive for multi drug resistant acinetobacter, sensitive to tygacil. Per Dr. Hu- patient will need IV antibiotics BID for 6weeks. PICC placed byt Dr. Villasenor. Podiatry to change wound vac tomorrow 03/14 03/12: Wound culture positive. Awaiting sensitivities. If +MDRO, patient may have chronic osteomyelitis despite negative xray. Per Dr. Hu, patient may need PICC line and 6 weeks of Tygacil 50mg IVPB Q12 pending these results. 03/11: Blood cultures negative x1day. Wound care nurse to change wound vac Q3D. f /u repeat wound culture. Zosyn 3.375 Gm Iv Premix) 3.375 gm in 50 mls @ 100 mls/hr IVPB Q6H [facility] Cipro 400mg/200ml Dsw) 400 mg in 200 mls @ 133 mls/hr IVPB Q12H [facility] Percocet 5/325 Mg Tab) 2 tab PO Q4H PRN OR cultures (Final)- Klebsiella pneumoniae ID consult, Dr. Hu, f/u recs Podiatry consult, Dr. Vásquez, f/u recs Diabetes Neurontin) 800 mg PO TID [facility] Novolin 70/30 (70/30 Units/Ml) 10 Ml) 50 units SC BID [facility] Novolin R) 0 unit SC ACHS [facility] HTN 03/15: will monitor BP on higher dose lisinopril 03/14: BP remains elevated, will increase lisinopril 03/13: BP elevated, patient also in pain- order for percocet fell off AUG, will re-order 03/12: BP persistently elevated. Increase Lisinopril to 10mg PO qd. 03/11: BP 159/89 (persistently elevated); start Lisinopril 5mg PO qd Hypercholesterolemia Aspirin (Aspirin Chewable) 81 mg PO DAILY [facility] Clopidogrel Bisulfate (Plavix) 75 mg PO DAILY [facility] Crestor) 10 mg PO HS [facility] Prophylaxis Lovenox) 40 mg SC DAILY [facility] Pepcid) 20 mg PO BID [facility] Disposition patient will need 6 weeks of Tygacil. Patient not accepted to [facility] due to cost of antibiotics. Pending insurance authorization for [facility] All medical management as per Dr. Bowen
--- NOTE | 2017-03-15 15:34 | CP.PCM.PN ---
Subjective - Date & Time of Evaluation Date of Evaluation: 03/15/17 Time of Evaluation: 09:00 - Subjective Subjective: AFEBRIEL AWAKE ALERT VAC IN PLACE NO FOUL SMELL Objective - Vital Signs/Intake and Output Vital Signs (last 24 hours): Temp Pulse Resp BP Pulse Ox 98 F 84 20 170/90 H 96 03/15/17 08:44 03/15/17 10:52 03/15/17 08:44 03/15/17 10:52 03/15/17 08:44 Intake and Output: 03/15/17 03/15/17 06:59 18:59 Intake Total 1650 Output Total 1200 Balance 450 - Medications Medications: Current Medications Aspirin (Aspirin Chewable) 81 mg PO DAILY [facility] Last Admin: 03/15/17 10:54 Dose: 81 mg Clopidogrel Bisulfate (Plavix) 75 mg PO DAILY [facility] Last Admin: 03/15/17 10:54 Dose: 75 mg Enoxaparin Sodium (Lovenox) 40 mg SC DAILY [facility] Last Admin: 03/15/17 10:52 Dose: 40 mg Famotidine (Pepcid) 20 mg PO BID [facility] Last Admin: 03/15/17 10:54 Dose: 20 mg Gabapentin (Neurontin) 800 mg PO TID [facility] Last Admin: 03/15/17 14:42 Dose: 800 mg Tigecycline 50 mg/ Sodium (Chloride) 100 mls @ 100 mls/hr IVPB Q12H [facility] Last Admin: 03/15/17 05:24 Dose: 100 mls/hr Insulin Human Isoph/Insulin Regular (Novolin 70/30 (70/30 Units/Ml) 10 Ml) 50 units SC BID [facility] Last Admin: 03/15/17 10:54 Dose: 50 units Insulin Human Regular (Novolin R) 0 unit SC ACHS [facility] PRN Reason: Protocol Last Admin: 03/15/17 07:46 Dose: Not Given Lisinopril (Zestril) 20 mg PO DAILY [facility] Last Admin: 03/15/17 10:54 Dose: 20 mg Oxycodone/Acetaminophen (Percocet 5/325 Mg Tab) 2 tab PO Q4H PRN PRN Reason: Pain, severe (8-10) Stop: 03/16/17 09:35 Last Admin: 03/15/17 10:52 Dose: 2 tab Rosuvastatin Calcium (Crestor) 10 mg PO [facility] Last Admin: 03/14/17 21:08 Dose: 10 mg - Labs Labs: 03/15/17 07:23 03/15/17 07:23 - Constitutional Appears: Non-toxic, Chronically Ill - Head Exam Head Exam: NORMOCEPHALIC - Eye Exam Eye Exam: PERRL. absent: Scleral icterus Pupil Exam: NORMAL ACCOMODATION, PERRL - ENT Exam ENT Exam: Mucous Membranes Dry - Neck Exam Neck Exam: absent: Lymphadenopathy - Respiratory Exam Respiratory Exam: Decreased Breath Sounds, Clear to Ausculation Bilateral - Cardiovascular Exam Cardiovascular Exam: REGULAR RHYTHM, +S1, +S2 - GI/Abdominal Exam GI & Abdominal Exam: Distended, Soft - Rectal Exam Rectal Exam: Deferred - Exam Exam: NORMAL INSPECTION - Extremities Exam Extremities Exam: Pedal Edema, Tenderness - Back Exam Back Exam: absent: CVA tenderness (L), CVA tenderness (R) Assessment and Plan - Assessment and Plan (Free Text) Plan: CONT TYGACIL 6 WEEKS FOR OM
[2017-03-15 16:20] VITALS: BP 117/94; PULSE 78; TEMP 97.5; O2SAT 98
--- NOTE | 2017-03-22 09:06 | DS ---
The patient is admitted to hospital with chief complaint of diabetic foot ulcer. The patient given antibiotics, supportive care, wound care. The patient discharged to follow up as an outpatient for diabetic foot. Juma Bowen MD
== END 2017-03-15 22:00 | DRG 565 ==
LOC: C.ER 10:05 → C.9E 10:51 → C.3T 15:46 → C.5S 03-10 20:03
PROVIDERS: ADMIT Internal Medicine Pulmonary Disease; ATTEND Internal Medicine Pulmonary Disease
PROC: 02HV33Z Insertion of Infusion Device into Superior Vena Cava, Percutaneous Approach (ICD-10-PCS; principal; 2017-03-13)
DX: T87.43 Infection of amputation stump, right lower extremity (principal); T81.4XXA Infection following a procedure, initial encounter; E11.621 Type 2 diabetes mellitus with foot ulcer; Z16.24 Resistance to multiple antibiotics; Z95.5 Presence of coronary angioplasty implant and graft; Y83.5 Amputation of limb(s) as the cause of abnormal reaction of the patient, or of later complication, without mention of misadventure at the time of the procedure; I70.291 Other atherosclerosis of native arteries of extremities, right leg; E78.00 Pure hypercholesterolemia, unspecified; B96.1 Klebsiella pneumoniae [K. pneumoniae] as the cause of diseases classified elsewhere; Z79.4 Long term (current) use of insulin